=== PATIENT | male | born 1950 | race Two or more races ===

== ENCOUNTER 2020-09-22 15:24 | Emergency (ER) | payer OTHER, SELFPAY ==
--- NOTE | ~2020-09-22 | XR_ITS ---
EXAMINATION: XR CHEST CLINICAL INFORMATION: Shortness of breath COMPARISON: September 13, 2017 TECHNIQUE: AP portable view of the chest was obtained. FINDINGS: There is bilateral chronic apical pleural-parenchymal scarring. There is chronic interstitial lung disease present bilaterally. No definite acute parenchymal disease identified. No pneumothorax or pleural effusion. Heart normal size. No evidence of pulmonary edema. Multiple old right-sided rib fractures evident. XR/XR chest 1V IMPRESSION: Chronic interstitial lung disease without acute confluent disease identified.
[2020-09-22 15:32] VITALS: BP 125/61; PULSE 88; RESP 18; TEMP 36.6; O2SAT 95; O2SAT 97; BMI 23.8
--- NOTE | 2020-09-22 15:54 | ED_ITS ---
HPI - General Adult General Chief complaint: General Medical Stated complaint: pt needs home oxygen Time Seen by Provider: 09/22/20 15:54 Source: patient Mode of arrival: EMS Limitations: language barrier History of Present Illness HPI narrative: 70 y/o male with history of COVID-19 in March 2020 with history of ?empyema s/p chest tube and possible VATS?, s/p tracheostomy now decannulated, chronic hypoxic respiratory failure on 2L NC who presents to the ER via EMS with reports of SOB since yesterday. He is here from [place] visiting his son until October 08. He states yesterday his small oxygen machine broke and since then he has been SOB. He called 911 today to come to the hospital for evaluation. SpO2 97% for EMS on arrival. He reports ESCALONA and SOB since yesterday. He denies fevers but admits to chills. No cough, no phlegm. No N/V/D or abdominal pain. MD complaint: SOB Onset (ago): day(s) Location: chest Radiation: non-radiation Severity: moderate Pain Consistency: intermittent Relieving factors: rest Exacerbating factors: movement Associated symptoms: shortness of breath Treatments prior to arrival: none Related Data Allergies Allergy/AdvReac Type Severity Reaction Status Date / Time No Known Allergies [NKA] Allergy Unverified 09/21/20 11:14 Review of Systems Review of Systems: Constitutional: No Fever, No Chills Eyes: No Eye Pain, No Swelling, No Redness Cardiovascular: No Chest Pain, + SOB, No Orthopnea, No Edema Respiratory: No Cough, No Sputum, No Wheezing, + dyspnea Gastrointestinal: No Nausea, No Vomiting, No Diarrhea, No abdominal Pain Musculoskeletal: No joint pain, No Myalgias Skin: No Skin Lesions, No rash Neuro: No Weakness, No Numbness, No Dizziness, No Headache Psych: + Anxiety/Panic PMFSH Social History Social History (System 09/21/20 @ 11:14 by Ania Vazquez) Advance Directives: No Advance Directives Information Provided: No Physical Exam Vital Signs: Vital Signs: Last Vital Signs Temp 97.9 F 09/22/20 15:32 Pulse 88 09/22/20 15:32 Resp 18 09/22/20 15:32 BP 125/61 09/22/20 15:32 Pulse Ox 95 09/22/20 15:32 Body Mass Index 23.8 Appearance: Alert. Oriented X3. No acute distress. Eyes: Pupils equal, round and reactive to light. ENT: Pharynx normal. Neck: Normal inspection. Neck supple. CVS: Normal heart rate and rhythm. Pulses normal. Respiratory: Mild respiratory distress, dyspneic when speaking, speaks very loudly. Breath sounds normal, no distress when not speaking Abdomen: Soft and nontender. +BS x4 Skin: Skin warm and dry. Normal skin color. Normal skin turgor. No rashes. Extremities: No lower extremity edema. Neuro: Oriented X 3. No motor deficit. No sensory deficit. Course Course Course Narrative: 70 y/o male presenting with SOB in the setting of his home oxygen breaking. No hypoxia. Will get CXR and EKG. Son called to bring tank in for evaluation. Spoke with Weight Reduction Specialist who is going to reach out to company in [place] who provided the DME. RT is aware of patient as well. No wheezing on examination, not in COPD Exacerbation. Reevaluation(s) Reevaluation #1: RT, CM and public health analyst at the bedside - patient has a oxygen concentration that is breath initiated. He was instructed on proper use and it was infact functioning properly. He is wearing the device now and SpO2 98%. He feels better. CXR complete. Reevaluation #2: CXR with ILD findings, no acute infiltrate. EKG without ST elevations - no chest pain. O2 machine is functioning now and patient feels much better. He is stable for discharge home. Patient and his son have been educated on the use of his concentrator. Stable for d/c. Critical Care Time Critical Care Time Critical Care Time: No Discharge Plan Discharge Clinical Impression: Shortness of breath Patient Disposition: Home, Self-Care Instructions: Using Oxygen at Home (ED) Additional Instructions: Use your oxygen concentrator as directed. It works when you take in breaths, that is when it provides oxygen. If you become short of breath or develop chest pain, call 911 or come back to the ER for further evaluation.
--- NOTE | 2020-09-22 15:55 | ECG_ITS ---
Test Reason : DYSPNEA Blood Pressure : / mmHG Vent. Rate : 077 BPM Atrial Rate : 077 BPM P-R Int : 140 ms QRS Dur : 142 ms QT Int : 414 ms P-R-T Axes : 067 086 059 degrees QTc Int : 468 ms Normal sinus rhythm Right bundle branch block Abnormal ECG When compared with ECG of 10-MAR-2007 12:16, Right bundle branch block is now Present Referred By: Shweta Morin Electronically Signed By:IVA SHOOK
--- NOTE | 2020-09-22 16:26 | MHC.CM.ED ---
CM met with son and patient at request of Shweta Mayfield. Pt is visiting from [place] and came to the ED because his portable O2 was not working. Son states when you turn on the machine, no oxygen flows from it. CM called [employer] [facility] in [place] which services the machine- [employer]([id number]) -portable oxygen concentrator, and spoke to artist's representative who told me the oxygen concentrator is only triggered when the pt takes a breath through his nose. It is breath attenuated. This is a common problem for patients who are on a continuous concentrator at home, as they are used to a steady flow of oxygen, RT was present for the call and understands the process. CM, RT and news commentator met with pt and his son and explained just how the machine works. Place nasal cannula on pt and instructed pt to breath through his nose. Concentration is working properly now.This was explained to pt and his son via an news commentator. CM following for d/c needs.
--- NOTE | 2020-09-22 17:19 | MHC.CM.ED ---
Pt called CM to his room and said his machine had an alarm. CM noted the alarm to read replace Columns . CM again called [employer] [facility], who assured me that the concentrator can work effectively for 2-4 weeks once that replace columns alert comes on. Pt tells CM that alarm came on last night, 09/21. Company stated when pt returns to [place] on 10/08, he needs to bring his machine to the company for repair. Explained all this to patient and son via contact center associate. They both acknowledge understanding. Pt d/c home with son.
== END 2020-09-22 16:56 | disposition home or self-care (01) ==
PROVIDERS: Emergency Provider Emergency Medicine
DX: R06.02 Shortness of breath (principal); Z99.81 Dependence on supplemental oxygen; Z79.899 Other long term (current) drug therapy
CPT/HCPCS: 71045; 93005; 99283

== ENCOUNTER 2022-10-23 21:54 | Emergency (ER) | payer OTHER, SELFPAY ==
--- NOTE | ~2022-10-23 | XR_ITS ---
EXAMINATION: PORTABLE CHEST 1 VIEW CLINICAL INFORMATION: sob cough. COMPARISON: No recent pertinent prior studies are available for comparison. TECHNIQUE: Portable frontal view of the chest was obtained. FINDINGS: Lungs well-expanded. Coarse reticular markings are seen with patchy airspace disease bilaterally left more than right. Although this could be chronic in nature, superimposed acute on chronic infectious etiology could have a similar appearance and should be clinically correlated. If no prior films are available for comparison, consider short interval follow-up chest x-ray. No significant effusion, overt edema, or pneumothorax. Cardiac and mediastinal silhouettes within normal limits for size. No acute bony abnormality. XR/XR chest 1V IMPRESSION: Although there are chronic appearing changes present, there is patchy airspace disease bilaterally left more than right. Acute on chronic infectious etiology could have a similar appearance and should be clinically correlated. If no prior films are available, consider short interval follow-up chest x-ray.
[2022-10-23 22:00] VITALS: BP 147/66; BP 150/88; PULSE 86; PULSE 87; RESP 20; TEMP 38.1; O2SAT 95; O2SAT 96; BMI 25.8
[2022-10-23 22:14] VITALS: BP 154/69; PULSE 83; RESP 15; TEMP 38.1; O2SAT 14
--- NOTE | 2022-10-23 22:14 | ED.CHESTPAIN ---
HPI - Chest Pain General Chief Complaint: Chest Pain Stated Complaint: sob Time Seen by Provider: 10/23/22 22:11 Source: patient Mode of arrival: EMS Limitations: no limitations History of Present Illness HPI narrative: Patient with history of COPD still a smoker lives in [facility] 3 days ago complaining of cough with mucopurulent with chest pain while coughing had low-grade fever 100.5 degrees with chills will have a chronic history of frequent bronchitis. Chest pain is while coughing no additional pain no diaphoresis no other family member sick Related Data Previous Rx's Medication Instructions Recorded cefuroxime axetil 500 mg tablet 500 mg PO BID #20 tabs 10/24/22 codeine 10 mg-guaifenesin 100 mg/5 10 ml PO Q6H PRN cough #237 mL 10/24/22 mL oral liquid dexamethasone 6 mg tablet 6 mg PO DAILY 6 days #6 tabs 10/24/22 doxycycline hyclate 100 mg tablet 100 mg PO BID #20 tabs 10/24/22 Allergies Allergy/AdvReac Type Severity Reaction Status Date / Time No Known Allergies Allergy Verified 10/23/22 22:15 Review of Systems Review of Systems: Yes all other systems are reviewed and are negative [facility] Past Medical History Medical History Bronchitis COPD (chronic obstructive pulmonary disease) Diabetes mellitus, type 2 Pneumonia Social History Social History Alcohol intake: never Smoked in Last 30 Days: No Use of substances other than those prescribed or required for medical reasons: No Advance Directives: No Advance Directives Information Provided: No Physical Exam Vital Signs: Vital Signs: Last Vital Signs Temp 99.6 F 10/24/22 00:40 Pulse 79 10/24/22 02:00 Resp 18 10/24/22 02:00 BP 122/72 10/24/22 02:00 Pulse Ox 94 10/24/22 02:00 O2 Del Method Room Air 10/24/22 00:40 O2 Flow Rate 4 10/23/22 23:12 BMI result Body Mass Index 25.8 Appearance: Alert. Oriented X3. No acute distress. ENT: Pharynx normal. Oral Mucosa moist Neck: Normal inspection. Neck supple. CVS: Normal heart rate and rhythm. Pulses normal. Respiratory: No respiratory distress. Equal air entry bilateral, bilateral wheezing with occasional crackle Abdomen: Soft and nontender. Bowel sounds are present, no mass palpable, no CVA tenderness Skin: Skin warm and dry. Normal skin color. Normal skin turgor. Extremities: No lower extremity edema. No calf tenderness Neuro: Oriented X 3. No motor deficit. Medications Administered Discontinued Medications Generic Name Dose Route Start Last Admin Trade Name Ramiroq PRN Reason Stop Dose Admin Acetaminophen 650 mg 10/23/22 22:16 10/23/22 23:40 Acetaminophen 325 Mg Tablet PO 10/23/22 22:17 650 mg ONCE ONE Administration Dexamethasone Sodium Phosphate 10 mg 10/24/22 01:56 10/24/22 02:07 Dexamethasone Sod Phosphate 10 Mg/Ml Vial IVPUSH 10/24/22 01:57 10 mg ONCE ONE Administration Ceftriaxone Sodium 1 gm/ 50 mls @ 100 mls/hr 10/23/22 22:16 10/24/22 00:50 Sodium Chloride IV 10/23/22 22:45 Infused ONCE ONE Infusion Medical Decision Making Medical Decision Making [facility] Narrative: Patient with COPD came for ring cough low-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 Saturating 94% on room air. Discharge patient home on Decadron antibiotics and cough syrup advised to continue his nebulizing machine Lab Data [facility] Lab Attestation statement: I reviewed the patient's lab results. 10/23/22 22:44 10/23/22 22:46 Labs: Lab Results 10/23/22 10/23/22 10/23/22 Range/Units 22:44 22:45 22:45 WBC 9.8 (4.8-10.8) X10*3/uL RBC 5.29 (4.60-5.80) X10*6/uL Hgb 15.7 (14.0-18.0) g/dl Hct 46.5 (42.0-52.0) % MCV 87.9 (80.0-98.0) fL MCH 29.7 (27.0-33.0) pg MCHC 33.8 (31.0-36.0) g/dl RDW 14.8 (11.0-16.0) % Plt Count 101 L (160-400) X10*3/uL MPV 10.5 (9.4-12.4) fL Immature Gran % (Auto) 0.4 (0.0-0.4) % Neut % (Auto) 76.8 H (45-73) % Lymph % (Auto) 10.9 L (20-40) % [place] % (Auto) 11.6 H (2-11) % Eos % (Auto) 0.1 (0-4) % Baso % (Auto) 0.2 (0-2) % Lymph # (Auto) 1.1 L (1.2-4.9) X10*3/uL [place] # (Auto) 1.1 (0.1-1.2) X10*3/uL Eos # (Auto) 0.0 (0.0-0.4) X10*3/uL Baso # (Auto) 0.0 (0.0-0.2) X10*3/uL Abs Immat Gran (auto) 0.04 H (0.00-0.03) X10*3/uL Absolute Neuts (auto) 7.5 (2.0-8.3) x10*3/uL Absolute Nucleated RBC 0.000 (0.0-0.012) X10*3/uL Nucleated RBC % (auto) 0.0 (0.0-0.2) /100WBC PT 13.8 H (10.0-13.1) SEC INR 1.2 H (0.9-1.1) Sodium (135-145) mmol/L Potassium (3.3-5.1) mmol/L Chloride (96-108) mmol/L Carbon Dioxide (22-29) mmol/L Anion Gap (12-20) BUN (9-16) mg/dL Creatinine (0.5-1.4) mg/dL Estim Creat Clear Calc Estimated GFR Random Glucose (60-115) mg/dL Lactic Acid (0.5-2.0) mmol/L Calcium (8.4-10.2) mg/dL Total Bilirubin (0.0-1.0) mg/dL AST (5-37) U/L ALT (0-40) U/L Alkaline Phosphatase (39-117) U/L Troponin I High Sens 4.4 (<3.5-35.0) ng/L B-Natriuretic Peptide (<100) pg/mL Total Protein (6.5-8.0) g/dL Albumin (3.5-5.0) g/dL COVID-19 (KAY) (Negative) COVID-19 Clin Com 10/23/22 10/23/22 10/23/22 Range/Units 22:46 22:46 22:46 WBC (4.8-10.8) X10*3/uL RBC (4.60-5.80) X10*6/uL Hgb (14.0-18.0) g/dl Hct (42.0-52.0) % MCV (80.0-98.0) fL MCH (27.0-33.0) pg MCHC (31.0-36.0) g/dl RDW (11.0-16.0) % Plt Count (160-400) X10*3/uL MPV (9.4-12.4) fL Immature Gran % (Auto) (0.0-0.4) % Neut % (Auto) (45-73) % Lymph % (Auto) (20-40) % [place] % (Auto) (2-11) % Eos % (Auto) (0-4) % Baso % (Auto) (0-2) % Lymph # (Auto) (1.2-4.9) X10*3/uL [place] # (Auto) (0.1-1.2) X10*3/uL Eos # (Auto) (0.0-0.4) X10*3/uL Baso # (Auto) (0.0-0.2) X10*3/uL Abs Immat Gran (auto) (0.00-0.03) X10*3/uL Absolute Neuts (auto) (2.0-8.3) x10*3/uL Absolute Nucleated RBC (0.0-0.012) X10*3/uL Nucleated RBC % (auto) (0.0-0.2) /100WBC PT (10.0-13.1) SEC INR (0.9-1.1) Sodium 138 (135-145) mmol/L Potassium 3.4 (3.3-5.1) mmol/L Chloride 104 (96-108) mmol/L Carbon Dioxide 25 (22-29) mmol/L Anion Gap 12 (12-20) BUN 11 (9-16) mg/dL Creatinine 0.89 (0.5-1.4) mg/dL Estim Creat Clear Calc 68.6 Estimated GFR > 60 Random Glucose 156 H (60-115) mg/dL Lactic Acid (0.5-2.0) mmol/L Calcium 8.9 (8.4-10.2) mg/dL Total Bilirubin 1.2 H (0.0-1.0) mg/dL AST 38 H (5-37) U/L ALT 48 H (0-40) U/L Alkaline Phosphatase 79 (39-117) U/L Troponin I High Sens (<3.5-35.0) ng/L B-Natriuretic Peptide 62 (<100) pg/mL Total Protein 7.7 (6.5-8.0) g/dL Albumin 4.0 (3.5-5.0) g/dL COVID-19 (KAY) Positive A (Negative) COVID-19 Clin Com See Note 10/23/22 10/24/22 Range/Units 23:05 00:56 WBC (4.8-10.8) X10*3/uL RBC (4.60-5.80) X10*6/uL Hgb (14.0-18.0) g/dl Hct (42.0-52.0) % MCV (80.0-98.0) fL MCH (27.0-33.0) pg MCHC (31.0-36.0) g/dl RDW (11.0-16.0) % Plt Count (160-400) X10*3/uL MPV (9.4-12.4) fL Immature Gran % (Auto) (0.0-0.4) % Neut % (Auto) (45-73) % Lymph % (Auto) (20-40) % [place] % (Auto) (2-11) % Eos % (Auto) (0-4) % Baso % (Auto) (0-2) % Lymph # (Auto) (1.2-4.9) X10*3/uL [place] # (Auto) (0.1-1.2) X10*3/uL Eos # (Auto) (0.0-0.4) X10*3/uL Baso # (Auto) (0.0-0.2) X10*3/uL Abs Immat Gran (auto) (0.00-0.03) X10*3/uL Absolute Neuts (auto) (2.0-8.3) x10*3/uL Absolute Nucleated RBC (0.0-0.012) X10*3/uL Nucleated RBC % (auto) (0.0-0.2) /100WBC PT (10.0-13.1) SEC INR (0.9-1.1) Sodium (135-145) mmol/L Potassium (3.3-5.1) mmol/L Chloride (96-108) mmol/L Carbon Dioxide (22-29) mmol/L Anion Gap (12-20) BUN (9-16) mg/dL Creatinine (0.5-1.4) mg/dL Estim Creat Clear Calc Estimated GFR Random Glucose (60-115) mg/dL Lactic Acid 2.6 H* 1.5 (0.5-2.0) mmol/L Calcium (8.4-10.2) mg/dL Total Bilirubin (0.0-1.0) mg/dL AST (5-37) U/L ALT (0-40) U/L Alkaline Phosphatase (39-117) U/L Troponin I High Sens (<3.5-35.0) ng/L B-Natriuretic Peptide (<100) pg/mL Total Protein (6.5-8.0) g/dL Albumin (3.5-5.0) g/dL COVID-19 (KAY) (Negative) COVID-19 Clin Com Discharge Plan Discharge Clinical Impression: COVID-19, Acute bronchitis Patient Disposition: Home, Self-Care Instructions: Chronic Bronchitis (ED), COVID-19 (Coronavirus Disease 2019) (ED) Additional Instructions: Continue to use your inhaler 2 puffs every 4-6 hours as needed Social distancing has advised Decadron and cough drops as prescribed Antibiotic as prescribed Follow your PCP if not better or report to the ER if increased shortness of breath Prescriptions: New dexamethasone 6 mg tablet 6 mg PO DAILY 6 Days Qty: 6 0RF codeine-guaifenesin 10-100 mg/5 mL liquid 10 ml PO Q6H PRN (Reason: cough) Qty: 237 0RF cefuroxime axetil 500 mg tablet 500 mg PO BID Qty: 20 0RF doxycycline hyclate 100 mg tablet 100 mg PO BID Qty: 20 0RF
[2022-10-23 22:37] VITALS: PULSE 84; RESP 24; O2SAT 94
[2022-10-23 22:51] LABS: MANUAL DIFF FLAG NO
[2022-10-23 22:58] LABS: Basophils Percent Auto 0.2 % (0-2); Eosinophils Percent Auto 0.1 % (0-4); Hematocrit 46.5 % (42.0-52.0); Hemoglobin 15.7 g/dl (14.0-18.0); Imm Gran Abs Auto 0.04 X10*3/uL (0.00-0.03); Imm Gran Pct Auto 0.4 % (0.0-0.4); Lymphocytes Absolute Auto 1.1 X10*3/uL (1.2-4.9); Lymphocytes Percent Auto 10.9 % (20-40); Mean Corpuscular HGB Conc 33.8 g/dl (31.0-36.0); Mean Corpuscular Hemoglobin 29.7 pg (27.0-33.0); Mean Corpuscular Volume 87.9 fL (80.0-98.0); Mean Platelet Volume 10.5 fL (9.4-12.4); Monocytes Absolute Auto 1.1 X10*3/uL (0.1-1.2); Monocytes Percent Auto 11.6 % (2-11); Neutrophils Absolute Auto 7.5 x10*3/uL (2.0-8.3); Neutrophils Percent Auto 76.8 % (45-73); Platelet Count 101 X10*3/uL (160-400); Red Blood Count 5.29 X10*6/uL (4.60-5.80); Red Cell Distribution Width 14.8 % (11.0-16.0); White Blood Count 9.8 X10*3/uL (4.8-10.8)
[2022-10-23 23:00] LABS: INTERNATIONAL NORM RATIO 1.2 (0.9-1.1); Prothrombin Time 13.8 SEC (10.0-13.1)
[2022-10-23 23:11] LABS: COVID-19 Test Positive (Negative); IDNOW Serial# BCCEAD1C
[2022-10-23 23:12] VITALS: BP 167/66; PULSE 88; RESP 25; TEMP 38.7; O2SAT 92
[2022-10-23 23:14] LABS: Alanine Aminotransferase 48 U/L (0-40); Alkaline Phosphatase 79 U/L (39-117); Anion Gap 12 (12-20); Aspartate Amino Transferase 38 U/L (5-37); Bilirubin Total 1.2 mg/dL (0.0-1.0); Blood Urea Nitrogen 11 mg/dL (9-16); Calcium 8.9 mg/dL (8.4-10.2); Carbon Dioxide 25 mmol/L (22-29); Chloride 104 mmol/L (96-108); Creatinine Clr Calc Pharmacy 68.6; Estimated Glomerular Filt Rate > 60; Glucose Random 156 mg/dL (60-115); Potassium 3.4 mmol/L (3.3-5.1); Sodium 138 mmol/L (135-145); Total Protein 7.7 g/dL (6.5-8.0)
[2022-10-23 23:20] LABS: B Type Natriuretic Peptide 62 pg/mL (<100)
[2022-10-23 23:20] LABS: Troponin-I High Sensitivity 4.4 ng/L (<3.5-35.0)
[2022-10-23] MEDS: cefTRIAXone sodium 1 GM in 0.9 % Sodium Chloride 50 ML IV (23:39)
[2022-10-23 23:40] LABS: Lactic Acid 2.6 mmol/L (0.5-2.0)
[2022-10-23] MEDS: Acetaminophen 325 MG TABLET 650 MG PO (23:40)
--- OUTSIDE RECORDS SUMMARY | 2022-10-24 00:08 | XMS_ITS ---
Care Plan - [facility] Created on: October 24, 2022 oCsta Jnoes : 1950 Sex: Male Author Name Unknown Address [address] [place] [phone] Phone Organization [facility] Address [address], [place] [phone] Phone Care Team Providers Care Speech Pathologist Name Role Phone Rin HIRSCH, Irma Whipple Unavailable [phone]
--- OUTSIDE RECORDS SUMMARY | 2022-10-24 00:08 | XMS_ITS | Clinical Summary ---
Author Name Unknown Address [address], [place] [id number] Phone Organization [facility] Address [address], [place] [phone] Phone Care Team Providers Care Broke Worker Name Role Phone Americo Gar MDah Sole Unavailable [phone] Reason for Visit and Chief Complaint [Patient Encounter] Plan of Treatment No Plan of Treatment Recorded Assessments Includes: Assessments from this encounter No Assessments Recorded Medical Equipment - Implanted Devices Includes: Current Devices No Medical Equipment Recorded Medications Administered Includes: Administered Medications from this encounter No Administered Medications Recorded Results Includes: Results discussed during this encounter No Results Recorded For Specified Dates History of Present Illness Includes: History of Present Illness from this encounter No History of Present Illness Recorded Social History No Social History Recorded - Smoking Status Unknown Medical History Includes: Medical History addressed during this encounter No Medical History Recorded Family History Includes: Family History addressed during this encounter No Family History Recorded Review of Systems Includes: Review of Systems from this encounter No Review of Systems Recorded Mental Status Includes: Mental Status from this encounter No Mental Status Recorded Functional Status Includes: Functional Status from this encounter No Functional Status Recorded Physical Exam Includes: Physical Exam from this encounter No Physical Exam Recorded Encounters Encounter Provider Location Date Check-In Time Check- Out Time Diagnosis [Patient Encounter] Colin Ferreira MD [facility] 1 12:00AM 11:59PM Insurance Includes: Active Insurance Policies Plan Name Member ID Group # Subscriber Relationship Effect stacy Dates 1 - [employer] [id number] Costa Waters Self Clinical Notes Includes: Clinical Notes from this encounter No Clinical Notes Recorded
--- OUTSIDE RECORDS SUMMARY | 2022-10-24 00:08 | XMS_ITS | Clinical Summary ---
Author Name Unknown Address [address], [place] [phone] Phone Organization [facility] Address [address], [place] [phone] Phone Care Team Providers Care Claims Associate Name Role Phone Americo Gar MDah Sole Unavailable [phone] Reason for Visit and Chief Complaint [Patient [...] Time Diagnosis [Patient Encounter] Colin Ferreira MD [facility] 12:00AM 11:59PM Insurance Includes: Active Insurance Policies Plan Name Member ID Group # Subscriber Relationship Effect stacy Dates 1 - [employer] [id number] Costa Waters Self Clinical Notes Includes: Clinical Notes from this encounter No Clinical Notes Recorded
--- OUTSIDE RECORDS SUMMARY | 2022-10-24 00:08 | XMS_ITS | Clinical Summary ---
Author Name Unknown Address [address], [place] [phone] Phone Organization [facility] Address [address], [place] [phone] Phone Care Team Providers Care Education Faculty Member Name Role Phone Americo Gar MDah Sole Unavailable [phone] Reason for Visit and Chief Complaint [Patient [...] Time Diagnosis [Patient Encounter] Colin Ferreira MD [facility] 12:00AM 11:59PM Insurance Includes: Active Insurance Policies Plan Name Member ID Group # Subscriber Relationship Effect stacy Dates 1 - [employer] [id number] Costa Waters Self Clinical Notes Includes: Clinical Notes from this encounter No Clinical Notes Recorded
--- OUTSIDE RECORDS SUMMARY | 2022-10-24 00:08 | XMS_ITS ---
Author Name Unknown Address [address], [place] [phone] Phone Organization [facility] Address [address], [place] [phone] Phone Care Team Providers Care Help Desk Support Specialist Name Role Phone Rin HIRSCH, Iram Whipple Unavailable [phone] Plan of Treatment No Plan of Treatment Recorded Assessments Includes: Assessments for all patient encounters No Assessments Recorded Medical Equipment - Implanted Devices Includes: Current and historical Devices No Medical Equipment Recorded Medications Administered Includes: Administered Medications in patient's chart No Administered Medications Recorded Results Includes: Results from 10/24/2021 through 10/24/2022 No Results Recorded For Specified Dates History of Present Illness History of Present Illness not supported for this document type No History of Present Illness Recorded Social History No Social History Recorded - Smoking Status Unknown Medical History Includes: Medical History in patient's chart No Medical History Recorded Family History Includes: Family History in patient's chart No Family History Recorded Review of Systems Review of Systems not supported for this document type No Review of Systems Recorded Mental Status No Mental Status Recorded Functional Status No Functional Status Recorded Physical Exam Physical Exam not supported for this document type No Physical Exam Recorded Insurance Includes: Active Insurance Policies Plan Name Member ID Group # Subscriber Relationship Effect stacy Dates 1 - [employer] [id number] Costa Waters Self Clinical Notes Includes: Signed Clinical Notes starting from 04/27/2022 No Clinical Notes Recorded
--- OUTSIDE RECORDS SUMMARY | 2022-10-24 00:08 | XMS_ITS | Clinical Summary ---
Author Name Unknown Address [address] [place], [place] [phone] Phone Organization [facility] Address [address], [place] [phone] Phone Care Team Providers Care Civil Geotechnical Engineer Name Role Phone Americo Gar MDah Sole Unavailable [phone] Reason for Visit and Chief Complaint [Patient [...] Time Diagnosis [Patient Encounter] Colin Ferreira MD [facility] 1 12:00AM 11:59PM Insurance Includes: Active Insurance Policies Plan Name Member ID Group # Subscriber Relationship Effect stacy Dates 1 - [employer] [id number] Costa Waters Self Clinical Notes Includes: Clinical Notes from this encounter No Clinical Notes Recorded
--- OUTSIDE RECORDS SUMMARY | 2022-10-24 00:08 | XMS_ITS | Clinical Summary ---
Author Name Unknown Address [address] [place], [place] [phone] Phone Organization [facility] Address [address], [place] [phone] Phone Care Team Providers Care Video Library Assistant Name Role Phone Americo Gar MDah Sole Unavailable [phone] Reason for Visit and Chief Complaint [Patient [...] Time Diagnosis [Patient Encounter] Colin Ferreira MD [facility] 12:00AM 11:59PM Insurance Includes: Active Insurance Policies Plan Name Member ID Group # Subscriber Relationship Effect stacy Dates 1 - [employer] [id number] Costa Waters Self Clinical Notes Includes: Clinical Notes from this encounter No Clinical Notes Recorded
[2022-10-24 00:40] VITALS: BP 113/69; PULSE 91; RESP 20; TEMP 37.6; O2SAT 93
[2022-10-24 01:11] LABS: Lactic Acid 1.5 mmol/L (0.5-2.0)
[2022-10-24 01:11] LABS: Reflex Lactate? Lactic Acid Added
[2022-10-24 02:00] VITALS: BP 122/72; PULSE 79; RESP 18; O2SAT 94
[2022-10-24] MEDS: dexAMETHasone sod phosphate 10 MG/ML VIAL IVPUSH (02:07)
--- NOTE | 2022-10-24 02:12 | PC.NURSE ---
Son called in preparation for discharge.
== END 2022-10-24 02:47 | disposition home or self-care (01) ==
PROVIDERS: Emergency Provider Internal Medicine
DX: U07.1 COVID-19 (principal); J20.9 Acute bronchitis, unspecified; J44.9 Chronic obstructive pulmonary disease, unspecified; R50.9 Fever, unspecified; E11.9 Type 2 diabetes mellitus without complications; F17.210 Nicotine dependence, cigarettes, uncomplicated; Z79.899 Other long term (current) drug therapy
CPT/HCPCS: 36415; 71045; 80053; 83605; 83880; 84484; 85025; 85610; 87040; 87635; 94640; 96365; 96375; 99284; 99285; J0696; J1100

== ENCOUNTER 2023-06-23 14:50 | Emergency (ER) | payer OTHER, SELFPAY ==
[2023-06-23 14:54] VITALS: BP 139/67; PULSE 87; RESP 20; TEMP 36.6; O2SAT 94; BMI 25.8
--- NOTE | 2023-06-23 14:59 | PC.NURSE ---
Pt reently moved, unable to secure new PCM. Out of the following meds - pt states COPD is not well controlled. Requesting refill of the following meds: Latanoprost; Metformin; Paroxetine; Prednisone; Albuterol; Quetapine; Oxycodone
--- NOTE | 2023-06-23 15:59 | ED.GENADULT ---
HPI - General Adult General Chief complaint: General Medical Stated complaint: COPD- out of meds Time Seen by Provider: 06/23/23 15:14 Source: patient, family (granddaughter) and automotive parts interpreter (English) Mode of arrival: ambulatory Limitations: no limitations History of Present Illness HPI narrative: 73 year old male with pmhx significant for glaucoma, depression, COPD on chronic 2L oxygen, and diabetes presents to the ED today requesting medication refill. He states that he recently arrived to [place] from [place] and has been unable to get in to see a PCP. He admits he took the last dose of all his medications 5 days ago on 06/23/23. He is currently requesting refills of: Latanoprost 0.005% for glaucoma, Metformin HCL 1000mg bid for diabetes, paroxetine 20mg qd for depression, prednisone 10mg qd for COPD, albuterol sulfate 0.083% for COPD, quetiapine fumarate 200mg qd for sleep, and oxycodone HCL 10 mg prn for lung pain. He has paper scripts with him which show last refill dates. His granddaughter at bedside states that he was able to schedule an appointment with a new PCP however it is not until July (2 months away). He denies any physical complaints at present. science interpreter utilized during visit to communicate with patient. Related Data Previous Rx's Medication Instructions Recorded cefuroxime axetil 500 mg tablet 500 mg PO BID #20 tabs 10/24/22 codeine 10 mg-guaifenesin 100 mg/5 10 ml PO Q6H PRN cough #237 mL 10/24/22 mL oral liquid dexamethasone 6 mg tablet 6 mg PO DAILY 6 days #6 tabs 10/24/22 doxycycline hyclate 100 mg tablet 100 mg PO BID #20 tabs 10/24/22 albuterol sulfate 90 mcg/actuation 2 inh inhalation Q6H PRN shortness 06/23/23 aerosol inhaler of breath or wheezing 30 days #8.5 grams latanoprost 0.005 % eye drops 1 drp ophthalmic (eye) DAILY #2.5 06/23/23 mL metformin 1,000 mg tablet 1,000 mg PO BID 30 days #60 tabs 06/23/23 oxycodone 5 mg capsule 5 mg PO Q8H PRN pain (scale score 06/23/23 7-10) 3 days #9 caps paroxetine HCl 20 mg tablet 20 mg PO DAILY 30 days #30 tabs 06/23/23 prednisone 10 mg tablet 10 mg PO DAILY 30 days #30 tabs 06/23/23 quetiapine 200 mg tablet 200 mg PO BEDTIME 30 days #30 tabs 06/23/23 Allergies Allergy/AdvReac Type Severity Reaction Status Date / Time No Known Allergies [NKA] Allergy Verified 06/23/23 14:53 Review of Systems Review of Systems: Constitutional: No fever, chills, fatigue, night sweats, weight changes ENT/Mouth: No ear pain, hearing loss, nasal congestion, sinus pain, rhinorrhea, sore throat Eyes: No eye pain, swelling, redness, vision changes, discharge Cardio: No chest pain, palpitations, ESCALONA, orthopnea, peripheral edema Pulm: No SOB, cough, sputum, wheezing, dyspnea, hemoptysis GI: No nausea, vomiting, hematemesis, abdominal pain, diarrhea, constipation, hematochezia, melena : No irregular bleeding, dysuria, frequency, urgency, hesitancy, hematuria, flank pain, urinary flow changes, urinary incontinence or retention MSK: No back pain, neck pain, joint pain, myalgias Skin: No lesions, rashes Neuro: No weakness, numbness, paresthesias, LOC, dizziness, headache Psych: No anxiety/panic, depression, SI/HI, AH/VH All other systems reviewed and are negative. [facility] Past Medical History Attestation statement: The following information was validated with the patient. Source: old records reviewed and nursing notes reviewed Medical History Diabetes mellitus, type 2 Bronchitis Pneumonia COPD (chronic obstructive pulmonary disease) Social History Social History Alcohol intake: never Advance Directives: No Advance Directives Information Provided: No Physical Exam ED Vital Signs: Vital Signs - 24 hr 06/23/23 14:54 Temperature 97.9 F Pulse Rate 87 Respiratory Rate 20 Blood Pressure 139/67 Pulse Oximetry 94 Oxygen Delivery Method Room Air BMI result Body Mass Index 25.8 Vital signs wnl. Const General: cooperative, comfortable and no acute distress Nutritional Appearance: average body habitus Orientation/consciousness: patient oriented x3 Limitations: no limitations HENMT Head: Yes normal to inspection, Yes No palpable skull fracture present, Yes normocephalic and Yes atraumatic Eyes General: appearance normal, both eyes and all related structures Conjunctivae: conjunctivae normal Sclerae: sclerae normal Pupils: Equal, round and reactive pupils present Neck Neck: Yes normal visual inspection and Yes no lymphadenopathy Chest Chest palpation & inspection: normal inspection of the chest and normal palpation of entire chest wall Resp Other: + on 2L O2 via nasal cannula Effort & Inspection: normal respiratory effort, able to speak in complete sentences and no respiratory distress Auscultation: clear to auscultation bilaterally Cardio Jugular venous distension: no JVD Rate: regular rate Rhythm: regular rhythm GI Inspection: Yes normal to inspection Palpation (GI): Soft to palpation and nontender Back/Spine/Pelvis Other: No midline spinous tenderness or step off deformity. No paraspinal muscle tenderness. Skin General skin exam: no rashes or lesions noted Neuro Other: + ambulates via wheelchair at baseline General: patient oriented x3 Cranial nerves: Yes Equal, round and reactive pupils present Motor exam (neuro): 5/5 motor strength present throughout Course Course Course Narrative: 1651-- CBC without leukocytosis. No left shift. Slight elevation in RBC/HGB/HCT likely secondary to chronic COPD. Normal renal function. Kidney function wnl. Physical exam benign. > will send 30 day prescription for metformin, latanoprost, paroxetine, albuterol sulfate, quetiapine, and albuterol sulfate. Will send no more than a 3 day prescription for oxycodone. Advised him to follow up with [facility] and referral has been provided. I have also provided him with a referral to a PCP, organizational research consultant and orthopedic coder. > educated patient on prednisone and how this can increase his sugars. he tells me he checks his sugars throughout the day which I advised him to continue doing. > Patient has remained stable throughout ED visit today. Discussed worrisome signs and symptoms and when to return to the ED. All questions answered at this time. Patient is agreeable with disposition and stable for discharge. Medical Decision Making Medical Decision Making [facility] Narrative: 73 year old male with pmhx significant for glaucoma, depression, COPD on chronic 2L oxygen, and diabetes presents to the ED today requesting medication refill. Vital signs stable. He is non toxic appearing and in NAD. Refer to physical exam portion of note for findings. Plan to refill prescriptions pending baseline labs. Differential Diagnosis Differential Diagnoses: The differential diagnosis associated with the presentation includes as above. Admission/Observation Not indicated. Lab Data MDM Lab Attestation statement: I reviewed the patient's lab results. as above. 06/23/23 16:23 06/23/23 16:23 Labs: Lab Results 06/23/23 Range/Units 16:23 WBC 9.1 (4.8-10.8) X10*3/uL RBC 6.14 H (4.60-5.80) X10*6/uL Hgb 18.7 H (14.0-18.0) g/dl Hct 54.0 H (42.0-52.0) % MCV 87.9 (80.0-98.0) fL MCH 30.5 (27.0-33.0) pg MCHC 34.6 (31.0-36.0) g/dl RDW 14.3 (11.0-16.0) % Plt Count 121 L (160-400) X10*3/uL MPV 10.8 (9.4-12.4) fL Immature Gran % (Auto) 0.2 (0.0-0.4) % Neut % (Auto) 63.5 (45-73) % Lymph % (Auto) 22.9 (20-40) % Brooks % (Auto) 10.2 (2-11) % Eos % (Auto) 2.7 (0-4) % Baso % (Auto) 0.5 (0-2) % Lymph # (Auto) 2.1 (1.2-4.9) X10*3/uL Brooks # (Auto) 0.9 (0.1-1.2) X10*3/uL Eos # (Auto) 0.3 (0.0-0.4) X10*3/uL Baso # (Auto) 0.1 (0.0-0.2) X10*3/uL Abs Immat Gran (auto) 0.02 (0.00-0.03) X10*3/uL Absolute Neuts (auto) 5.8 (2.0-8.3) x10*3/uL Absolute Nucleated RBC 0.000 (0.0-0.012) X10*3/uL Nucleated RBC % (auto) 0.0 (0.0-0.2) /100WBC Sodium 143 (135-145) mmol/L Potassium 4.2 (3.3-5.1) mmol/L Chloride 105 (96-108) mmol/L Carbon Dioxide 26 (22-29) mmol/L Anion Gap 16 (12-20) BUN 15 (9-16) mg/dL Creatinine 1.05 (0.5-1.4) mg/dL Estim Creat Clear Calc 57.3 Estimated GFR > 60 Random Glucose 187 H (60-115) mg/dL Calcium 9.7 D (8.4-10.2) mg/dL Magnesium 1.7 (1.6-2.6) mg/dL Total Bilirubin 0.6 (0.0-1.0) mg/dL AST 35 (5-37) U/L ALT 55 H (0-40) U/L Alkaline Phosphatase 99 (39-117) U/L Total Protein 7.9 (6.5-8.0) g/dL Albumin 4.2 (3.5-5.0) g/dL Independent Historian Clinical information obtained from an independent historian. History obtained from or confirmed by: Other (grand daughter) Chronic Conditions Patient?s care impacted by: Diabetes and Other (copd) Social Determinants Patient?s care significantly limited by Social Determinants of Health including: Other Social Determinant of Health Discharge Plan Discharge Clinical Impression: Medication refill Patient Disposition: Home, Self-Care Instructions: Albuterol (By breathing), Prednisone (By mouth), Paroxetine (By mouth), Metformin (By mouth), Latanoprost (Into the eye), Oxycodone, Slow Release (By mouth), Medicine Refill (ED) Additional Instructions: You were provided with 30 day prescriptions for latanoprost, metformin, paroxetine, prednisone, albuterol, and quetiapine. Please monitor your blood sugar at home while taking prednisone. Prednisone can increase your blood sugar. You were provided with a 3 day prescription of oxycodone. You have been provided with a referral to [facility]. Call them to make an appointment. Keep your appointment with your new primary care provider. You have also been provided with a referral to [facility] Primary care to see if you can get an earlier appointment. You have been provided with a referral to a new organizational research consultant and orthopedic coder. You may call them to make an appointment. Return to the ED for new or worsening symptoms. [facility]: [phone] [facility] Primary Care: [phone] [facility] Pulmonology: [phone] [facility] Endocrinology: [phone] Le proporcionaron recetas para 30 d?as de latanoprost, metformina, paroxetina, prednisona, albuterol y quetiapina. Controle chappell nivel de az?car en liya en casa mientras raymond prednisona. La prednisona puede aumentar el nivel de az?car en liya. Le proporcionaron veronica receta de oxicodona para 3 d?as. Se le sam proporcionado veronica derivaci?n al [facility]. Ll?melos para concertar veronica jack. Mantenga chappell jack con chappell nuevo proveedor de atenci?n primaria. Tambi?n se le sam proporcionado veronica derivaci?n a [facility] Primary Care para maia si puede conseguir veronica jack m?s temprana. Se le sam proporcionado veronica derivaci?n a un nuevo neum?logo y endocrin?logo. Puede llamarlos para programar veronica jack. Regrese al servicio de urgencias si los s?ntomas aparecen o empeoran. [facility] de [facility]bo [facility]: [phone] Atenci?n primaria del [facility]: [phone] Neumolog?a [facility]: [phone] Endocrinolog?a [facility]: [phone] Prescriptions: New latanoprost 0.005 % drops 1 drp ophthalmic (eye) DAILY Qty: 2.5 0RF metformin 1,000 mg tablet 1,000 mg PO BID 30 Days Qty: 60 0RF paroxetine HCl 20 mg tablet 20 mg PO DAILY 30 Days Qty: 30 0RF prednisone 10 mg tablet 10 mg PO DAILY 30 Days Qty: 30 0RF albuterol sulfate 90 mcg/actuation HFA aerosol inhaler 2 inh inhalation Q6H PRN (Reason: shortness of breath or wheezing) 30 Days Qty: 8.5 0RF quetiapine 200 mg tablet 200 mg PO BEDTIME 30 Days Qty: 30 0RF oxycodone 5 mg capsule 5 mg PO Q8H PRN (Reason: pain (scale score 7-10)) 3 Days Qty: 9 0RF Rx Instructions: Partial Fill upon patient request. No Action dexamethasone 6 mg tablet 6 mg PO DAILY 6 Days Qty: 6 0RF codeine-guaifenesin 10-100 mg/5 mL liquid 10 ml PO Q6H PRN (Reason: cough) Qty: 237 0RF cefuroxime axetil 500 mg tablet 500 mg PO BID Qty: 20 0RF doxycycline hyclate 100 mg tablet 100 mg PO BID Qty: 20 0RF Referrals: [facility] [Provider Group] [facility] [Provider Group] [facility] [Provider Group] [facility] [Provider Group] Interventions: ED Discharge Assessment Last Done: 06/23/23 17:30 Discharge Date/Time: 06/23/23 17:30 Print Language: English
[2023-06-23 16:27] LABS: MANUAL DIFF FLAG NO
[2023-06-23 16:34] LABS: Basophils Absolute Auto 0.1 X10*3/uL (0.0-0.2); Basophils Percent Auto 0.5 % (0-2); Eosinophils Absolute Auto 0.3 X10*3/uL (0.0-0.4); Eosinophils Percent Auto 2.7 % (0-4); Hemoglobin 18.7 g/dl (14.0-18.0); Imm Gran Abs Auto 0.02 X10*3/uL (0.00-0.03); Imm Gran Pct Auto 0.2 % (0.0-0.4); Lymphocytes Absolute Auto 2.1 X10*3/uL (1.2-4.9); Lymphocytes Percent Auto 22.9 % (20-40); Mean Corpuscular HGB Conc 34.6 g/dl (31.0-36.0); Mean Corpuscular Hemoglobin 30.5 pg (27.0-33.0); Mean Corpuscular Volume 87.9 fL (80.0-98.0); Mean Platelet Volume 10.8 fL (9.4-12.4); Monocytes Absolute Auto 0.9 X10*3/uL (0.1-1.2); Monocytes Percent Auto 10.2 % (2-11); Neutrophils Absolute Auto 5.8 x10*3/uL (2.0-8.3); Neutrophils Percent Auto 63.5 % (45-73); Platelet Count 121 X10*3/uL (160-400); Red Blood Count 6.14 X10*6/uL (4.60-5.80); Red Cell Distribution Width 14.3 % (11.0-16.0); White Blood Count 9.1 X10*3/uL (4.8-10.8)
[2023-06-23 16:42] LABS: Alanine Aminotransferase 55 U/L (0-40); Albumin Level 4.2 g/dL (3.5-5.0); Alkaline Phosphatase 99 U/L (39-117); Anion Gap 16 (12-20); Aspartate Amino Transferase 35 U/L (5-37); Bilirubin Total 0.6 mg/dL (0.0-1.0); Blood Urea Nitrogen 15 mg/dL (9-16); Calcium 9.7 mg/dL (8.4-10.2); Carbon Dioxide 26 mmol/L (22-29); Chloride 105 mmol/L (96-108); Creatinine Clr Calc Pharmacy 57.3; Estimated Glomerular Filt Rate > 60; Glucose Random 187 mg/dL (60-115); Magnesium 1.7 mg/dL (1.6-2.6); Potassium 4.2 mmol/L (3.3-5.1); Sodium 143 mmol/L (135-145); Total Protein 7.9 g/dL (6.5-8.0)
== END 2023-06-23 17:30 | disposition home or self-care (01) ==
PROVIDERS: Physician Assistant Medical; Emergency Provider Emergency Medicine
DX: J44.9 Chronic obstructive pulmonary disease, unspecified (principal); Z99.81 Dependence on supplemental oxygen; Z79.899 Other long term (current) drug therapy; Z76.0 Encounter for issue of repeat prescription
CPT/HCPCS: 36415; 80053; 83735; 85025; 99282; 99283

== ENCOUNTER 2023-06-25 10:42 | Outpatient (AMB) | payer OTHER, SELFPAY ==
--- NOTE | 2023-06-25 10:49 | A.OFFPC_ITS ---
Vital Signs 06/25/23 10:53 Height 5 ft 6 in Weight 162 lb BMI 26.1 BP 144/67 H Blood Pressure Location Lt brachial Position Sitting Respiration 15 Pulse 71 Pulse Source Pulse Oximeter Temp 98.1 F Temp Source Temporal Artery Scan Pulse Oximetry (%) 95 Oxygen Delivery Method Room Air Intake Visit Reasons: est care Intake Note: Patient is here to establish care. Patient would like to discuss RENT AND HOUSING INVESTIGATOR- for showers. Patient needs an RX for adult pull ups. 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 Name: Granddaughter in room Accompanied by: Grand Child Allergies morphine Allergy (Severe, Verified 06/25/23 11:49) Agitated Medication List - Last Reconciled 06/25/23 by Shelia Huber, FRUIT I FARMWORKER- albuterol sulfate 90 mcg/actuation 2 inhalations inhalation Q6H PRN 30 days atorvastatin 10 mg PO DAILY dexamethasone 6 mg PO DAILY 6 days fluticasone propion-salmeterol 230-21 mcg/actuation inhalation latanoprost 0.005% 1 drp ophthalmic (eye) DAILY metformin 1,000 mg PO BID 30 days oxycodone 10 mg PO QID PRN paroxetine HCl 20 mg PO DAILY 30 days prednisone 10 mg PO DAILY 30 days quetiapine 200 mg PO BEDTIME 30 days sitagliptin phosphate (Januvia) 25 mg PO DAILY Tobacco use date assessed: 06/25/23 Fall risk assessment: 2 + Falls in past year Last assessed Fall Risk: 06/25/23 Dental Screening Dental Screen Date: 06/25/23 Did you have a dental visit in the last 12 months?: Yes Did you have a dental problem in the last 6 months where you did not have access to dental care?: No Was dental information given to patient?: Patient has dentist HPI HPI Comments History of Present Illness Details 73-year-old male with diabetes type 2 , COPD O2 dependent on 2 L of oxygen, empyema status post chest tube and VATS, status post tracheostomy now decannulated, interstitial lung disease, status post right-sided rib fractures glaucoma, MDD, urinary incont Specialists Pulmonology [facility] [place] first appt tomorrow Ophthalmology Health maintenance Colonoscopy Diabetic eye exam Flu vaccines reports UTD HGB A1c performed today 8.2% Here today to establish care. Reports just moving here from [place]. Went to [facility] Emergency room on June 23 2023 to have a renewal of his medications. A 30 day prescription was sent in. Labs done 06/23/2023 include a CBC within normal limits, a CMP showing normal electrolytes, normal BUN and creatinine, random glucose of 187, mild elevation in his ALT at 55 Needs new order for home 02. Will obtain from Pul tomorrow Endo - using fingersticks. Needs new glucometer. Interested in CGM . Not interested in endocrinology referral. Managed on metformin as well as Januvia. Needs RX for incont pads to be used on the bed and on furniture. Uses about 3 per day. would like a RENT AND HOUSING INVESTIGATOR. Currently granddaughter is helping to take care of him. Interested in other services that he may be eligible for. [facility] Medical History (Updated 06/25/23 @ 17:56 by Shelia Huber, [facility]) Hernia COVID-19 Diabetes mellitus, type 2 Bronchitis Pneumonia COPD (chronic obstructive pulmonary disease) Surgical History (Updated 06/25/23 @ 11:09 by Tennille Cornelius [facility]) Tympanic tube insertion History of intestinal surgery Family History (Updated 06/25/23 @ 11:10 by Tennille Cornelius CMA) Mother Mental health disorder Brother Substance use disorder Social History (Updated 06/25/23 @ 11:12 by Tennille Cornelius [facility]) Household Members: None Housing: Apartment Alcohol intake: never Patient Tobacco Use Status: Former Tobacco user Cigarette Packs Per Day: 1 Cigarettes Per Day: 1 Years Smoked: 40 e-Cigarette/Vaping Use: Never Used service: No Current occupational status: disabled Current occupational exposures/hazards: No Sexual orientation: Straight/Heterosexual Gender identity: Male Cognitive needs: No Hearing needs: No Vision needs: No Questionnaire PHQ-9 Over the last 2 weeks, how often have you been bothered by any of the following problems? 1. Little interest or pleasure in doing things: nearly every day 2. Feeling down, depressed, or hopeless: more than half the days 3. Trouble falling or staying asleep, or sleeping too much: more than half the days 4. Feeling tired or having little energy: nearly every day 5. Poor appetite or overeating: nearly every day 6. Feeling bad about yourself - or that you are a failure or have let yourself or your family down: several days 7. Trouble concentrating on things, such as reading the newspaper or watching television: more than half the days 8. Moving or speaking so slowly that other people could have noticed. Or the opposite - being so fidgety or restless that you have been moving around a lot more than usual: more than half the days 9. Thoughts that you would be better off or of hurting yourself in some way: not at all Total score: 18 Depression Screening Interpretation: Positive Depression Screening Follow-up: Existing condition Depression Screening Done: Yes 25777 - PHQ-9 Billing: Yes Source: Developed by Drs. Ap Medina, Aidee Emerson, Demetrius Romano and colleagues, with an educational simon from [employer]. Thrive Questionnaire Date Thrive assessed: 06/25/23 I am a: Patient What is your living situation today?: I have a steady place to live Within the past 12 months, did the food you bought not last and you didn't have the money to get more?: Sometimes True Within the past 12 months, did you worry whether your food would run out before you got money to buy more?: Sometimes True Do you have trouble paying for medicines?: No Do you have trouble getting transportation to medical appointments?: Yes Do you have trouble paying your heating and electricity bill?: No Do you have trouble taking care of your child, family member or friend?: Yes Do you have trouble with day-to-day activities such as bathing, preparing meals, shopping, managing finances, etc.?: Yes Are you currently unemployed and looking for a job?: No Are you interested in more education?: Yes Please select the resources that you would like help with: Food, Transportation, Care for elder or disabled and Daily support Currently or been in a relationship where the following occur: no concerns reported THRIVE Score: 3 AUDIT C Alcohol Use Questionnaire (AUDIT-C) 1. How often do you have a drink containing alcohol?: Never 3. How often do you have six or more drinks on one occasion?: Never Total Score: 0 Score Reviewed/Action Taken: Yes BERRY-7 AMB Questionnaire BERRY-7 Date BERRY - 7 assessed: 06/25/23 Feeling nervous, anxious, or on edge: 2 = More than half the days Not being able to stop or control worryin = Nearly every day Worrying too much about different things: 3 = Nearly every day Trouble relaxin = Nearly every day Being so restless that it is hard to sit still: 1 = Several days Becoming easily annoyed or irritable: 2 = More than half the days Feeling afraid as if something awful might happen: 1 = Several days Total BERRY-7 score (0-4 normal; 5-9 mild; 10-14 moderate; 15-21 severe): 15 Source: Developed by Drs. Ap Medina, Aidee Emerson, Demetrius Romano and colleagues, with an educational simon from [employer]. BERRY-7 Assessment Billing BERRY-7 Assessment Tool: BERRY-7 Assessment 36280 Review of Systems Const All systems reviewed & are unremarkable except as noted in HPI and below Physical exam (Primary Care) Vital Signs: Last Vital Signs Temp 98.1 F 06/25/23 10:53 Pulse 71 06/25/23 10:53 Resp 15 06/25/23 10:53 BP 144/67 H 06/25/23 10:53 Pulse Ox 95 06/25/23 10:53 Oxygen Delivery Method Room Air 06/25/23 10:53 BMI result Body Mass Index 26.1 Tobacco/Smoking Status: Tobacco use Status Tobacco use date assessed 06/25/23 06/25/23 11:15 Patient Tobacco Use Status Former Tobacco user 06/25/23 11:15 e-Cigarette/Vaping Use Never Used 06/25/23 11:15 PHQ-9: PHQ-9 Score PHQ-9: Total score 18 06/25/23 12:05 Depression Screening Interpretation: Positive Depression Screening Follow-up: Existing condition Thrive Assessment: Date of Thrive Assessment Date Thrive assessed 06/25/23 06/25/23 11:15 Currently or been in a relationship where the following occur: no concerns reported Const Other: Awake alert oriented accompanied by granddaughter who helps with language barrier Regular rate and rhythm Lung sounds diminished with fine bibasilar crackles throughout Bilateral lower extremities with no edema, decreased pedal pulses, hairless, skin intact Results AMB Hemoglobin A1c AMB Hemoglobin A1c 8.2 % Last Edit by Tennille Cornelius CMA on 06/25/23 12:05 Results Reviewed Results Reviewed: Laboratory Last Values Hgb A1c (Clinic) 8.2 % (4.0-6.0) H 06/25/23 11:47 Assessment and Plan Assessment & Plan (1) Diabetes mellitus type 2 with complications: Comment: HGB A1c 8.2% today. Currently managed on metformin a 1000 mg twice per day which I would like for him to continue along with Januvia 25 mg p.o. daily. I have placed a referral for the diabetic eye exam. I have also sent in a new prescription for a glucometer, test strips, and lancets. He can use this until his D[employer] 3 CGM is processed. I have placed a referral to the nurse navigator to help him in his granddaughter set this up. Code(s): E11.8 - Type 2 diabetes mellitus with unspecified complications (2) Glaucoma due to diabetes mellitus: Comment: Referred to eye doctor. Continue eye drops. Code(s): E11.39 - Type 2 diabetes mellitus with other diabetic ophthalmic complication; H42 - Glaucoma in diseases classified elsewhere (3) Urinary incontinence: Comment: Prescription written for incontinent pads 3 per day. Code(s): R32 - Unspecified urinary incontinence Qualifiers: Urinary Incontinence type: continuous leakage Qualified Code(s): N39.45 - Continuous leakage (4) COPD mixed type: Comment: With chronic respiratory failure with hypoxia on O2 2 L continuously. Referred to [facility] pulmonology. First appointment tomorrow. Currently managed on albuterol, fluticasone propionate salmeterol. Code(s): J44.9 - Chronic obstructive pulmonary disease, unspecified (5) Chronic respiratory failure with hypoxia, on home oxygen therapy: Code(s): J96.11 - Chronic respiratory failure with hypoxia; Z99.81 - Dependence on supplemental oxygen (6) ILD (interstitial lung disease): Comment: I have placed a referral to social science research assistant to help establish care with a [facility] to screen him in for eligible services to include a RENT AND HOUSING INVESTIGATOR, meals on wheels, or the like. Code(s): J84.9 - Interstitial pulmonary disease, unspecified (7) MDD (major depressive disorder), recurrent episode: Comment: Currently maintained on paroxetine 20 mg daily. Continue Code(s): F33.9 - Major depressive disorder, recurrent, unspecified Qualifiers: Major depression episode severity: moderate Qualified Code(s): F33.1 - Major depressive disorder, recurrent, moderate (8) Hyperlipidemia associated with type 2 diabetes mellitus: Comment: Was on atorvastatin 10 mg daily. Has been without since his move from [place] to [place]. We will need to repeat a lipid panel in the future when he is fasting. In the meantime I have restarted the atorvastatin 10 mg daily. Code(s): E11.69 - Type 2 diabetes mellitus with other specified complication; E78.5 - Hyperlipidemia, unspecified Plan This note is constructed using voice recognition software. While every effort has been made to ensure accuracy in mold checker, still errors may have been included Sometimes, these errors may affect the content or meaning of the given sentence . Total time spent caring for the patient today was 60 minutes. This includes time spent before the visit reviewing the chart, time spent during the visit, and time spent after the visit on documentation Orders: Orders AMB Hemoglobin A1c Today E11.9 - Type 2 diabetes mellitus without complications Referrals Senior Developer Referral E11.39 - Type 2 diabetes mellitus with other diabetic ophthalmic complication, E11.8 - Type 2 diabetes mellitus with unspecified comp lications, F33.9 - Major depressive disorder, recurrent, unspecified, H42 - Glaucoma in diseases classified elsewhere, J44.9 - Chronic obstructive pulmonary disease, unspecified, J84.9 - Interstitial pulmonary disease, unspecified, J96.11 - Chronic respiratory failure with hypoxia, R32 - Unspecified urinary incontinence, Z99.81 - Dependence on supplemental oxygen Nurse Navigator Referral E11.8 - Type 2 diabetes mellitus with unspecified complications Ophthalmology Referral E11.39 - Type 2 diabetes mellitus with other diabetic ophthalmic complication, E11.8 - Type 2 diabetes mellitus with unspecified complications, H42 - Glaucoma in diseases classified elsewhere Medications: New blood-glucose meter,continuous (FreeStyle Amadeo 3 [place]) As directed 1 ea 0RF E11.8 - Type 2 diabetes mellitus with unspecified complications blood-glucose sensor (FreeStyle Amadeo 3 Sensor device) As directed 2 ea 11RF E11.8 - Type 2 diabetes mellitus with unspecified complications lancets (FreeStyle Lancets) As directed 100 ea 11RF E11.8 - Type 2 diabetes mellitus with unspecified complications miscellaneous medical supply As directed 100 ea 11RF R32 - Unspecified urinary incontinence blood-glucose meter (FreeStyle Lite Meter kit) As directed 1 ea 0RF E11.8 - Type 2 diabetes mellitus with unspecified complications blood sugar diagnostic (FreeStyle Lite Strips) As directed 100 ea 11RF E11.8 - Type 2 diabetes mellitus with unspecified complications atorvastatin 10 mg PO DAILY 90 tabs 0RF sitagliptin phosphate (Januvia) 25 mg PO DAILY 90 tabs 0RF Changed From metformin 1,000 mg PO BID 30 days 60 tabs 0RF To metformin 1,000 mg PO BID 90 days 180 tabs 0RF From paroxetine HCl 20 mg PO DAILY 30 days 30 tabs 0RF To paroxetine HCl 20 mg PO DAILY 90 days 90 tabs 0RF From quetiapine 200 mg PO BEDTIME 30 days 30 tabs 0RF To quetiapine 200 mg PO BEDTIME 90 days 90 tabs 0RF Coding Level of Care Code Est Pt Level 5 (99806) Diagnoses Diabetes mellitus type 2 with complications E11.8 Glaucoma due to diabetes mellitus E11.39; H42 Continuous leakage of urine N39.45 Urinary Incontinence type: continuous leakage COPD mixed type J44.9 Chronic respiratory failure with hypoxia, on home oxygen therapy J96.11; Z99.81 ILD (interstitial lung disease) J84.9 Moderate episode of recurrent major depressive disorder F33.1 Major depression episode severity: moderate Hyperlipidemia associated with type 2 diabetes mellitus E11.69; E78.5 Additional Codes BERRY-7 Assessment Billing - BERRY-7 Assessment Tool: BERRY-7 Assessment 90261 ([id number])
[2023-06-25 10:53] VITALS: BP 144/67; PULSE 71; RESP 15; TEMP 36.7; O2SAT 95; BMI 26.1
== END 2023-06-25 12:06 | disposition home or self-care (01) ==
PROVIDERS: PCP Nurse Practitioner Family; Visit Provider Nurse Practitioner Family
DX: E11.39 Type 2 diabetes mellitus with other diabetic ophthalmic complication (principal); J44.9 Chronic obstructive pulmonary disease, unspecified; J96.11 Chronic respiratory failure with hypoxia; F33.1 Major depressive disorder, recurrent, moderate; J84.9 Interstitial pulmonary disease, unspecified; Z99.81 Dependence on supplemental oxygen; N39.45 Continuous leakage; E78.5 Hyperlipidemia, unspecified; H42 Glaucoma in diseases classified elsewhere
CPT/HCPCS: 83036; 96127; 99214

== ENCOUNTER 2023-06-26 15:08 | Outpatient (AMB) | payer OTHER, SELFPAY ==
--- NOTE | 2023-06-26 13:50 | A.OFFVIS_ITS ---
Intake Vital Signs 06/26/23 15:12 Height 5 ft 6 in Weight 162 lb BMI 26.1 BP 134/72 Blood Pressure Location Lt brachial Position Sitting Pulse 83 Pulse Source Pulse Oximeter Pulse Oximetry (%) 95 Oxygen Delivery Method Room Air Intake Visit Reasons: COPD Mold Washer Required: Yes Mold Washer Name: [id number] Information Interpreted: non-clinical & clinical Toll Line Repairer: Toll Line Repairer offered & declined Accompanied by: Daughter Allergies morphine Allergy (Severe, Verified 06/26/23 15:19) Agitated Medication List - Last Reconciled 06/26/23 by Veronica Evans LPN albuterol sulfate 90 mcg/actuation 2 inhalations inhalation Q6H PRN 30 days atorvastatin 10 mg PO DAILY blood sugar diagnostic (Email Data SourceStyle Lite Strips) As directed blood-glucose meter (Email Data SourceStyle Lite Meter kit) As directed blood-glucose meter,continuous (ActionXyle Amadeo 3 [place]) As directed blood-glucose sensor (Email Data SourceStyle Amadeo 3 Sensor device) As directed dexamethasone 6 mg PO DAILY 6 days fluticasone propion-salmeterol 230-21 mcg/actuation inhalation lancets (Email Data SourceStyle Lancets) As directed latanoprost 0.005% 1 drp ophthalmic (eye) DAILY metformin 1,000 mg PO BID 90 days miscellaneous medical supply As directed oxycodone 10 mg PO QID PRN paroxetine HCl 20 mg PO DAILY 90 days prednisone 10 mg PO DAILY 30 days quetiapine 200 mg PO BEDTIME 90 days sitagliptin phosphate (Januvia) 25 mg PO DAILY HPI COPD HPI Details Costa is a pleasant 73-year-old male, former smoker, quit 10 years ago, with 150+ pack year history and underlying asthma since childhood, COPD, history of COVID-19 in March 2020 with history of possible empyema s/p chest tube and possible VATS, s/p tracheostomy now decannulated (August2020), and chronic hypoxic respiratory failure on 2L NC. He was evaluated at [facility] on 06/23/23 for renewal of his medications and referral placed for pulmonary evaluation. He recently moved to [place] from [place] and presents to establish care. He is accompanied by his son and [id number], patient is a poor historian. At baseline, he states that his COPD is poorly controlled on 10 mg prednisone, which he has reportedly been on for the past year. Since moving he was started on albuterol PRN and an ICS/LABA, however he only reports having albuterol. He reports significant dyspnea with minimal exertion, labored breathing, intermittent productive cough and wheezing. He states he has been on chronic opioids for left lung pain related to recurrent pneumonias in which he has had to be hospitalized on multiple occasions. In 2020, he had a 3 month hospital stay after kelsi COVID in which she needed to be intubated and a tracheostomy was placed, ultimately being decannulated. Prior imaging suggestive of ILD. No recent imaging available. He is currently not on supplemental oxygen, maintaining on room air. Previously received oxygen through [employer] in [place]. He reports multiple family members with asthma. He reports possible occupational exposures while working at a [employer] in [place]. [facility] Medical History (Updated 06/28/23 @ 12:49 by Nasima Moreno NP) Hernia COVID-19 Diabetes mellitus, type 2 Bronchitis Pneumonia COPD (chronic obstructive pulmonary disease) Surgical History (Updated 06/25/23 @ 11:09 by Tennille Cornelius CMA) Tympanic tube insertion History of intestinal surgery Family History (Updated 06/25/23 @ 11:10 by Tennille Cornelius CMA) Mother Mental health disorder Brother Substance use disorder Social History (Updated 06/26/23 @ 15:21 by Veronica Evans LPN) Household Members: None Housing: Apartment Alcohol intake: never Patient Tobacco Use Status: Former Tobacco user Cigarette Packs Per Day: 1 Cigarettes Per Day: 1 Years Smoked: 40 e-Cigarette/Vaping Use: Never Used service: No Current occupational status: disabled Current occupational exposures/hazards: No Sexual orientation: Straight/Heterosexual Gender identity: Male Cognitive needs: No Hearing needs: No Vision needs: No Review of Systems Const Denies chills, Denies excessive sweating, Denies fever(s), Denies headache(s) and Denies night sweats Eyes Denies dry eyes, Denies irritation and Denies itchy eyes ENT Reports Normal hearing present, Denies headache(s), Denies nasal congestion, Denies nasal discharge, Denies post nasal drip and Denies sore throat Card Denies chest pain, Denies chest pain at rest, Denies chest pain with activity, Denies claudication, Denies leg edema, Denies orthopnea and Denies paroxysmal nocturnal dyspnea Resp Denies chest congestion, Denies excessive phlegm production, Denies pain on inspiration and Denies stridor Musc Denies myalgias Neuro Reports Normal hearing present and Denies headache(s) Endo Denies excessive sweating Dennis/Lymph Denies lymphadenopathy Aller/Immun Denies itchy eyes and Denies seasonal rhinorrhea Physical Exam Vital Signs: Last Vital Signs Pulse 83 06/26/23 15:12 BP 134/72 06/26/23 15:12 Pulse Ox 95 06/26/23 15:12 Oxygen Delivery Method Room Air 06/26/23 15:12 BMI result Body Mass Index 26.1 Const General: cooperative, healthy appearing, comfortable, no acute distress, well developed and alert Orientation/consciousness: patient oriented x3 HEENT Head: Yes normal to inspection, Yes normocephalic and Yes atraumatic Ears: hearing grossly normal bilaterally and external ears normal Eyes General: appearance normal, both eyes and all related structures Eyelids: Yes eyelids normal Sclerae: sclerae normal EOM: EOMs intact bilaterally Neck Neck: Yes normal visual inspection and Yes no lymphadenopathy Lymphatic: no lymphadenopathy noted Chest Chest palpation & inspection: normal inspection of the chest Resp Other: Diminished lung sounds throughout with faint inspiratory crackles bilateral bases, no wheezing or rhonchi appreciated Effort & Inspection: able to speak in complete sentences, no audible wheezes, no cough, no stridor, not tachypneic, no tripod positioning and no use of accessory muscles Cardio Jugular venous distension: no JVD Rate: regular rate Rhythm: regular rhythm Skin Other: warm, dry General skin exam: no rashes or lesions noted Neuro General: patient oriented x3 Cranial nerves: Yes Normal hearing present Cognition (Neuro): normal cognition Gait exam (Neuro): Normal gait present Extrem General: Yes normal to inspection, Yes capillary refill normal, Yes no clubbing, cyanosis or edema and Yes no pedal edema Psych Appearance: grossly normal and well kempt Speech and movement: Normal speech and movement present and Clear speech present Affect: normal affect Attitude: cooperative Thought process: Normal thought process present Thought content: Normal thought content present Insight: Good insight present (Psych) Judgement: Good judgement present (Psych) Assessment & Plan Assessment & Plan (1) Chronic respiratory failure with hypoxia, on home oxygen therapy: Code(s): J96.11 - Chronic respiratory failure with hypoxia; Z99.81 - Dependence on supplemental oxygen (2) COPD (chronic obstructive pulmonary disease): Code(s): J44.9 - Chronic obstructive pulmonary disease, unspecified (3) Personal history of tobacco use: Code(s): Z87.891 - Personal history of nicotine dependence (4) Dyspnea: Code(s): R06.00 - Dyspnea, unspecified (5) ILD (interstitial lung disease): Code(s): J84.9 - Interstitial pulmonary disease, unspecified Plan Costa's symptoms are likely related to underlying COPD, unclear severity. Will send for PFT to thoroughly evaluate. On exam patient with bibasilar crackles and reports of pleuritic pain/exertional left chest discomfort, for which he has been using oxycodone x 10+ years. Will send for chest x-ray today. Also send for chest CT as patient with significant smoking history and prior imaging suggestive of interstitial lung disease. Will also start patient on Trelegy and discontinue ICS/LABA. Spoke with sales representative livestock from [facility] regarding supplemental oxygen, will likely be able to transfer care from [place] to [place]. Attempted 6MWT but unfortunately after approximately 4 minutes of ambulation, patient with significant labored breathing and lower extremity weakness, also with exertional chest discomfort which resolves with rest, unable to complete. Will refer to cardiology for evaluation. Discussed need for evaluation in ED for chest pain. All questions were answered and patient was in agreement of plan. Will follow-up to review response to Trelegy and results of imaging/PFT. Orders: Orders XR chest 2V 06/26/23 J84.9 - Interstitial pulmonary disease, unspecified CT chest wo IV con 06/26/23 R06.00 - Dyspnea, unspecified, Z87.891 - Personal history of nicotine dependence PFT pulmonary function test 06/26/23 J44.9 - Chronic obstructive pulmonary disease, unspecified Overnight Pulse Oximetry 06/26/23 J96.11 - Chronic respiratory failure with hypoxia, Z99.81 - Dependence on supplemental oxygen Referrals Cardiology Referral R07.9 - Chest pain, unspecified Medications: New gmabwryehlz-vwanzscxq-mpjumqre 200-62.5-25 mcg (Trelegy Ellipta) 1 inh inhalation DAILY 60 ea 6RF Coding Level of Care Code New Pt Level 4 (31594) Diagnoses Chronic respiratory failure with hypoxia, on home oxygen therapy J96.11; Z99.81 COPD (chronic obstructive pulmonary disease) J44.9 Personal history of tobacco use Z87.891 Dyspnea R06.00 ILD (interstitial lung disease) J84.9
[2023-06-26 15:12] VITALS: BP 134/72; PULSE 83; O2SAT 95; BMI 26.1
== END 2023-06-26 16:59 | disposition home or self-care (01) ==
PROVIDERS: PCP Nurse Practitioner Family; Referring Provider Physician Assistant Medical; Visit Provider Nurse Practitioner Family
DX: J96.11 Chronic respiratory failure with hypoxia (principal); Z99.81 Dependence on supplemental oxygen; J44.9 Chronic obstructive pulmonary disease, unspecified; Z87.891 Personal history of nicotine dependence; R06.00 Dyspnea, unspecified; J84.9 Interstitial pulmonary disease, unspecified
CPT/HCPCS: 99204

== ENCOUNTER → 2023-06-26 15:08 | Outpatient (BNVA) | payer OTHER, SELFPAY | PROVIDERS: PCP Nurse Practitioner Family; Referring Provider Physician Assistant Medical; Visit Provider Nurse Practitioner Family | DX: J96.11 Chronic respiratory failure with hypoxia (principal); J44.9 Chronic obstructive pulmonary disease, unspecified; J84.9 Interstitial pulmonary disease, unspecified; Z99.81 Dependence on supplemental oxygen; Z87.891 Personal history of nicotine dependence; R06.00 Dyspnea, unspecified | CPT/HCPCS: 99202 ==

== ENCOUNTER 2023-07-08 11:23 | Outpatient (REF) | payer OTHER, MEDICAID, SELFPAY ==
--- NOTE | ~2023-07-08 | XR_ITS ---
EXAMINATION: XR CHEST CLINICAL INFORMATION: Interstitial pulmonary disease. COMPARISON: 10/23/2022 TECHNIQUE: 2 views of the chest were obtained. FINDINGS: Hyperinflated lungs with biapical pleural thickening. Increased interstitial markings particularly in the bilateral upper lobes with mild retraction. Increased markings at the bases also appear to be chronic. No vascular congestion or consolidations. No effusions. Bony structures are intact. XR/XR chest 2V IMPRESSION: Chronic increased interstitial markings and hyperinflation, patient with history of interstitial pulmonary disease.
== END 2023-07-08 11:24 | disposition home or self-care (01) ==
LOC: HO.XRAY 11:23
PROVIDERS: PCP Internal Medicine; Visit Provider Nurse Practitioner Family
DX: J84.9 Interstitial pulmonary disease, unspecified (principal)
CPT/HCPCS: 71046

== ENCOUNTER 2023-07-09 14:59 | Outpatient (AMB) | payer OTHER, SELFPAY ==
--- NOTE | 2023-07-09 15:00 | A.OFFPC_ITS ---
Vital Signs 07/09/23 15:01 07/09/23 16:13 Height 5 ft 6 in Weight 163 lb BMI 26.3 BP 148/90 H 162/82 H Blood Pressure Location Lt brachial Rt brachial Position Sitting Sitting Pulse 73 Pulse Source Pulse Oximeter Pulse Oximetry (%) 95 Oxygen Delivery Method Nasal Cannula Oxygen Flow Rate 2 Intake Visit Reasons: fu complex conditions Intake Note: Patient is here to follow up Tarper Required: Yes Tarper Language: Gabonese Allergies morphine Allergy (Severe, Verified 07/09/23 15:27) Agitated Medication List - Last Reconciled 07/09/23 by Shelia Huber, PH[facility]ICIANS [facility] SURGE[facility]- albuterol sulfate 90 mcg/actuation 2 inhalations inhalation Q6H PRN 30 days atorvastatin 10 mg PO DAILY blood sugar diagnostic (FreeStyle Lite Strips) As directed blood-glucose meter (FreeStyle Lite Meter kit) As directed blood-glucose meter,continuous (FreeStyle Amadeo 3 [place]) As directed blood-glucose sensor (FreeStyle Amadeo 3 Sensor device) As directed dexamethasone 6 mg PO DAILY 6 days mdvirrcryhl-aabyhlmbp-tbibzmst 200-62.5-25 mcg (Trelegy Ellipta) 1 inh inhalation DAILY lancets (FreeStyle Lancets) As directed latanoprost 0.005% 1 drp ophthalmic (eye) DAILY metformin 1,000 mg PO BID 90 days miscellaneous medical supply As directed paroxetine HCl 20 mg PO DAILY 90 days pregabalin (Lyrica) 50 mg PO TID 30 days quetiapine 200 mg PO BEDTIME 90 days sitagliptin phosphate (Januvia) 25 mg PO DAILY Tobacco use date assessed: 07/09/23 Fall risk assessment: 1 Fall in past year Last assessed Fall Risk: 07/09/23 HPI HPI Comments History of Present Illness Details 73-year-old Gabonese speaking male with d iabetes type 2 , COPD O2 dependent on 2 L of oxygen, empyema status post chest tube and VATS, status post tracheostomy now decannulated, interstitial lung disease, status post right- sided rib fractures glaucoma, MDD, urinary incont Creatinine Clearance (Cockcroft-Gault Equation) from [facility] on 07/09/2023 RESULT SUMMARY: 67 mL/min Creatinine clearance, original Cockcroft-Gault INPUTS: Sex ?> 0 = Male Age ?> 73 years Weight ?> 163 lbs Creatinine ?> 1.05 mg/dL Specialists Pulmonology [facility] first appt tomorrow Ophthalmology Cards Health maintenance Colonoscopy Diabetic eye exam Flu vaccines reports UTD HGB A1c performed 06/25/23 8.2% Labs done 06/23/2023 include a CBC within normal limits, a CMP showing normal electrolytes, normal BUN and creatinine, random glucose of 187, mild elevation in his ALT at 55 Tarper: [id number] Video Here today for follow-up. He has not here with his granddaughter who was supposed to be his primary acetaldehyde converter operator. He reports that she will no longer be providing care to him. Rather his son Costa we will take her placed. I have asked him to update his contact information at the front line leader before he leaves today. Advised that there has been contacts to reach him and his family by our office unsuccessfully. Since last visit he was able to get the incontinent pads for his bed. He has not had any intake with [facility]. I will provide him with this information upon discharge today. Told him that he needs to call or have a family member called to enroll him to evaluate any needs he may be eligible for. He tells me that he was having chest pain upon exertion during his pulmonary visit. This consult note was reviewed. He was referred to Cardiology. He is waiting on this appointment. His breathing is the same. He continues with dyspnea on exertion. Using O2 as directed. He states he was able to greens picker and start his new inhaler Trelegy. He has not received his continuous glucose monitor yet. He tells me that he did not receive any of the medications I sent to the pharmacy which is [facility]. Verified the pharmacy with him today and this is correct. We will have the nurse navigator reach out to the pharmacy to see what is going on there. Finally he complains of generalized pain. Having pain in his lungs as well as pain in his feet. This has been ongoing for years. Was on chronic opiates in the past. Has not been on opiates since May. POULTRY HATCHERY MANAGER reviewed. [facility] Medical History (Updated 07/09/23 @ 16:14 by Shelia Huber, [facility] Hernia COVID-19 Diabetes mellitus, type 2 Bronchitis Pneumonia COPD (chronic obstructive pulmonary disease) Surgical History (Updated 06/25/23 @ 11:09 by Tennille Cornelius CMA) Tympanic tube insertion History of intestinal surgery Family History (Updated 06/25/23 @ 11:10 by Tennille Cornelius CMA) Mother Mental health disorder Brother Substance use disorder Social History (Updated 06/26/23 @ 15:21 by Veronica Evans LPN) Household Members: None Housing: Apartment Alcohol intake: never Patient Tobacco Use Status: Former Tobacco user Cigarette Packs Per Day: 1 Cigarettes Per Day: 1 Years Smoked: 40 e-Cigarette/Vaping Use: Never Used service: No Current occupational status: disabled Current occupational exposures/hazards: No Sexual orientation: Straight/Heterosexual Gender identity: Male Cognitive needs: No Hearing needs: No Vision needs: No Questionnaire PHQ-9 Over the last 2 weeks, how often have you been bothered by any of the following problems? Depression Screening Interpretation: Positive Depression Screening Follow-up: Existing condition Depression Screening Done: Yes Source: Developed by Drs. Ap Medina, Demetrius Augustin and colleagues, with an educational simon from [employer]. Thrive Questionnaire Date Thrive assessed: 06/25/23 Currently or been in a relationship where the following occur: no concerns reported THRIVE Score: 0 AUDIT C Alcohol Use Questionnaire (AUDIT-C) 1. How often do you have a drink containing alcohol?: Never 2. How many drinks containing alcohol do you have on a typical day when you are drinking?: 1 or 2 (0) 3. How often do you have six or more drinks on one occasion?: Never Total Score: 0 Score Reviewed/Action Taken: Yes BERRY-7 AMB Questionnaire BERRY-7 Date BERRY - 7 assessed: 06/25/23 Source: Developed by Drs. Ap Medina, Demetrius Augustin and colleagues, with an educational simon from [employer]. Review of Systems Const All systems reviewed & are unremarkable except as noted in HPI and below Physical exam (Primary Care) Vital Signs: Last Vital Signs Pulse 73 07/09/23 15:01 BP 148/90 H 07/09/23 15:01 Pulse Ox 95 07/09/23 15:01 Oxygen Delivery Method Nasal Cannula 07/09/23 15:01 Oxygen Flow Rate 2 07/09/23 15:01 BMI result Body Mass Index 26.3 Tobacco/Smoking Status: Tobacco use Status Tobacco use date assessed 07/09/23 07/09/23 15:03 Patient Tobacco Use Status Former Tobacco user 07/09/23 15:01 e-Cigarette/Vaping Use Never Used 07/09/23 15:01 Depression Screening Interpretation: Positive Depression Screening Follow-up: Existing condition Thrive Assessment: Date of Thrive Assessment Date Thrive assessed 06/25/23 07/09/23 15:01 Currently or been in a relationship where the following occur: no concerns reported Const Other: Awake alert oriented Regular rate and rhythm Lung sounds diminished with fine bibasilar crackles bases bilat, 02 2L nc Bilateral lower extremities with no edema, decreased pedal pulses, hairless, skin intact, abnormal vibratory sensation bilat, normal monofilament bilat Office Procedures Diabetic Foot Exam G9226 - Diabetic Foot Exam Assessment and Plan Assessment & Plan (1) Diabetic peripheral neuropathy associated with type 2 diabetes mellitus: Comment: He was managed on oxycodone chronically for his reports in [place]. He has been without oxycodone since May. The plan will be to start him on pregabalin 50 mg 3 times per day. Titrate to a max of 600 mg per day. I will bring him back in 2-3 weeks to evaluate the effectiveness of this. Code(s): E11.42 - Type 2 diabetes mellitus with diabetic polyneuropathy (2) Comprehensive diabetic foot examination, type 2 DM, encounter for: Comment: Performed today abnormal vibratory sensation, normal monofilament Code(s): E11.9 - Type 2 diabetes mellitus without complications (3) Diabetes mellitus type 2 with complications: Comment: HGB A1c 8.2% 05/2023. Currently managed on metformin a 1000 mg twice per day which I would like for him to continue along with Januvia 25 mg p.o. daily. I have placed a referral for the diabetic eye exam. glucometer, test strips, and lancets. He can use this until his freestyle Amadeo 3 CGM is processed. I have placed a referral to the nurse navigator to help him Code(s): E11.8 - Type 2 diabetes mellitus with unspecified complications (4) Atherosclerosis of lower extremity: Comment: Based on clinical exam. Decreased pedal pulses, hairless, thickened toenails. Skin intact. On a statin. Monitor skin integrity Code(s): I70.209 - Unspecified atherosclerosis of [place] arteries of extremities, unspecified extremity Qualifiers: Peripheral atherosclerosis artery type: [place] artery Laterality: bilateral Peripheral atherosclerosis clinical manifestation: unspecified presence of clinical manifestation Qualified Code(s): I70.203 - Unspecified atherosclerosis of [place] arteries of extremities, bilateral legs (5) Hypertension associated with type 2 diabetes mellitus: Comment: Blood pressure elevated above goal of 130/80. Start on losartan 25 mg twice per day for renal protection. We will recheck blood pressure at the next office visit Code(s): E11.59 - Type 2 diabetes mellitus with other circulatory complications; I15.2 - Hypertension secondary to endocrine disorders Plan This note is constructed using voice recognition software. While every effort has been made to ensure accuracy in laboratory apparatus glass grinder, still errors may have been included Sometimes, these errors may affect the content or meaning of the given sentence . Total time spent caring for the patient today was 60 minutes. This includes time spent before the visit reviewing the chart, time spent during the visit, and time spent after the visit on documentation Orders: Orders AMB Diabetic Foot Exam Today E11.42 - Type 2 diabetes mellitus with diabetic polyneuropathy, E11.8 - Type 2 diabetes mellitus with unspecified complications, E11.9 - Type 2 diabetes mellitus without complications Medications: New pregabalin (Lyrica) 50 mg PO TID 30 days 90 caps 0RF losartan 25 mg PO BID 60 tabs 0RF Patient Instructions: [facility] for services, please call Coding Level of Care Code Est Pt Level 5 (22174) Diagnoses Diabetic peripheral neuropathy associated with type 2 diabetes mellitus E11.42 Comprehensive diabetic foot examination, type 2 DM, encounter for E11.9 Diabetes mellitus type 2 with complications E11.8 Atherosclerosis of [place] artery of both lower extremities, with unspecified presence of clinical manifestation I70.203 Peripheral atherosclerosis artery type: [place] artery Laterality: bilateral Peripheral atherosclerosis clinical manifestation: unspecified presence of clinical manifestation Hypertension associated with type 2 diabetes mellitus E11.59; I15.2 CPT Codes Diabetic Foot Exam - CPT: G9226 - Diabetic Foot Exam ([id number])
[2023-07-09 15:01] VITALS: BP 148/90; PULSE 73; O2SAT 95; BMI 26.3
[2023-07-09 16:13] VITALS: BP 162/82
== END 2023-07-09 16:39 | disposition home or self-care (01) ==
PROVIDERS: PCP Nurse Practitioner Family; Visit Provider Nurse Practitioner Family
DX: E11.42 Type 2 diabetes mellitus with diabetic polyneuropathy (principal); E11.8 Type 2 diabetes mellitus with unspecified complications; I70.203 Unspecified atherosclerosis of native arteries of extremities, bilateral legs; E11.59 Type 2 diabetes mellitus with other circulatory complications; I15.2 Hypertension secondary to endocrine disorders
CPT/HCPCS: 99215; G9226

== ENCOUNTER 2023-07-24 09:36 | Outpatient (AMB) | payer OTHER, SELFPAY ==
--- NOTE | 2023-07-24 09:56 | MHC.PC.OV ---
Vital Signs 07/24/23 10:06 Height 5 ft 6 in Weight 162 lb BMI 26.1 BP 132/72 Blood Pressure Location Lt brachial Position Sitting Pulse 71 Pulse Source Pulse Oximeter Pulse Oximetry (%) 96 Oxygen Delivery Method Nasal Cannula Oxygen Flow Rate 2 Intake Visit Reasons: fu peripheral neuropathy pain Intake Note: Patient is here to follow up on neuropathy pain., he states the Pregabalin makes him dizzy. He states he is in pain everywhere, every day. Patient is requesting Oxycodone, it does help with his pain. Allergies morphine Allergy (Severe, Verified 07/24/23 10:10) Agitated Medication List - Last Reconciled 07/24/23 by Shelia Huber, GLASS WASHER- albuterol sulfate 90 mcg/actuation 2 inhalations inhalation Q6H PRN 30 days atorvastatin 10 mg PO DAILY blood sugar diagnostic As directed twice per day blood-glucose meter As directed twice per day blood-glucose meter,continuous (FreeStyle Amadeo 3 [place]) As directed blood-glucose sensor (FreeStyle Amadeo 3 Sensor device) As directed dexamethasone 6 mg PO DAILY 6 days oekvjipwxai-kjttwwtqu-bzcmzdpx 200-62.5-25 mcg (Trelegy Ellipta) 1 inh inhalation DAILY lancets As directed lancets As directed twice per day latanoprost 0.005% 1 drp ophthalmic (eye) DAILY losartan 25 mg PO BID metformin 1,000 mg PO BID 90 days miscellaneous medical supply As directed paroxetine HCl 20 mg PO DAILY 90 days pregabalin (Lyrica) 50 mg PO TID 30 days quetiapine 200 mg PO BEDTIME 90 days sitagliptin phosphate (Januvia) 25 mg PO DAILY Tobacco use date assessed: 07/24/23 Fall risk assessment: 2 + Falls in past year Last assessed Fall Risk: 07/24/23 HPI HPI Comments History of Present Illness Details 73-year-old male Upper Sorbian speaking with diabetes type 2 , COPD O2 dependent on 2 L of oxygen, empyema status post chest tube and VATS, status post tracheostomy now decannulated, interstitial lung disease, status post right-sided rib fractures glaucoma, MDD, urinary incont [facility] Pul[facility] Ophthalmology Health maintenance Colonoscopy Diabetic eye exam Flu vaccines reports UTD HGB A1c performed 06/25/23 8.2% Labs done 06/23/2023 include a CBC within normal limits, a CMP showing normal electrolytes, normal BUN and creatinine, random glucose of 187, mild elevation in his ALT at 55 Mortgage Originator used: [id number] Here today to f/u on pain mgmt. Was started on pregabalin 50 mg 3 times per day. States this made him feel dizzy and sweaty. Took only 4 doses. Reports no pain relief. He was also started on losartan 25 mg twice per day for renal protection as his BP was elevated. Med claim looks like he is filled this RX 07/09/23, He said he was taking it and it made him nervous then said he doesnt know what this is and is not taking it. Son is not here, despite asking pt to have him come to visit. when asked about this he says he doesnt live near him & does not have a car and does not help him. I asked for demos to be updated to his son and remove luis Galindo as he states she is no longer active in his care. This was also not done. I asked who helps him w/ his meds since he does not know what he is taking or why he is taking it. He states his family, yet no one is available to come to appts. He then states he takes all of his meds at one times, despite them be ordered BID and TID. He then feels like he is going to . I advised him this is not safe and could certainly result in if he is not taking as directed. He lives alone. Difficult visit as all he wants to talk about his taking oxycodone. He wants this four times per day. Is making faces and calling himself bipolar and gesturing towards me aggressively. I want my medication. I explained that I am happy to treat him in a safe fashion and work to help manage his pain and chronic conditions. He states he will go back to [place] to get these medications from his other doctor there. He was getting these for 10-12 years in [place] & he needs this medication. When I told him that i was going to file an elder at risk given he lives alone, cannot manage his medications, has not had family come to visits or update demos, the family has not returned phone calls, pt states he cannot get his meds as they are not at the pharmacy, despite this being confirmed by [facility] that meds are there and have been picked up the decision was made to file an elder at risk. [facility] Medical History (Updated 07/24/23 @ 11:19 by Shelia Huber [facility]) Hernia COVID-19 Diabetes mellitus, type 2 Bronchitis Pneumonia COPD (chronic obstructive pulmonary disease) Surgical History (Updated 06/25/23 @ 11:09 by Tennille Cornelius CMA) Tympanic tube insertion History of intestinal surgery Family History (Updated 06/25/23 @ 11:10 by Tennille Cornelius CMA) Mother Mental health disorder Brother Substance use disorder Social History (Updated 06/26/23 @ 15:21 by Veronica Evans LPN) Household Members: None Housing: Apartment Alcohol intake: never Patient Tobacco Use Status: Former Tobacco user Cigarette Packs Per Day: 1 Cigarettes Per Day: 1 Years Smoked: 40 e-Cigarette/Vaping Use: Never Used service: No Current occupational status: disabled Current occupational exposures/hazards: No Sexual orientation: Straight/Heterosexual Gender identity: Male Cognitive needs: No Hearing needs: No Vision needs: No Questionnaire Thrive Questionnaire Date Thrive assessed: 06/25/23 BERRY-7 AMB Questionnaire BERRY-7 Date BERRY - 7 assessed: 06/25/23 Source: Developed by Drs. Ap Medina, Aidee Emerson, Demetrius Romano and colleagues, with an educational simon from [employer]. Review of Systems Const All systems reviewed & are unremarkable except as noted in HPI and below Physical exam (Primary Care) Vital Signs: Last Vital Signs Pulse 71 07/24/23 10:06 BP 132/72 07/24/23 10:06 Pulse Ox 96 07/24/23 10:06 Oxygen Delivery Method Nasal Cannula 07/24/23 10:06 Oxygen Flow Rate 2 07/24/23 10:06 BMI result Body Mass Index 26.1 Tobacco/Smoking Status: Tobacco use Status Tobacco use date assessed 07/24/23 07/24/23 10:16 Patient Tobacco Use Status Former Tobacco user 07/24/23 09:56 e-Cigarette/Vaping Use Never Used 07/24/23 09:56 Thrive Assessment: Date of Thrive Assessment Date Thrive assessed 06/25/23 07/24/23 09:56 Const Other: Awake alert verbally aggressive, removed mask and making faces at myself pointing to himself I am bipolar speaking over the gate technician; gate technician stating what patient is saying does not make sense or have clear logic Assessment and Plan Assessment & Plan (1) At risk for elder abuse: Comment: Thank you for submitting a Protective Services Report. Your report (Intake ID [id number]) was successfully submitted on 07/24/2023 at 11:16 AM. Your report will be reviewed and processed promptly. If you included your email address in the report, you will receive an email confirmation message that you can print and retain for your records. Code(s): Z91.89 - Other specified personal risk factors, not elsewhere classified (2) Drug-seeking behavior: Comment: aggressive today verbally. I told him he could est care w/ another practice if his wish is to have narcotics. he states he will move back to [place] and get his meds from there. he then changed his mind and stated he would cont to follow here I am really unsure of what he wants to do. I will NOT prescribe narcotics to him. I am willing to treat him compassionately and appropriately however he has to be able to follow orders & he has not been able to do this to date. Code(s): Z76.5 - Malingerer [conscious simulation] Plan This note is constructed using voice recognition software. While every effort has been made to ensure accuracy in java groovy developer, still errors may have been included Sometimes, these errors may affect the content or meaning of the given sentence . Total time spent caring for the patient today was 90 minutes. This includes time spent before the visit reviewing the chart, time spent during the visit, and time spent after the visit on documentation Coding Level of Care Code Est Pt Level 5 (94558) Diagnoses At risk for elder abuse Z91.89 Drug-seeking behavior Z76.5
[2023-07-24 10:06] VITALS: BP 132/72; PULSE 71; O2SAT 96; BMI 26.1
== END 2023-07-24 11:05 | disposition home or self-care (01) ==
PROVIDERS: PCP Nurse Practitioner Family; Visit Provider Nurse Practitioner Family
DX: Z91.89 Other specified personal risk factors, not elsewhere classified (principal); Z76.5 Malingerer [conscious simulation]
CPT/HCPCS: 99215; G2212

== ENCOUNTER 2023-08-14 13:50 | Outpatient (REF) | payer OTHER, MEDICAID, SELFPAY ==
[2023-08-14 09:22] VITALS: PULSE 85; RESP 16; O2SAT 95
--- NOTE | 2023-08-14 15:38 | PFT_ITS ---
Flows: FEV1: 64 % of predicted at 1.76 L FVC: 94 % of predicted at 3.38 L FEV1/FVC: 52 % Bronchodilator response: Present Volumes: Patient unable to perform lung volume maneuvers. Diffusion capacity: Severely decreased, adjusts to being moderately decreased after correction for alveolar ventilation. Impression: Moderate obstructive ventilatory defect with positive bronchodilator response. Patient was unable to perform lung volume maneuvers. Decreased diffusion capacity suggests emphysema. MTDD
== END 2023-08-14 13:51 | disposition home or self-care (01) ==
LOC: HO.RESP 13:50
PROVIDERS: PCP Nurse Practitioner Family; Visit Provider Nurse Practitioner Family
DX: J44.9 Chronic obstructive pulmonary disease, unspecified (principal)
CPT/HCPCS: 94010; 94640; 94727; 94729

== ENCOUNTER → 2023-08-14 15:38 | Outpatient (BNV) | payer OTHER, SELFPAY | PROVIDERS: PCP Nurse Practitioner Family; Visit Provider Internal Medicine Pulmonary Disease | DX: J44.9 Chronic obstructive pulmonary disease, unspecified (principal) | CPT/HCPCS: 94060; 94727 ==

== ENCOUNTER 2023-08-23 14:58 | Outpatient (REF) | payer OTHER, SELFPAY ==
--- NOTE | ~2023-08-23 | CT_ITS ---
EXAMINATION: CT CHEST WITHOUT CONTRAST CLINICAL INFORMATION: Dyspnea COMPARISON: No prior CTs, 07/08/2023 chest radiograph. TECHNIQUE: Multidetector volumetric CT imaging of the chest was done. Axial MIP volume rendering provided. Sagittal and coronal reformatted images were obtained. This CT examination was performed using dose optimization techniques as appropriate, variously including the following: *Automated exposure control *Adjustment of mA and/or kV according to patient size (this includes techniques or standardized protocols for targeted exams where dose is matched to indication/reason for exam; i.e. extremities or head) *Use of iterative reconstruction technique DLP: 157 mGy-cm FINDINGS: SECRETARY OF STATE: Hyperinflation LUNGS: Trachea and bronchi are patent. Advanced centrilobular emphysematous and bullous changes. No consolidations or groundglass opacities. Right middle lobe scarring/atelectasis. 6 mm lingular pleural-based nodule, 5:370 8 mm anterior left lower lobe pleural-based nodule 5:480. MEDIASTINUM: Unremarkable thyroid. No pathologic lymphadenopathy. Nonenlarged heart. No pericardial effusion. Nonaneurysmal aorta with atherosclerotic calcifications. Ectatic pulmonary arteries. CORONARY ARTERY CALCIFICATION: Moderate PLEURA: Posterior right major fissural thickening, 7:90 AXILLA: No lymphadenopathy. UPPER ABDOMEN: Liver measuring 19 cm and of diffuse hypodensity. Hepatic granuloma. Multiple small splenic calcifications. Small hiatal hernia. OSSEOUS STRUCTURES: Unremarkable. CT/CT chest wo IV con IMPRESSION: Advanced emphysema. Pleural-based pulmonary nodules, larger measuring 8 mm. PET/CT recommended. Consider 3 month follow up LDCT. Enlarged fatty liver. Fleischner guidelines were followed.
== END 2023-08-23 14:59 | disposition home or self-care (01) ==
LOC: HO.CT 14:58
PROVIDERS: PCP Nurse Practitioner Family; Visit Provider Nurse Practitioner Family
DX: R06.00 Dyspnea, unspecified (principal); Z87.891 Personal history of nicotine dependence
CPT/HCPCS: 71250

== ENCOUNTER 2023-08-30 13:47 | Outpatient (AMB) | payer OTHER, SELFPAY ==
--- NOTE | 2023-08-30 14:04 | MHC.OFFVIS ---
Vital Signs 08/30/23 14:05 Height 5 ft 6 in Weight 162 lb BMI 26.1 BP 148/64 H Blood Pressure Location Lt brachial Position Sitting Pulse 69 Pulse Source Pulse Oximeter Pulse Oximetry (%) 97 Oxygen Delivery Method Nasal Cannula Intake Visit Reasons: COPD/PFT Follow Up Licensed Prosthetist Required: Yes Licensed Prosthetist Language: Client Success Director Name: [id number] Allergies morphine Allergy (Severe, Verified 08/30/23 14:09) Agitated HPI HPI COPD/PFT Follow Up: Details: Costa is a pleasant 73-year-old male, former smoker, quit 10 years ago, with 150+ pack year history and underlying asthma since childhood, COPD, history of COVID-19 in March 2020 with history of possible empyema s/p chest tube and ?VATS, s/p tracheostomy, decannulated (August 2020), with chronic hypoxic respiratory failure on 2L NC. He is unaccompanied, and ambulating with walker. At baseline, he states that his COPD is poorly controlled on 10 mg prednisone, which he has reportedly been on for the past year while living in [place]. At the last visit, Trelegy was sent in but patient states he has not received it. He has been using his albuterol 3-4 times per day with suboptimal effect. Today he kept referring to his oxycodone and need for medication to treat his lung pain . He was sent for chest CT to evaluate for any abnormalities or ILD, which was noted in prior history, report not available today. He continues to report significant dyspnea with minimal exertion, labored breathing, intermittent productive cough and wheezing. He is currently using his POC at 2 and has a concentrator at home through [facility]. [facility] Medical History (Updated 09/01/23 @ 11:38 by Nasima Moreno NP) Hernia COVID-19 Diabetes mellitus, type 2 Bronchitis Pneumonia COPD (chronic obstructive pulmonary disease) Surgical History (Updated 06/25/23 @ 11:09 by Tennille Cornelius CMA) Tympanic tube insertion History of intestinal surgery Family History (Updated 06/25/23 @ 11:10 by Tennille Cornelius CMA) Mother Mental health disorder Brother Substance use disorder Social History Household Members: None Housing: Apartment Alcohol intake: never Patient Tobacco Use Status: Former Tobacco user Cigarette Packs Per Day: 1 Cigarettes Per Day: 1 Years Smoked: 40 e-Cigarette/Vaping Use: Never Used service: No Current occupational status: disabled Current occupational exposures/hazards: No Sexual orientation: Straight/Heterosexual Gender identity: Male Cognitive needs: No Hearing needs: No Vision needs: No Review of Systems Const Denies chills, Denies excessive sweating, Denies fever(s), Denies headache(s) and Denies night sweats Eyes Denies dry eyes, Denies irritation and Denies itchy eyes ENT Reports Normal hearing present, Denies headache(s), Denies nasal congestion, Denies nasal discharge, Denies post nasal drip and Denies sore throat Card Denies chest pain, Denies chest pain at rest, Denies chest pain with activity, Denies claudication, Denies leg edema, Denies dyspnea, Denies orthopnea and Denies paroxysmal nocturnal dyspnea Resp Denies chest congestion, Denies excessive phlegm production, Denies pain on inspiration, Denies pain with cough, Denies dyspnea and Denies stridor Musc Denies myalgias Neuro Reports Normal hearing present and Denies headache(s) Endo Denies excessive sweating Ednnis/Lymph Denies lymphadenopathy Aller/Immun Denies itchy eyes and Denies seasonal rhinorrhea Physical Exam Vital Signs: Last Vital Signs Pulse 69 08/30/23 14:05 BP 148/64 H 08/30/23 14:05 Pulse Ox 97 08/30/23 14:05 Oxygen Delivery Method Nasal Cannula 08/30/23 14:05 BMI result Body Mass Index 26.1 Const General: cooperative, healthy appearing, comfortable, no acute distress, well developed and alert Orientation/consciousness: patient oriented x3 HEENT Head: Yes normal to inspection, Yes normocephalic and Yes atraumatic Ears: hearing grossly normal bilaterally and external ears normal Eyes General: appearance normal, both eyes and all related structures Eyelids: Yes eyelids normal Sclerae: sclerae normal EOM: EOMs intact bilaterally Neck Neck: Yes normal visual inspection and Yes no lymphadenopathy Lymphatic: no lymphadenopathy noted Chest Chest palpation & inspection: normal inspection of the chest Resp Effort & Inspection: normal respiratory effort, able to speak in complete sentences, no audible wheezes, no cough, no stridor, not tachypneic, no tripod positioning and no use of accessory muscles Cardio Jugular venous distension: no JVD Rate: regular rate Rhythm: regular rhythm Skin Other: warm, dry General skin exam: no rashes or lesions noted Neuro General: patient oriented x3 Cranial nerves: Yes Normal hearing present Cognition (Neuro): normal cognition Extrem General: Yes normal to inspection, Yes capillary refill normal, Yes no clubbing, cyanosis or edema and Yes no pedal edema Psych Appearance: grossly normal and well kempt Speech and movement: Normal speech and movement present and Clear speech present Attitude: cooperative Thought process: Normal thought process present Thought content: Normal thought content present Insight: Good insight present (Psych) Judgement: Good judgement present (Psych) Office Procedures Nebulizer Treatment Nebulizer Treatment [id number] RX initial, or Nebulizer Subsequent Treatment Office Meds ipratropium 0.5 mg-albuterol 3 mg (2.5 mg base)/3 mL nebulization soln Performing Provider: Nasima Moreno NP Performing Location: [facility] Administered by: Veronica Evans LPN on 08/30/23 15:01 Dose Route Admin Location Dispensed Lot Number Expiration Date [facility] Hearing Aid Assembly Supervisor 3 mL inhalation 3 mL [id number] 02/26/25 [id number] [employer] Assessment & Plan Assessment & Plan (1) Chronic respiratory failure with hypoxia, on home oxygen therapy: Code(s): J96.11 - Chronic respiratory failure with hypoxia; Z99.81 - Dependence on supplemental oxygen Category: Medical (2) COPD (chronic obstructive pulmonary disease): Code(s): J44.9 - Chronic obstructive pulmonary disease, unspecified Category: Medical (3) Personal history of tobacco use: Comment: 150 + pack year history Code(s): Z87.891 - Personal history of nicotine dependence Category: Social Hx (4) Dyspnea: Code(s): R06.00 - Dyspnea, unspecified Category: Medical Plan Reviewed PFT which revealed moderate obstructive ventilatory defect with positive bronchodilator response. Patient was unable to perform lung volume maneuvers. Decreased diffusion capacity suggests emphysema. Reviewed chest CT and there are no signs of ILD, however significant emphysema. Will await final read from radiologist, as report is not complete at this time. Patient continues to report pleuritic pain, will send for thoracic and lumbar to assess for spinal abnormalities contributing to pain. Discussed with patient that this office will not continue his oxycodone prescription. He became upset stating he has received this prescription for the last ten years, however after checking [employer] there were no findings of this. Patient with diminished lung sounds throughout, improved after duoneb. Reviewed importance of obtaining and continuing Trelegy. Patient stated he never picked up this prescription, however called pharmacy who stated the rx was picked up in June. Will resend prescription. All questions were answered and patient was in agreement of plan. Will follow-up to review response to Trelegy in 6-8 weeks or sooner if needed. Orders: Orders AMB Nebulizer Treatment 08/30/23 J44.9 - Chronic obstructive pulmonary disease, unspecified XR lumbar spine 2-3V 09/01/23 M54.6 - Pain in thoracic spine XR thoracic spine 2V 09/01/23 M54.50 - Low back pain, unspecified Medications: Refilled qyegrmeywoo-jbkqxvayf-bdtcqtit 200-62.5-25 mcg (Trelegy Ellipta) 1 inh inhalation DAILY 60 ea 6RF Coding Level of Care Code Est Pt Level 4 (11993) Diagnoses Chronic respiratory failure with hypoxia, on home oxygen therapy J96.11; Z99.81 COPD (chronic obstructive pulmonary disease) J44.9 Personal history of tobacco use Z87.891 Dyspnea R06.00 CPT Codes Nebulizer Treatment - Nebulizer Treatment, initial or subsequent: [id number] RX initial, or Nebulizer Subsequent Treatment ([id number])
[2023-08-30 14:05] VITALS: BP 148/64; PULSE 69; O2SAT 97; BMI 26.1
== END 2023-08-30 15:06 | disposition home or self-care (01) ==
PROVIDERS: PCP Nurse Practitioner Family; Visit Provider Nurse Practitioner Family
DX: J96.11 Chronic respiratory failure with hypoxia (principal); Z99.81 Dependence on supplemental oxygen; J44.9 Chronic obstructive pulmonary disease, unspecified; Z87.891 Personal history of nicotine dependence; R06.00 Dyspnea, unspecified
CPT/HCPCS: 99214

== ENCOUNTER → 2023-08-30 13:47 | Outpatient (BNVA) | payer OTHER, SELFPAY | PROVIDERS: PCP Nurse Practitioner Family; Visit Provider Nurse Practitioner Family | DX: J44.9 Chronic obstructive pulmonary disease, unspecified (principal); J96.11 Chronic respiratory failure with hypoxia; Z99.81 Dependence on supplemental oxygen; Z87.891 Personal history of nicotine dependence | CPT/HCPCS: 94640; 99212 ==

== ENCOUNTER 2023-10-16 09:06 | Outpatient (AMB) | payer OTHER, SELFPAY ==
[2023-10-16 09:15] VITALS: BP 120/72; PULSE 76; BMI 22.2
--- NOTE | 2023-10-16 09:15 | A.OFFVIS_ITS ---
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 /Nasima Betts (Pulm) / CP Final Block Press Operator Required: Yes Final Block Press Operator Name: esteban/ daughter in law Accompanied by: Other Relationship Allergies morphine Allergy (Severe, Verified 08/30/23 14:09) Agitated Medication List - Last Reconciled 10/16/23 by Russ Lim MD albuterol sulfate 90 mcg/actuation 2 inhalations inhalation Q6H PRN 30 days blood sugar diagnostic As directed twice per day blood-glucose meter As directed twice per day blood-glucose meter,continuous (FreeStyle Amadeo 3 [place]) As directed blood-glucose sensor (FreeStyle Amadeo 3 Sensor device) As directed nqvrzmtjkpe-qjbejfwbz-khkwuahl 200-62.5-25 mcg (Trelegy Ellipta) 1 inh inhalation DAILY lancets As directed lancets As directed twice per day latanoprost 0.005% 1 drp ophthalmic (eye) DAILY metformin 1,000 mg PO BID 90 days miscellaneous medical supply As directed paroxetine HCl 20 mg PO DAILY 90 days pregabalin (Lyrica) 50 mg PO TID 30 days sitagliptin phosphate (Januvia) 25 mg PO DAILY HPI Comments Details: Costa is here for consultation regarding chest pains. He has a lot of pulmonary issues but no known cardiac disease. Apparently, he gets some chest pains that feel like sharp pains in the left chest. Has happened when he is resting and sometimes during activity. There are some pleuritic components as well. No doc umented coronary issues or myocardial infarction. Seems to be having diabetes. Former smoker. [facility] Medical History (Updated 10/16/23 @ 10:09 by Russ Lim MD) Hernia COVID-19 Diabetes mellitus, type 2 Bronchitis Pneumonia COPD (chronic obstructive pulmonary disease) Surgical History Tympanic tube insertion History of intestinal surgery Family History Mother Mental health disorder Brother Substance use disorder Social History Household Members: None Housing: Apartment Alcohol intake: never Patient Tobacco Use Status: Former Tobacco user Cigarette Packs Per Day: 1 Cigarettes Per Day: 1 Years Smoked: 40 e-Cigarette/Vaping Use: Never Used service: No Current occupational status: disabled Current occupational exposures/hazards: No Sexual orientation: Straight/Heterosexual Gender identity: Male Cognitive needs: No Hearing needs: No Vision needs: No Review of Systems Const Denies chills, Denies fatigue, Denies fever(s), Denies frequent falls, Denies weakness, Denies weight gain and Denies weight loss ENT Denies dizziness Card Reports chest pain, Denies leg edema, Denies lightheadedness, Denies palpitations, Reports dyspnea, Reports dyspnea on exertion and Reports orthopnea Resp Denies cough, Reports dyspnea and Reports dyspnea on exertion GI Denies bloating and Denies change in bowel habits Musc Denies muscle weakness, Denies numbness and Denies tingling Neuro Denies dizziness, Denies frequent falls, Denies numbness, Denies tingling and Denies weakness Endo Denies fatigue and Denies palpitations Physical Exam Vital Signs: Last Vital Signs Pulse 76 10/16/23 09:15 BP 120/72 10/16/23 09:15 BMI result Body Mass Index 22.2 Const General: comfortable and no acute distress Orientation/consciousness: patient oriented x3 HEENT Other: Unremarkable Head: Yes normal to inspection Neck Neck: Yes normal visual inspection Chest Chest palpation & inspection: normal inspection of the chest Resp Auscultation: clear to auscultation bilaterally Cardio Palpation: normal PMI Heart sounds: S1 normal heart sound present, S2 normal heart sound present, no gallops, no murmurs and no rubs GI Palpation (GI): Soft to palpation Back/Spine/Pelvis Other: unremarkable Skin General skin exam: no rashes or lesions noted Neuro General: patient oriented x3 Extrem General: Yes normal to inspection Psych Mental Status: mental status grossly normal Office Procedures EKG Details: EKG with sinus rhythm at 76/Min; right bundle-branch block; left posterior fascicular block; [place] [address]-[id number], Complete Assessment & Plan Assessment & Plan (1) Precordial chest pain: Code(s): R07.2 - Precordial pain Category: Medical (2) Bifascicular block: Code(s): I45.2 - Bifascicular block Category: Medical (3) Coronary artery calcification seen on CAT scan: Code(s): I25.10 - Atherosclerotic heart disease of [place] coronary artery without angina pectoris Category: Medical Plan EKG with evidence of bifascicular block. Chest CT scan with report of moderate coronary calcification as well as atherosclerotic calcification in the aorta. Symptoms are somewhat atypical, but he does have risk factors including age, history of smoking, diabetes as well as CT scan findings as above. Reasonable to pursue further workup with an echocardiogram and myocardial perfusion imaging. He is walking with a cane and has underlying pulmonary issues. Hence highly unlikely to exercise on the treadmill. We can do a pharmacological stress test with Lexiscan. Clinically, not wheezing and hence should probably be okay unless he has any symptoms/wheezing on the day of the test. In that case, may need dobutamine. Orders: Orders CA lexiscan stress w dami Today I20.9 - Angina pectoris, unspecified, R07.2 - Precordial pain NM cardiolite stress test Today R07.2 - Precordial pain CA echo transthoracic complete Today I25.10 - Atherosclerotic heart disease of [place] coronary artery without angina pectoris, R07.2 - Precordial pain Coding Level of Care Code New Pt Level 4 (57356) Diagnoses Precordial chest pain R07.2 Bifascicular block I45.2 Coronary artery calcification seen on CAT scan I25.10 CPT Codes EKG - CPT: 95853-Tzoxjxwasutvgjjhq, Complete ([id number])
== END 2023-10-16 09:43 | disposition home or self-care (01) ==
PROVIDERS: PCP Nurse Practitioner Family; Visit Provider Internal Medicine
DX: R07.2 Precordial pain (principal); I45.2 Bifascicular block; I25.10 Atherosclerotic heart disease of native coronary artery without angina pectoris
CPT/HCPCS: 93010; 99204; 99214

== ENCOUNTER → 2023-10-16 09:06 | Outpatient (BNVA) | payer OTHER, SELFPAY | PROVIDERS: PCP Nurse Practitioner Family; Visit Provider Internal Medicine | DX: I25.10 Atherosclerotic heart disease of native coronary artery without angina pectoris (principal); I45.2 Bifascicular block; R07.2 Precordial pain | CPT/HCPCS: 93005; 99202 ==

== ENCOUNTER 2023-10-24 15:45 | Outpatient (AMB) | payer OTHER, SELFPAY ==
--- OUTSIDE RECORDS SUMMARY | 2023-10-24 15:52 | XMS_ITS | Clinical Summary ---
Author Organization INFECTIOUS DISEASE A [facility] Address [address], [place] [phone] Phone Care Team Providers Care Seismograph Observer Name Role Phone Irma Gar MD Unavailable Unavailabl e Reason for Visit and Chief Complaint [Patient [...] Time Diagnosis [Patient Encounter] Colin Ferreira MD [facility] 1 12:00AM 11:59PM Insurance Includes: Active Insurance Policies Plan Name Member ID Group # Subscriber Relationship Effect stacy Dates 1 - [facility] [id number] Costa Waters Self Clinical Notes Includes: Clinical Notes from this encounter No Clinical Notes Recorded
--- OUTSIDE RECORDS SUMMARY | 2023-10-24 15:52 | XMS_ITS | Clinical Summary ---
Author Organization INFECTIOUS DISEASE A [facility] Address [address], [place] [phone] Phone Care Team Providers Care Manager Outreach Name Role Phone Irma Gar MD Unavailable [...] Time Diagnosis [Patient Encounter] Colin Ferreira MD [facility] 1 12:00AM 11:59PM Insurance Includes: Active Insurance Policies Plan Name Member ID Group # Subscriber Relationship Effect stacy Dates 1 - [facility] [id number] Costa Waters Self Clinical Notes Includes: Clinical Notes from this encounter No Clinical Notes Recorded
--- OUTSIDE RECORDS SUMMARY | 2023-10-24 15:52 | XMS_ITS | Clinical Summary ---
Author Organization INFECTIOUS DISEASE A [facility] Address [address], [place] [phone] Phone Care Team Providers Care Feeder Driver Name Role Phone Irma Gar MD Unavailable [...] Time Diagnosis [Patient Encounter] Colin Ferreira MD [facility] 1 12:00AM 11:59PM Insurance Includes: Active Insurance Policies Plan Name Member ID Group # Subscriber Relationship Effect stacy Dates 1 - [facility] [id number] Costa Waters Self Clinical Notes Includes: Clinical Notes from this encounter No Clinical Notes Recorded
--- OUTSIDE RECORDS SUMMARY | 2023-10-24 15:52 | XMS_ITS ---
Author Organization INFECTIOUS DISEASE A [facility] Address [address], [place] [phone] Phone Care Team Providers Care B2B Sales Representative Name Role Phone Rin HIRSCH, Irma Whipple Unavailable Unavailabl e Plan of Treatment No Plan of Treatment Recorded Assessments Includes: Assessments for all patient encounters No Assessments Recorded Medical Equipment - Implanted Devices Includes: Current and historical Devices No Medical Equipment Recorded Medications Administered Includes: Administered Medications in patient's chart No Administered Medications Recorded Results Includes: Results from 10/23/2022 through 10/24/2023 No Results Recorded For Specified Dates History [...] Subscriber Relationship Effect stacy Dates 1 - [facility] [id number] Costa Guamanaldo Self Clinical Notes Includes: Signed Clinical Notes starting from 04/27/2022 No Clinical Notes Recorded
--- OUTSIDE RECORDS SUMMARY | 2023-10-24 15:52 | XMS_ITS | Clinical Summary ---
Author Organization INFECTIOUS DISEASE A [facility] Address [address], [place] [phone] Phone Care Team Providers Care Route Sales Driver Name Role Phone Irma Gar MD [...] Time Diagnosis [Patient Encounter] Colin Ferreira MD [facility] 1 12:00AM 11:59PM Insurance Includes: Active Insurance Policies Plan Name Member ID Group # Subscriber Relationship Effect stacy Dates 1 - [facility] [id number] Costa Waters Self Clinical Notes Includes: Clinical Notes from this encounter No Clinical Notes Recorded
--- OUTSIDE RECORDS SUMMARY | 2023-10-24 15:52 | XMS_ITS | Clinical Summary ---
Author Organization INFECTIOUS DISEASE A [facility] Address [address], [place] [phone] Phone Care Team Providers Care Professional Athlete Name Role Phone Irma Gar MD Unavailable [...] Diagnosis [Patient Encounter] Colin Ferreira MD [facility] 1 12:00AM 11:59PM Insurance Includes: Active Insurance Policies Plan Name Member ID Group # Subscriber Relationship Effect stacy Dates 1 - [facility] [id number] Costa Waters Self Clinical Notes Includes: Clinical Notes from this encounter No Clinical Notes Recorded
--- OUTSIDE RECORDS SUMMARY | 2023-10-24 15:52 | XMS_ITS ---
Care Plan - [facility] Created on: October 24, 2023 Costa Jones : 1950 Sex: Male Author Organization [facility] Address [address], [place] [phone] Phone Care Team Providers Care Systems Test Technician Name Role Phone Rin HIRSCH, Irma Henry
[2023-10-24 16:04] VITALS: BP 128/64; PULSE 74; RESP 15; TEMP 36.5; O2SAT 95; BMI 25.5
--- NOTE | 2023-10-24 16:04 | A.OFFPC_ITS ---
Vital Signs 10/24/23 16:04 Height 5 ft 6 in Weight 158 lb BMI 25.5 BP 128/64 Blood Pressure Location Rt brachial Position Sitting Respiration 15 Pulse 74 Pulse Source Pulse Oximeter Temp 97.7 F Temp Source Temporal Artery Scan Pulse Oximetry (%) 95 Oxygen Delivery Method Simple Mask Intake Visit Reasons: follow up risk form Intake Note: Patient need handicap placard and PT1 put in. Patient needs refill on metformin and eyedrops as well as different pain medication for the pain in his feet. Senior Client Advisor Required: Yes Accompanied by: Family/Other Allergies morphine Allergy (Severe, Verified 10/24/23 16:10) Agitated Medication List - Last Reconciled 10/24/23 by Shelia Huber, PROFESSOR OF HISTORY- albuterol sulfate 90 mcg/actuation 2 inhalations inhalation Q6H PRN 30 days blood sugar diagnostic As directed twice per day blood-glucose meter As directed twice per day blood-glucose meter,continuous (FreeStyle Amadeo 3 [place]) As directed blood-glucose sensor (FreeStyle Amadeo 3 Sensor device) As directed daqnwopvrzf-rkurpjndq-sboiblba 200-62.5-25 mcg (Trelegy Ellipta) 1 inh inhalation DAILY lancets As directed lancets As directed twice per day latanoprost 0.005% 1 drp ophthalmic (eye) DAILY metformin 1,000 mg PO BID 90 days miscellaneous medical supply As directed paroxetine HCl 20 mg PO DAILY 90 days pregabalin (Lyrica) 50 mg PO TID 30 days sitagliptin phosphate (Januvia) 25 mg PO DAILY Tobacco use date assessed: 07/24/23 Fall risk assessment: No Falls in past year Last assessed Fall Risk: 10/24/23 Dental Screening Dental Screen Date: 06/25/23 HPI HPI Comments History of Present Illness Details 73-year-old male Norwegian speaking with d iabetes type 2 , COPD O2 dependent on 2 L of oxygen, empyema status post chest tube and VATS, status post tracheostomy now decannulated, interstitial lung disease, status post right- sided rib fractures glaucoma, MDD, urinary incont, CAD, bifascilar block Specialists Pulmonology [facility] [place] Ophthalmology Cards Health maintenance Colonoscopy Diabetic eye exam Flu vaccines reports UTD HGB A1c performed 06/25/23 8.2% Here today with Grandson to fu on chronic conditions since last visit he had an elder at risk filed, opened and then closed. I Started visit today by discussing how the visit will go which will include respect and no further discussion about oxycodone He agrees Since last visit he saw Cards and had an echo and stress ordered; note reviewed. Has routine f/u with Pulm -- note reviewed. DM not using the CGM has not gotten it Not checking blood sugars saying his machine is broke Of note, all of this was dealt w/ previously and is not accurate. Not sure what else to do with this.. as he was already referred to [facility] for support Be that as it may he is due for labs and will return to get this done wants RMV form for parking cont to c/o chronic neuropathic pain BLE Requesting RX for sleep has rash on his face, side of nose, needs cream. he stopped losartan as it made him weak and subjective low BP. Plan: Fasting labs Cont meds Refer to pain mgmt Refer to psychiatry to est a diagnosis and appropriate treatment plan made aware he will get call about these appts and his contact info needs to be up to date Desonide for face BID Cont care w/ pulm and cards. BP at goal w/o meds. RTO in 2 weeks to complete RMV ppw and then 6 months for routine fu, sooner as needed. [facility] Medical History (Updated 10/24/23 @ 16:40 by Shelia Huber, [facility] [place]) Hernia COVID-19 Diabetes mellitus, type 2 Bronchitis Pneumonia COPD (chronic obstructive pulmonary disease) Surgical History Tympanic tube insertion History of intestinal surgery Family History Mother Mental health disorder Brother Substance use disorder Social History Household Members: None Housing: Apartment Alcohol intake: never Patient Tobacco Use Status: Former Tobacco user Cigarette Packs Per Day: 1 Cigarettes Per Day: 1 Years Smoked: 40 e-Cigarette/Vaping Use: Never Used service: No Current occupational status: disabled Current occupational exposures/hazards: No Sexual orientation: Straight/Heterosexual Gender identity: Male Cognitive needs: No Hearing needs: No Vision needs: No Questionnaire Thrive Questionnaire Date Thrive assessed: 06/25/23 BERRY-7 AMB Questionnaire BERRY-7 Date BERRY - 7 assessed: 06/25/23 Source: Developed by Drs. Ap Medina, Aidee Emerson, Demetrius Romano and colleagues, with an educational simon from [email or web address]. Review of Systems Const All systems reviewed & are unremarkable except as noted in HPI and below Physical exam (Primary Care) Vital Signs: Last Vital Signs Temp 97.7 F 10/24/23 16:04 Pulse 74 10/24/23 16:04 Resp 15 10/24/23 16:04 BP 128/64 10/24/23 16:04 Pulse Ox 95 10/24/23 16:04 Oxygen Delivery Method Simple Mask 10/24/23 16:04 BMI result Body Mass Index 25.5 Tobacco/Smoking Status: Tobacco use Status Tobacco use date assessed 07/24/23 10/11/23 08:58 Patient Tobacco Use Status Former Tobacco user 10/11/23 08:58 e-Cigarette/Vaping Use Never Used 10/11/23 08:58 Thrive Assessment: Date of Thrive Assessment Date Thrive assessed 06/25/23 10/11/23 08:58 Const Other: Awake alert oriented , accompanied by Grandson Speech is loud, talking over Grandson, rambling, mood is expansive dry eczematous rash to bilat cheeks proximal to nose Regular rate and rhythm Lung sounds diminished with fine bibasilar crackles bases bilat, 02 2L nc Bilateral lower extremities with no edema, decreased pedal pulses, hairless, skin intact, abnormal vibratory sensation bilat, normal monofilament bilat Assessment and Plan Assessment & Plan (1) Diabetic peripheral neuropathy associated with type 2 diabetes mellitus: Code(s): E11.42 - Type 2 diabetes mellitus with diabetic polyneuropathy (2) MDD (major depressive disorder), recurrent episode: Code(s): F33.9 - Major depressive disorder, recurrent, unspecified Qualifiers: Major depression episode severity: moderate Qualified Code(s): F33.1 - Major depressive disorder, recurrent, moderate (3) Labile mood: Code(s): R45.86 - Emotional lability (4) Diabetes mellitus type 2 with complications: Comment: . Currently managed on metformin a 1000 mg twice per day which I would like for him to continue along with Januvia 25 mg p.o. daily. I have placed a referral for the diabetic eye exam. glucometer, test strips, and lancets. He can use this until his freestyle Amadeo 3 CGM is processed. I have placed a referral to the nurse navigator to help him previously Code(s): E11.8 - Type 2 diabetes mellitus with unspecified complications (5) Hypertension associated with type 2 diabetes mellitus: Comment: losartan caused weakness and reported low BP he stopped taking BP stable w/o meds at this time Code(s): E11.59 - Type 2 diabetes mellitus with other circulatory complications; I15.2 - Hypertension secondary to endocrine disorders Plan: This note is constructed using voice recognition software. While every effort has been made to ensure accuracy in sew on operator, still errors may have been included Sometimes, these errors may affect the content or meaning of the given sentence . Total time spent caring for the patient today was 45 minutes. This includes time spent before the visit reviewing the chart, time spent during the visit, and time spent after the visit on documentation (6) Eczema: Code(s): L30.9 - Dermatitis, unspecified Orders: Orders Hemoglobin A1c Today E11.59 - Type 2 diabetes mellitus with other circulatory complications, E11.8 - Type 2 diabetes mellitus with unspecified complications, I15.2 - Hypertension secondary to endocrine disorders Lipid Panel Today E11.59 - Type 2 diabetes mellitus with other circulatory complications, E11.8 - Type 2 diabetes mellitus with unspecified complications, I15.2 - Hypertension secondary to endocrine disorders Comprehensive [place]. Panel Fast Today E11.59 - Type 2 diabetes mellitus with other circulatory complications, E11.8 - Type 2 diabetes mellitus with unspecified complications, I15.2 - Hypertension secondary to endocrine disorders Referrals Pain Management Referral E11.42 - Type 2 diabetes mellitus with diabetic polyneuropathy Psychiatry Referral F33.1 - Major depressive disorder, recurrent, moderate, R45.86 - Emotional lability Medications: New desonide 0.05% apply to face 1 appl topical BID 15 grams 3RF Refilled metformin 1,000 mg PO BID 90 days 180 tabs 0RF Discontinued pregabalin (Lyrica) Discontinued Reason: Doctor's Order 50 mg PO TID 30 days 90 caps 0RF Patient Instructions: Plan: Fasting labs Cont meds - refill metformin sent Refer to pain mgmt Refer to psychiatry to est a diagnosis and appropriate treatment plan made aware he will get call about these appts and his contact info needs to be up to date Desonide for face BID Cont care w/ pulm and cards. Eye gtts managed by Optho - rec fu RTO in 2 weeks to complete RMV ppw and then 6 months for routine fu, sooner as needed. Coding Level of Care Code Est Pt Level 5 (02841) Complex EM visit Add On G2211 Diagnoses Diabetic peripheral neuropathy associated with type 2 diabetes mellitus E11.42 Moderate episode of recurrent major depressive disorder F33.1 Major depression episode severity: moderate Labile mood R45.86 Diabetes mellitus type 2 with complications E11.8 Hypertension associated with type 2 diabetes mellitus E11.59; I15.2 Eczema L30.9
== END 2023-10-24 16:35 | disposition home or self-care (01) ==
PROVIDERS: PCP Nurse Practitioner Family; Visit Provider Nurse Practitioner Family
DX: E11.42 Type 2 diabetes mellitus with diabetic polyneuropathy (principal); F33.1 Major depressive disorder, recurrent, moderate; E11.8 Type 2 diabetes mellitus with unspecified complications; E11.59 Type 2 diabetes mellitus with other circulatory complications; R45.86 Emotional lability; I15.2 Hypertension secondary to endocrine disorders; L30.9 Dermatitis, unspecified
CPT/HCPCS: 99215; G2211

== ENCOUNTER → 2023-10-30 14:11 | Outpatient (REF) | payer OTHER, SELFPAY ==
--- NOTE | 2023-10-30 14:14 | CA_ITS ---
Transthoracic Echocardiogram Patient (Last, First, Middle): Costa Jones, Gender: Male Date of : 1950 Age: 73 Procedure Date: 10/30/2023 Procedure Type: Transthoracic Echocardiogram Location: OP Height: 167.64 cm Weight: 71.67 kg BSA: 1.81 m2 Heart Rate: bpm BP: 116 / 78 mmHg Manufacturing Leader: OSCAR Referring MD: Russ Lim MD Symptoms: I25.10 - Atherosclerotic heart disease of [place] coronary artery without... Study Quality: Adequate Conclusions: - The left ventricular systolic function is normal. The calculated ejection fraction is 64% by biplane method. - The basal inferior and basal inferolateral segments are hypokinetic. - No obvious valvular pathology seen on this study. Findings Left Ventricle Normal left ventricular cavity size. The left ventricular systolic function is normal. The calculated ejection fraction is 64% by biplane method. Diastolic function is normal for age. There is mild septal asymmetric hypertrophy. Wall Motion Rest Echo Findings The basal inferior and basal inferolateral segments are hypokinetic. Right Ventricle Normal right ventricular cavity size. There is low normal right ventricular systolic function. Atria Both atria are normal in size. Aortic Valve There is a normal trileaflet aortic valve. There is no aortic valve stenosis. There is no aortic valve regurgitation. Mitral Valve The mitral valve appears normal. There is trace mitral valve regurgitation. There is no mitral valve stenosis. Pulmonic Valve The pulmonic valve is likely normal. Tricuspid Valve There is trace tricuspid valve regurgitation. There is no evidence of pulmonary hypertension. Great Vessels The asc aorta is normal in size. Venous The inferior vena cava is normal in size and collapses greater than 50% with inspiration. Pericardium/Pleural There is no evidence of pericardial effusion. Prior Study Comparison No prior study available for comparison. Recommendations, Care & Conclusions No obvious valvular pathology seen on this study. Measurements 2D Linear Measurements IVSd: 1.09 0.6-0.9/0.6-1.0 cm LVIDd: 3.91 3.9-5.3/4.2-5.9 cm LVIDd Index: 2.16 2.4-3.2/2.2-3.1 cm/m2 LVIDs: 2.85 2.0-3.6 cm LVPWd: 1.01 0.7-1.1 cm LA Diam: 2.20 2.7-3.8/3.0-4.0 cm LAIDs Index: 1.22 1.5-2.3 cm/m2 LV Mass: 163.60 67-162/88-224 g LV Mass Index: 90.39 43-95/49-115 g/m2 LVOT Diam: 2.10 3.0+(-)1.3 cm 2D Systolic Function EF 4C: 62.70 >55% EF 2C: 65.20 >55% EF BiP: 63.60 >55% Mitral Valve MV Pk E: 0.38 MV PK A: 0.41 MV Decel Time: 338.00 E/A: 0.90 E'Lateral: 9.03 E'Medial: 5.22 E/E' Med: 7.20 E/E' Lat: 4.20 PHT: 99.00 MVA PHT: 2.[address] [place]: 1.12 Aortic Valve AoV Pk Jarod: 1.05 AoV Mn Jarod: 0.73 AoV VTI: 0.21 AoV Pk Grad: 4.00 Aov Mn Grad: 2.00 MIMI Cont.VTI: 3.04 LVOT LVOT Pk Jarod: 0.98 LVOT Mn Jarod: 0.63 LVOT VTI: 0.19 LVOT Pk Grad: 4.00 LVOT Mn Grad: 2.00 LVOT Diam: 2.10 LVOT Area: 3.46 Diastolic Function MV Pk E: 0.38 MV Pk A: 0.41 E/A: 0.90 E'Medial: 5.22 E/E' Med: 7.20 E' Laterial: 9.03 E/E' Lat: 4.20 Right Ventricle TAPSE (mm): 16.90 TVS' Jarod: 9.46 Tricuspid Valve TR Pk Jarod: 2.10 TR Pk Grad: 18.00 RA Press: 3.00 RVSP: 21.00 Great Vessels Aorta Sinus of Valsalva: 3.85 2.0-3.[address] [place]: 2.39 1.7-3.4 cm Ao Asc: 3.50 2.1-3.4 cm Updated in Other Vendor System with Status of Final Russ Lim MD electronically signed on 11/01/2023 2:12:12 PM with status of Final
== END ==
LOC: HO.CARD 14:11
PROVIDERS: PCP Nurse Practitioner Family; Visit Provider Internal Medicine
DX: R07.2 Precordial pain (principal); I25.10 Atherosclerotic heart disease of native coronary artery without angina pectoris
CPT/HCPCS: 93306

== ENCOUNTER → 2023-10-30 14:14 | Outpatient (BNV) | payer OTHER, SELFPAY | PROVIDERS: PCP Nurse Practitioner Family; Visit Provider Internal Medicine | DX: I42.2 Other hypertrophic cardiomyopathy (principal) | CPT/HCPCS: 93306 ==

== ENCOUNTER 2023-11-01 23:12 | Emergency (ER) | payer OTHER, MEDICAID, SELFPAY ==
--- NOTE | 2023-11-01 | ECG_ITS ---
Test Reason : sob Blood Pressure : / mmHG Vent. Rate : 091 BPM Atrial Rate : 091 BPM P-R Int : 138 ms QRS Dur : 148 ms QT Int : 392 ms P-R-T Axes : 076 086 042 degrees QTc Int : 482 ms Normal sinus rhythm Right bundle branch block Abnormal ECG No significant changes when compared with the previous EKG of 22 sep 2020 Referred By: Generic ED Physician Electronically Signed By:IVA SHOOK
--- NOTE | ~2023-11-01 | XR_ITS ---
EXAMINATION: XR CHEST CLINICAL INFORMATION: Dyspnea. COMPARISON: 07/07/[address] dated 08/23/2023 TECHNIQUE: Frontal view of the chest was obtained. FINDINGS: Lungs are hyperexpanded with architectural distortion consistent with underlying emphysema. There is subtle airspace opacification in the left lower lobe which is new as compared to prior and could correspond to consolidation or atelectasis. No pneumothorax or pleural effusion. Cardiac and mediastinal contours are normal. No acute osseous findings. XR/XR chest 1V IMPRESSION: 1. Subtle airspace opacification in the left lower lobe which may correspond to atelectasis or consolidation. 2. Emphysema. 3. No pleural effusions.
[2023-11-01 23:20] VITALS: BP 142/72; BP 151/73; PULSE 96; PULSE 97; RESP 20; TEMP 36.8; O2SAT 92; O2SAT 97; BMI 26.8
[2023-11-01 23:35] LABS: Glucose, Whole Blood 331 mg/dL (60-115)
[2023-11-01 23:52] LABS: MANUAL DIFF FLAG NO
[2023-11-01 23:53] LABS: Basophils Percent Auto 0.3 % (0-2); Eosinophils Absolute Auto 0.1 X10*3/uL (0.0-0.4); Hematocrit 46.2 % (42.0-52.0); Hemoglobin 16.2 g/dl (14.0-18.0); Imm Gran Abs Auto 0.05 X10*3/uL (0.00-0.03); Imm Gran Pct Auto 0.4 % (0.0-0.4); Lymphocytes Absolute Auto 1.9 X10*3/uL (1.2-4.9); Mean Corpuscular HGB Conc 35.1 g/dl (31.0-36.0); Mean Corpuscular Hemoglobin 30.5 pg (27.0-33.0); Mean Corpuscular Volume 86.8 fL (80.0-98.0); Mean Platelet Volume 11.3 fL (9.4-12.4); Monocytes Percent Auto 8.7 % (2-11); Neutrophils Absolute Auto 8.7 x10*3/uL (2.0-8.3); Neutrophils Percent Auto 73.6 % (45-73); Red Blood Count 5.32 X10*6/uL (4.60-5.80); White Blood Count 11.9 X10*3/uL (4.8-10.8)
[2023-11-01 23:55] LABS: Platelet Count 89 X10*3/uL (160-400)
--- NOTE | 2023-11-02 00:03 | ED.SOB ---
HPI - SOB/Dyspnea General Chief Complaint: Dyspnea Stated Complaint: SOB , chest pain Time Seen by Provider: 11/01/23 23:52 Source: patient Mode of arrival: EMS Limitations: no limitations History of Present Illness ED Provider: komal DANIELS Narrative: Patient is ex-smoker COPD on oxygen 2 L p.r.n. his nebulizer machine not work does not have his pain medication, comes here for increased shortness of breath and pain will taking a deep breath since yesterday. Chest pain is going on for more than 10 years Also has cough with mucopurulent phlegm no fever no chills earlier today patient was coughing a lot the brought him here use inhaler only once today on arrival patient is saturating 92% at room air Related Data Previous Rx's ?Medication ?Instructions ?Recorded albuterol sulfate 90 mcg/actuation 2 inh inhalation Q6H PRN shortness 06/23/23 aerosol inhaler of breath or wheezing 30 days #8.5 grams latanoprost 0.005 % eye drops 1 drp ophthalmic (eye) DAILY #2.5 06/23/23 mL miscellaneous medical supply #100 ea 06/25/23 paroxetine HCl 20 mg tablet 20 mg PO DAILY 90 days #90 tabs 06/25/23 sitagliptin phosphate 25 mg tablet 25 mg PO DAILY #90 tabs 06/25/23 (Januvia) lancets #200 07/17/23 blood sugar diagnostic #100 ea 07/23/23 blood-glucose meter #1 ea 07/23/23 blood-glucose meter,continuous #1 ea 07/23/23 (FreeStyle Amadeo 3 Hastings) blood-glucose sensor (FreeStyle #2 07/23/23 Amadeo 3 Sensor device) lancets #100 ea 07/23/23 fluticasone fur. 200 mcg-umeclid 1 inh inhalation DAILY #60 ea 08/30/23 62.5 mcg-vilant 25 mcg inhalat.powder (Trelegy Ellipta) desonide 0.05 % topical cream 1 appl topical BID #15 grams 10/24/23 metformin 1,000 mg tablet 1,000 mg PO BID 90 days #180 tabs 10/24/23 albuterol sulfate 2.5 mg/3 mL 2.5 mg (3 mL) inhalation Q4-6H PRN 11/02/23 (0.083 %) solution for nebulization shortness of breath or wheezing #90 mL albuterol sulfate 90 mcg/actuation 2 puff inhalation Q6H PRN 11/02/23 aerosol inhaler shortness of breath or wheezing #8.5 grams benzonatate 200 mg capsule 200 mg PO TID PRN cough #30 caps 11/02/23 nebulizer and compressor (Easy Neb #1 ea 11/02/23 Compressor Nebulizer) oxycodone 5 mg tablet 5 mg PO Q8-10H PRN pain #20 tabs 11/02/23 Allergies Allergy/AdvReac Type Severity Reaction Status Date / Time morphine Allergy Severe Agitated Verified 11/01/23 23:27 Review of Systems Review of Systems: Yes all other systems are reviewed and are negative [facility] Past Medical History Medical History (Updated 11/02/23 @ 04:27 by Willie Iglesias MD) Hernia COVID-19 Diabetes mellitus, type 2 Bronchitis Pneumonia Surgical History Tympanic tube insertion History of intestinal surgery Family History Family History Mother Mental health disorder Brother Substance use disorder Social History Social History Household Members: None Housing: Apartment Alcohol intake: never Patient Tobacco Use Status: Former Tobacco user Cigarette Packs Per Day: 1 Cigarettes Per Day: 1 Years Smoked: 40 Smoked in Last 30 Days: No e-Cigarette/Vaping Use: Never Used Use of substances other than those prescribed or required for medical reasons: No Advance Directives: No Advance Directives Information Provided: Yes Do you have a plan to hurt others: No Plan service: No Current occupational status: disabled Current occupational exposures/hazards: No Sexual orientation: Straight/Heterosexual Gender identity: Male Cognitive needs: No Hearing needs: No Vision needs: No Physical Exam Vital Signs: Vital Signs: Last Vital Signs Temp 98.3 F 11/02/23 05:01 Pulse 80 11/02/23 05:01 Resp 14 11/02/23 05:01 BP 105/66 11/02/23 05:01 Pulse Ox 94 11/02/23 05:01 O2 Del Method Room Air 11/02/23 05:01 BMI result Body Mass Index 26.8 Appearance: Alert. Oriented X3. No acute distress. Eyes: No pallor or icterus ENT: Pharynx normal. Oral Mucosa moist Neck: Normal inspection. Neck supple. CVS: Normal heart rate and rhythm. Pulses normal. Respiratory: No respiratory distress. Equal air entry bilateral, bilateral wheezing with prolonged expiration Abdomen: Soft and nontender. Bowel sounds are present, no mass palpable, no CVA tenderness Skin: Skin warm and dry. Normal skin color. Normal skin turgor. Extremities: No lower extremity edema. No calf tenderness Neuro: Oriented X 3. No motor deficit. No sensory deficit.No cerebellar signs , cranial nerves II-XII intact Medications Administered Discontinued Medications Generic Name Dose Route Start Last Admin Trade Name Freq PRN Reason Stop Dose Admin Benzonatate 200 mg 11/02/23 04:21 11/02/23 04:27 Benzonatate 100 Mg Capsule PO 11/02/23 04:22 200 mg ONCE ONE Administration Albuterol Sulfate 2.5 mg/ 0 mg 11/02/23 00:10 11/02/23 00:20 Albuterol/Ipratropium 3 ml INHALE 11/02/23 00:11 5 dose ONCE ONE Administration Insulin Human Lispro 6 unit 11/02/23 00:14 11/02/23 00:21 Insulin Lispro 100 Unit/Ml 3 Ml Vial SUBCUT 11/02/23 00:15 6 unit ONCE ONE Administration Oxycodone HCl 5 mg 11/02/23 04:21 11/02/23 04:28 Oxycodone Hcl Immed Release 5 Mg Tablet PO 11/02/23 04:22 5 mg ONCE ONE Administration Medical Decision Making Lab Data [facility] Lab Attestation statement: I reviewed the patient's lab results. 11/01/23 23:46 11/01/23 23:46 Labs: Lab Results 11/01/23 11/01/23 11/01/23 Range/Units 23:30 23:36 23:46 WBC 11.9 H (4.8-10.8) X10*3/uL RBC 5.32 (4.60-5.80) X10*6/uL Hgb 16.2 (14.0-18.0) g/dl Hct 46.2 (42.0-52.0) % MCV 86.8 (80.0-98.0) fL MCH 30.5 (27.0-33.0) pg MCHC 35.1 (31.0-36.0) g/dl RDW 14.0 (11.0-16.0) % Plt Count 89 L D (160-400) X10*3/uL MPV 11.3 (9.4-12.4) fL Immature Gran % (Auto) 0.4 (0.0-0.4) % Neut % (Auto) 73.6 H (45-73) % Lymph % (Auto) 16.0 L (20-40) % Levy % (Auto) 8.7 (2-11) % Eos % (Auto) 1.0 (0-4) % Baso % (Auto) 0.3 (0-2) % Lymph # (Auto) 1.9 (1.2-4.9) X10*3/uL Levy # (Auto) 1.0 (0.1-1.2) X10*3/uL Eos # (Auto) 0.1 (0.0-0.4) X10*3/uL Baso # (Auto) 0.0 (0.0-0.2) X10*3/uL Abs Immat Gran (auto) 0.05 H (0.00-0.03) X10*3/uL Absolute Neuts (auto) 8.7 H (2.0-8.3) x10*3/uL Absolute Nucleated RBC 0.000 (0.0-0.012) X10*3/uL Nucleated RBC % (auto) 0.0 (0.0-0.2) /100WBC Sodium 135 (135-145) mmol/L Potassium 3.6 (3.3-5.1) mmol/L Chloride 105 (96-108) mmol/L Carbon Dioxide 18 L (22-29) mmol/L Anion Gap 16 (12-20) BUN 9 (9-16) mg/dL Creatinine 0.88 (0.5-1.4) mg/dL Estim Creat Clear Calc 68.4 Estimated GFR > 60 POC Glucose 331 H (60-115) mg/dL Random Glucose 370 H* (60-115) mg/dL Calcium 8.5 D (8.4-10.2) mg/dL Total Bilirubin 0.9 (0.0-1.0) mg/dL AST 26 (5-37) U/L ALT 52 H (0-40) U/L Alkaline Phosphatase 93 (39-117) U/L Troponin I High Sens < 2.7 (<3.5-35.0) ng/L Total Protein 7.3 (6.5-8.0) g/dL Albumin 3.7 (3.5-5.0) g/dL Influenza Type A (PCR) NEGATIVE (Negative) Influenza Type B (PCR) NEGATIVE (Negative) RSV RNA Qual (PCR) NEGATIVE (Negative) SARS-CoV-2 RNA (RT-PCR) NEGATIVE (Negative) 11/02/23 Range/Units 04:14 WBC (4.8-10.8) X10*3/uL RBC (4.60-5.80) X10*6/uL Hgb (14.0-18.0) g/dl Hct (42.0-52.0) % MCV (80.0-98.0) fL MCH (27.0-33.0) pg MCHC (31.0-36.0) g/dl RDW (11.0-16.0) % Plt Count (160-400) X10*3/uL MPV (9.4-12.4) fL Immature Gran % (Auto) (0.0-0.4) % Neut % (Auto) (45-73) % Lymph % (Auto) (20-40) % Levy % (Auto) (2-11) % Eos % (Auto) (0-4) % Baso % (Auto) (0-2) % Lymph # (Auto) (1.2-4.9) X10*3/uL Levy # (Auto) (0.1-1.2) X10*3/uL Eos # (Auto) (0.0-0.4) X10*3/uL Baso # (Auto) (0.0-0.2) X10*3/uL Abs Immat Gran (auto) (0.00-0.03) X10*3/uL Absolute Neuts (auto) (2.0-8.3) x10*3/uL Absolute Nucleated RBC (0.0-0.012) X10*3/uL Nucleated RBC % (auto) (0.0-0.2) /100WBC Sodium (135-145) mmol/L Potassium (3.3-5.1) mmol/L Chloride (96-108) mmol/L Carbon Dioxide (22-29) mmol/L Anion Gap (12-20) BUN (9-16) mg/dL Creatinine (0.5-1.4) mg/dL Estim Creat Clear Calc Estimated GFR POC Glucose 233 H (60-115) mg/dL Random Glucose (60-115) mg/dL Calcium (8.4-10.2) mg/dL Total Bilirubin (0.0-1.0) mg/dL AST (5-37) U/L ALT (0-40) U/L Alkaline Phosphatase (39-117) U/L Troponin I High Sens (<3.5-35.0) ng/L Total Protein (6.5-8.0) g/dL Albumin (3.5-5.0) g/dL Influenza Type A (PCR) (Negative) Influenza Type B (PCR) (Negative) RSV RNA Qual (PCR) (Negative) SARS-CoV-2 RNA (RT-PCR) (Negative) Independent Interpretation I performed an independent interpretation of an: Plain X-Ray Radiology Impression Discussion of test interpretation with radiology: I have reviewed the radiologist's reading. Discharge Plan Discharge Clinical Impression: COPD (chronic obstructive pulmonary disease) Patient Disposition: Home, Self-Care Instructions: COPD (Chronic Obstructive Pulmonary Disease) (DC) Additional Instructions: Continue to use your nebulizing treatment/inhaler every 4-6 hours as needed Cough drops as prescribed Pain medication as prescribed Use oxygen as needed Prescriptions: New albuterol sulfate 2.5 mg /3 mL (0.083 %) solution for nebulization 2.5 mg inhalation Q4-6H PRN (Reason: shortness of breath or wheezing) Qty: 90 0RF benzonatate 200 mg capsule 200 mg PO TID PRN (Reason: cough) Qty: 30 0RF albuterol sulfate 90 mcg/actuation HFA aerosol inhaler 2 puff inhalation Q6H PRN (Reason: shortness of breath or wheezing) Qty: 8.5 0RF oxycodone 5 mg tablet 5 mg PO Q8-10H PRN (Reason: pain) Qty: 20 0RF Rx Instructions: Partial Fill upon patient request. (DME) nebulizer and compressor [Easy Neb Compressor Nebulizer] Device See Rx Instructions .Route Qty: 1 0RF Rx Instructions: As directed No Action (DME) lancets Misc See Rx Instructions .Route Qty: 200 3RF Rx Instructions: As directed (DME) FreeStyle Amadeo 3 Hastings Misc See Rx Instructions .Route Qty: 1 0RF Rx Instructions: As directed (DME) FreeStyle Amaedo 3 Sensor Device See Rx Instructions .Route Qty: 2 11RF Rx Instructions: As directed (DME) blood sugar diagnostic Strip See Rx Instructions .Route Qty: 100 11RF Rx Instructions: As directed twice per day (DME) blood-glucose meter Kit See Rx Instructions .Route Qty: 1 1RF Rx Instructions: As directed twice per day (DME) lancets Misc See Rx Instructions .Route Qty: 100 11RF Rx Instructions: As directed twice per day latanoprost 0.005 % drops 1 drp ophthalmic (eye) DAILY Qty: 2.5 0RF albuterol sulfate 90 mcg/actuation HFA aerosol inhaler 2 inh inhalation Q6H PRN (Reason: shortness of breath or wheezing) 30 Days Qty: 8.5 0RF desonide 0.05 % cream 1 appl topical BID Qty: 15 3RF Rx Instructions: apply to face metformin 1,000 mg tablet 1,000 mg PO BID 90 Days Qty: 180 0RF (DME) miscellaneous medical supply Pad See Rx Instructions .Route Qty: 100 11RF Rx Instructions: As directed paroxetine HCl 20 mg tablet 20 mg PO DAILY 90 Days Qty: 90 0RF Januvia 25 mg tablet 25 mg PO DAILY Qty: 90 0RF Trelegy Ellipta 200-62.5-25 mcg blister with device 1 inh inhalation DAILY Qty: 60 6RF Interventions: ED Discharge Assessment Last Done: 11/02/23 05:01 Discharge Date/Time: 11/02/23 05:01 Print Language: Sami
[2023-11-02 00:09] LABS: Alanine Aminotransferase 52 U/L (0-40); Albumin Level 3.7 g/dL (3.5-5.0); Alkaline Phosphatase 93 U/L (39-117); Anion Gap 16 (12-20); Aspartate Amino Transferase 26 U/L (5-37); Bilirubin Total 0.9 mg/dL (0.0-1.0); Blood Urea Nitrogen 9 mg/dL (9-16); Calcium 8.5 mg/dL (8.4-10.2); Carbon Dioxide 18 mmol/L (22-29); Chloride 105 mmol/L (96-108); Creatinine Clr Calc Pharmacy 68.4; Estimated Glomerular Filt Rate > 60; Potassium 3.6 mmol/L (3.3-5.1); Sodium 135 mmol/L (135-145); Total Protein 7.3 g/dL (6.5-8.0)
[2023-11-02 00:10] LABS: Glucose Random 370 mg/dL (60-115)
--- NOTE | 2023-11-02 00:12 | PC.NURSE ---
translator interpreter at bedside. pt a&ox4, respirations even and unlabored. pt reporting onset of shortness of breath starting at night, pt reports he is on 2L nasal cannula baseline as needed. pt reports onset of pain with inspiration. pt reports hx of copd and lung problems since he had covid in 2020. pt lung sounds clear bilaterally. pt 92-94% on room air. labs obtained and sent to lab. pt normal sinus on tele 88-90bpm.
[2023-11-02 00:13] LABS: Troponin-I High Sensitivity < 2.7 ng/L (<3.5-35.0)
--- OUTSIDE RECORDS SUMMARY | 2023-11-02 00:14 | XMS_ITS ---
Author Organization [facility] Address [address], [place] [phone] Phone Care Team Providers Care Service Counter Cashier Name Role Phone Rin HIRSCH, Irma Whipple Unavailable Unavailabl e Plan of Treatment No Plan of Treatment Recorded Assessments Includes: Assessments for all patient encounters No Assessments Recorded Medical Equipment - Implanted Devices Includes: Current and historical Devices No Medical Equipment Recorded Medications Administered Includes: Administered Medications in patient's chart No Administered Medications Recorded Results Includes: Results from 11/01/2022 through 11/02/2023 No Results Recorded For Specified Dates History [...] Subscriber Relationship Effect stacy Dates [id number] Costa Smitho Self Clinical Notes Includes: Signed Clinical Notes starting from 04/27/2022 No Clinical Notes Recorded
--- OUTSIDE RECORDS SUMMARY | 2023-11-02 00:14 | XMS_ITS | Clinical Summary ---
Author Organization [facility] Address [address], [place] [phone] Phone Care Team Providers Care Twenty One Dealer Name Role Phone Irma Gar MD Unavailable [...] Time Diagnosis [Patient Encounter] Colin Ferreira MD [facility] 1 12:00AM 11:59PM Insurance Includes: Active Insurance Policies Plan Name Member ID Group # Subscriber Relationship Effect [facility] Dates [facility] [id number] Costa Waters Self Clinical Notes Includes: Clinical Notes from this encounter No Clinical Notes Recorded
--- OUTSIDE RECORDS SUMMARY | 2023-11-02 00:14 | XMS_ITS | Clinical Summary ---
Author Organization [facility] Address [address], [place] [phone] Phone Care Team Providers Care Manager Women Name Role Phone Irma Gar MD Unavailable [...] Time Diagnosis [Patient Encounter] Colin Ferreira MD [facility] 1 12:00AM 11:59PM Insurance Includes: Active Insurance Policies Plan Name Member ID Group # Subscriber Relationship Effect stacy Dates 1 - [facility] [id number] Costa Waters Self Clinical Notes Includes: Clinical Notes from this encounter No Clinical Notes Recorded
--- OUTSIDE RECORDS SUMMARY | 2023-11-02 00:14 | XMS_ITS ---
Care Plan - [facility] Created on: November 02, 2023 Costa Jones : 1950 Sex: Male Author Organization [facility] Address [address], [place] [phone] Phone Care Team Providers Care Curatorial Assistant Name Role Phone Rin HIRSCH, Irma Henry
--- OUTSIDE RECORDS SUMMARY | 2023-11-02 00:15 | XMS_ITS | Clinical Summary ---
Author Organization [facility] Address [address] [place], [place] [phone] Phone Care Team Providers Care Drapery Maker Name Role Phone Irma Gar MD Unavailable [...] Time Diagnosis [Patient Encounter] Colin Ferreira MD [facility] 1 12:00AM 11:59PM Insurance Includes: Active Insurance Policies Plan Name Member ID Group # Subscriber Relationship Effect stacy Dates 1 - [facility] [id number] Costa Waters Self Clinical Notes Includes: Clinical Notes from this encounter No Clinical Notes Recorded
--- OUTSIDE RECORDS SUMMARY | 2023-11-02 00:15 | XMS_ITS | Clinical Summary ---
Author Organization [facility] DISEASE [facility] Address [address] [place], [place] [phone] Phone Care Team Providers Care Section Laborer Name Role Phone Irma Gar MD Unavailable [...] Time Diagnosis [Patient Encounter] Colin Ferreira MD [facility] 1 12:00AM 11:59PM Insurance Includes: Active Insurance Policies Plan Name Member ID Group # Subscriber Relationship Effect stacy Dates 1 - [facility] [id number] Costa Waters Self Clinical Notes Includes: Clinical Notes from this encounter No Clinical Notes Recorded
--- OUTSIDE RECORDS SUMMARY | 2023-11-02 00:15 | XMS_ITS | Clinical Summary ---
Author Organization [facility] Address [address], [place] [phone] Phone Care Team Providers Care Waterproof Bag Sewer Name Role Phone Irma Gar MD Unavailable [...] [Patient Encounter] Colin Ferreira MD [facility] 1 12:00AM 11:59PM Insurance Includes: Active Insurance Policies Plan Name Member ID Group # Subscriber Relationship Effect stacy Dates 1 - [facility] [id number] Costa Waters Self Clinical Notes Includes: Clinical Notes from this encounter No Clinical Notes Recorded
[2023-11-02 00:20] VITALS: PULSE 87; RESP 18; O2SAT 93
[2023-11-02] MEDS: Albuterol Sulfate 2.5 MG, Albuterol/Iprat 2.5/0.5MG 3 ML 3 ML INHALE (00:20)
[2023-11-02] MEDS: Insulin Lispro 100 UNIT/ML 3 ML VIAL 6 UNIT SUBCUT (00:21)
--- NOTE | 2023-11-02 00:22 | PC.NURSE ---
respiratory at bedside preforming breathing treatment.
[2023-11-02 00:28] LABS: Influenza A PCR NEGATIVE (Negative); Influenza B PCR NEGATIVE (Negative); Resp Syncy Virus RNA Qual PCR NEGATIVE (Negative); SARS COV2 PCR INHOUSE NEGATIVE (Negative)
[2023-11-02 02:21] VITALS: BP 137/62; PULSE 84; RESP 22; TEMP 36.6; O2SAT 94
[2023-11-02 04:18] LABS: Glucose, Whole Blood 233 mg/dL (60-115)
[2023-11-02 04:22] VITALS: BP 105/66; PULSE 80; RESP 14; TEMP 36.8; O2SAT 94
[2023-11-02] MEDS: Benzonatate 100 MG CAPSULE 200 MG PO (04:27)
[2023-11-02] MEDS: oxyCODONE HCl Immed Release 5 MG TABLET PO (04:28)
--- NOTE | 2023-11-02 04:29 | PC.NURSE ---
pt medicated per mar, tolerated well with water.
[2023-11-02 05:01] VITALS: BP 105/66; PULSE 80; RESP 14; TEMP 36.8; O2SAT 94
== END 2023-11-02 05:01 | disposition home or self-care (01) ==
PROVIDERS: Emergency Provider Internal Medicine
DX: J44.9 Chronic obstructive pulmonary disease, unspecified (principal); R06.02 Shortness of breath; I10 Essential (primary) hypertension; E11.9 Type 2 diabetes mellitus without complications; Z03.818 Encounter for observation for suspected exposure to other biological agents ruled out; Z87.891 Personal history of nicotine dependence; Z79.899 Other long term (current) drug therapy; Z79.84 Long term (current) use of oral hypoglycemic drugs
CPT/HCPCS: 0241U; 36415; 71045; 80053; 82947; 84484; 85025; 93005; 94640; 99284; 99285

== ENCOUNTER → 2023-11-01 23:34 | Outpatient (BNV) | payer OTHER, MEDICAID, SELFPAY | PROVIDERS: Emergency Provider Internal Medicine; Visit Provider Internal Medicine | DX: R94.31 Abnormal electrocardiogram [ECG] [EKG] (principal) | CPT/HCPCS: 93010 ==

== ENCOUNTER → 2023-11-07 12:56 | Outpatient (BNVA) | payer OTHER, SELFPAY | PROVIDERS: PCP Nurse Practitioner Family; Visit Provider Registered Nurse Emergency ==

== ENCOUNTER 2023-11-07 13:40 | Emergency (ER) | payer OTHER, SELFPAY ==
--- NOTE | ~2023-11-07 | CT_ITS ---
EXAMINATION: CT CHEST WITHOUT CONTRAST CLINICAL INFORMATION: Abnormal chest radiograph. COMPARISON: Chest CT from 08/23/2023. CXR from 11/07/2023. TECHNIQUE: Multidetector volumetric CT imaging of the chest was done. Axial MIP volume rendering provided. Sagittal and coronal reformatted images were obtained. This CT examination was performed using dose optimization techniques as appropriate, variously including the following: *Automated exposure control *Adjustment of mA and/or kV according to patient size (this includes techniques or standardized protocols for targeted exams where dose is matched to indication/reason for exam; i.e. extremities or head) *Use of iterative reconstruction technique DLP: 272 mGy-cm FINDINGS: LUNGS AND PLEURA: Severe pulmonary emphysema (centrilobular more so than paraseptal emphysema). No pneumothorax. Compared to 08/23/2023, there are several new peripheral patchy, streaky opacities in both upper lobes and lower lobes. Although some of the opacities probably represent mild atelectasis from airway inflammation others are suspicious for potential pneumonia. Correlate for any recent onset of cough, fever or leukocytosis. No pleural effusion. There is no pulmonary mass. A pleural-based nodule of the anterolateral left lower lobe is 0.7 cm average diameter and remains unchanged compared to 08/23/2023 (image 411, series 5). CARDIOVASCULAR: The heart size is normal. No pericardial effusion. Pulmonary arteries are normal in caliber. There is atherosclerotic calcification of the thoracic aorta without aneurysm. CORONARY ARTERY CALCIFICATION: There is mild atherosclerotic calcification of the left anterior descending coronary artery. MEDIASTINUM AND LOWER NECK: No mediastinal mass. The esophagus and thyroid gland are unremarkable. LYMPHATICS: No axillary or internal mammary lymphadenopathy. A subcarinal lymph node is 1.3 cm AP dimension (0.7 cm on prior exam). Also, some of the other lymph nodes in the mediastinum have slightly increased in size. These are likely reactive to the pulmonary disease. UPPER ABDOMEN: Small calcified granulomas of the spleen. Also, calcified granuloma is present in the right lobe of the liver. Diffuse hepatic steatosis. SKELETAL AND CHEST WALL: No acute or suspicious osseous abnormality. Mild and moderate discovertebral degenerative changes of the thoracic spine. CT/CT chest wo IV con IMPRESSION: * Severe pulmonary emphysema. * Interval development of several patchy and streaky peripheral opacities in both lungs. These abnormalities could represent combination of mild atelectatic changes from airway inflammation and mild pneumonia, if in the proper clinical context. * Interval mild enlargement of some of the mediastinal lymph nodes, likely reactive to the pulmonary disease. * Diffuse hepatic steatosis.
--- NOTE | ~2023-11-07 | XR_ITS ---
EXAMINATION: XR CHEST CLINICAL INFORMATION: Chest pain. COMPARISON: Chest radiograph dated 11/01/2023. TECHNIQUE: Frontal view of the chest was obtained. FINDINGS: The heart is normal in size. There is calcific atherosclerotic disease of the aorta. There are multifocal airspace opacities throughout both lungs including the left mid lung and left lower lung as well as the right upper lung and right lower lung. Some of these opacities were present on the prior examination, some are new. Multifocal infection is suspected. There is underlying emphysema. No pleural effusion or pneumothorax. No acute osseous abnormality. XR/XR chest 1V IMPRESSION: Emphysema. Superimposed multifocal infection is suspected.
[2023-11-07 13:50] VITALS: BP 142/71; PULSE 90; O2SAT 96
--- NOTE | 2023-11-07 13:51 | ECG_ITS ---
Test Reason : chest pain Blood Pressure : / mmHG Vent. Rate : 084 BPM Atrial Rate : 084 BPM P-R Int : 144 ms QRS Dur : 154 ms QT Int : 414 ms P-R-T Axes : 069 092 059 degrees QTc Int : 489 ms Normal sinus rhythm Right bundle branch block Right axis deviation Abnormal ECG When compared with ECG of 01-NOV-2023 23:34, No significant change was found Referred By: Shweta Morin Electronically Signed By:Sandoval Messer
[2023-11-07 13:54] VITALS: BMI 24.4
--- NOTE | 2023-11-07 14:23 | ED.CHESTPAIN ---
HPI - Chest Pain General Chief Complaint: Chest Pain Stated Complaint: CP, FROM PAIN CLINIC Time Seen by Provider: 11/07/23 13:54 Source: patient, EMS, old records reviewed and medical instructor Mode of arrival: EMS Limitations: other (poor historian) History of Present Illness ED Provider: Momo HPI narrative: 73 yo male with PMH of COPD on 2L NC, chest pain, HTN, DM2, smoker, HLD, glaucoma, depression - who was seen here on 11/01 for COPD and started on oxycodone for chest pain and chronic pain he went to pain management clinic then c/o chest pain and dyspnea today. He presents again today with chronic anterior chest pain chronic dyspnea no fevers and no sputum. States he has had this for a long time. On arrival he asks for oxycodone for his pain. I reviewed his PCP notes and Shelia Huber referred him to pain management given a concerning visit and his requests for oxycodone. This is taken from her note: Difficult visit as all he wants to talk about his taking oxycodone. He wants this four times per day. Is making faces and calling himself bipolar and gesturing towards me aggressively. I want my medication. I explained that I am happy to treat him in a safe fashion and work to help manage his pain and chronic conditions. He states he will go back to [place] to get these medications from his other doctor there. MD complaint: chest pain Pertinent past history: other (chest pain) Onset (ago): year(s) (10) Timing of current episode: constant Prior episodes: Yes Onset: during rest and during exertion Pain location: substernal Pain radiation: none Severity: moderate Quality: tightness Relieving factors: nothing Exacerbating factors: nothing Associated symptoms: dyspnea Treatment prior to arrival: aspirin (324 mg with EMS) Related Data Previous Rx's ?Medication ?Instructions ?Recorded albuterol sulfate 90 mcg/actuation 2 inh inhalation Q6H PRN shortness 06/23/23 aerosol inhaler of breath or wheezing 30 days #8.5 grams latanoprost 0.005 % eye drops 1 drp ophthalmic (eye) DAILY #2.5 06/23/23 mL miscellaneous medical supply #100 ea 06/25/23 paroxetine HCl 20 mg tablet 20 mg PO DAILY 90 days #90 tabs 06/25/23 sitagliptin phosphate 25 mg tablet 25 mg PO DAILY #90 tabs 06/25/23 (Januvia) lancets #200 ea 07/17/23 blood sugar diagnostic #100 ea 07/23/23 blood-glucose meter #1 ea 07/23/23 blood-glucose meter,continuous #1 ea 07/23/23 (FreeStyle Amadeo 3 [place]) blood-glucose sensor (FreeStyle #2 ea 07/23/23 Amadeo 3 Sensor device) lancets #100 ea 07/23/23 fluticasone fur. 200 mcg-umeclid 1 inh inhalation DAILY #60 ea 08/30/23 62.5 mcg-vilant 25 mcg inhalat.powder (Trelegy Ellipta) desonide 0.05 % topical cream 1 appl topical BID #15 grams 10/24/23 metformin 1,000 mg tablet 1,000 mg PO BID 90 days #180 tabs 10/24/23 albuterol sulfate 2.5 mg/3 mL 2.5 mg (3 mL) inhalation Q4-6H PRN 11/02/23 (0.083 %) solution for nebulization shortness of breath or wheezing #90 mL albuterol sulfate 90 mcg/actuation 2 puff inhalation Q6H PRN 11/02/23 aerosol inhaler shortness of breath or wheezing #8.5 grams benzonatate 200 mg capsule 200 mg PO TID PRN cough #30 caps 11/02/23 nebulizer and compressor (Easy Neb #1 ea 11/02/23 Compressor Nebulizer) oxycodone 5 mg tablet 5 mg PO Q8-10H PRN pain #20 tabs 11/02/23 Allergies Allergy/AdvReac Type Severity Reaction Status Date / Time morphine Allergy Severe Agitated Verified 11/07/23 13:55 Review of Systems Review of Systems: Constitutional : No Weight loss, No Fever, No Chills ENT/Mouth : No sore throat, No Rhinorrhea Eyes: No Eye Pain, No Swelling Cardiovascular : pos Chest Pain, pos SOB, no Dyspnea on Exertion, No Orthopnea, No Edema, No Palpitations Respiratory : No Cough, No Sputum Gastrointestinal : no Nausea, No Vomiting, No Diarrhea, No abdominal Pain, No Hematochezia, No Melena Genitourinary : No Dysuria, No Urinary Frequency Musculoskeletal : No joint pain, No Myalgias, No Joint Swelling Skin : No Skin Lesions, No rash Neuro : No Weakness, No Numbness, No Dizziness, No Headache Psych : No Anxiety/Panic, No Depression All other systems reviewed and are negative [facility] Past Medical History Attestation statement: The following information was validated with the patient. Source: old records reviewed Medical History Hernia COVID-19 Diabetes mellitus, type 2 Bronchitis Pneumonia Surgical History Tympanic tube insertion History of intestinal surgery Family History Family History Mother Mental health disorder Brother Substance use disorder Social History Social History Household Members: None Housing: Apartment Alcohol intake: never Patient Tobacco Use Status: Former Tobacco user Cigarette Packs Per Day: 1 Cigarettes Per Day: 1 Years Smoked: 40 e-Cigarette/Vaping Use: Never Used Advance Directives: No Advance Directives Information Provided: No Do you have a plan to hurt others: No Plan service: No Current occupational status: disabled Current occupational exposures/hazards: No Sexual orientation: Straight/Heterosexual Gender identity: Male Cognitive needs: No Hearing needs: No Vision needs: No Physical Exam Vital Signs: Vital Signs: Last Vital Signs Temp 98.3 F 11/07/23 14:29 Pulse 87 11/07/23 14:29 Resp 20 11/07/23 14:29 BP 136/92 H 11/07/23 14:29 Pulse Ox 94 11/07/23 14:29 O2 Del Method Nasal Cannula 11/07/23 14:29 O2 Flow Rate 2 11/07/23 14:29 BMI result Body Mass Index 24.4 Appearance: Alert. Oriented X3. No acute distress. animated did get upset and defensive when I told him based off the notes and plan to follow up with pain management I would not be prescribing oxycodone Eyes: Pupils equal, round and reactive to light. ENT: Pharynx normal. Neck: Normal inspection. Neck supple. CVS: Normal heart rate and rhythm. Pulses normal. ' Chest wall : ttp along anterior chest Respiratory: No respiratory distress. Breath sounds fine rales both bases Abdomen: Soft and nontender. Skin: Skin warm and dry. Normal skin color. Normal skin turgor. Extremities: No lower extremity edema. No calf ttp Neuro: Oriented X 3. No motor deficit. No sensory deficit. Course Course Course Narrative: abnormal CXR - CT scan ordered he denies infectious symptoms Reevaluation(s) Reevaluation #1: signed out to Dr. Blanco 4pm at this time given CXR possible infection suspected will obtain lactic acid, cultures, empiric ceftriaxone ordered until CT scan done 339pm Medications Administered Discontinued Medications Generic Name Dose Route Start Last Admin Trade Name Cathy PRN Reason Stop Dose Admin Acetaminophen 975 mg 11/07/23 14:28 11/07/23 14:39 Acetaminophen 325 Mg Tablet PO 11/07/23 14:29 975 mg ONCE ONE Administration Medical Decision Making Medical Decision Making [facility] Narrative: 73 yo male with PMH of COPD on 2L NC, chest pain, HTN, DM2, smoker, HLD, glaucoma, depression here with c/o 10 years of chest pain and then asks for oxycodone then when I told him I didn't feel comfortable Rxing based off his chart review and his PCP plan he states that's fine he will just go to [place] and he doesn't care. At this time his symptoms are very atypical for ACS, doubt VTE for 10 years. He was just seen and treated recently and given oxycodone by one of our providers so I assume he came here after going to pain management. He did have recent ECHO 10/30/23 showing hypokinetic RWMA basal inferior / inferolateral segments, EF 64% CT scan of the chest showing moderate coronary calcifications. he has not had his stress test yet. if troponin is positive will contact cardiology. plan to repeat trop x 2 Differential Diagnosis Differential Diagnoses: The differential diagnosis associated with the presentation includes atypical chest pain, ACS though low prob, Admission/Observation Consideration of admission/observation: Escalation of care including admission/observation considered EKG and labs reassuring stable for DC Lab Data 11/07/23 14:58 11/07/23 14:58 Labs: Lab Results 11/07/23 11/07/23 11/07/23 Range/Units 14:58 14:58 14:58 WBC 11.2 H (4.8-10.8) X10*3/uL RBC 4.80 (4.60-5.80) X10*6/uL Hgb 14.6 (14.0-18.0) g/dl Hct 42.2 (42.0-52.0) % MCV 87.9 (80.0-98.0) fL MCH 30.4 (27.0-33.0) pg MCHC 34.6 (31.0-36.0) g/dl RDW 14.0 (11.0-16.0) % Plt Count 148 L D (160-400) X10*3/uL MPV 10.5 (9.4-12.4) fL Immature Gran % (Auto) 0.7 H (0.0-0.4) % Neut % (Auto) 70.5 (45-73) % Lymph % (Auto) 13.1 L (20-40) % Schleicher % (Auto) 14.7 H (2-11) % Eos % (Auto) 0.6 (0-4) % Baso % (Auto) 0.4 (0-2) % Lymph # (Auto) 1.5 (1.2-4.9) X10*3/uL Schleicher # (Auto) 1.6 H (0.1-1.2) X10*3/uL Eos # (Auto) 0.1 (0.0-0.4) X10*3/uL Baso # (Auto) 0.1 (0.0-0.2) X10*3/uL Abs Immat Gran (auto) 0.08 H (0.00-0.03) X10*3/uL Absolute Neuts (auto) 7.9 (2.0-8.3) x10*3/uL Absolute Nucleated RBC 0.000 (0.0-0.012) X10*3/uL Nucleated RBC % (auto) 0.0 (0.0-0.2) /100WBC PT 15.4 H (11.1-13.3) SEC INR 1.3 H (0.9-1.1) Sodium 134 L (135-145) mmol/L Potassium 3.5 (3.3-5.1) mmol/L Chloride 101 (96-108) mmol/L Carbon Dioxide 23 (22-29) mmol/L Anion Gap 14 (12-20) BUN 13 (9-16) mg/dL Creatinine 0.82 (0.5-1.4) mg/dL Estim Creat Clear Calc 84.0 Estimated GFR > 60 Random Glucose 191 H (60-115) mg/dL Calcium 9.0 (8.4-10.2) mg/dL Magnesium 1.8 (1.6-2.6) mg/dL Total Bilirubin 1.3 H 1.4 H (0.0-1.0) mg/dL Direct Bilirubin 0.6 H (0.0-0.5) mg/dL AST 23 23 (5-37) U/L ALT 24 (0-40) U/L Alkaline Phosphatase (39-117) U/L Troponin I High Sens (<3.5-35.0) ng/L B-Natriuretic Peptide (<100) pg/mL Total Protein (6.5-8.0) g/dL Albumin (3.5-5.0) g/dL Lipase (8-78) U/L 11/07/23 11/07/23 11/07/23 Range/Units 14:58 14:58 14:58 WBC (4.8-10.8) X10*3/uL RBC (4.60-5.80) X10*6/uL Hgb (14.0-18.0) g/dl Hct (42.0-52.0) % MCV (80.0-98.0) fL MCH (27.0-33.0) pg MCHC (31.0-36.0) g/dl RDW (11.0-16.0) % Plt Count (160-400) X10*3/uL MPV (9.4-12.4) fL Immature Gran % (Auto) (0.0-0.4) % Neut % (Auto) (45-73) % Lymph % (Auto) (20-40) % Schleicher % (Auto) (2-11) % Eos % (Auto) (0-4) % Baso % (Auto) (0-2) % Lymph # (Auto) (1.2-4.9) X10*3/uL Schleicher # (Auto) (0.1-1.2) X10*3/uL Eos # (Auto) (0.0-0.4) X10*3/uL Baso # (Auto) (0.0-0.2) X10*3/uL Abs Immat Gran (auto) (0.00-0.03) X10*3/uL Absolute Neuts (auto) (2.0-8.3) x10*3/uL Absolute Nucleated RBC (0.0-0.012) X10*3/uL Nucleated RBC % (auto) (0.0-0.2) /100WBC PT (11.1-13.3) SEC INR (0.9-1.1) Sodium (135-145) mmol/L Potassium (3.3-5.1) mmol/L Chloride (96-108) mmol/L Carbon Dioxide (22-29) mmol/L Anion Gap (12-20) BUN (9-16) mg/dL Creatinine (0.5-1.4) mg/dL Estim Creat Clear Calc Estimated GFR Random Glucose (60-115) mg/dL Calcium (8.4-10.2) mg/dL Magnesium (1.6-2.6) mg/dL Total Bilirubin (0.0-1.0) mg/dL Direct Bilirubin (0.0-0.5) mg/dL AST (5-37) U/L ALT 23 (0-40) U/L Alkaline Phosphatase 107 106 (39-117) U/L Troponin I High Sens 10.1 D (<3.5-35.0) ng/L B-Natriuretic Peptide 62 (<100) pg/mL Total Protein 7.7 7.6 (6.5-8.0) g/dL Albumin 3.6 (3.5-5.0) g/dL Lipase (8-78) U/L 11/07/23 Range/Units 14:58 WBC (4.8-10.8) X10*3/uL RBC (4.60-5.80) X10*6/uL Hgb (14.0-18.0) g/dl Hct (42.0-52.0) % MCV (80.0-98.0) fL MCH (27.0-33.0) pg MCHC (31.0-36.0) g/dl RDW (11.0-16.0) % Plt Count (160-400) X10*3/uL MPV (9.4-12.4) fL Immature Gran % (Auto) (0.0-0.4) % Neut % (Auto) (45-73) % Lymph % (Auto) (20-40) % Schleicher % (Auto) (2-11) % Eos % (Auto) (0-4) % Baso % (Auto) (0-2) % Lymph # (Auto) (1.2-4.9) X10*3/uL Schleicher # (Auto) (0.1-1.2) X10*3/uL Eos # (Auto) (0.0-0.4) X10*3/uL Baso # (Auto) (0.0-0.2) X10*3/uL Abs Immat Gran (auto) (0.00-0.03) X10*3/uL Absolute Neuts (auto) (2.0-8.3) x10*3/uL Absolute Nucleated RBC (0.0-0.012) X10*3/uL Nucleated RBC % (auto) (0.0-0.2) /100WBC PT (11.1-13.3) SEC INR (0.9-1.1) Sodium (135-145) mmol/L Potassium (3.3-5.1) mmol/L Chloride (96-108) mmol/L Carbon Dioxide (22-29) mmol/L Anion Gap (12-20) BUN (9-16) mg/dL Creatinine (0.5-1.4) mg/dL Estim Creat Clear Calc Estimated GFR Random Glucose (60-115) mg/dL Calcium (8.4-10.2) mg/dL Magnesium (1.6-2.6) mg/dL Total Bilirubin (0.0-1.0) mg/dL Direct Bilirubin (0.0-0.5) mg/dL AST (5-37) U/L ALT (0-40) U/L Alkaline Phosphatase (39-117) U/L Troponin I High Sens (<3.5-35.0) ng/L B-Natriuretic Peptide (<100) pg/mL Total Protein (6.5-8.0) g/dL Albumin 3.6 (3.5-5.0) g/dL Lipase 17 (8-78) U/L Independent Interpretation I performed an independent interpretation of an: EKG and Plain X-Ray Interpretation: Rate: 84 Rhythm: NSR [place]: right Normal P waves. Normal CHING. RBBB ST T wave : no LETICIA, inverted t wave V1 qTC: 489 prior studies: no sig change from priors The study has been interpreted contemporaneously by me. . Radiology Impression Discussion of test interpretation with radiology: I have reviewed the radiologist's reading. Independent Historian Clinical information obtained from an independent historian. History obtained from or confirmed by: EMS External Record Review External record reviewed: Office record Discharge Plan Discharge Clinical Impression: Atypical chest pain Patient Disposition: Still a Patient Instructions: Chest Pain (ED) Additional Instructions: follow up with pain management and your doctor. Prescriptions: No Action (DME) lancets Misc See Rx Instructions .Route Qty: 200 3RF Rx Instructions: As directed (DME) FreeStyle Amadeo 3 [place] Misc See Rx Instructions .Route Qty: 1 0RF Rx Instructions: As directed (DME) FreeStyle Amadeo 3 Sensor Device See Rx Instructions .Route Qty: 2 11RF Rx Instructions: As directed (DME) blood sugar diagnostic Strip See Rx Instructions .Route Qty: 100 11RF Rx Instructions: As directed twice per day (DME) blood-glucose meter Kit See Rx Instructions .Route Qty: 1 1RF Rx Instructions: As directed twice per day (DME) lancets Misc See Rx Instructions .Route Qty: 100 11RF Rx Instructions: As directed twice per day latanoprost 0.005 % drops 1 drp ophthalmic (eye) DAILY Qty: 2.5 0RF albuterol sulfate 90 mcg/actuation HFA aerosol inhaler 2 inh inhalation Q6H PRN (Reason: shortness of breath or wheezing) 30 Days Qty: 8.5 0RF albuterol sulfate 2.5 mg /3 mL (0.083 %) solution for nebulization 2.5 mg inhalation Q4-6H PRN (Reason: shortness of breath or wheezing) Qty: 90 0RF benzonatate 200 mg capsule 200 mg PO TID PRN (Reason: cough) Qty: 30 0RF albuterol sulfate 90 mcg/actuation HFA aerosol inhaler 2 puff inhalation Q6H PRN (Reason: shortness of breath or wheezing) Qty: 8.5 0RF oxycodone 5 mg tablet 5 mg PO Q8-10H PRN (Reason: pain) Qty: 20 0RF Rx Instructions: Partial Fill upon patient request. (DME) nebulizer and compressor [Easy Neb Compressor Nebulizer] Device See Rx Instructions .Route Qty: 1 0RF Rx Instructions: As directed desonide 0.05 % cream 1 appl topical BID Qty: 15 3RF Rx Instructions: apply to face metformin 1,000 mg tablet 1,000 mg PO BID 90 Days Qty: 180 0RF (DME) miscellaneous medical supply Pad See Rx Instructions .Route Qty: 100 11RF Rx Instructions: As directed paroxetine HCl 20 mg tablet 20 mg PO DAILY 90 Days Qty: 90 0RF Januvia 25 mg tablet 25 mg PO DAILY Qty: 90 0RF Trelegy Ellipta 200-62.5-25 mcg blister with device 1 inh inhalation DAILY Qty: 60 6RF Print Language: Czech
--- OUTSIDE RECORDS SUMMARY | 2023-11-07 14:24 | XMS_ITS | Clinical Summary ---
Author Organization [facility] Address [address], [place] [phone] Phone Care Team Providers Care Video Game Animator Name Role Phone Irma Gar MD Unavailable [...] Diagnosis [Patient Encounter] Colin Ferreira MD [facility] 1 12:00AM 11:59PM Insurance Includes: Active Insurance Policies Plan Name Member ID Group # Subscriber Relationship Effect stacy Dates 1 - [facility] [id number] Costa Waters Self Clinical Notes Includes: Clinical Notes from this encounter No Clinical Notes Recorded
--- OUTSIDE RECORDS SUMMARY | 2023-11-07 14:24 | XMS_ITS | Clinical Summary ---
Author Organization [facility] Address [address], [place] [phone] Phone Care Team Providers Care Lead Technologist In Cytogenetics Name Role Phone Irma Gar MD Unavailable [...] Time Diagnosis [Patient Encounter] Colin Ferreira MD [facility] 1 12:00AM 11:59PM Insurance Includes: Active Insurance Policies Plan Name Member ID Group # Subscriber Relationship Effect stacy Dates 1 - [employer] [id number] Costa Waters Self Clinical Notes Includes: Clinical Notes from this encounter No Clinical Notes Recorded
--- OUTSIDE RECORDS SUMMARY | 2023-11-07 14:24 | XMS_ITS ---
Care Plan - [facility] Created on: November 07, 2023 Costa Jones : 1950 Sex: Male Author Organization [facility] Address [address], [place] [phone] Phone Care Team Providers Care Qa Reviewer Name Role Phone Rin HIRSCH, Irma Henry
--- OUTSIDE RECORDS SUMMARY | 2023-11-07 14:24 | XMS_ITS | Clinical Summary ---
Author Organization [facility] Address [address], [place] [phone] Phone Care Team Providers Care [place] Construction Supervisor Name Role Phone Irma Gar MD Unavailable [...] Time Diagnosis [Patient Encounter] Colin Ferreira MD [facility] 1 12:00AM 11:59PM Insurance Includes: Active Insurance Policies Plan Name Member ID Group # Subscriber Relationship Effect stacy Dates 1 - [facility] [id number] Costa Waters Self Clinical Notes Includes: Clinical Notes from this encounter No Clinical Notes Recorded
--- OUTSIDE RECORDS SUMMARY | 2023-11-07 14:24 | XMS_ITS | Clinical Summary ---
Author Organization [facility] Address [address], [place] [phone] Phone Care Team Providers Care Die Storage Worker Name Role Phone Irma Gar MD Unavailable [...] Time Diagnosis [Patient Encounter] Colin Ferreira MD [facility] 1 12:00AM 11:59PM Insurance Includes: Active Insurance Policies Plan Name Member ID Group # Subscriber Relationship Effect stacy Dates 1 - [facility] [id number] Costa Waters Self Clinical Notes Includes: Clinical Notes from this encounter No Clinical Notes Recorded
--- OUTSIDE RECORDS SUMMARY | 2023-11-07 14:24 | XMS_ITS ---
Author Organization [facility] Address [address], [place] [phone] Phone Care Team Providers Care Ornamental Iron Worker Helper Name Role Phone Rin HIRSCH, Iram Whipple Unavailable Unavailabl e Plan of Treatment No Plan of Treatment Recorded Assessments Includes: Assessments for all patient encounters No Assessments Recorded Medical Equipment - Implanted Devices Includes: Current and historical Devices No Medical Equipment Recorded Medications Administered Includes: Administered Medications in patient's chart No Administered Medications Recorded Results Includes: Results from 11/06/2022 through 11/07/2023 No Results Recorded For Specified Dates History [...] Relationship Effect stacy Dates 1 - [employer] [id number] Costa Guamanaldo Self Clinical Notes Includes: Signed Clinical Notes starting from 04/27/2022 No Clinical Notes Recorded
[2023-11-07 14:29] VITALS: BP 136/92; PULSE 87; RESP 20; TEMP 36.8; O2SAT 94
[2023-11-07] MEDS: Acetaminophen 325 MG TABLET 975 MG PO (14:39)
[2023-11-07 15:15] LABS: Hematocrit 42.2 % (42.0-52.0); Hemoglobin 14.6 g/dl (14.0-18.0); Mean Corpuscular HGB Conc 34.6 g/dl (31.0-36.0); Mean Corpuscular Hemoglobin 30.4 pg (27.0-33.0); Mean Corpuscular Volume 87.9 fL (80.0-98.0); Mean Platelet Volume 10.5 fL (9.4-12.4); Platelet Count 148 X10*3/uL (160-400); White Blood Count 11.2 X10*3/uL (4.8-10.8)
[2023-11-07 15:18] LABS: INTERNATIONAL NORM RATIO 1.3 (0.9-1.1); Prothrombin Time 15.4 SEC (11.1-13.3)
[2023-11-07 15:23] LABS: Alanine Aminotransferase 23 U/L (0-40); Alanine Aminotransferase 24 U/L (0-40); Albumin Level 3.6 g/dL (3.5-5.0); Alkaline Phosphatase 106 U/L (39-117); Alkaline Phosphatase 107 U/L (39-117); Anion Gap 14 (12-20); Aspartate Amino Transferase 23 U/L (5-37); Bilirubin Direct 0.6 mg/dL (0.0-0.5); Bilirubin Total 1.3 mg/dL (0.0-1.0); Bilirubin Total 1.4 mg/dL (0.0-1.0); Blood Urea Nitrogen 13 mg/dL (9-16); Carbon Dioxide 23 mmol/L (22-29); Chloride 101 mmol/L (96-108); Estimated Glomerular Filt Rate > 60; Glucose Random 191 mg/dL (60-115); Lipase 17 U/L (8-78); Magnesium 1.8 mg/dL (1.6-2.6); Potassium 3.5 mmol/L (3.3-5.1); Sodium 134 mmol/L (135-145); Total Protein 7.6 g/dL (6.5-8.0); Total Protein 7.7 g/dL (6.5-8.0)
[2023-11-07 15:27] LABS: B Type Natriuretic Peptide 62 pg/mL (<100)
[2023-11-07 15:30] LABS: Troponin-I High Sensitivity 10.1 ng/L (<3.5-35.0)
--- NOTE | 2023-11-07 15:37 | PC.NURSE ---
pt to CT at this time. plan of care ongoing.
[2023-11-07 16:04] LABS: SLIDE REVIEW MANUAL DIFF
[2023-11-07] MEDS: methylPREDNISolone Sod Succ 125 MG/2 ML VIAL 60 MG IVPUSH (16:25)
[2023-11-07 16:39] LABS: Band Neutrophils Percent 7 % (3-5); Basophils Abs Manual 0.1 X10*3/uL (0.0-0.2); Basophils Percent Manual 1 % (0-2); Eosinophils Absolute Manual 0.1 X10*3/uL (0.0-0.4); Eosinophils Percent Manual 1 % (0-4); Lymphocytes Absolute Manual 1.3 X10*3/uL (1.2-4.9); Lymphocytes Percent Manual 12 % (20-40); Monocytes Percent Manual 9 % (2-11); Neutrophils Absolute Manual 8.6 X10*3/uL (2.0-8.3); Neutrophils Percent Manual 70 % (45-73)
[2023-11-07 16:41] LABS: Platelet Estimate NORMAL (NORMAL); Platelet Morphology Comment NORMAL; RBC Morphology NORMAL
[2023-11-07 16:43] LABS: Lactic Acid 1.6 mmol/L (0.5-2.0)
[2023-11-07 16:46] VITALS: PULSE 70; RESP 25; O2SAT 95
[2023-11-07 16:46] LABS: Appearance Urine Turbid; Color Urine Yellow; Glucose Urine UA Negative (Negative); Leukocyte Esterase Urine Negative (Negative); Nitrite Urine Negative (Negative); Specific Gravity - Urine 1.015 (1.005-1.025); Urine Blood Negative (Negative); Urine Ketones 40 mg/dL (Negative); Urine Protein Negative (Neg-Trace)
[2023-11-07] MEDS: cefTRIAXone sodium 1 GM in 0.9 % Sodium Chloride 50 ML IV (16:47)
[2023-11-07 16:48] LABS: Amphetamine Screen Urine Not Detected (Not Detect); Barbiturates, Urine Not Detected (Not Detect); Benzodiazepines Screen Urine Not Detected (Not Detect); Buprenorphine Scr Not Detected (Not Detect); Cannabinoid Screen Urine POSITIVE (Not Detect); Cocaine Screen Urine Not Detected (Not Detect); Fentanyl, urine Not Detected (Not Detect); Methadone Screen, Urine Not Detected (Not Detect); Opiate Screen Urine Not Detected (Not Detect); Oxycodone Screen Urine Not Detected (Not Detect); Phencyclidine Screen Urine Not Detected (Not Detect)
[2023-11-07 17:16] LABS: Influenza A PCR NEGATIVE (Negative); Influenza B PCR NEGATIVE (Negative); Resp Syncy Virus RNA Qual PCR NEGATIVE (Negative); SARS COV2 PCR INHOUSE NEGATIVE (Negative)
--- NOTE | 2023-11-07 18:25 | PC.NURSE ---
pt refusing repeat troponin. MD notified/aware.
[2023-11-07 18:39] VITALS: BP 141/69; PULSE 71; RESP 16; TEMP 37.1; O2SAT 93
[2023-11-07] MEDS: Azithromycin 500 MG TABLET PO (18:47)
== END 2023-11-07 18:57 | disposition home or self-care (01) ==
PROVIDERS: Emergency Medicine; Emergency Provider Emergency Medicine
DX: R07.89 Other chest pain (principal); J43.8 Other emphysema; R07.9 Chest pain, unspecified; Z76.5 Malingerer [conscious simulation]; R06.00 Dyspnea, unspecified; J44.9 Chronic obstructive pulmonary disease, unspecified; Z99.81 Dependence on supplemental oxygen; E11.9 Type 2 diabetes mellitus without complications; I10 Essential (primary) hypertension; E78.5 Hyperlipidemia, unspecified; J84.9 Interstitial pulmonary disease, unspecified; Z87.891 Personal history of nicotine dependence; Z03.818 Encounter for observation for suspected exposure to other biological agents ruled out; Z79.899 Other long term (current) drug therapy; Z79.84 Long term (current) use of oral hypoglycemic drugs
CPT/HCPCS: 0241U; 36415; 71045; 71250; 80053; 80076; 80307; 81003; 83605; 83690; 83735; 83880; 84484; 85007; 85025; 85027; 85610; 87040; 93005; 96365; 96375; 99284; J0696; J2919

== ENCOUNTER → 2023-11-07 13:51 | Outpatient (BNV) | payer OTHER, SELFPAY | PROVIDERS: Emergency Provider Emergency Medicine; Visit Provider Internal Medicine Cardiovascular Disease | DX: R94.31 Abnormal electrocardiogram [ECG] [EKG] (principal) | CPT/HCPCS: 93010 ==

== ENCOUNTER 2023-11-13 12:56 | Outpatient (REF) | payer OTHER, SELFPAY ==
--- NOTE | ~2023-11-13 | CT_ITS ---
EXAMINATION: CT CHEST WITHOUT CONTRAST CLINICAL INFORMATION: Solitary pulmonary nodule. Recent chest CT 6 days prior, with no further history or information provided by ordering provider. COMPARISON: CT chest 11/07/2023. 08/23/2023. Chest x-ray 11/07/2023. TECHNIQUE: Multidetector volumetric CT imaging of the chest was done. Axial MIP volume rendering provided. Sagittal and coronal reformatted images were obtained. This CT examination was performed using dose optimization techniques as appropriate, variously including the following: *Automated exposure control *Adjustment of mA and/or kV according to patient size (this includes techniques or standardized protocols for targeted exams where dose is matched to indication/reason for exam; i.e. extremities or head) *Use of iterative reconstruction technique DLP: 251 mGy-cm Please note, due to [facility] [employer] contractual, systems, and staffing issues, an [facility] radiologist was not available for review and dictation of this case until 01/08/2024. FINDINGS: PULMONARY NODULES: (COMPARISON MADE WITH 08/23/2023): -Superimposed persistent inflammatory/infectious patchy multifocal interstitial and airspace opacities limit the detection of small nodules. -Similar average diameter 7 mm pleural-based nodule in the ventral left lower lobe laterally (series 4, image 400). This has not changed from 6 days prior, nor from 08/23/2023. -3 mm nodule right middle lobe is stable (series 4, image 257). -3 mm nodule lateral left upper lobe (series 4, image 166), stable. -6 mm pleural-based lateral left lower lobe nodule (series 4, image 308), stable, but previously described in the lingula. It is not in the lingula. LUNGS: -Severe centrilobular emphysema is again present. -Multifocal interstitial and airspace opacities have improved from the recent CT 6 days prior, however do persist to some degree. Majority of these were not present on 08/23/2023, highly suggestive of persistent infectious/inflammatory opacities. -There are large subpleural bullae in the medial lingula. -Stellate scarring in the inferior right middle lobe is unchanged. Scarring in the lingula, bilateral apices, and pleural-based scarring in the upper lobes laterally on both sides is similar. -No pleural effusion or pneumothorax. MEDIASTINUM: -There are a few scattered small lymph nodes, with a larger subcarinal lymph node measuring 1.0 cm in short axis, presumably reactive given the lung process. There is a precarinal calcified lymph node consistent with prior granulomatous disease. There are small prevascular and AP window lymph nodes, presumably reactive. -Aorta is normal in caliber with mild calcification. No aneurysm. -Main pulmonary artery is prominent but measures within the realm of normal in diameter. Suspect some degree of increased pulmonary pressures. -Esophagus is normal with a small type I hiatus hernia at the GE junction. -Heart size is normal. No pericardial effusion. -Thyroid is somewhat small but otherwise images normally by CT. CORONARY ARTERY CALCIFICATION: Moderate RCA and LAD calcifications, and mild circumflex calcifications. AXILLA/CHEST WALL: No lymphadenopathy. No masses. UPPER ABDOMEN: -There are scattered calcified granulomata in the spleen. There is mild fatty infiltration of the liver. There is focal fatty sparing abutting the gallbladder fossa. There is a calcified granuloma in the right hepatic lobe. Small type I hiatus hernia. OSSEOUS STRUCTURES: No suspicious lytic or blastic bone lesions. There are healed right-sided rib fractures. Bone island in the lateral right fourth rib. Mild spinal degenerative changes. CT/CT chest wo IV con IMPRESSION: 1. Compared with 08/23/2023, no significant change in the known pulmonary nodules measuring up to 7 mm average diameter ventral left lower lobe pleural-based. This becomes category 2, benign. 1 year follow-up suggested. 2. No definite new or enlarging nodules, although residual infectious/inflammatory opacities could obscure nodules. Ideally, the exam should have been performed after clearing of this process. 3. Partial clearing of the multifocal infectious/inflammatory abnormalities. 4. Severe centrilobular emphysema. Suspect some degree of pulmonary hypertension. 5. Subcarinal reactive lymph node. Attention on follow-up recommended. 6. Fatty infiltration of the liver. Small type I hiatus hernia. 7. Additional ancillary findings as discussed in the body the report. Fleischner guidelines were followed. Electronically signed by: Taiwo Casillas MD 01/08/2024 09:43 AM EDT
== END 2023-11-13 12:57 | disposition home or self-care (01) ==
LOC: HO.CT 12:56
PROVIDERS: Visit Provider Nurse Practitioner Family
DX: R91.1 Solitary pulmonary nodule (principal)
CPT/HCPCS: 71250

== ENCOUNTER → 2023-11-13 12:58 | Outpatient (BNV) | payer OTHER, SELFPAY | PROVIDERS: Visit Provider Radiology Diagnostic Radiology | DX: R91.1 Solitary pulmonary nodule (principal) | CPT/HCPCS: 71250 ==

== ENCOUNTER 2023-11-25 13:32 | Outpatient (AMB) | payer OTHER, MEDICAID, SELFPAY ==
[2023-11-25 13:42] VITALS: BP 118/60; PULSE 74; O2SAT 96; BMI 24.4
--- NOTE | 2023-11-25 13:42 | MHC.OFFVIS ---
Vital Signs 11/25/23 13:42 Height 5 ft 10 in Weight 169 lb 15.975 oz BMI 24.4 BP 118/60 Position Sitting Pulse 74 Pulse Source Pulse Oximeter Pulse Oximetry (%) 96 Oxygen Delivery Method Room Air Intake Visit Reasons: Pulmonary Nodules Tax Professional Required: No Allergies morphine Allergy (Severe, Verified 11/25/23 13:46) Agitated HPI Comments Details: The patient is here for pulmonary evaluation. The patient is a pleasant 73-year-old male, former smoker, quit 10 years ago, with 150+ pack year history and underlying asthma since childhood, COPD, history of COVID-19 in March 2020 with history of possible empyema s/p chest tube and ?VATS, s/p tracheostomy, decannulated (August 2020), with chronic hypoxic respiratory failure on 2L NC. He is unaccompanied, and ambulating with walker. At baseline, he states that his COPD is poorly controlled on 10 mg prednisone, which he has reportedly been on for the past year while living in [place]. At the last visit, Trelegy was sent in but patient states he has not received it. He has been using his albuterol 3-4 times per day with suboptimal effect. Today he kept referring to his oxycodone and need for medication to treat his lung pain . He was sent for chest CT to evaluate for any abnormalities or ILD, which was noted in prior history, report not available today. He continues to report significant dyspnea with minimal exertion, labored breathing, intermittent productive cough and wheezing. He is currently using his POC at 2 and has a concentrator at home through [facility]. in the meantime early October the patient was having worsening respiratory symptoms and persistent left-sided pleuritic pain and he went to the ER. There he had a CT of the chest which demonstrated then had airspace disease consistent with pneumonia. was treated and released and then went back to the ER where he was placed on couple courses of antibiotics. subsequently after that the patient did have a repeat CT scan of the chest 11/13/2023 which also reviewed. The patient appears to have a stable pulmonary nodule about vomiting medicine size in the left hemithorax. in addition to that he has extensive emphysema. He is oxygen dependent. The patient is complaining why he was taken off the oxycodone the family as well. Explained to the patient that he has severe respiratory failure and morphine we can only resulting worsening respiratory failure with suppression of his respiratory drive and he should avoided at all cost. 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 [facility] Medical History (Updated 11/25/23 @ 22:08 by Brett Crystal MD) Post-thoracotomy pain syndrome Emphysema (subcutaneous) (surgical) resulting from a procedure Hernia COVID-19 Diabetes mellitus, type 2 Bronchitis Pneumonia Surgical History Tympanic tube insertion History of intestinal surgery Family History Mother Mental health disorder Brother Substance use disorder Social History Household Members: None Housing: Apartment Alcohol intake: never Patient Tobacco Use Status: Former Tobacco user Cigarette Packs Per Day: 1 Cigarettes Per Day: 1 Years Smoked: 40 e-Cigarette/Vaping Use: Never Used service: No Current occupational status: disabled Current occupational exposures/hazards: No Sexual orientation: Straight/Heterosexual Gender identity: Male Cognitive needs: No Hearing needs: No Vision needs: No Review of Systems Const Denies chills, Denies excessive sweating, Denies fever(s), Denies headache(s) and Denies night sweats Eyes Denies dry eyes, Denies irritation and Denies itchy eyes ENT Reports Normal hearing present, Denies headache(s), Denies nasal congestion, Denies nasal discharge, Denies post nasal drip and Denies sore throat Card Denies chest pain, Denies chest pain at rest, Denies chest pain with activity, Denies claudication, Denies leg edema, Denies dyspnea, Denies orthopnea and Denies paroxysmal nocturnal dyspnea Resp Denies chest congestion, Denies excessive phlegm production, Denies pain on inspiration, Denies pain with cough, Denies dyspnea and Denies stridor Musc Denies myalgias Neuro Reports Normal hearing present and Denies headache(s) Endo Denies excessive sweating Dennis/Lymph Denies lymphadenopathy Aller/Immun Denies itchy eyes and Denies seasonal rhinorrhea Physical Exam Vital Signs: Last Vital Signs Pulse 74 11/25/23 13:42 BP 118/60 11/25/23 13:42 Pulse Ox 96 11/25/23 13:42 Oxygen Delivery Method Room Air 11/25/23 13:42 BMI result Body Mass Index 24.4 Const General: cooperative, healthy appearing, comfortable, no acute distress, well developed and alert Orientation/consciousness: patient oriented x3 HEENT Head: Yes normal to inspection, Yes normocephalic and Yes atraumatic Ears: hearing grossly normal bilaterally and external ears normal Eyes General: appearance normal, both eyes and all related structures Eyelids: Yes eyelids normal Sclerae: sclerae normal EOM: EOMs intact bilaterally Neck Neck: Yes normal visual inspection and Yes no lymphadenopathy Lymphatic: no lymphadenopathy noted Chest Chest palpation & inspection: normal inspection of the chest Resp Effort & Inspection: normal respiratory effort, able to speak in complete sentences, no audible wheezes, no cough, no stridor, not tachypneic, no tripod positioning and no use of accessory muscles Cardio Jugular venous distension: no JVD Rate: regular rate Rhythm: regular rhythm Skin Other: warm, dry General skin exam: no rashes or lesions noted Neuro General: patient oriented x3 Cranial nerves: Yes Normal hearing present Cognition (Neuro): normal cognition Extrem General: Yes normal to inspection, Yes capillary refill normal, Yes no clubbing, cyanosis or edema and Yes no pedal edema Psych Appearance: grossly normal and well kempt Speech and movement: Normal speech and movement present and Clear speech present Attitude: cooperative Thought process: Normal thought process present Thought content: Normal thought content present Insight: Good insight present (Psych) Judgement: Good judgement present (Psych) Assessment & Plan Assessment & Plan (1) Chronic respiratory failure with hypoxia, on home oxygen therapy: Code(s): J96.11 - Chronic respiratory failure with hypoxia; Z99.81 - Dependence on supplemental oxygen Category: Medical (2) COPD (chronic obstructive pulmonary disease): Code(s): J44.9 - Chronic obstructive pulmonary disease, unspecified Category: Medical Qualifiers: COPD type: emphysema Emphysema type: centrilobular Qualified Code(s): J43.2 - Centrilobular emphysema (3) Personal history of tobacco use: Comment: 150 + pack year history Code(s): Z87.891 - Personal history of nicotine dependence Category: Social Hx (4) Dyspnea: Code(s): R06.00 - Dyspnea, unspecified Category: Medical Qualifiers: Dyspnea type: dyspnea on exertion Qualified Code(s): R06.09 - Other forms of dyspnea (5) Pulmonary nodule: Code(s): R91.1 - Solitary pulmonary nodule Category: Medical (6) Post-thoracotomy pain syndrome: Code(s): G89.12 - Acute post-thoracotomy pain Category: Medical (7) Pneumonia: Code(s): J18.9 - Pneumonia, unspecified organism Category: Medical Qualifiers: Pneumonia type: due to unspecified organism Laterality: bilateral Lung location: unspecified part of lung Qualified Code(s): J18.9 - Pneumonia, unspecified organism Plan restart Trelegy ELBA as needed Bloodwork start Gabapentin 300mg QHS NSAIDS as needed for pain lidoderm patch t affected area continue oxygen supplemnetation f/U 2-3 months Orders: Orders Complete Blood Count Auto Diff Today T81.82XA - Emphysema (subcutaneous) resulting from a procedure, initial encounter Basic Metabolic Panel Today T81.82XA - Emphysema (subcutaneous) resulting from a procedure, initial encounter Venous Blood Gas Today T81.82XA - Emphysema (subcutaneous) resulting from a procedure, initial encounter Alpha 1 Anti-trypsin Today T81.82XA - Emphysema (subcutaneous) resulting from a procedure, initial encounter Erythrocyte Sedimentation Rate Today T81.82XA - Emphysema (subcutaneous) resulting from a procedure, initial encounter Medications: New gabapentin (Neurontin) 300 mg PO BEDTIME 30 days 30 caps 6RF lidocaine 5% (Lidoderm) leave on most painful area for up to 12 hrs 1 patch topical DAILY 30 days 30 ea 4RF G89.12 - Acute post-thoracotomy pain Coding Level of Care Code Est Pt Level 5 (90817) Complex EM visit Add On G2211 Diagnoses Chronic respiratory failure with hypoxia, on home oxygen therapy J96.11; Z99.81 Centrilobular emphysema J43.2 COPD type: emphysema Emphysema type: centrilobular Personal history of tobacco use Z87.891 Dyspnea on exertion R06.09 Dyspnea type: dyspnea on exertion Pulmonary nodule R91.1 Post-thoracotomy pain syndrome G89.12 Pneumonia of both lungs due to infectious organism, unspecified part of lung J18.9 Pneumonia type: due to unspecified organism Laterality: bilateral Lung location: unspecified part of lung Time Spent (min) 40
== END 2023-11-25 14:20 | disposition home or self-care (01) ==
PROVIDERS: PCP Nurse Practitioner Family; Visit Provider Hospitalist
DX: R91.1 Solitary pulmonary nodule (principal); J96.11 Chronic respiratory failure with hypoxia; Z99.81 Dependence on supplemental oxygen; J43.2 Centrilobular emphysema; Z87.891 Personal history of nicotine dependence; G89.12 Acute post-thoracotomy pain; J18.9 Pneumonia, unspecified organism
CPT/HCPCS: 99215; G2211

== ENCOUNTER → 2023-11-25 13:32 | Outpatient (BNVA) | payer OTHER, SELFPAY | PROVIDERS: PCP Nurse Practitioner Family; Visit Provider Hospitalist | DX: J96.11 Chronic respiratory failure with hypoxia (principal); J43.2 Centrilobular emphysema; R06.09 Other forms of dyspnea; R91.1 Solitary pulmonary nodule; G89.12 Acute post-thoracotomy pain; J18.9 Pneumonia, unspecified organism; Z99.81 Dependence on supplemental oxygen; Z87.891 Personal history of nicotine dependence | CPT/HCPCS: 99212 ==

== ENCOUNTER 2024-01-14 14:59 | Outpatient (AMB) | payer OTHER, SELFPAY ==
--- NOTE | 2024-01-14 15:28 | MHC.OFFVIS ---
Vital Signs 01/14/24 15:30 Height 5 ft 10 in Weight 162 lb BMI 23.2 BP 118/70 Blood Pressure Location Rt brachial Position Sitting Pulse 76 Pulse Source Pulse Oximeter Pulse Oximetry (%) 95 Oxygen Delivery Method Room Air Intake Visit Reasons: Pulmonary Nodules Tactical Intelligence Officer Required: No Allergies morphine Allergy (Severe, Verified 01/14/24 15:34) Agitated HPI Comments Details: The patient is a pleasant 74-year-old male, former smoker, quit 10 years ago, with 150+ pack year history and underlying asthma since childhood, COPD, history of COVID-19 in March 2020 with history of possible empyema s/p chest tube and ?VATS, s/p tracheostomy, decannulated (August 2020), with chronic hypoxic respiratory failure on 2L NC. He is unaccompanied, and ambulating with walker. At baseline, he states that his COPD is poorly controlled on 10 mg prednisone, which he has reportedly been on for the past year while living in [place]. At the last visit, Trelegy was sent in but patient states he has not received it. He has been using his albuterol 3-4 times per day with suboptimal effect. Today he kept referring to his oxycodone and need for medication to treat his lung pain . He was sent for chest CT to evaluate for any abnormalities or ILD, which was noted in prior history, report not available today. He continues to report significant dyspnea with minimal exertion, labored breathing, intermittent productive cough and wheezing. He is currently using his POC at 2 and has a concentrator at home through [facility]. in the meantime early October the patient was having worsening respiratory symptoms and persistent left-sided pleuritic pain and he went to the ER. There he had a CT of the chest which demonstrated then had airspace disease consistent with pneumonia. was treated and released and then went back to the ER where he was placed on couple courses of antibiotics. subsequently after that the patient did have a repeat CT scan of the chest 11/13/2023 which also reviewed. The patient appears to have a stable pulmonary nodule about vomiting medicine size in the left hemithorax. in addition to that he has extensive emphysema. He is oxygen dependent. The patient is complaining why he was taken off the oxycodone the family as well. Explained to the patient that he has severe respiratory failure and morphine we can only resulting worsening respiratory failure with suppression of his respiratory drive and he should avoided at all cost. 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 01/14/2024 the patient is here for a pulmonary follow-up visit. Patient still having some difficulty with breathing. Develop significant dyspnea on exertion. He has been using the oxygen with good effect. Has been having hard time with his activities of daily living. Currently his away from his family which makes it hard for him to receive the care would like to move closer to his family to be able to be get additional care in view of his advanced and severe respiratory disease. Did have a CT scan of the chest in 11/16/2023 which we personally reviewed. Patient does have extensive emphysema and also some pulmonary fibrosis. In addition to that he has small pulmonary nodules that are being followed. Subcentimeter in nature. We did review his pulmonary function studies demonstrating the significant COPD. He will be a great candidate for pulmonary rehabilitation to start building up and strengthening his respiratory muscles. Therefore, will go ahead and requested at this time. Did have an issue with Trelegy. It caused significant nausea so he could not tolerate it. Therefore will go ahead and stop that and place him on Advair HFA which she has tolerated in the past. Once he tolerates that we can always add a long-acting muscarinic antagonist if need be. But will just do 1 at a time since he already had a reaction to 1 inhaler. He is having hard time sleeping. Also awaiting a primary care appointment. Will go ahead and continue the gabapentin and will add trazodone at nighttime for sleep. Hopefully this combination helps him. Prior to that he was using Seroquel but he would need to have primary care or psychiatry or left for him if the combination trazodone/ gabapentin is not helpful. [facility] Medical History (Updated 11/25/23 @ 22:08 by Brett Crystal MD) Post-thoracotomy pain syndrome Emphysema (subcutaneous) (surgical) resulting from a procedure Hernia COVID-19 Diabetes mellitus, type 2 Bronchitis Pneumonia Surgical History Tympanic tube insertion History of intestinal surgery Family History Mother Mental health disorder Brother Substance use disorder Social History Household Members: None Housing: Apartment Alcohol intake: never Patient Tobacco Use Status: Former Tobacco user Cigarette Packs Per Day: 1 Cigarettes Per Day: 1 Years Smoked: 40 e-Cigarette/Vaping Use: Never Used service: No Current occupational status: disabled Current occupational exposures/hazards: No Sexual orientation: Straight/Heterosexual Gender identity: Male Cognitive needs: No Hearing needs: No Vision needs: No Review of Systems Const Denies chills, Reports difficulty sleeping, Denies excessive sweating, Denies fever(s), Denies headache(s) and Denies night sweats Eyes Denies dry eyes, Denies irritation and Denies itchy eyes ENT Reports Normal hearing present, Denies headache(s), Denies nasal congestion, Denies nasal discharge, Denies post nasal drip and Denies sore throat Card Denies chest pain, Denies chest pain at rest, Denies chest pain with activity, Denies claudication, Denies leg edema, Denies dyspnea, Denies orthopnea and Denies paroxysmal nocturnal dyspnea Resp Denies chest congestion, Denies excessive phlegm production, Denies pain on inspiration, Denies pain with cough, Denies dyspnea and Denies stridor Musc Denies myalgias Neuro Reports Normal hearing present and Denies headache(s) Endo Denies excessive sweating Dennis/Lymph Denies lymphadenopathy Aller/Immun Denies itchy eyes and Denies seasonal rhinorrhea Physical Exam Const General: cooperative, healthy appearing, comfortable, no acute distress, well developed and alert Orientation/consciousness: patient oriented x3 HEENT Head: Yes normal to inspection, Yes normocephalic and Yes atraumatic Ears: hearing grossly normal bilaterally and external ears normal Eyes General: appearance normal, both eyes and all related structures Eyelids: Yes eyelids normal Sclerae: sclerae normal EOM: EOMs intact bilaterally Neck Neck: Yes normal visual inspection and Yes no lymphadenopathy Lymphatic: no lymphadenopathy noted Chest Chest palpation & inspection: normal inspection of the chest Resp Effort & Inspection: normal respiratory effort, able to speak in complete sentences, no audible wheezes, no cough, no stridor, not tachypneic, no tripod positioning and no use of accessory muscles Cardio Jugular venous distension: no JVD Rate: regular rate Rhythm: regular rhythm Skin Other: warm, dry General skin exam: no rashes or lesions noted Neuro General: patient oriented x3 Cranial nerves: Yes Normal hearing present Cognition (Neuro): normal cognition Extrem General: Yes normal to inspection, Yes capillary refill normal, Yes no clubbing, cyanosis or edema and Yes no pedal edema Psych Appearance: grossly normal and well kempt Speech and movement: Normal speech and movement present and Clear speech present Attitude: cooperative Thought process: Normal thought process present Thought content: Normal thought content present Insight: Good insight present (Psych) Judgement: Good judgement present (Psych) Assessment & Plan Assessment & Plan (1) Chronic respiratory failure with hypoxia, on home oxygen therapy: Code(s): J96.11 - Chronic respiratory failure with hypoxia; Z99.81 - Dependence on supplemental oxygen Category: Medical (2) COPD (chronic obstructive pulmonary disease): Code(s): J44.9 - Chronic obstructive pulmonary disease, unspecified Category: Medical Qualifiers: COPD type: emphysema Emphysema type: centrilobular Qualified Code(s): J43.2 - Centrilobular emphysema (3) Personal history of tobacco use: Comment: 150 + pack year history Code(s): Z87.891 - Personal history of nicotine dependence Category: Social Hx (4) Dyspnea: Code(s): R06.00 - Dyspnea, unspecified Category: Medical Qualifiers: Dyspnea type: dyspnea on exertion Qualified Code(s): R06.09 - Other forms of dyspnea (5) Pulmonary nodule: Code(s): R91.1 - Solitary pulmonary nodule Category: Medical (6) Post-thoracotomy pain syndrome: Code(s): G89.12 - Acute post-thoracotomy pain Category: Medical (7) Pneumonia: Code(s): J18.9 - Pneumonia, unspecified organism Category: Medical Qualifiers: Pneumonia type: due to unspecified organism Laterality: bilateral Lung location: unspecified part of lung Qualified Code(s): J18.9 - Pneumonia, unspecified organism Plan stop Trelegy start Advair consider LAMA ELBA as needed cotinue Gabapentin 300mg QHS Start Trazodone 50->100mg PO QHS NSAIDS as needed for pain lidoderm patch t affected area continue oxygen supplemnetation start pulmonary rehab f/U 4 months Orders: Orders Pulmonary Rehab Today J43.2 - Centrilobular emphysema Medications: New fluticasone propion-salmeterol 115-21 mcg/actuation (Advair HFA) 2 puffs inhalation Q12H 30 days 12 grams 11RF albuterol sulfate 90 mcg/actuation (Ventolin HFA) 2 puffs inhalation QID 30 days PRN 18 grams 11RF shortness of breath or wheezing trazodone 100 mg (2 x 50 mg) PO BEDTIME 30 days PRN 60 tabs 6RF sleep Coding Level of Care Code Est Pt Level 4 (48958) Complex EM visit Add On G2211 Diagnoses Chronic respiratory failure with hypoxia, on home oxygen therapy J96.11; Z99.81 Centrilobular emphysema J43.2 COPD type: emphysema Emphysema type: centrilobular Personal history of tobacco use Z87.891 Dyspnea on exertion R06.09 Dyspnea type: dyspnea on exertion Pulmonary nodule R91.1 Post-thoracotomy pain syndrome G89.12 Pneumonia of both lungs due to infectious organism, unspecified part of lung J18.9 Pneumonia type: due to unspecified organism Laterality: bilateral Lung location: unspecified part of lung Time Spent (min) 18
[2024-01-14 15:30] VITALS: BP 118/70; PULSE 76; O2SAT 95; BMI 23.2
== END 2024-01-14 15:56 | disposition home or self-care (01) ==
PROVIDERS: PCP Nurse Practitioner Family; Visit Provider Hospitalist
DX: J96.11 Chronic respiratory failure with hypoxia (principal); Z99.81 Dependence on supplemental oxygen; J43.2 Centrilobular emphysema; Z87.891 Personal history of nicotine dependence; R06.09 Other forms of dyspnea; R91.1 Solitary pulmonary nodule; G89.12 Acute post-thoracotomy pain; J18.9 Pneumonia, unspecified organism
CPT/HCPCS: 99214; G2211

== ENCOUNTER → 2024-01-14 14:59 | Outpatient (BNVA) | payer OTHER, SELFPAY | PROVIDERS: PCP Nurse Practitioner Family; Visit Provider Hospitalist | DX: J44.9 Chronic obstructive pulmonary disease, unspecified (principal); J43.2 Centrilobular emphysema; J96.11 Chronic respiratory failure with hypoxia; J18.9 Pneumonia, unspecified organism; Z99.81 Dependence on supplemental oxygen; R91.1 Solitary pulmonary nodule; Z87.891 Personal history of nicotine dependence | CPT/HCPCS: 99212 ==

== ENCOUNTER → 2024-01-27 08:13 | Outpatient (REF) | payer OTHER, SELFPAY ==
--- NOTE | ~2024-01-27 | NM_ITS ---
Lexiscan Myocardial perfusion study Indication: Chest pain Technique: The patient was brought in for a Lexiscan perfusion study on 01/27/2024 and was injected 0.4 mg of Lexiscan intravenously. Within a minute of this injection 25 mCi of sestamibi was given intravenously. Images were obtained using the SPECT gamma camera interlaced with the gating device. Images were obtained in supine position. Resting perfusion study was performed on 01/29/2024. Patient was administered 25 mCi of sestamibi intravenously at rest. Images were then obtained in supine position. Total DLP 125 mGy-cm. Images were processed with the software and compared side to side in short axis, horizontal long axis and vertical long axis views. Findings: Raw aquisition reviewed. The stress perfusion study showed no significant perfusion abnormality. Both uncorrected as well as CT attenuation corrected images were reviewed. Visually, normal LVEF. Gated LVEF seems inaccurate. LV cavity is normal in size. The gated study shows normal wall thickening and contraction of segments. Resting study shows no significant perfusion abnormality. Gating at rest reveals normal wall motion with ejection fraction at 52%, but visually appears higher. The findings are consistent with no clear reversible or fixed perfusion defects. NM/NM cardiolite stress test Impression: 1. Myocardial perfusion imaging study shows probably normal myocardial perfusion. 2. Gated LVEF is not reliable. Visually appears to be in the normal range. EKG component of the test reported separately. Electronically signed by: Russ Lim MD 01/30/2024 02:29 PM EDT
--- NOTE | 2024-01-27 08:17 | CA_ITS ---
Acquisition Time: 2024-01-27 08:26:37 Total Exercise Time: 00:02:00 Test Indications: Abnormal ECG CP Medications: SEE H Protocol: LEXISCAN Max HR: 094 BPM 63% of Pred: 147 BPM Max BP: 142/068 mmHG Max Work Load: 1.0 METS Pharmacological stress test with Lexiscan injection while sitting and kicking hisd legs, with mild to moderate SOB, no chest discomfort, without arrhythmias, with normotensive response to injection, with nondiagnoisitic EKGs. Aminophylline 75mg IVP given to reverse Lexiscan. Nuclear images pending. Test reviewed with Dr. Messer. Referred By: Russ Lim Overread By: Mae Casillas
== END ==
LOC: HO.CARD 08:13
PROVIDERS: PCP Nurse Practitioner Family; Visit Provider Internal Medicine
DX: R07.2 Precordial pain (principal); I20.9 Angina pectoris, unspecified
CPT/HCPCS: 78452; 93017; A9500; J0280; J2785

== ENCOUNTER → 2024-01-27 08:17 | Outpatient (BNV) | payer OTHER, SELFPAY | PROVIDERS: PCP Nurse Practitioner Family; Visit Provider Nurse Practitioner | DX: R07.9 Chest pain, unspecified (principal) | CPT/HCPCS: 78452; 93016; 93018 ==

== ENCOUNTER → 2024-02-18 13:21 | Outpatient (BNVA) | payer OTHER, SELFPAY | PROVIDERS: PCP Nurse Practitioner Family; Visit Provider Nurse Practitioner Family ==

== ENCOUNTER 2024-02-24 07:56 | Outpatient (AMB) | payer OTHER, SELFPAY ==
--- NOTE | 2024-02-24 08:21 | MHC.PC.OV ---
Vital Signs 02/24/24 08:35 Height 5 ft 10 in Weight 157 lb 8 oz BMI 22.6 BP 124/80 Blood Pressure Location Lt brachial Position Sitting Respiration 14 Pulse 80 Pulse Source Pulse Oximeter Pulse Oximetry (%) 96 Oxygen Delivery Method Room Air Intake Visit Reasons: yang from jarrod/jesu for sleeping Intake Note: New patient visit Sexual Abuse Counsellor Required: Yes Sexual Abuse Counsellor Name: Julieta (daughter in law) Allergies morphine Allergy (Severe, Verified 02/24/24 08:26) Agitated Tobacco use date assessed: 07/24/23 Fall risk assessment: 1 Fall in past year Last assessed Fall Risk: 02/24/24 Dental Screening Dental Screen Date: 06/25/23 Did you have a dental visit in the last 12 months?: No Did you have a dental problem in the last 6 months where you did not have access to dental care?: No Was dental information given to patient?: Patient declined (has no teeth) HPI HPI Comments History of Present Illness Details 74-year-old male Trinidadian speaking with diabetes type 2 , COPD O2 dependent on 2 L of oxygen, empyema status post chest tube and VATS, status post tracheostomy now decannulated, interstitial lung disease, status post right-sided rib fractures glaucoma, MDD, urinary incont, CAD, bifascilar block and chronic pain presents for appointment to transfer care from my colleague at this practice. He is accompanied by his [id number], Cynthia. Authorization signed for her today. She serves as the tipple operator today. Declined Trinidadian video tipple operator. Cynthia's daughter is his ALTERNATIVE ENERGY TECHNICIAN. She is there overnight with him when needed. Right now he lives in an apartment in [place], but Cynthia and her live in [place]. They are trying to move him closer. Cynthia says he isn't doing well. She and her moved him up from [place] during the past year. He has not been on some of the medications he took in [place] like oxycodone her Seroquel. She says that he is not doing well. He isn't sleeping and that he is in a lot of pain. Reviewed her recent notes. Elder Care at risk was filed. Per notes it was opened and closed. Notes also document verbal aggression toward last PCP regarding discussion about Oxycodone and drug-seeking behavior. Provider also had difficulty contacting the family and establishing reliable source for medication administration with family the patient's home. Patient says the primary cause of pain is diabetic neuropathy which is worse in his feet and chronic middle and lower back pain. He has been on gabapentin and Lyrica. He says he was on oxycodone previously which helped control his pain. He is not sleeping well. She tells me he was on Seroquel at night, but he has not been on it since he came up to [place] and ran out of the last prescription. He used to have a psychiatrist in [place]. Referrals were sent to pain management, psychiatry and Ophthalmology, but these appointments were not scheduled. He does see cardiology and pulmonology. He is on supplemental oxygen. The patient says in [place] he was diagnosed with bipolar disorder and major depression. His daughter not also says that he has anxiety. He checks his blood sugar with a glucometer, but he needs a new meter. He declined CGM. He needs test strips and lancets, too. His last A1c was 8.2%, but since that time he stopped taking Januvia. It is not clear why. He says his blood sugars were better controlled with it. When he checked his blood sugar couple weeks ago it was in the 200s. He is taking metformin 1000 mg twice a day. ROS: Constitutional: No fevers or chills. Endocrine: No cold or heat intolerance. No polyuria or polydipsia. Psychiatric: No SI/HI. Physical exam: Constitutional: Alert, in no distress. Neck: Supple, Full range of motion. No lymphadenopathy. Respiratory: Clear to auscultation. Cardiovascular: S1 S2 regular. No murmurs. Neurologic: No focal neurological deficits. Extremities: Warm and well perfused. No clubbing, cyanosis or edema. Psychiatric: Cooperative [facility] Medical History (Updated 02/24/24 @ 13:18 by KANDIS Malhotra) Depression Diabetic neuropathy Abnormal CBC Fatty liver Post-thoracotomy pain syndrome Emphysema (subcutaneous) (surgical) resulting from a procedure Hernia COVID-19 Diabetes mellitus, type 2 Bronchitis Pneumonia Surgical History Tympanic tube insertion History of intestinal surgery Family History Mother Mental health disorder Brother Substance use disorder Social History Household Members: None Housing: Apartment Alcohol intake: never Patient Tobacco Use Status: Former Tobacco user Cigarette Packs Per Day: 1 Cigarettes Per Day: 1 Years Smoked: 40 e-Cigarette/Vaping Use: Never Used service: No Current occupational status: disabled Current occupational exposures/hazards: No Sexual orientation: Straight/Heterosexual Gender identity: Male Cognitive needs: No Hearing needs: No Vision needs: No Questionnaire Thrive Questionnaire Date Thrive assessed: 02/18/24 I am a: Parent/Caregiver What is your living situation today?: I have a steady place to live Within the past 12 months, did the food you bought not last and you didn't have the money to get more?: Never true Within the past 12 months, did you worry whether your food would run out before you got money to buy more?: Never true Do you have trouble paying for medicines?: No Do you have trouble getting transportation to medical appointments?: No Do you have trouble paying your heating and electricity bill?: No Do you have trouble taking care of your child, family member or friend?: I choose not to answer this question Do you have trouble with day-to-day activities such as bathing, preparing meals, shopping, managing finances, etc.?: Yes Are you currently unemployed and looking for a job?: No Are you interested in more education?: No Please select the resources that you would like help with: None Currently or been in a relationship where the following occur: I choose not to answer THRIVE Score: 0 AUDIT C Alcohol Use Questionnaire (AUDIT-C) 1. How often do you have a drink containing alcohol?: Never 3. How often do you have six or more drinks on one occasion?: Never Total Score: 0 BERRY-7 AMB Questionnaire BERRY-7 Date BERRY - 7 assessed: 06/25/23 Source: Developed by Drs. Ap Medina, Aidee Emerson, Demetrius Romano and colleagues, with an educational simon from [employer]. Physical exam (Primary Care) Vital Signs: Last Vital Signs Pulse 80 02/24/24 08:35 Resp 14 02/24/24 08:35 BP 124/80 02/24/24 08:35 Pulse Ox 96 02/24/24 08:35 Oxygen Delivery Method Room Air 02/24/24 08:35 BMI result Body Mass Index 22.6 Tobacco/Smoking Status: Tobacco use Status Tobacco use date assessed 07/24/23 02/24/24 08:23 Patient Tobacco Use Status Former Tobacco user 02/24/24 08:23 e-Cigarette/Vaping Use Never Used 02/24/24 08:23 Thrive Assessment: Date of Thrive Assessment Date Thrive assessed 02/18/24 02/24/24 08:23 Currently or been in a relationship where the following occur: I choose not to answer Coding Level of Care Code Est Pt Level 5 (22576) Complex EM visit Add On G2211 Diagnoses Diabetes mellitus type 2 with complications E11.8 ILD (interstitial lung disease) J84.9 COPD mixed type J44.9 Hypertension associated with type 2 diabetes mellitus E11.59; I15.2 Lumbar back pain M54.50 Thoracic back pain M54.6 Diabetic neuropathy E11.40 Depression F32.A Time Spent (min) 49 Comment Direct patient care, chart review, completing documentation Assessment & Plan Assessment & Plan (1) Diabetes mellitus type 2 with complications: Comment: Code(s): E11.8 - Type 2 diabetes mellitus with unspecified complications Category: Medical Plan: Continue metformin 1000 mg twice daily. Hemoglobin A1c came back at 9.9% today so we will start Januvia at a new dose of 100 mg daily. He declines CGM. He would like to see the geospatial extractor analysis. Referral placed. Referred anew for eye exam. (2) ILD (interstitial lung disease): Code(s): J84.9 - Interstitial pulmonary disease, unspecified Category: Medical Plan: Continue management per pulmonology. (3) COPD mixed type: Comment: Continue management per pulmonology [facility] 02 Code(s): J44.9 - Chronic obstructive pulmonary disease, unspecified Category: Medical (4) Hypertension associated with type 2 diabetes mellitus: Code(s): E11.59 - Type 2 diabetes mellitus with other circulatory complications; I15.2 - Hypertension secondary to endocrine disorders Category: Medical Plan: Stable off Losartan which reportedly caused leg weakness. (5) Lumbar back pain: Code(s): M54.50 - Low back pain, unspecified Category: Medical Plan: I will need to review the medical records that are scan today, and I placed a new referral to pain management for the patient. (6) Thoracic back pain: Code(s): M54.6 - Pain in thoracic spine Category: Medical (7) Diabetic neuropathy: Code(s): E11.40 - Type 2 diabetes mellitus with diabetic neuropathy, unspecified Category: Medical Plan: Previously on gabapentin and Lyrica. Patient states they were ineffective. We will review past medical records and refer to pain management. I told them I will revisit the discussion about his pain medication once I have reviewed all of his records. (8) Depression: Code(s): F32.A - Depression, unspecified Category: Medical Plan: I will review his medical records. Patient endorses history of bipolar disorder. States he had a psychiatrist in [place]. Referred anew to Psychiatry. Plan Follow up in 1 month. Orders: Orders Hemoglobin A1c Today E11.59 - Type 2 diabetes mellitus with other circulatory complications, E11.8 - Type 2 diabetes mellitus with unspecified complications, I15.2 - Hypertension secondary to endocrine disorders Lipid Panel Today E11.59 - Type 2 diabetes mellitus with other circulatory complications, E11.8 - Type 2 diabetes mellitus with unspecified complications, I15.2 - Hypertension secondary to endocrine disorders Basic Metabolic Panel Today E11.59 - Type 2 diabetes mellitus with other circulatory complications, I15.2 - Hypertension secondary to endocrine disorders Microalbumin, Random (w Creat) Today E11.42 - Type 2 diabetes mellitus with diabetic polyneuropathy Referrals Ophthalmology Referral E11.39 - Type 2 diabetes mellitus with other diabetic ophthalmic complication, E11.8 - Type 2 diabetes mellitus with unspecified complications, H42 - Glaucoma in diseases classified elsewhere Psychiatry Referral F32.9 - Major depressive disorder, single episode, unspecified, G47.00 - Insomnia, unspecified, R45.86 - Emotional lability Diabetes Education Referral E11.65 - Type 2 diabetes mellitus with hyperglycemia Pain Management Referral E11.42 - Type 2 diabetes mellitus with diabetic polyneuropathy
[2024-02-24 08:35] VITALS: BP 124/80; PULSE 80; RESP 14; O2SAT 96; BMI 22.6
== END 2024-02-24 09:21 | disposition home or self-care (01) ==
PROVIDERS: PCP Physician Assistant Medical; Visit Provider Physician Assistant Medical
DX: J84.9 Interstitial pulmonary disease, unspecified (principal); J44.9 Chronic obstructive pulmonary disease, unspecified; E11.59 Type 2 diabetes mellitus with other circulatory complications; E11.40 Type 2 diabetes mellitus with diabetic neuropathy, unspecified; I15.2 Hypertension secondary to endocrine disorders; M54.50 Low back pain, unspecified; M54.6 Pain in thoracic spine; F32.A Depression, unspecified

== ENCOUNTER 2024-02-24 09:29 | Outpatient (REF) | payer OTHER, SELFPAY ==
[2024-02-24 11:11] LABS: MANUAL DIFF FLAG NO
[2024-02-24 11:37] LABS: Basophils Percent Auto 0.5 % (0-2); Eosinophils Absolute Auto 0.2 X10*3/uL (0.0-0.4); Eosinophils Percent Auto 2.4 % (0-4); Hemoglobin 18.2 g/dl (14.0-18.0); Imm Gran Abs Auto 0.02 X10*3/uL (0.00-0.03); Imm Gran Pct Auto 0.3 % (0.0-0.4); Lymphocytes Absolute Auto 2.2 X10*3/uL (1.2-4.9); Mean Corpuscular HGB Conc 33.1 g/dl (31.0-36.0); Mean Corpuscular Hemoglobin 29.4 pg (27.0-33.0); Mean Platelet Volume 11.8 fL (9.4-12.4); Monocytes Absolute Auto 0.7 X10*3/uL (0.1-1.2); Monocytes Percent Auto 9.6 % (2-11); Neutrophils Absolute Auto 4.3 x10*3/uL (2.0-8.3); Neutrophils Percent Auto 58.2 % (45-73); Platelet Count 134 X10*3/uL (160-400); Red Blood Count 6.18 X10*6/uL (4.60-5.80); Red Cell Distribution Width 14.3 % (11.0-16.0); White Blood Count 7.4 X10*3/uL (4.8-10.8)
[2024-02-24 11:46] LABS: Estimated Average Glucose 237 mg/dL; Hemoglobin A1C 379.7959 umol/L; Hemoglobin A1c % 9.9 % (<6.0); Total Hemoglobin (HGBA1C) 4475.6266 umol/L
[2024-02-24 12:12] LABS: Creatinine Urine 83.19 mg/dL; Microalbum/Creatinine Ratio Ur 16.8 ug/mg cr (<30)
[2024-02-24 12:14] LABS: Erythrocyte Sedimentation Rate 10 MM/HR (0-15)
[2024-02-24 12:17] LABS: Alanine Aminotransferase 59 U/L (0-40); Albumin Level 4.2 g/dL (3.5-5.0); Alkaline Phosphatase 96 U/L (39-117); Anion Gap 11 (12-20); Aspartate Amino Transferase 38 U/L (5-37); Bilirubin Total 0.4 mg/dL (0.0-1.0); Blood Urea Nitrogen 12 mg/dL (9-16); Carbon Dioxide 29 mmol/L (22-29); Chloride 102 mmol/L (96-108); Cholesterol 194 mg/dL (<200); Estimated Glomerular Filt Rate > 60; Glucose Fasting 246 mg/dL (60-99); Glucose Random 245 mg/dL (60-115); HDL Cholesterol 43 mg/dL (>40); LDL Cholesterol Calculated 89 mg/dL (<100); Sodium 138 mmol/L (135-145); Total Protein 8.2 g/dL (6.5-8.0); Triglycerides 311 mg/dL (<150)
[2024-02-26 01:09] LABS: Alpha 1 Anti-trypsin 122 mg/dL (83-199)
== END 2024-02-24 09:30 | disposition home or self-care (01) ==
LOC: HO.WFDLDS 09:29
PROVIDERS: Nurse Practitioner Family; Referring Provider Hospitalist; Visit Provider Physician Assistant Medical
DX: E11.42 Type 2 diabetes mellitus with diabetic polyneuropathy (principal); I15.2 Hypertension secondary to endocrine disorders; E11.8 Type 2 diabetes mellitus with unspecified complications; E11.59 Type 2 diabetes mellitus with other circulatory complications; T81.82XA Emphysema (subcutaneous) resulting from a procedure, initial encounter
CPT/HCPCS: 36415; 80048; 80053; 80061; 82043; 82103; 82570; 83036; 85025; 85652; 99212

== ENCOUNTER 2024-03-18 13:45 | Outpatient (AMB) | payer OTHER, SELFPAY ==
--- NOTE | 2024-03-18 14:26 | A.OFFVIS_ITS ---
Vital Signs 03/18/24 14:27 Height 5 ft 10 in Weight 157 lb BMI 22.5 BP 141/63 H Blood Pressure Location Lt brachial Position Sitting Pulse 67 Pulse Source Pulse Oximeter Pulse Oximetry (%) 95 Oxygen Delivery Method Nasal Cannula Oxygen Flow Rate 2 Intake Visit Reasons: Type 2 diabetes mellitus/diabetic polyneuropathy Allergies morphine Allergy (Severe, Verified 03/18/24 14:27) Agitated Medication List - Last Reconciled 03/18/24 by Mary Bowers albuterol sulfate 2.5 mg (3 mL) inhalation Q4-6H PRN albuterol sulfate 90 mcg/actuation (Ventolin HFA) 2 puffs inhalation QID PRN 30 days benzonatate 200 mg PO TID PRN blood sugar diagnostic As directed twice per day blood sugar diagnostic (EntrisphereTouch Verio test strips) Use as directed to check blood glucose twice daily. blood-glucose meter As directed twice per day blood-glucose meter (OneTouch Verio Flex Meter) Use as directed to check blood glucose twice daily for Type II diabetes mellitus. blood-glucose meter,continuous (FreeStyle Amadeo 3 Deaver) As directed blood-glucose sensor (FreeStyle Amadeo 3 Sensor device) As directed lancets As directed lancets As directed twice per day lancets (EntrisphereTouch Delica Plus Lancet) Use as directed to check blood glucose t wice daily. latanoprost 0.005% 1 drp ophthalmic (eye) DAILY lidocaine 5% (Lidoderm) 1 patch topical DAILY 30 days metformin 1,000 mg PO BID 90 days miscellaneous medical supply As directed nebulizer and compressor (Easy Neb Compressor Nebulizer) As directed oxycodone 5 mg PO Q8-10H PRN Oxygen Home Use As directed quetiapine (Seroquel) 25 mg PO BEDTIME sitagliptin phosphate (Januvia) 100 mg PO DAILY HPI Comments Details: Costa presented to the office today for evaluation and management of his bilateral diabetic peripheral neuropathy Visit was completed with language interpreter Phillip [id number] Initially patient is requesting prescription for oxycodone 10 mg. He states that he was on this for 14 years in [place] and since moving here 1 year ago he has not been able to get this prescription filled. States his primary care doctor refuses to prescribe him opioid medications. After being advised that we are interventional management and today we are going to be discussing options such as Q10 2 for his diabetic neuropathy patient stated that he is here for oxycodone and if he can not get this prescription he will return to [place] where they will prescribe it for him. After lengthy discussion with the patient we were able to refocus on his diabetic peripheral neuropathy. He has been suffering with this for many years. Unknown current A1c. Currently taking metformin and Januvia for his diabetes. States he is compliant with these medications. Patient reports burning, numbness, tingling of his feet bilaterally. Mainly located to the toes and balls of both feet Pain today is rated as a 9/10, constant In terms of muscle damage condition is described as burning, tingling, pins and needles Pain is negatively impacting patient's enjoyment of life, general activity, walking, sleeping, mood [facility] Medical History (Updated 03/18/24 @ 14:45 by Hien Loyd APRN, MARINE EXTENSION AGENT) Bipolar affective disorder Low platelet count Depression Diabetic neuropathy Abnormal CBC Fatty liver Post-thoracotomy pain syndrome Emphysema (subcutaneous) (surgical) resulting from a procedure Hernia COVID-19 Diabetes mellitus, type 2 Bronchitis Pneumonia Surgical History Tympanic tube insertion History of intestinal surgery Family History Mother Mental health disorder Brother Substance use disorder Social History Household Members: None Housing: Apartment Alcohol intake: never Patient Tobacco Use Status: Former Tobacco user Cigarette Packs Per Day: 1 Cigarettes Per Day: 1 Years Smoked: 40 e-Cigarette/Vaping Use: Never Used service: No Current occupational status: disabled Current occupational exposures/hazards: No Sexual orientation: Straight/Heterosexual Gender identity: Male Cognitive needs: No Hearing needs: No Vision needs: No Review of Systems Const All systems reviewed & are unremarkable except as noted in HPI and below Physical Exam Vital Signs: Last Vital Signs Pulse 67 03/18/24 14:27 BP 141/63 H 03/18/24 14:27 Pulse Ox 95 03/18/24 14:27 Oxygen Delivery Method Nasal Cannula 03/18/24 14:27 Oxygen Flow Rate 2 03/18/24 14:27 BMI result Body Mass Index 22.5 General: awake, alert, oriented. Answers questions appropriately. Fully engaged in examination. Skin: warm, dry, intact. Bilateral feet: Light touch sensation intact. No wounds, rashes or lesions noted HEENT: Normocephalic. Hearing intact. Cardiac: External chest normal in appearance. Respiratory: No cough, audible wheezing or stridor. Patient utilizing continuous oxygen at 2 L nasal cannula Abdomen: without gross distension. MS: No obvious swelling or deformities. Neurological: Oriented to person, place, time and situation. Thought process intact. Ambulates with a Rollator walker Psychiatric: Appropriate mood and affect. Good judgment and insight. Assessment & Plan Assessment & Plan (1) Diabetic neuropathy: Code(s): E11.40 - Type 2 diabetes mellitus with diabetic neuropathy, unspecified Category: Medical (2) Chronic pain syndrome: Code(s): G89.4 - Chronic pain syndrome Category: Medical Plan Costa presented to the office today for evaluation and management of his bilateral painful diabetic neuropathy. Discussed options for treatment including topical treatment, diagnostic interventional testing, epidural steroid injections, peripheral nerve stimulation with Sprint, RFA and more permanent neuromodulation. Informational pamphlets provided. Will submit PA for Qutenza topical application. Patient advised on procedure including preparation and EMLA application prior to appointment. He is aware treatment is done in office and he will be here for 30minutes during each visit. All questions and concerns have been answered and patient agrees with the plan. Patient aware he will be called to schedule appointment for Qutenza pending insurance approval. Coding Level of Care Code New Pt Level 4 (19278) Complex EM visit Add On G2211 Diagnoses Diabetic neuropathy E11.40 Chronic pain syndrome G89.4
[2024-03-18 14:27] VITALS: BP 141/63; PULSE 67; O2SAT 95; BMI 22.5
== END 2024-03-18 14:41 | disposition home or self-care (01) ==
PROVIDERS: PCP Physician Assistant Medical; Visit Provider Registered Nurse Emergency
DX: E11.40 Type 2 diabetes mellitus with diabetic neuropathy, unspecified (principal); G89.4 Chronic pain syndrome
CPT/HCPCS: 99204; G2211

== ENCOUNTER → 2024-03-18 13:45 | Outpatient (BNVA) | payer OTHER, SELFPAY | PROVIDERS: PCP Physician Assistant Medical; Visit Provider Registered Nurse Emergency | DX: E11.42 Type 2 diabetes mellitus with diabetic polyneuropathy (principal); G89.4 Chronic pain syndrome; Z79.84 Long term (current) use of oral hypoglycemic drugs | CPT/HCPCS: 99202 ==

== ENCOUNTER 2024-04-06 09:14 | Outpatient (AMB) | payer OTHER, SELFPAY ==
--- NOTE | 2024-04-06 10:28 | A.OFFPC_ITS ---
Vital Signs 04/06/24 10:37 Height 5 ft 10 in Weight 159 lb BMI 22.8 BP 128/64 Blood Pressure Location Rt brachial Position Sitting Pulse 73 Pulse Source Pulse Oximeter Pulse Oximetry (%) 97 Oxygen Delivery Method Nasal Cannula Oxygen Flow Rate 2 Intake Visit Reasons: 30 minute complex follow up Intake Note: Follow up. Is supposed to be on Quetiapine 100mg and received 25 mg last refill. In a lot pain all over body and lungs. Prison Guard Supervisor Required: Yes Prison Guard Supervisor Language: Software Clerk Name: Basia [id number] Allergies morphine Allergy (Severe, Verified 03/18/24 14:27) Agitated Tobacco use date assessed: 07/24/23 Dental Screening Dental Screen Date: 06/25/23 HPI HPI Comments History of Present Illness Details 74-year-old male Greek speaking with d iabetes type 2, COPD O2 dependent on 2 L of oxygen, empyema status post chest tube and VATS, status post tracheostomy now decannulated, interstitial lung disease, status post right- sided rib fractures, glaucoma, MDD, urinary incontinence, CAD, bifascilar block and chronic pain presents for follow up appointment. This is is second visit with me. Greek video tone artist apprentice used for appointment. His last PCP her filed Elder at risk. Per notes it was opened and closed. Notes also document verbal aggression toward last PCP regarding discussion about Oxycodone and drug-seeking behavior. Provider also had difficulty contacting the family and establishing reliable source for medication administration. This is a concern of mine because he tells me today he is out of the Januvia I prescribed and says that he started taking 2 of them a day to help with his blood sugar instead of 1. The pharmacy would not refill it early. At his initial appointment they reported the primary source of pain was diabetic neuropathy, and he also says pulmonary disease today. Patient says he was on gabapentin and Lyrica which were ineffective and oxycodone was what helped. We received records from [facility] in [place], but they don't contain information about his current medication list or chronic pain management. Patient says it was his planning associate, Dr. Toney Rodriguez, who prescribed Oxycodone previously. I will have the office request these records now. Cynthia's (his [id number]) daughter is his SMALL PACKAGE AND BUNDLE SORTER CLERK. She is there overnight with him when needed. Right now he lives in an apartment in [place], but Cynthia and her live in [place]. They are trying to move him closer. He restarted Seroquel. I started it at the dosage of 25 mg since he has been off of it since moving. He continues to say he is not sleeping on this dose. He was previously on doses up to 200 mg. Patient has not heard anything about the psychiatry referral I placed. He side the eye doctor, and he has [facility]. He needs a prescription for a walker which I sent for Kodi today. He is following with Cardiology and pulmonology. No interval hospitalization or ER visits. The patient says in [place] he was diagnosed with bipolar disorder and major depression. He is using his glucometer to monitor his blood sugars twice a day. When he was on Januvia the blood sugars were between 130 and 150 in the morning and in the 130s at night. This morning he reports his blood sugar was 149. He is taking metformin 1000 mg twice daily. He continues to decline CGM. ROS: Constitutional: No fevers or chills. Endocrine: No cold or heat intolerance. No polyuria or polydipsia. Psychiatric: No SI/HI. Physical exam: Constitutional: Alert, in no distress. Neck: Supple, Full range of motion. No lymphadenopathy. Respiratory: Clear to auscultation. Cardiovascular: S1 S2 regular. No murmurs. Neurologic: No focal neurological deficits. Extremities: Warm and well perfused. No clubbing, cyanosis or edema. Psychiatric: Cooperative [facility] Medical History (Updated 03/18/24 @ 14:45 by Hien Loyd APRN, HOUSING RELOCATION) Bipolar affective disorder Low platelet count Depression Diabetic neuropathy Abnormal CBC Fatty liver Post-thoracotomy pain syndrome Emphysema (subcutaneous) (surgical) resulting from a procedure Hernia COVID-19 Diabetes mellitus, type 2 Bronchitis Pneumonia Surgical History Tympanic tube insertion History of intestinal surgery Family History Mother Mental health disorder Brother Substance use disorder Social History (Updated 04/06/24 @ 10:42 by Xiomy Roth CMA) Household Members: None Housing: Apartment Alcohol intake: never Patient Tobacco Use Status: Former Tobacco user Cigarette Packs Per Day: 1 Cigarettes Per Day: 1 Years Smoked: 40 e-Cigarette/Vaping Use: Never Used service: No Current occupational status: disabled Current occupational exposures/hazards: No Sexual orientation: Straight/Heterosexual Gender identity: Male Cognitive needs: No Hearing needs: No Vision needs: No Questionnaire Thrive Questionnaire Date Thrive assessed: 02/18/24 I am a: Parent/Caregiver What is your living situation today?: I have a steady place to live Within the past 12 months, did the food you bought not last and you didn't have the money to get more?: Never true Within the past 12 months, did you worry whether your food would run out before you got money to buy more?: Never true Do you have trouble paying for medicines?: No Do you have trouble getting transportation to medical appointments?: No Do you have trouble paying your heating and electricity bill?: No Do you have trouble taking care of your child, family member or friend?: I choose not to answer this question Do you have trouble with day-to-day activities such as bathing, preparing meals, shopping, managing finances, etc.?: Yes Are you currently unemployed and looking for a job?: No Are you interested in more education?: No Please select the resources that you would like help with: None Currently or been in a relationship where the following occur: I choose not to answer THRIVE Score: 0 BERRY-7 AMB Questionnaire BERRY-7 Date BERRY - 7 assessed: 06/25/23 Source: Developed by Drs. Ap Medina, Aidee Emerson, Demetrius Romano and colleagues, with an educational simon from [employer]. Physical exam (Primary Care) Vital Signs: Last Vital Signs Pulse 73 04/06/24 10:37 BP 128/64 04/06/24 10:37 Pulse Ox 97 04/06/24 10:37 Oxygen Delivery Method Nasal Cannula 04/06/24 10:37 Oxygen Flow Rate 2 04/06/24 10:37 BMI result Body Mass Index 22.8 Tobacco/Smoking Status: Tobacco use Status Tobacco use date assessed 07/24/23 04/06/24 10:37 Patient Tobacco Use Status Former Tobacco user 04/06/24 10:42 e-Cigarette/Vaping Use Never Used 04/06/24 10:42 Thrive Assessment: Date of Thrive Assessment Date Thrive assessed 02/18/24 04/06/24 10:37 Currently or been in a relationship where the following occur: I choose not to answer Coding Level of Care Code Cass Pt Level 5 (86588) Complex EM visit Add On G2211 Diagnoses Diabetes mellitus type 2 with complications E11.8 ILD (interstitial lung disease) J84.9 COPD mixed type J44.9 Hypertension associated with type 2 diabetes mellitus E11.59; I15.2 Lumbar back pain M54.50 Thoracic back pain M54.6 Diabetic neuropathy E11.40 Depression F32.A Time Spent (min) 50 Comment Chart review, direct patient care, completing documentation Assessment & Plan Assessment & Plan (1) Diabetes mellitus type 2 with complications: Comment: Code(s): E11.8 - Type 2 diabetes mellitus with unspecified complications Category: Medical Plan: Continue metformin 1000 mg twice daily. Hemoglobin A1c came back at 9.9% at his last visit so we restarted Januvia. He took it incorrectly. He says he increased it because he saw some high blood sugars. I advised the patient to take his medication as directed. I told him it is dangerous to make adjustments to the medications without consulting us 1st. We will contact the pharmacy to have it refilled early this time. He missed the appointment to see the consumer educator. I will reach out to the nurse navigator. (2) ILD (interstitial lung disease): Code(s): J84.9 - Interstitial pulmonary disease, unspecified Category: Medical Plan: Continue management per pulmonology. (3) COPD mixed type: Comment: Continue management per pulmonology [facility] 02 Code(s): J44.9 - Chronic obstructive pulmonary disease, unspecified Category: Medical (4) Hypertension associated with type 2 diabetes mellitus: Code(s): E11.59 - Type 2 diabetes mellitus with other circulatory complications; I15.2 - Hypertension secondary to endocrine disorders Category: Medical Plan: Stable off Losartan which reportedly caused leg weakness. (5) Lumbar back pain: Code(s): M54.50 - Low back pain, unspecified Category: Medical Plan: The medical records we received do not mention any pain management or prescription for oxycodone. I will request records from the specialist he mentions today. Before prescribing this type of medication we would need to confirm or set up a way for him to safely be administered medications at home like VNA services. (6) Thoracic back pain: Code(s): M54.6 - Pain in thoracic spine Category: Medical (7) Diabetic neuropathy: Code(s): E11.40 - Type 2 diabetes mellitus with diabetic neuropathy, unspecified Category: Medical Plan: Patient is seeing pain management for this now. (8) Depression: Code(s): F32.A - Depression, unspecified Category: Medical Plan: I will review his medical records. Patient endorses history of bipolar disorder. States he had a psychiatrist in [place]. I am following up on his psychiatry referral here. I will increase Seroquel to 50 mg nightly since he is still not sleeping. Plan Follow up in 1 month. Medications: New quetiapine (Seroquel) 50 mg PO BEDTIME 30 tabs 2RF walker As directed 1 ea 0RF Refilled sitagliptin phosphate (Januvia) 100 mg PO DAILY 90 tabs 3RF Patient Instructions: [place] Seroquel a 50 mg antes de acostarse. Me estoy comunicando con la enfermera navegante para ayudar a facilitar chappell atenci?n (citas con psiquiatr?a y educadora en diabetes). Peoa Januvia 100 mg veronica tableta veronica vez al d?a. [address] [facility] [address] [place] [facility] in [address] ?
[2024-04-06 10:37] VITALS: BP 128/64; PULSE 73; O2SAT 97; BMI 22.8
== END 2024-04-06 11:33 | disposition home or self-care (01) ==
PROVIDERS: PCP Nurse Practitioner Family; Visit Provider Physician Assistant Medical
DX: E11.59 Type 2 diabetes mellitus with other circulatory complications (principal); E11.8 Type 2 diabetes mellitus with unspecified complications; J84.9 Interstitial pulmonary disease, unspecified; J44.9 Chronic obstructive pulmonary disease, unspecified; E11.40 Type 2 diabetes mellitus with diabetic neuropathy, unspecified; I15.2 Hypertension secondary to endocrine disorders; M54.50 Low back pain, unspecified; M54.6 Pain in thoracic spine; F32.A Depression, unspecified

== ENCOUNTER → 2024-04-06 09:14 | Outpatient (BNVA) | payer OTHER, SELFPAY | PROVIDERS: PCP Nurse Practitioner Family; Visit Provider Physician Assistant Medical | DX: E11.8 Type 2 diabetes mellitus with unspecified complications (principal); J84.9 Interstitial pulmonary disease, unspecified; J44.9 Chronic obstructive pulmonary disease, unspecified; E11.59 Type 2 diabetes mellitus with other circulatory complications; I15.2 Hypertension secondary to endocrine disorders; M54.50 Low back pain, unspecified; M54.6 Pain in thoracic spine; E11.40 Type 2 diabetes mellitus with diabetic neuropathy, unspecified; F32.A Depression, unspecified; Z79.84 Long term (current) use of oral hypoglycemic drugs | CPT/HCPCS: 99212 ==

== ENCOUNTER 2024-05-07 14:12 | Outpatient (AMB) | payer OTHER, SELFPAY ==
--- NOTE | 2024-05-07 14:21 | A.OFFPC_ITS ---
Vital Signs 05/07/24 14:39 Height 5 ft 10 in Weight 157 lb 4 oz BMI 22.6 BP 136/82 Blood Pressure Location Lt brachial Position Sitting Pulse 77 Pulse Source Pulse Oximeter Pulse Oximetry (%) 96 Oxygen Delivery Method Room Air Intake Visit Reasons: 30 minutes complex multiple problems Intake Note: Follow up Sonar Watchstander Required: Yes Sonar Watchstander Name: declined Allergies morphine Allergy (Severe, Verified 05/07/24 14:22) Agitated Tobacco use date assessed: 07/24/23 Dental Screening Dental Screen Date: 06/25/23 HPI HPI Comments History of Present Illness Details 74-year-old male Cameroonian speaking with d iabetes type 2, COPD O2 dependent on 2 L of oxygen, empyema status post chest tube and VATS, status post tracheostomy now decannulated, interstitial lung disease, status post right- sided rib fractures, glaucoma, MDD, urinary incontinence, CAD, bifascilar block and chronic pain presents for follow up appointment. Accompanied by his hvqdnjbo-dl-gwo, Christiano. Declined video energy operations vice president. Cynthia's (his doizhbnk-rp-swf) daughter is his CLEANING ATTENDANT. She is there overnight with him when needed. Right now he lives in an apartment in [place], but Cynthia and her live in [place]. They are trying to move him closer. He is compliant with Januvia 100 mg daily and metformin 1000 mg twice daily for type 2 diabetes. His hemoglobin A1c decreased from 9.9% to 7.5% today. He recently restarted the Januvia. He denies low blood sugars. He saw the psychiatrist, Dr. Meehan last week. He initiated a new medication for depression, but they don't know the name. He increased his dose of Seroquel to 200 mg. We will confirm these medication changes with his pharmacy. He is on a wait list for therapy. He is sleeping better now on the increased dose of Seroquel. He continues to endorse chronic, severe, daily pain. He endorses pain in his bilateral knees, his lower back and middle back, neuropathy in his feet. On average pain is an 8 or a 9/10. It makes it harder for him to sleep. He has difficulty moving from a sitting to standing position. He uses an assistive device for walking. They tell me that he was previously tried on gabapentin and Lyrica which were ineffective. In [place] he was on doses of oxycodone up to 10 mg 4 times a day. His zpjbbyyj-au-myz has attempted to get the pharmacy records and records from the floor care technician who prescribed this due to postthoracotomy pain syndrome. We have received records from his prior PCP's office. I contacted the pulmonary office, but they have now closed, so we will have to send a fax request for records. He saw pain management. He says they prescribed a topical medication for his feet, but he never received it. He has dry skin on his face and scalp. He saw the eye doctor. He got a new pair of glasses, and he says that they will do surgery for his cataract soon. He is following with Cardiology and pulmonology. No interval hospitalization or ER visits. He declines influenza vaccine. ROS: Constitutional: No fevers or chills. Endocrine: No cold or heat intolerance. No polyuria or polydipsia. Psychiatric: No SI/HI. Physical exam: Constitutional: Alert, in no distress. Neck: Supple, Full range of motion. No lymphadenopathy. Respiratory: Clear to auscultation. Cardiovascular: S1 S2 regular. No murmurs. Neurologic: No focal neurological deficits. Extremities: Warm and well perfused. No clubbing, cyanosis or edema. Psychiatric: [facility] Medical History (Updated 05/08/24 @ 09:04 by KANDIS Malhotra) Dry skin Bipolar affective disorder Low platelet count Depression Diabetic neuropathy Abnormal CBC Fatty liver Post-thoracotomy pain syndrome Emphysema (subcutaneous) (surgical) resulting from a procedure Hernia COVID-19 Diabetes mellitus, type 2 Bronchitis Pneumonia Surgical History Tympanic tube insertion History of intestinal surgery Family History Mother Mental health disorder Brother Substance use disorder Social History (Updated 04/06/24 @ 10:42 by Xiomy Roth CMA) Household Members: None Housing: Apartment Alcohol intake: never Patient Tobacco Use Status: Former Tobacco user Cigarette Packs Per Day: 1 Cigarettes Per Day: 1 Years Smoked: 40 e-Cigarette/Vaping Use: Never Used service: No Current occupational status: disabled Current occupational exposures/hazards: No Sexual orientation: Straight/Heterosexual Gender identity: Male Cognitive needs: No Hearing needs: No Vision needs: No Questionnaire Thrive Questionnaire Date Thrive assessed: 05/07/24 BERRY-7 AMB Questionnaire BERRY-7 Date BERRY - 7 assessed: 06/25/23 Source: Developed by Drs. Ap Medina, Aidee Emerson, Demetrius Romano and colleagues, with an educational simon from [employer]. Physical exam (Primary Care) Vital Signs: Last Vital Signs Pulse 77 05/07/24 14:39 BP 136/82 05/07/24 14:39 Pulse Ox 96 05/07/24 14:39 Oxygen Delivery Method Room Air 05/07/24 14:39 BMI result Body Mass Index 22.6 Tobacco/Smoking Status: Tobacco use Status Tobacco use date assessed 07/24/23 05/07/24 14:24 Patient Tobacco Use Status Former Tobacco user 05/07/24 14:24 e-Cigarette/Vaping Use Never Used 05/07/24 14:24 Thrive Assessment: Date of Thrive Assessment Date Thrive assessed 05/07/24 05/07/24 14:24 Coding Level of Care Code Est Pt Level 5 (25768) Complex EM visit Add On G2211 Diagnoses Diabetes mellitus type 2 with complications E11.8 ILD (interstitial lung disease) J84.9 COPD mixed type J44.9 Hypertension associated with type 2 diabetes mellitus E11.59; I15.2 Lumbar back pain M54.50 Thoracic back pain M54.6 Diabetic neuropathy E11.40 Depression F32.A Dry skin L85.3 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 Recommended low carbohydrate, low sugar diet. Avoid sodas and juice. (2) ILD (interstitial lung disease): Code(s): J84.9 - Interstitial pulmonary disease, unspecified Category: Medical Plan: Continue management per pulmonology. (3) COPD mixed type: Comment: Continue management per pulmonology [facility] 02 Code(s): J44.9 - Chronic obstructive pulmonary disease, unspecified Category: Medical (4) Hypertension associated with type 2 diabetes mellitus: Code(s): E11.59 - Type 2 diabetes mellitus with other circulatory complications; I15.2 - Hypertension secondary to endocrine disorders Category: Medical Plan: Stable off Losartan which reportedly caused leg weakness. (5) Lumbar back pain: Code(s): M54.50 - Low back pain, unspecified Category: Medical (6) Thoracic back pain: Code(s): M54.6 - Pain in thoracic spine Category: Medical (7) Diabetic neuropathy: Code(s): E11.40 - Type 2 diabetes mellitus with diabetic neuropathy, unspecified Category: Medical Plan: Patient is seeing pain management for this now. Advised them to contact pain management to schedule a follow up. (8) Depression: Code(s): F32.A - Depression, unspecified Category: Medical Plan: Patient now managed by Dr. Meehan. Continue current medications per Psychiatry. (9) Dry skin: Code(s): L85.3 - Xerosis cutis Category: Medical Plan: Ordered VanStriivream. Advised they may have to purchase [id number]. Sent selenium sulfide shampoo for scalp flaking. (10) Post-thoracotomy pain syndrome: Code(s): G89.12 - Acute post-thoracotomy pain Category: Medical Plan The patient has chronic pain which is multifactorial related to prior thoracotomy, diabetic neuropathy, high likelihood of degenerative arthritis and chronic lung disease. He will have x-rays of the lumbar and thoracic spine completed. Patient has been cooperative at appointments. Nurse navigator now involved in case. Family members will be present for medical visits. CLEANING ATTENDANT is in the home. I would like him to have UDS done today. If this is appropriate we can consider reinitiating pain medication. I attempted to call his pulmonology office from [place]. They are closed, but there is a number to send a fax request for records. The office will send this. Follow up in 1 month. Orders: Orders XR thoracic spine 2V 05/07/24 M54.6 - Pain in thoracic spine Drug Screen Urine 05/07/24 Z51.81 - Encounter for therapeutic drug level monitoring XR lumbar spine 2-3V 05/07/24 M54.50 - Low back pain, unspecified, M54.6 - Pain in thoracic spine Medications: New selenium sulfide 2.3% lather on wet skin; leave on for 10-20 seconds; rinse 1 appl topical QWEEK 180 mL 3RF emollient (Vanicream topical) 1 appl topical DAILY PRN 500 grams 0RF dry skin Refilled sitagliptin phosphate (Januvia) 100 mg PO DAILY 90 tabs 3RF metformin 1,000 mg PO BID 90 days 180 tabs 3RF
[2024-05-07 14:39] VITALS: BP 136/82; PULSE 77; O2SAT 96; BMI 22.6
== END 2024-05-07 15:16 | disposition home or self-care (01) ==
PROVIDERS: PCP Nurse Practitioner Family; Visit Provider Physician Assistant Medical
DX: E11.8 Type 2 diabetes mellitus with unspecified complications (principal); J84.9 Interstitial pulmonary disease, unspecified; J44.9 Chronic obstructive pulmonary disease, unspecified; E11.59 Type 2 diabetes mellitus with other circulatory complications; E11.40 Type 2 diabetes mellitus with diabetic neuropathy, unspecified; I15.2 Hypertension secondary to endocrine disorders; M54.50 Low back pain, unspecified; M54.6 Pain in thoracic spine; F32.A Depression, unspecified; L85.3 Xerosis cutis; G89.12 Acute post-thoracotomy pain

== ENCOUNTER 2024-05-07 15:23 | Outpatient (REF) | payer OTHER, SELFPAY ==
[2024-05-07 17:55] LABS: Amphetamine Screen Urine Not Detected (Not Detect); Barbiturates, Urine Not Detected (Not Detect); Benzodiazepines Screen Urine Not Detected (Not Detect); Buprenorphine Scr Not Detected (Not Detect); Cannabinoid Screen Urine Not Detected (Not Detect); Cocaine Screen Urine Not Detected (Not Detect); Fentanyl, urine Not Detected (Not Detect); Methadone Screen, Urine Not Detected (Not Detect); Opiate Screen Urine Not Detected (Not Detect); Oxycodone Screen Urine Not Detected (Not Detect); Phencyclidine Screen Urine Not Detected (Not Detect)
[2024-05-07 18:09] LABS: MANUAL DIFF FLAG NO
[2024-05-07 18:26] LABS: Basophils Percent Auto 0.4 % (0-2); Eosinophils Absolute Auto 0.2 X10*3/uL (0.0-0.4); Eosinophils Percent Auto 1.7 % (0-4); Hemoglobin 18.8 g/dl (14.0-18.0); Imm Gran Abs Auto 0.05 X10*3/uL (0.00-0.03); Imm Gran Pct Auto 0.5 % (0.0-0.4); Lymphocytes Absolute Auto 2.4 X10*3/uL (1.2-4.9); Lymphocytes Percent Auto 23.5 % (20-40); Mean Corpuscular HGB Conc 33.9 g/dl (31.0-36.0); Mean Corpuscular Hemoglobin 30.1 pg (27.0-33.0); Mean Corpuscular Volume 88.9 fL (80.0-98.0); Mean Platelet Volume 11.5 fL (9.4-12.4); Monocytes Absolute Auto 0.9 X10*3/uL (0.1-1.2); Monocytes Percent Auto 8.3 % (2-11); Neutrophils Absolute Auto 6.7 x10*3/uL (2.0-8.3); Neutrophils Percent Auto 65.6 % (45-73); Platelet Count 148 X10*3/uL (160-400); Red Blood Count 6.24 X10*6/uL (4.60-5.80); Red Cell Distribution Width 15.8 % (11.0-16.0); White Blood Count 10.2 X10*3/uL (4.8-10.8)
[2024-05-07 18:35] LABS: Hematocrit 55.5 % (42.0-52.0)
[2024-05-07 18:45] LABS: Anion Gap 11 (12-20); Blood Urea Nitrogen 13 mg/dL (9-16); Calcium 9.5 mg/dL (8.4-10.2); Carbon Dioxide 26 mmol/L (22-29); Chloride 109 mmol/L (96-108); Estimated Glomerular Filt Rate > 60; Glucose Random 125 mg/dL (60-115); Iron 75 mcg/dL (45-160); Percent Iron Saturation 22 % (15-50); Potassium 4.3 mmol/L (3.3-5.1); Sodium 142 mmol/L (135-145); Total Iron Binding Capacity 336 mcg/dL (228-428); Unsaturated Iron Binding 261 ug/dL
[2024-05-07 18:59] LABS: Ferritin 217 ng/mL (20-250)
[2024-05-07 19:07] LABS: Folate 14.1 ng/mL (> or = 4.0); Vitamin B12 458 pg/mL (200-900)
== END 2024-05-07 15:24 | disposition home or self-care (01) ==
LOC: HO.WFDLDS 15:23
PROVIDERS: Visit Provider Physician Assistant Medical
DX: R79.89 Other specified abnormal findings of blood chemistry (principal); E11.59 Type 2 diabetes mellitus with other circulatory complications; I15.2 Hypertension secondary to endocrine disorders; Z51.81 Encounter for therapeutic drug level monitoring
CPT/HCPCS: 80048; 80307; 82607; 82728; 82746; 83540; 85025; 99212

== ENCOUNTER → 2024-06-04 13:48 | Outpatient (BNVA) | payer OTHER, SELFPAY | PROVIDERS: PCP Nurse Practitioner Family; Visit Provider Internal Medicine | DX: R07.2 Precordial pain (principal); I25.10 Atherosclerotic heart disease of native coronary artery without angina pectoris; I45.2 Bifascicular block; Z87.891 Personal history of nicotine dependence | CPT/HCPCS: 99212 ==

== ENCOUNTER 2024-06-08 09:40 | Outpatient (AMB) | payer OTHER, SELFPAY ==
--- OUTSIDE RECORDS SUMMARY | 2024-06-08 10:23 | XMS_ITS ---
Author Organization [facility] Address [address] [place] [address] Care Team Providers Care Sports Marketer Name Role Phone Julián Crowe Unavailable Migration, Provider Unavailable Unavailable Allergies Allergen (clinical drug ingredient) Drug/Non Drug Allergy documented on EMR Reaction Allergy Type Onset Date Status morphine Morphine stomach upset Drug Allergy Act stacy REASON FOR VISIT EMR-David Encounters Encounter Location Date Provider Diagnosis [facility] [address] [place] [address] 06/02/2023 Provider Migration Plan Of Treatment No Information Progress Notes * Costa JONESDOB:12/1949 (74 yo M)Acc No.[id number]:06/02/2023 Patient:?Allan JONES :1950???Age:73 Y???Sex:Male Address:[address] [place] [address] Subjective: * Chief Complaints: * ???EMR-David * Medical History:? * Surgical History:? * Hospitalization/Major Diagno stic Procedure:? * Medications:? * Allergies:?Morphine: stomach upset - Allergy Objective: * Vitals:? * Physical Examination:? Assessment: Plan: * Treatment: * Procedure Codes:? * * Date:?
--- OUTSIDE RECORDS SUMMARY | 2024-06-08 10:24 | XMS_ITS ---
Author Organization [facility] Address [address] [place] [address] Care Team Providers Care Electron Beam Photo Mask Technician Name Role Phone Jayden BhatJulián Unavailable [phone] Migration, Provider Unavailable Unavailable REASON FOR VISIT EMR-David Encounters Encounter Location Date Provider Diagnosis [facility] [address] [place] [address] 06/01/2023 Provider Migration Plan Of Treatment No Information Progress Notes * PERLA FRAIREOCostaDOB:12/1949 (74 yo M)Acc No.[id number]:06/01/2023 Patient:?Allan JONES :1950???Age:73 Y???Sex:Male Address:[address] [place] [address] Subjective: * Chief Complaints: * ???EMR-David * Medical History:? * Surgical History:? * Hospitalization/Major Diagno stic Procedure:? * Medications:? Objective: * Vitals:? * Physical Examination:? Assessment: Plan: * Treatment: * Procedure Codes:? * * Date:?
--- OUTSIDE RECORDS SUMMARY | 2024-06-08 10:24 | XMS_ITS | Clinical Summary ---
Author Organization [facility] Address [address] [place] [address] Care Team Providers Care Branner Machine Tender Name Role Phone Unavailable Primary Care Provider Unavailabl e Social History Tobacco Use Types Packs/Day Years Used Date Smoking Tobacco: Never Assessed Sex and Gender Information Value Date Recorded Sex Assigned at Not on file Legal Sex Male 4:16 PM EST Gender Identity Not on file Sexual Orientation Not on file Plan of Treatment Health Maintenance Due Date Last Done Comments CT Colonography 1950 Colonoscopy 1950 Colorectal Cancer Screening 1950 Depression Screening 1950 FIT DNA/Cologuard 1950 FIT 1950 FOBT 1950 Lipid Panel 1950 SDOH Screening 1950 Sigmoidoscopy 1950 Alcohol/Substance Use Screening 1963 Tobacco Screening 1963 Hepatitis C Screening 1969 DTaP/Tdap/Td Vaccines (1 - Tdap) 1970 Pneumococcal Vaccine: 50+ Ye ars (1 of 1 - PCV) 2001 Zoster Vaccines (1 of 2) 2001 COVID-19 Vaccine ( - 2023-2 5 season) 2023 Influenza Vaccine (#1) 2023 RSV Patients and Pa tients Aged 60 years or older (1 - 1-dose 75+ series) 2026 HIB Vaccines Aged Out No longer eligi ble based on patient's age to complete this topic HPV Vaccines Aged Out No longer eligi ble based on patient's age to complete this topic Hepatitis A Vaccines Aged Out No long er eligible based on patient's age to complete this topic Hepatitis B Vaccines Aged Out No long er eligible based on patient's age to complete this topic IPV Vaccines Aged Out No longer eligi ble based on patient's age to complete this topic Meningococcal Vaccine Aged Out No roger humza eligible based on patient's age to complete this topic RSV under 20 months Aged Out No longe r eligible based on patient's age to complete this topic Rotavirus Vaccines Aged Out No longer eligible based on patient's age to complete this topic Insurance [employer]
--- OUTSIDE RECORDS SUMMARY | 2024-06-08 10:24 | XMS_ITS | Data Portability ---
Author Organization [facility] Internal Medicine Office Address [address] [address] Care Team Providers Care Model Making Supervisor Name Role Phone TONEY LEE Referring Provider Assessment Encounter Date Assessment Date Assessment LastModified by Organization Details LastModified Time 04/03/2022 04/03/2022 The patient is a 72 year old male with a PMH . Reviewed and discussed all possible medication interactions with patient. Patient voiced understanding that if receiving controlled medications, they must be re-evaluated every 90 days before medication will be refilled. Also, [place] [facility] monitoring database will be consulted verifying no duplication in therapy. The patient does note a significant medical benefit to the medication. There are no signs of misuse or overuse. The patient denies any adverse effects of the medication: No falls, accidents, or events of impaired judgement. Discussed health benefits of smoking cessation and avoidance, and moderation in alcohol use. Discussed diet and exercise (BMI review). All questions were answered to the patient's satisfaction, including current diagnoses, disease process, and medication prescribed. If additional questions or concerns arise regarding diagnosis or medications, patient will call the office to clarify concerns. Plan to follow up in 3 month unless appointment required sooner. [email or web address] Not available 04/03/2022 08:42:54 07/06/2022 07/06/2022 Reviewed and discussed all possible medication interactions with patient. Patient voiced understanding that if receiving controlled medications, they must be re-evaluated every 90 days before medication will be refilled. Also, [place] [facility] [employer] database will be consulted verifying no duplication in therapy. The patient does note a significant medical benefit to the medication. There are no signs of misuse or overuse. The patient denies any adverse effects of the medication: No falls, accidents, or events of impaired judgement. Discussed health benefits of smoking cessation and avoidance, and moderation in alcohol use. Discussed diet and exercise (BMI review). All questions were answered to the patient's satisfaction, including current diagnoses, disease process, and medication prescribed. If additional questions or concerns arise regarding diagnosis or medications, patient will call the office to clarify concerns. Plan to follow up in 3 month unless appointment required sooner. [email or web address] Not available 10/07/2022 20:37:42 10/05/2022 10/05/2022 Patient adamant to receive pain meds. Non compliant with labs. Last MRI T-spine 2012 no acute or severe abnormality noted in T spine. No lumbar spine MRI on file. Advised pt he can follow with Dr. Lee to decide if he really needs these medications. If prescribed, patient will need updated bloodwork, and at minimum an initial lumbar MRI. I will not prescribe him pain medications without these criteria, per law. --Shelby Zaman PA-C Reviewed and discussed all possible medication interactions with patient. Patient voiced understanding that if receiving controlled medications, they must be re-evaluated every 90 days before medication will be refilled. Also, [place] [facility] monitoring database will be consulted verifying no duplication in therapy. The patient does note a significant medical benefit to the medication. There are no signs of misuse or overuse. The patient denies any adverse effects of the medication: No falls, accidents, or events of impaired judgement. Discussed health benefits of smoking cessation and avoidance, and moderation in alcohol use. Discussed diet and exercise (BMI review). All questions were answered to the patient's satisfaction, including current diagnoses, disease process, and medication prescribed. If additional questions or concerns arise regarding diagnosis or medications, patient will call the office to clarify concerns. Plan to follow up in 3 month unless appointment required sooner. [email or web address] Not available 10/07/2022 20:51:48 11/10/2022 11/10/2022 The patient is a 72 year old male with a PMH . Reviewed and discussed all possible medication interactions with patient. Patient voiced understanding that if receiving controlled medications, they must be re-evaluated every 90 days before medication will be refilled. Also, [place] [facility] [employer] database will be consulted verifying no duplication in therapy. The patient does note a significant medical benefit to the medication. There are no signs of misuse or overuse. The patient denies any adverse effects of the medication: No falls, accidents, or events of impaired judgement. Discussed health benefits of smoking cessation and avoidance, and moderation in alcohol use. Discussed diet and exercise (BMI review). All questions were answered to the patient's satisfaction, including current diagnoses, disease process, and medication prescribed. If additional questions or concerns arise regarding diagnosis or medications, patient will call the office to clarify concerns. Plan to follow up in 3 month unless appointment required sooner. [email or web address] Not available 11/10/2022 08:15:17 Plan of Treatment Reminders Order Date Submit Date Provider Last Modified By Organization Details Last Modified Time Details Appointments None recorded. Lab None recorded. Referral None recorded. Procedures None recorded. Surgeries None recorded. Imaging CT, chest, w/o contrast - Chronic chest wll pain. 2022 023 [email or web address], [address], [place], [address], 3 08:35:02 Medication Orders oxycodone 10 mg tablet 2021 022 [email or web address] 4 Not available 2 08:42:53 oxycodone 10 mg tablet 2021 022 4 Not available 2 08:42:53 oxycodone 10 mg tablet 2021 022 [email or web address] 4 Not available 2 08:42:53 Advair HFA 230 mcg-21 mcg/actuati on aerosol inhaler 2021 022 [facility], [address] [place] [address] [place], [id number], 2 08:45:37 oxycodone 10 mg tablet 2022 023 [email or web address] Not available 3 09:28:01 albuterol sulfate HFA 90 mcg/actuati on aerosol inhaler 2022 023 [facility], [address] [place] [address], [id number], 3 08:25:22 Advair HFA 230 mcg-21 mcg/actuati on aerosol inhaler 2022 023 [facility], [address] [place] [address], [id number], 3 08:25:23 albuterol sulfate 2.5 mg/3 mL (0.083 %) solution for nebulizatio n 2022 023 [facility], [address] [place] [address], [id number], 3 08:25:22 Cipro 250 mg tablet 2022 023 [facility], [address] [place] [address], [id number], 3 08:28:24 oxycodone 10 mg tablet 2022 023 [email or web address] 4 Not available 3 14:35:36 oxycodone 10 mg tablet 2022 023 [email or web address] 1 Not available 3 09:23:15 oxycodone 10 mg tablet 2022 023 [email or web address] 1 Not available 3 09:23:15 oxycodone 10 mg tablet 2022 023 [email or web address] 1 Not available 3 09:23:15 prednisone 10 mg tablet 2022 023 [email or web address] 1 [facility], [address] [place] [address], [id number], 3 09:23:15 Zithromax Z-Joe 250 mg tablet 2022 023 [email or web address] 1 [facility], [address] [place] [address], [id number], 3 09:23:15 oxycodone 10 mg tablet 2022 023 [facility], [address] [place] [address], [id number], 3 08:36:28 oxycodone 10 mg tablet 2022 023 [facility], [address] [place] [address], [id number], 3 08:36:28 oxycodone 10 mg tablet 2022 023 [facility], [address] [place] [address], [id number], 3 08:36:29 Patient TargetsNo targets recorded. Patient InstructionsNo instructions recorded. Reason for Referral None Reported. Problems Name Problem SNOMED Code Status Onset Date Resolution Date Notes Provider Name and Address Organization Details Recorded Time Prostatism 95108103 Active [facility] 4 17:23:28 Chronic obstructive pulmonary disease 95793113 Active [facility] 4 17:23:28 Tobacco dependence syndrome 37111165 Active [facility] 4 17:23:28 Hyperlipidemia 96414947 Active [facility] 4 17:23:28 Type 2 diabetes mellitus 15923910 Active [facility] 4 17:23:28 Nausea and vomiting 01034452 Active [facility] 4 17:23:28 Pneumonia 416765947 Active [facility] 4 17:23:28 Otitis media 72779911 Active [facility] 4 17:23:28 Pain radiating to left shoulder 988929652 Active [facility] 4 17:23:28 Pain in thoracic spine 569499091 Active [place] [facility] 4 17:23:28 Hemoptysis 67399622 Active [place] [facility] 4 17:23:28 Backache 376183314 Active [place] [facility] 4 17:23:28 Neck pain 35271671 Active [place] [facility] 4 17:23:28 Musculoskeleta l pain 160161319 Active [place] [facility] 4 17:23:28 Parotitis 54819779 Active [place] [facility] 4 17:23:28 Hypoxia 963263769 Active [place] [facility] 4 17:23:28 Hoarse 53694697 Active [place] [facility] 4 17:23:28 Bronchitis 38977660 Active [place] [facility] 4 17:23:28 Shoulder pain 73359761 Active [place] [facility] 4 17:23:28 Chest wall pain 908152595 Active 2021 [place] [facility] 4 17:23:28 Lumbar spondylosis 086370429 Active 2022 [place] [facility] 4 17:23:28 Problem Notes None recorded. Medical Equipment None Reported. Allergies No known drug allergies Medications Name Sig Start Date Stop Date Status Note LastModified by Organization Details LastModified Time Prescriptio n - Renewal 01/14 completed Not Available Not Available Not Available prednisone tab 10mgprednis one active Not Available Not Available Not Available neomycin/po lymyxin/hc 1 % soln active Not Available Not Available Not Available venlafaxine cap 150mg er active Not Available Not Available Not Available enalapril tab 5mgenalapri l maleate active Not Available Not Available No t Available gabapentin cap 300mggabape ntin active Not Available Not Available Not Available levofloxaci n tab 750mglevofl oxacin active Not Available Not Available Not Available accu-chek softclix lancets misc active Not Available Not Available Not Available lamotrigine 25 mg tabs active Not Available Not Available N ot Available venlafaxine hcl er 75 mg cp24 active Not Available Not Available Not Available promethazin e hcl 25 mg tabs active Not Available Not Available Not Available albuterol tab 4mg 1 tab every day active Not Available Not Available No t Available spiriva cap handihlrspi rik handihaler active Not Available Not Available N ot Available venlafaxine cap 75mg er active Not Available Not Available Not Available venlafaxine cap 75mg ervenlafaxi ne hcl er active Not Available Not Available No t Available pantoprazol e sodium 40 mg tbec one daily active Not Available Not Available No t Available lactulose darrel 10gm/15lact ulose active Not Available Not Available Not Available metformin tab 500mgmetfor min hcl one tab twice a day active Not Available Not Available No t Available enalapril maleate 5 mg tabs 0.5 TAB DAILY active Not Available Not Available No t Available hydroxyz marquita cap 50mg active Not Available Not Available Not Available proair hfa aerproair hfa active Not Available Not Available Not Available lactulose 10 gm/15ml soln active Not Available Not Available Not Available methylpred joe 4mg active Not Available Not Available Not Available oxycodone tab 10mgoxycodo ne hcl active Not Available Not Available Not Available accu-chek kole nataliia placcu-chek nataliia plus active Not Available Not Available N ot Available bupropion hcl xl 300 mg tb24 one daily 04/03 completed Not Available Not Available Not Available polyeth glyc pow 3350 nfpolyethyl sada glycol 3350 active Not Available Not Available Not Available enalapril tab 2.5mgenalap ril maleate active Not Available Not Available Not Available azithromyci n tab 250mg to take as directed active Not Available Not Available No t Available oxycodone tab 10mg active Not Available Not Available Not Available hydroxyzine pamoate 50 mg caps active Not Available Not Available Not Available montelukast sodium 10 mg tabs one daily active Not Available Not Available No t Available ciprofloxac n tab 250mgciprof loxacin hcl active Not Available Not Available Not Available gabapentin 300 mg caps active Not Available Not Available Not Available metformin hcl er 500 mg tb24 active Not Available Not Available Not Available azithromyci n tab 250mgazithr omycin active Not Available Not Available Not Available proair hfa aer active Not Available Not Available Not Available bupropion tab 150mg srbupropion hcl sr active Not Available Not Available Not Available simvastatin tab 40mg active Not Available Not Available Not Available metformin hcl 500 mg tabs active Not Available Not Available Not Available oxycodone hcl 10 mg tabs active Not Available Not Available Not Available montelukast tab 10mgmontelu kast sodium active Not Available Not Available Not Available ciprofloxac n tab 250mg active Not Available Not Available Not Available tamsulosin cap 0.4mg active Not Available Not Available No t Available methylpred joe 4mgmethylpr ednisolone dose pack active Not Available Not Available No t Available albuterol sulfate (2.5 mg/3ml) 0.083% nebu active Not Available Not Available Not Available accu-chek kit nataliia placcu-chek nataliia plus active Not Available Not Available N ot Available tamsulosin cap 0.4mgtamsul osin hcl active Not Available Not Available Not Available hydroxyz marquita cap 50mghydroxy zine pamoate active Not Available Not Available Not Available softclix mis lancetsaccu -chek softclix lancets active Not Available Not Available Not Available omeprazole cap 40mg active Not Available Not Available Not Available omeprazole cap 40mgomepraz ole active Not Available Not Available Not Available atorvastati n calcium 40 mg tabs ONE TAB DAILY 04/03 completed Not Available Not Available Not Available advair hfa aer 230/21advai r hfa twice a day active Not Available Not Available No t Available ibuprofen tab 600mgibupro fen active Not Available Not Available Not Available baclofen 10 mg tabs active Not Available Not Available Not Available simvastatin 40 mg tabs active Not Available Not Available N ot Available cefuroxime axetil 500 mg tabs ONE TAB TWICE DAILY active Not Available Not Available No t Available cyclobenzap rine hcl 10 mg tabs one daily active Not Available Not Available No t Available promethazin e tab 25mgprometh azine hcl active Not Available Not Available No t Available accu-chek nataliia plus strp active Not Available Not Available Not Available albuterol neb 0.083%albut juany sulfate active Not Available Not Available Not Available lidoderm dis 5%lidoderm active Not Available Not Available N ot Available advair hfa 230-21 mcg/act aero ONE PUFF TWICE A DAY active Not Available Not Available No t Available ibuprofen 800 mg tabs active Not Available Not Available Not Available advair hfa aer 230/21 active Not Available Not Available N ot Available albuterol neb 0.083% active Not Available Not Available N ot Available oxygen and equipment active Not Available Not Available No t Available seroquel xr tab 400mgseroqu el xr active Not Available Not Available Not Available fentanyl 25 mcg/hr pt72 active Not Available Not Available Not Available seroquel xr tab 400mg active Not Available Not Available N ot Available gabapentin 100 mg caps active Not Available Not Available Not Available prednisone joe 10mgprednis one active Not Available Not Available Not Available doxycycline hyclate 100 mg caps active Not Available Not Available Not Available hydromet syp 5-1.5/5hydr omet active Not Available Not Available Not Available seroquel xr 400 mg tb24 active Not Available Not Available Not Available ibuprofen tab 600mg active Not Available Not Available No t Available latanoprost 0.005 % soln active Not Available Not Available Not Available bupropn hcl tab 150mg xl active Not Available Not Available Not Available spiriva handihaler 18 mcg caps ONE PUFF DAILY active Not Available Not Available No t Available metformin tab 500mg ermetformin hcl er active Not Available Not Available Not Available prednisone joe 10mg active Not Available Not Available Not Available tramadol hcl 50 mg tabs active Not Available Not Available Not Available simvastatin tab 40mgsimvast atin active Not Available Not Available Not Available pantoprazol e tab 40mgpantopr azole sodium active Not Available Not Available Not Available enalapril maleate 2.5 mg tabs active Not Available Not Available Not Available albuterol tab 4mgalbutero l sulfate active Not Available Not Available No t Available proair hfa 108 (90 base) mcg/act aers active Not Available Not Available Not Available Hydromet 5 mg-1.5 mg/5 mL oral syrup TK 5 ML PO Q 4 H active Not Available Not Available No t Available cyclobenzap rine 10 mg tablet active Not Available Not Available Not Available amoxicillin 500 mg capsule 04/03 completed Not Available Not Available Not Available latanoprost 0.005 % eye drops INT 1 GTT IN OU QHS 10/05 completed Not Available Not Available Not Available pioglitazon e 15 mg tablet 04/03 completed Not Available Not Available Not Available atorvastati n 40 mg tablet 04/03 completed Not Available Not Available Not Available buspirone 5 mg tablet 01/14 completed Not Available Not Available Not Available metformin 500 mg tablet Take 1 tablet twice a day by oral route. 01/22 completed Not Available Not Available Not Available bupropion HCl SR 150 mg tablet,12 hr sustained-r elease TK 1 T PO ONCE D IN THE MORNING active Not Available Not Available No t Available neomycin-po lymyxin-hyd rocort 3.5 mg/mL-10,00 0 unit/mL-1 % ear solution PLACE 2 DROPS INTO LEFT EAR QID FOR 7 DAYS active Not Available Not Available No t Available atorvastati n 80 mg tablet TK 1 T PO QHS active Not Available Not Available No t Available prednisone 10 mg tablet Take 4 tabs [id number], 3 tabs [id number], 2 tabs [id number], 1 tab [id number] active Not Available Not Available No t Available venlafaxine ER 75 mg capsule,ext ended release 24 hr every 3 days 04/03 completed Not Available Not Available Not Available doxycycline hyclate 100 mg capsule 04/03 completed Not Available Not Available Not Available atorvastati n 20 mg tablet 10/05 completed Not Available Not Available Not Available venlafaxine 75 mg tablet 04/03 completed Not Available Not Available Not Available Carafate 100 mg/mL oral suspension TK 10 ML PO BEFORE EACH MEAL AND HS 01/14 completed Not Available Not Available Not Available clindamycin HCl 300 mg capsule 04/03 completed Not Available Not Available Not Available albuterol sulfate 2.5 mg/3 mL (0.083 %) solution for nebulizatio n Inhale 3 mL 4 times a day by nebulizat ion route as needed for 30 days. active Not Available Not Available No t Available enalapril maleate 5 mg tablet active Not Available Not Available No t Available azithromyci n 250 mg tablet TAKE 2 TABLETS (500 MG) BY ORAL ROUTE ONCE DAILY FOR 1 DAY THEN 1 TABLET (250 MG) BY ORAL ROUTE ONCE DAILY FOR 4 DAYS active Not Available Not Available No t Available ibuprofen 800 mg tablet TK 1 T PO TID PRN P active Not Available Not Available No t Available valacyclovi r 1 gram tablet 10/05 completed Not Available Not Available Not Available meloxicam 15 mg tablet TK 1 T PO D active Not Available Not Available No t Available prednisone 20 mg tablet TK 2 T PO FOR 5 DAYS 04/03 completed Not Available Not Available Not Available isosorbide mononitrate ER 30 mg tablet,exte nded release 24 hr 01/14 completed Not Available Not Available Not Available dexamethaso ne 6 mg tablet TAKE 1 TABLET BY MOUTH EVERY DAY FOR 6 DAYS active Not Available Not Available No t Available enalapril maleate 2.5 mg tablet TK 1 T PO QD active Not Available Not Available No t Available simvastatin 10 mg tablet TK 1 T PO QHS active Not Available Not Available No t Available glipizide ER 5 mg tablet, extended release 24 hr 10/05 completed Not Available Not Available Not Available venlafaxine ER 150 mg capsule,ext ended release 24 hr TK ONE C PO D IN THE MORNING and 1 in the afternoon active Not Available Not Available No t Available hydroxyzine pamoate 50 mg capsule TK 2 CS PO QAM AND 2 CS QHS 01/14 completed Not Available Not Available Not Available Accu-Chek Softclix Lancets CHECK ONCE DAY active Not Available Not Available No t Available albuterol sulfate 4 mg tablet active Not Available Not Available No t Available metronidazo le 500 mg tablet 01/14 completed Not Available Not Available Not Available hydroxyzine HCl 50 mg tablet TAKE 1 TABLET BY MOUTH FOUR TIMES DAILY NEEDED FOR ANXCIETY active Not Available Not Available No t Available ciprofloxac in 250 mg tablet Take 1 tablet every 12 hours by oral route for 7 days. active Not Available Not Available No t Available ciprofloxac in 500 mg tablet Take 1 tablet every 12 hours by oral route. 01/14 completed Not Available Not Available Not Available hydrocodone 10 mg-acetamin ophen 325 mg tablet Take 1 tablet every 6-8 hours by oral route for 30 days. 10/15 completed Not Available Not Available Not Available omeprazole 40 mg capsule,del ayed release daily active Not Available Not Available Not Available doxycycline monohydrate 100 mg tablet 04/03 completed Not Available Not Available Not Available tramadol 50 mg tablet TK 2 TS PO Q 12 H PRF PAIN active Not Available Not Available No t Available triamcinolo ne acetonide 0.1 % topical cream 10/05 completed Not Available Not Available Not Available bupropion HCl SR 100 mg tablet,12 hr sustained-r elease TK 2 TS PO QAM AND 1 T PO Q AFTERNOON active Not Available Not Available No t Available simvastatin 40 mg tablet daily active Not Available Not Available Not Available ondansetron 8 mg disintegrat ing tablet 04/03 completed Not Available Not Available Not Available lamotrigine 25 mg tablet 01/14 completed Not Available Not Available Not Available oxycodone 15 mg tablet TK 1 T PO Q 6 TO 8 H. active Not Available Not Available No t Available Kenalog 40 mg/mL suspension for injection Take 2 mL by injection route for 1 day. 05/22 completed Not Available Not Available Not Available prednisone 10 mg tablets in a dose pack TK UTD FOR 6 DAYS FOR ASTHMA active Not Available Not Available No t Available Xopenex 0.63 mg/3 mL solution for nebulizatio n Inhale 3 mL every 8 hours by nebulizat ion route. active Not Available Not Available No t Available meloxicam 7.5 mg tablet 04/03 completed Not Available Not Available Not Available ofloxacin 0.3 % ear drops U 5 GTS IN LEFT EAR BID active Not Available Not Available No t Available amoxicillin 875 mg tablet Take 1 tablet twice a day by oral route for 10 days. 01/22 completed Not Available Not Available Not Available Nitrostat 0.4 mg sublingual tablet DIS 1 T UNT Q 5 MIN FOR 3 DOSES PRF CHEST PAIN 01/14 completed Not Available Not Available Not Available Lidoderm 5 % topical patch UNW AND MIKE 1 PA TO SKIN D FOR 12 H ON AND 12 H OFF active Not Available Not Available No t Available tamsulosin 0.4 mg capsule daily active Not Available Not Available Not Available oxycodone-a cetaminophe n 5 mg-500 mg capsule TK 1 C PO Q 6 H PRN active Not Available Not Available No t Available trazodone 100 mg tablet 01/14 completed Not Available Not Available Not Available baclofen 10 mg tablet active Not Available Not Available No t Available benzonatate 100 mg capsule 04/03 completed Not Available Not Available Not Available glipizide ER 2.5 mg tablet, extended release 24 hr TK 1 T PO QD 01/14 completed Not Available Not Available Not Available pantoprazol e 40 mg tablet,kelsea yed release active Not Available Not Available Not Available simvastatin 20 mg tablet 04/03 completed Not Available Not Available Not Available naproxen sodium 550 mg tablet TK 1 T PO BID PRN active Not Available Not Available No t Available metformin 1,000 mg tablet TK 1 T PO BID active Not Available Not Available No t Available prednisone 50 mg tablet 04/03 completed Not Available Not Available Not Available promethazin e 25 mg tablet active Not Available Not Available Not Available gabapentin 300 mg capsule Take 1 capsule 3 times a day by oral route. 01/14 completed Not Available Not Available Not Available omeprazole 20 mg capsule,del ayed release TK 1 C PO BID 10/05 completed Not Available Not Available Not Available diclofenac sodium 75 mg tablet,kelsea yed release 01/14 completed Not Available Not Available Not Available montelukast 10 mg tablet active Not Available Not Available Not Available codeine 10 mg-guaifene sin 100 mg/5 mL oral liquid TAKE 10 ML BY MOUTH EVERY 6 HOURS NEEDED FOR COUGH active Not Available Not Available No t Available furosemide 20 mg tablet 01/14 completed Not Available Not Available Not Available mirtazapine 15 mg tablet 01/14 completed Not Available Not Available Not Available gabapentin 100 mg capsule Take 1 capsule 3 times a day by oral route for 30 days. 01/14 completed Not Available Not Available Not Available dexamethaso ne sodium phosphate 4 mg/mL injection solution Inject 1 mL twice a day by intramusc ular route. 04/03 completed Not Available Not Available Not Available Wellbutrin 100 mg tablet 2 in the morning, 1 in the afternoon active Not Available Not Available No t Available ibuprofen 600 mg tablet TK 1 T PO QID FOR 5 DAYS PRF MODERATE PAIN active Not Available Not Available No t Available cefuroxime axetil 500 mg tablet TAKE 1 TABLET BY MOUTH TWICE A DAY active Not Available Not Available No t Available fentanyl 25 mcg/hr transdermal patch Apply 1 patch every 72 hours by transderm al route for 30 days. active Not Available Not Available No t Available polyethylen e glycol 3350 17 gram/dose oral powder 10/05 completed Not Available Not Available Not Available levofloxaci n 500 mg tablet 01/14 completed Not Available Not Available Not Available levofloxaci n 750 mg tablet 01/14 completed Not Available Not Available Not Available methylpredn isolone 4 mg tablets in a dose pack TK UTD 04/03 completed Not Available Not Available Not Available albuterol sulfate HFA 90 mcg/actuati on aerosol inhaler Inhale 2 puffs every 4-6 hours by inhalatio n route for 17 days. active Not Available Not Available No t Available Percocet 5 mg-325 mg tablet Take 1 tablet every 6 hours by oral route for 30 days. 06/11 completed Not Available Not Available Not Available metformin ER 500 mg tablet,exte nded release 24 hr Take 1 tablet every day by oral route for 30 days. 02/20 completed Not Available Not Available Not Available lisinopril 2.5 mg tablet 04/03 completed Not Available Not Available Not Available doxycycline hyclate 100 mg tablet TAKE 1 TABLET BY MOUTH TWICE A DAY active Not Available Not Available No t Available dicyclomine 10 mg capsule 01/14 completed Not Available Not Available Not Available loratadine 10 mg tablet 04/03 completed Not Available Not Available Not Available ipratropium bromide 0.02 % solution for inhalation active Not Available Not Available N ot Available naproxen 500 mg tablet 01/14 completed Not Available Not Available Not Available amoxicillin 875 mg-potassiu m clavulanate 125 mg tablet TK 1 T PO BID 04/03 completed Not Available Not Available Not Available buspirone 15 mg tablet TK 1 T PO TID active Not Available Not Available No t Available oxycodone 5 mg tablet TK 1 T PO BID PRN P active Not Available Not Available No t Available neomycin-po lymyxin-hyd rocort 3.5 mg-10,000 unit/mL-1 % ear drops,susp 04/03 completed Not Available Not Available Not Available cyclobenzap rine 5 mg tablet TK 1 T PO BID PRN active Not Available Not Available No t Available Golytely 227.1 gram-21.5 gram-6.36 gram oral powder packet active Not Available Not Available Not Available bupropion HCl XL 300 mg 24 hr tablet, extended release TK 1 T PO D IN THE MORNING 04/03 completed Not Available Not Available Not Available bupropion HCl XL 150 mg 24 hr tablet, extended release TK 1 T PO QAM 01/14 completed Not Available Not Available Not Available Alcohol Prep Pads 10/05 completed Not Available Not Available Not Available metoprolol tartrate 25 mg tablet TK 1 T PO BID active Not Available Not Available No t Available Spiriva with HandiHaler 18 mcg and inhalation capsules Inhale 1 capsule every day by inhalatio n route. active Not Available Not Available No t Available metformin ER 500 mg tablet,exte nded release 24hr (osmotic) active Not Available Not Available No t Available Buproban 150 mg tablet,exte nded release TK 1 T PO DAILY active Not Available Not Available No t Available duloxetine 30 mg capsule,del ayed release active Not Available Not Available Not Available Cymbalta 60 mg capsule,del ayed release TK ONE C PO HS. DISCONTIN UE ANY OLD PRESCRIPT ION FOR EFFEXOR active Not Available Not Available No t Available Advair HFA 230 mcg-21 mcg/actuati on aerosol inhaler Inhale 2 puffs twice a day by inhalatio n route. active Not Available Not Available No t Available quetiapine 400 mg tablet Take 2 tablets every day by oral route. 01/14 completed Not Available Not Available Not Available Januvia 25 mg tablet active Not Available Not Available No t Available Symbicort 160 mcg-4.5 mcg/actuati on HFA aerosol inhaler Inhale 2 puffs twice a day by inhalatio n route. active Not Available Not Available No t Available FreeStyle Lite Meter kit active Not Available Not Available Not Available quetiapine ER 400 mg tablet,exte nded release 24 hr TK 2 TS PO QHS 04/03 completed Not Available Not Available Not Available Q-PAP 325 mg tablet TK 2 TS PO Q 4 H PRF MODERATE PAIN active Not Available Not Available No t Available Seroquel XR 300 mg tablet,exte nded release Take 2 tablets every day by oral route. active Not Available Not Available No t Available quetiapine ER 200 mg tablet,exte nded release 24 hr active Not Available Not Available Not Available oxycodone 10 mg tablet Take 1 tablet every 6 hours by oral route for 30 days. active Not Available Not Available No t Available Solu-Medrol (PF) 125 mg/2 mL solution for injection Take 2 mg every day by injection route. 2014 active Not Available Not Available Not Avai lable OneTouch Verio test strips USE TO TEST BLOOD SUGAR BID. 10/05 completed Not Available Not Available Not Available lactulose 10 gram/15 mL (15 mL) oral solution every 3 days active Not Available Not Available No t Available Accu-Chek Nataliia Plus Meter CHECK ONCE D active Not Available Not Available No t Available Anoro Ellipta 62.5 mcg-25 mcg/actuati on powder for inhalation Inhale 1 puff every day by inhalatio n route. 01/14 completed Not Available Not Available Not Available Jardiance 10 mg tablet 04/03 completed Not Available Not Available Not Available Jardiance 25 mg tablet 04/03 completed Not Available Not Available Not Available Incruse Ellipta 62.5 mcg/actuati on powder for inhalation 04/03 completed Not Available Not Available Not Available OxyContin 20 mg tablet,lion h resistant,e xtended release Take 1 tablet every 12 hours by oral route. 2014 active Not Available Not Available Not Avai lable Utibron Neohaler 27.5 mcg-15.6 mcg capsule with inhalation device Inhale 1 inhalatio n twice a day by inhalatio n route. 04/03 completed Not Available Not Available Not Available Fluzone High-Dose 0552-3742 (PF) 180 mcg/0.5 mL intramuscul ar syringe ADM 0.5ML IM UTD 11/19 completed Not Available Not Available Not Available Ultra-Care Lancets 30 gauge TEST BID UTD 10/05 completed Not Available Not Available Not Available Fluzone High-Dose Quad (PF) 240 mcg/0.7 mL IM syringe PHARMACIS T ADMINISTE RED IMMUNIZAT ION ADMINISTE RED AT TIME OF DISPENSIN G 04/03 completed Not Available Not Available Not Available Priya Aerosphere 160 mcg-9mcg-4. 8mcg/actuat ion HFA aerosol inhaler Inhale 2 puffs twice a day by inhalatio n route. 04/03 completed Not Available Not Available Not Available Vitals Date Recorded Body height Body mass index (BMI) Body weight Body temperature Respiratory rate Oxygen saturation Oxygen saturation in Arterial blood by Pulse oximetry Heart rate Systolic blood pressure Diastolic blood pressure Provider Name and Address Organization Details Last Updated DateTime 2 167.64 cm 26.1 kg/m2 42307.9 6 g 97.9 [degF] 16 /min 94 % 94 % 84 /min 160 mm[Hg] 84 mm[Hg] [facility] 2 08:17:56 Date Recorded Body height Body mass index (BMI) Body weight Body temperature Heart rate Oxygen saturation Oxygen saturation in Arterial blood by Pulse oximetry Respiratory rate Systolic blood pressure Diastolic blood pressure Provider Name and Address Organization Details Last Updated DateTime 3 167.64 cm 26.1 kg/m2 07289.1 7 g 97.4 [degF] 76 /min 96 % 96 % 16 /min 162 mm[Hg] 84 mm[Hg] [facility] 3 08:00:06 Date Recorded Body height Body mass index (BMI) Body weight Heart rate Oxygen saturation Oxygen saturation in Arterial blood by Pulse oximetry Respiratory rate Body temperature Systolic blood pressure Diastolic blood pressure Provider Name and Address Organization Details Last Updated DateTime 3 167.64 cm 26.5 kg/m2 25424.1 5 g 74 /min 96 % 96 % 24 /min 98 [degF] 172 mm[Hg] 102 mm[Hg] [facility] 3 08:14:50 Date Recorded Body height Body mass index (BMI) Body weight Heart rate Oxygen saturation Oxygen saturation in Arterial blood by Pulse oximetry Body temperature Systolic blood pressure Diastolic blood pressure Provider Name and Address Organization Details Last Updated DateTime 3 167.64 cm 25.8 kg/m2 22956.7 8 g 87 /min 96 % 96 % 97.1 [degF] 150 mm[Hg] 83 mm[Hg] [facility] 3 08:07:20 Date Recorded Body height Body mass index (BMI) Body weight Oxygen saturation Oxygen saturation in Arterial blood by Pulse oximetry Inhaled oxygen flow rate Heart rate Systolic blood pressure Diastolic blood pressure Provider Name and Address Organization Details Last Updated DateTime 3 167.64 cm 25.8 kg/m2 72731.7 8 g 97 % 97 % 3 L/min 90 /min 130 mm[Hg] 80 mm[Hg] [facility] 3 08:19:20 Social History Question Answer Notes LastModified by Organizat ion Details LastModified Time Tobacco Smoking Status Former Smoker quit 2011 Not Available [facility] 02/23/2020 03:16:30 Do You Have An Advance Directive? No [id number] Information not available 02/23/2020 What Is Your Level Of Alcohol Consumption? None [id number] Information not available 02/23/2020 What Is Your Level Of Caffeine Consumption? Occasional [id number] Information not available 02/23/2020 How Much Tobacco Do You Chew? None [id number] Information not available 02/23/2020 Which Illicit Or Recreational Drugs Have You Used? None [id number] Information not available 02/23/2020 Marital Status Single [email or web address] Informatio n not available 04/03/2013 What Was The Date Of Your Most Recent Tobacco Screening? 08/21/2018 [id number] Information not available 02/23/2020 At What Age Did You Start Smoking Tobacco? 16 [id number] Information not available 02/23/2020 How Much Tobacco Do You Smoke? 1.5 PPD [id number] Information not available 02/23/2020 Sex: Unknown Functional Status None recorded. Mental Status None recorded. Family History Nothing Reported. Medical History Condition Response Allergies/Hayfever N HIV or AIDS N Gout N Acid reflux (GERD) N Thyroid Disease N Emphysema N Depression Y COPD Y Congenital Heart Disease N NSAID Use N Pneumonia N Anemia N Multiple Sclerosis N Any Hepatitis N Lung Mass N Sinusitis N Mental Illness N Diabetes N Cystic Fibrosis N Obesity N Arthritis N Seizures/Epilepsy N Blood Clot N Tuberculosis N Cancer N Oxygen Dependent N Stroke N Diverticulitis N Asthma N Hospital Admission other than N Sleep Apnea N High Cholesterol Y Liver Disease N Heart Disease N Bronchitis N Pulmonary Embolism N Hypertension Y Osteoporosis N Kidney Disease N Immunizations Vaccine Type Date Status Note Provider Nam e and Address Organization Details Recorded Time Influenza, split virus, trivalent, PF 05/20/2013 completed Not Available [facility] 02:13:[facility] Past Encounters Encounter ID Performer Location Encounter Start Date Encounter Closed Date Diagnosis/Indication Diagnosis SNOMED-CT Code Diagnosis ICD10 Code Diagnosis Note [id number] [facility] [place] [address] 04/03/2013 09:01:40 04/03/2013 09:52:54 Chronic obstructive pulmonary disease 83494065 Tobacco de pendence syndrome 55184747 Hyperlipidemia 00224549 [id number] Eliz Rodriguez [facility] [place],[address] [place] [address] 05/20/2013 08:28:06 05/20/2013 11:14:24 Chronic obstructive pulmonary disease 15144830 Tobacco de pendence syndrome 50390101 Hyperlipidemia 57512616 Hemoptysis 86415550 Backache 199082244 Neck pain 17866393 Musculoskeletal pain 550323319 [id number] Eliz Rodriguez [facility] [place],[address] [place] [address] 06/05/2013 07:58:32 06/05/2013 09:19:17 Chronic obstructive pulmonary disease 15427551 Tobacco de pendence syndrome 58410150 Hyperlipidemia 84548857 Backache 102123970 Neck pain 85885430 Bronchitis 58470014 Gree n phlegm. Shoulder pain 34303081 [id number] [facility] [address] [place] [address] 07/09/2013 14:06:17 09/01/2013 14:31:00 [id number] Eliz Rodriguez [facility] [place],[address] [place] [address] 07/20/2013 10:38:02 07/20/2013 16:49:21 Musculoskeletal pain 213426688 Shoulder pain 48190039 Chronic ob structive pulmonary disease 90570332 [id number] [facility] [place],[address] [place] [address] 08/17/2013 08:57:53 08/17/2013 16:40:33 Chronic obstructive pulmonary disease 08568694 Musculoskeletal pain 191852282 Shoulder pain 94268965 S end to Dr. Adis Rosales. [id number] [facility] [place],[address] [place] [address] 09/15/2013 09:37:52 09/15/2013 16:17:51 Chronic obstructive pulmonary disease 71642530 Musculoskeletal pain 193553086 Shoulder pain 75944313 P lease send to Dr. Arcoe for shoulder pain now on right side. Kenalog right deltoid. [id number] [place] [address] 10/13/2013 09:28:29 10/13/2013 11:32:10 Chronic obstructive pulmonary disease 82599632 Musculoskeletal pain 396962716 Shoulder pain 23151570 [id number] [place] [address] 11/26/2013 07:51:48 11/26/2013 12:21:33 Chronic obstructive pulmonary disease 79674307 Musculoskeletal pain 912457513 Please get referral to Phillip Mendez. [facility] CALLED, CAN ONLY FILL 90 TABS, WILL NEED ANOTHER RX FFOR 30 TABS TO COMPLETE HIS MONTHLY DOSAGE OF OXYCODONE 10MG. Hyperlipidemia 98253238 Neck pain 40105385 Backache 721042370 Bronchitis 29150788 Gree n phlegm. Tobacco de pendence syndrome 68912021 Prostatism 26755702 To Sarah Santos evaluate prostatism . [id number] [facility] [place] [address] 12/24/2013 07:47:08 12/24/2013 10:21:24 Chronic obstructive pulmonary disease 20395850 Prostatism [id number] To Sarah Santos evaluate prostatism . Musculoskeletal pain 381899959 Please get referral to Phillip Mendez [facility]. Hyperlipidemia 65691579 Neck pain 30223125 Backache 565649433 Tobacco de pendence syndrome 14942456 [id number] [facility] [place] [address] 03/03/2014 08:28:41 03/03/2014 16:56:44 Chronic obstructive pulmonary disease 02589810 Needs portable O2 tank. Shoulder pain 20142364 [id number] [facility],[address] [place] [address] 04/30/2014 08:54:07 04/30/2014 11:54:41 Shoulder pain 34726224 Chronic ob structive pulmonary disease 06122959 Prostatism 48764045 Musculoskeletal pain 232932216 Hyperlipidemia 29261889 Neck pain 83534773 Backache 339921842 Hemoptysis 84274435 Bronchitis 57433609 Tobacco de pendence syndrome 39629801 Type 2 joon betes mellitus 61940380 [id number] [facility],[address] [place] [address] 06/09/2014 09:16:14 06/10/2014 16:21:40 Chronic obstructive pulmonary disease 57230334 Shoulder pain 22004631 [id number] [facility] [place] [address] 06/23/2014 08:03:44 06/25/2014 15:49:11 Musculoskeletal pain 194512288 Oxycontin 20 mg BID. Oxycodone 10 mg po Q4H PRN. [I tried to call [phone] Brian, his chef concierge, to discuss change in his medication s. I left a message for her.] Chronic ob structive pulmonary disease 11879563 Nausea and vomiting 63197029 Side effect of gabapentin . I advised he stop this. [id number] [facility] [place] [address] 11/23/2014 08:02:08 11/23/2014 11:23:00 Chronic obstructive pulmonary disease 55474337 Musculoskeletal pain 107898166 Kenalog 40 mg IM left shoulder. Nausea and vomiting 02418958 Pneumonia 812894671 Hosp italiz ed in [facility] Type 2 joon betes mellitus 02450053 [id number] Eliz Rodriguez [facility],[address] [place] [address] 12/17/2014 07:53:05 12/17/2014 15:46:46 Neck pain 21676650 Shoulder pain 73701018 K enalog 80 mg IM left shoulder. Need MRI reports. To Dr. Bhakta. [id number] Toney Lee MD Pulmonary Office [facility] [place],[address] [place] [address] 02/04/2015 08:18:18 02/05/2015 12:40:20 Otitis media 92226642 H66.012 Hemoptysis 85578562 R04. 2 Pain radia ting to left shoulder 875897651 M25.519 Kenalog 80 mg IM. Chronic pain for years/deca josy affecting quality of life. [id number] Toney Lee MD Pulmonary Office [facility] [place],[address] [place] [address] 04/11/2015 09:10:28 04/27/2015 19:29:09 Chronic obstructive pulmonary disease 08021439 J44.9 Backache 182933243 M54.9 Musculoskeletal pain 279 355871 M79.1 Kenalog 40 mg IM left shoulder. [id number] Toney Lee MD [facility] Office [facility] [place],[address] [place] [address] 07/04/2015 10:41:28 07/04/2015 12:16:19 Chronic obstructive pulmonary disease 55330435 J44.9 Pain in th oracic spine 043185229 M54.6 [id number] Toney Lee MD [facility] Office [facility] [place],[address] [place] [address] 08/09/2015 08:11:12 08/09/2015 13:44:59 Chronic obstructive pulmonary disease 65841935 J44.9 Pain in th oracic spine 107408448 M54.6 Parotitis 09439003 K11.[address] Crystal. BL parotid soft swelling, very tender. [id number] [facility] [place] [address] 09/15/2015 07:49:48 09/15/2015 14:48:41 Pain in thoracic spine 815080090 M54.6 Shoulder pain 05814235 M 25.519 Chronic ob structive pulmonary disease 28696945 J44.9 Hypoxia 033269023 G47.34 Nocturnal O2. [id number] Toney Lee MD [facility] Office [facility] [place],[address] [place] [address] 11/08/2015 10:41:17 11/08/2015 11:46:34 Shoulder pain 07317757 M25.519 Hoarse 96267088 R49.0 Hoarseness getting worse. Please refer back to Dr. True Crystal. [id number] Toney Lee MD Pulmonary Office [facility] [place],[address] [place] [address] 12/12/2015 08:23:06 12/12/2015 11:10:30 Bronchitis 79709855 J40 Type 2 joon betes mellitus 17706778 E11.9 Pain in th oracic spine 889135561 M54.6 [id number] Toney Lee MD Pulmonary Office [facility] [place],[address] [place] [address] 01/23/2016 07:43:50 01/23/2016 08:44:35 Chronic obstructive pulmonary disease 43844550 J44.9 Pain in th oracic spine 210627848 M54.6 Pain radia ting to left shoulder 067659755 M25.519 Hoarse 66245775 R49.0 Hoarseness persistent .. Please refer back to Dr. True Crystal. [id number] Toney Lee MD [facility] [place],[address] [place] [address] 02/21/2016 08:53:41 02/21/2016 12:18:12 Pain in thoracic spine 762480534 M54.6 Musculoskeletal pain 279 464413 M79.1 Pain radia ting to left shoulder 531001441 M25.519 Please give 3 months of Rx'es pre-dated for patient kylah walls Type 2 joon annaes mellitus 47385777 E11.9 [id number] Toney Lee MD [facility],[address] [place] [address] 05/22/2016 07:44:02 05/22/2016 11:54:27 Pain in thoracic spine 431190190 M54.6 Patient's sister dying and he will be going to [place] to be with her. He needs 3 months of pain medication s pre-dated. [id number] Toney Lee MD [facility],[address] [place] [address] 08/20/2016 07:40:42 08/20/2016 08:28:44 Pain in thoracic spine 393039371 M54.6 Bronchitis 27386359 J40 [id number] Toney Lee MD [facility],[address] [place] [address] 11/19/2016 07:44:41 11/19/2016 08:53:05 Bronchitis 76514393 J40 Chronic pain 41233677 G8 9.29 [id number] Toney Lee MD [facility],[address] [place] [address] 02/18/2017 07:40:33 02/18/2017 10:34:22 Shoulder pain 07311655 M25.519 Chronic ob structive pulmonary disease 42313869 J44.9 Utibron sample given, first dose given and instructio ns given to patient. Pain in th oracic spine 552353731 M54.6 [id number] Toney Lee MD [facility],[address] [place] [address] 05/20/2017 07:54:29 05/20/2017 15:57:14 Shoulder pain 23293010 M25.[address] Carty for evaluation . [id number] EVA ART [facility],[address] [place] [address] 07/31/2017 09:43:03 07/31/2017 12:22:41 Shoulder pain 56749885 M25.519 Pneumonia 146345781 J18. 9 pt with dullness present to L will treat and eval in office Acute uppe r respiratory infection 96896920 J06.9 add to treatment as pt is still with diff breathing, use neb 4x day [id number] Toney Lee MD Pulmonary Office [facility],[address] [place] [address] 10/18/2017 08:36:43 10/18/2017 10:03:41 Shoulder pain 13446294 M25.[address] Carty for evaluation . Chronic ob structive pulmonary disease 34459150 J44.9 Anonro sample given, first dose given and instructio ns given to patient. Chronic hoarseness 30844 37832 105 R49.0 Adverse re action to drug 62000450 T45.95XA Dizziness from steroids. [id number] Toney Lee MD Pulmonary Office [facility],[address] [place] [address] 11/15/2017 10:27:46 11/15/2017 11:20:59 Chronic obstructive pulmonary disease 03811141 J44.9 FEV1=1.96 LPS, 72% of predicted, predicted FEV1=2.72 LPS. Musculoskeletal pain 279 563818 M79.1 Severe pain, alleviated with oxycodone. Pain incapacita ting and with meds able to do small chores around house, go shopping and walk a bit with his cane. [id number] EVA ART [facility],[address] [place] [address] 12/27/2017 13:51:08 12/27/2017 14:45:19 Chronic obstructive pulmonary disease 43661707 J44.9 FEV1=1.96 LPS, 72% of predicted, predicted FEV1=2.72 LPS. Musculoskeletal pain 279 577870 M79.1 pt had recent thoracotom y to left lobe pain 8/10 controlled better with pain [[[Severe pain, alleviated with oxycodone. Pain incapacita ting and with meds able to do small chores around house, go shopping and walk a bit with his cane.]]] Lung mass 883139910 R91. 8 pt has had persistent area to left lobe which [facility] in [facility], need all results. pt had left lobe thoracotom y december 17 need all records from [place] for results.. [id number] jenaro gordon [facility],[address] [place] [address] 02/10/2018 13:18:28 02/10/2018 15:20:01 Chest wall pain 409538768 R07.89 Need discharge summary from [facility] Pneumonia 178411535 J18. 9 [id number] Toney Lee MD Pulmonary Office [facility],[address] [place] [address] 05/16/2018 09:11:45 05/16/2018 13:48:04 [id number] Philipp Montez Pulmonary Office [facility],[address] [place] [address] 07/14/2018 10:35:00 07/14/2018 11:51:59 Chest wall pain [id number] R07.89 Need discharge summary from [facility] Pneumonia [id number] J18. 9 [id number] Toney Lee MD Pulmonary Office [facility],[address] [place] [address] 08/11/2018 14:35:18 08/11/2018 16:33:25 Chronic obstructive pulmonary disease 42918255 J44.9 FEV1=1.96 LPS, 72% of predicted, predicted FEV1=2.72 LPS. Lucinda Cornelius, andre, . Obstructiv e sleep apnea syndrome 99966070 G47.33 Snores and stops breathing. Witnessed apneas. Daytime somnolence . ESS 18. [id number] jenaro gordon [facility], [address] [place], [place] [address] 08/21/2018 13:04:36 08/21/2018 13:46:29 Hypoxemia [id number] R09.02 Nocturnal hypoxemia <=88% for 17 minutes. 6MWT decreased to 86% and recovered to 90% with O2. Patient requests portable O2 concentrat or if possible. 29904 jenaro gordon [facility],[address], [address] [employer] [address] 10/13/2018 08:08:00 10/13/2018 08:31:40 Chest wall pain [id number] R07.89 Chronic ob structive pulmonary disease 30991928 J44.9 [FEV1=1.96 LPS, 72% of predicted, predicted FEV1=2.72 LPS. Lucinda Cornelius andre, [phone].] 21818 [facility], [address] [place] [address] 01/14/2019 07:52:06 01/14/2019 08:44:54 Chest wall pain [id number] R07.89 Medication s of significan t benefit. Allow patient better quality of life and greater level of activity. No side effects. Chronic ob structive pulmonary disease 06640466 J44.9 [FEV1=1.96 LPS, 72% of predicted, predicted FEV1=2.72 LPS. Lucinda Adryan andre, .] 55825 [facility]ordon [facility], [address] [employer] [place] [address] 04/14/2019 07:57:12 04/14/2019 08:47:19 Chest wall pain [id number] R07.89 Pain meds helping patient mucho and allowing better quality of life. Chronic ob structive pulmonary disease 91519158 J44.9 [FEV1=1.96 LPS, 72% of predicted, predicted FEV1=2.72 LPS. andre De Dios, [phone].] 48891 jenaro gordon Pulmonary [facility] [place],[address], [address] [place] [address] 07/13/2019 08:59:34 07/13/2019 09:49:02 Chest wall pain 372667227 R07.89 Pain meds helping patient mucho and allowing better quality of life. Chronic ob structive pulmonary disease 82520782 J44.9 [FEV1=1.96 LPS, 72% of predicted, predicted FEV1=2.72 LPS. andre De Dios, .] 42219 jenaro gordon Pulmonary Office [facility],[address], [address] [place] [address] 10/15/2019 10:50:50 10/15/2019 11:49:37 Chest wall pain 120040024 R07.89 Pain meds helping patient mucho and allowing better quality of life. Chronic ob structive pulmonary disease 65363525 J44.9 [FEV1=1.96 LPS, 72% of predicted, predicted FEV1=2.72 LPS. andre De Dios, .] 26369 Toney Lee MD Pulmonary Office [facility],[address], [address] [place] [address] 01/15/2020 08:35:04 01/15/2020 09:43:28 Chest wall pain 536113529 R07.89 Meds help a lot. No side effects. Increased activity levels. Pain meds helping patient mucho and allowing better quality of life.] Chronic ob structive pulmonary disease 70861510 J44.9 [FEV1=1.96 LPS, 72% of predicted, predicted FEV1=2.72 LPS. andre De Dios, .] 58547 Kendy Mena Pulmonary Office [facility],[address], [address] [place] [address] 03/15/2020 13:41:38 03/15/2020 15:00:16 Chest wall pain 473776455 R07.89 Excellent pain benefit. Able to do more activity, chores and shopping. Sleeping better. [Meds help a lot. No side effects. Increased activity levels. Pain meds helping patient mucho and allowing better quality of life.] Chronic ob structive pulmonary disease 51917975 J44.9 Alpha-1 swab. FEV1=1.36 LPS, 49% of predicted, predicted FEV1=2.78 LPS, 01/2020FEV 1=1.96 LPS, 72% of predicted, predicted FEV1=2.72 LPS, 10/2017.FEV 1=1.72 LPS, 57% of predicted, predicted FEV1=3.03 LPS, 05/2014 43501 Kendy Mena Pulmonary Office [facility],[address], [address] [place], [place] [address] 04/12/2020 12:33:35 04/12/2020 13:54:32 Chronic obstructive pulmonary disease 70208822 J44.9 FEV1=1.96 LPS, 72% of predicted, predicted FEV1=2.72 LPS. andre De Dios, . Obstructiv e sleep apnea syndrome 51489712 G47.33 Uses CPAP with beneit. 24513 jenaro gordon Pulmonary Office [facility],[address], [address] [place], [place] [address] 04/15/2020 09:24:47 04/15/2020 11:27:24 Chronic obstructive pulmonary disease 46057715 J44.9 FEV1=1.96 LPS, 72% of predicted, predicted FEV1=2.72 LPS. andre De Dios, [phone]. Obstructiv e sleep apnea syndrome 70140500 G47.33 Uses CPAP with beneit. Chest wall pain 19034847 6 R07.89 Better QOL. Greater level of activity. [Excellent pain benefit. Able to do more activity, chores and shopping. Sleeping better.] [Meds help a lot. No side effects. Increased activity levels. Pain meds helping patient mucho and allowing better quality of life.] Cramp in lower limb 8439 39855 R25.2 Drink quinine water as needed. 72281 Toney Lee MD Pulmonary Office [facility] Lucien,[address], [address] [place], [place] [address] 10/10/2020 09:24:16 10/10/2020 10:51:26 Chest wall pain [id number] R07.89 Benefiting from pain meds. Uses walker. Better level of activity: able to shop and do chores. Using stable dose; no side effects. [Better QOL. Greater level of activity.] [Excellent pain benefit. Able to do more activity, chores and shopping. Sleeping better.] [Meds help a lot. No side effects. Increased activity levels. Pain meds helping patient mucho and allowing better quality of life.] Chronic ob structive pulmonary disease 71578270 J44.9 Using and benefiting from oxygen.FEV 1=1.96 LPS, 72% of predicted, predicted FEV1=2.72 LPS. Obstructiv e sleep apnea syndrome 47254470 G47.33 Uses CPAP with beneit. Cramp in lower limb 4499 80305 R25.2 Drink quinine water as needed. 103717 [facility] Pulmonary Office [facility],[address], [address] [place] [address] 01/10/2021 10:17:08 01/10/2021 11:00:54 Chest wall pain 041372549 R07.89 Getting good benefit from pain meds. Able to have better level of activity and to do some c t tech and shop. No increased dose and no side effects. Uses walker to walk around. [Benefitin g from pain meds. Uses walker. Better level of activity: able to shop and do chores. Using stable dose; no side effects.] [Better QOL. Greater level of activity.] [Excellent pain benefit. Able to do more activity, chores and shopping. Sleeping better.] [Meds help a lot. No side effects. Increased activity levels. Pain meds helping patient mucho and allowing better quality of life.] Chronic ob structive pulmonary disease 76641100 J44.9 Using and benefiting from oxygen.FEV 1=1.96 LPS, 72% of predicted, predicted FEV1=2.72 LPS. Obstructiv e sleep apnea syndrome 94935827 G47.33 Uses CPAP with beneit. 440562 [facility] Pulmonary Office [facility],[address], [address] [address] 04/10/2021 08:05:51 04/10/2021 08:43:49 Chronic obstructive pulmonary disease 65102864 J44.9 Using and benefiting from oxygen.FEV 1=1.96 LPS, 72% of predicted, predicted FEV1=2.72 LPS. Chest wall pain 71240265 6 R07.89 Oxycodone is excellent for my pain. Decreasing pain and allowing him to move around better with his cane. Limited activity. Able to do chores and shop. Has significan t arthritic pain. [Getting good benefit from pain meds. Able to have better level of activity and to do some c t tech and shop. No increased dose and no side effects. Uses walker to walk around.] [Benefitin g from pain meds. Uses walker. Better level of activity: able to shop and do chores. Using stable dose; no side effects.] [Better QOL. Greater level of activity.] [Excellent pain benefit. Able to do more activity, chores and shopping. Sleeping better.] [Meds help a lot. No side effects. Increased activity levels. Pain meds helping patient mucho and allowing better quality of life.] Obstructiv e sleep apnea syndrome 00460615 G47.33 Uses CPAP with beneit. [id number] [facility] Pulmonary Office [facility],[address], [address] [place] [address] 07/07/2021 08:14:00 07/07/2021 09:31:19 Chronic obstructive pulmonary disease 43233543 J44.9 Using and benefiting from oxygen.FEV 1=1.96 LPS, 72% of predicted, predicted FEV1=2.72 LPS. Chest wall pain 81098943 6 R07.89 Using and benefiting from pain meds. Stable dose. No side effects. No increased usage. Able to have limited activity. Also notes ESCALONA due to COPD. Able to do chores. [ Oxycodon e is excellent for my pain. Decreasing pain and allowing him to move around better with his cane. Limited activity. Able to do chores and shop. Has significan t arthritic pain.] [Getting good benefit from pain meds. Able to have better level of activity and to do some c t tech and shop. No increased dose and no side effects. Uses walker to walk around.] [Benefitin g from pain meds. Uses walker. Better level of activity: able to shop and do chores. Using stable dose; no side effects.] [Better QOL. Greater level of activity.] [Excellent pain benefit. Able to do more activity, chores and shopping. Sleeping better.] [Meds help a lot. No side effects. Increased activity levels. Pain meds helping patient mucho and allowing better quality of life.] Obstructiv e sleep apnea syndrome 04934470 G47.33 Uses CPAP with beneit. Acute exac erbation of chronic obstructive pulmonary disease 669346346 J44.1 Benign pro static hyperplasia 293848349 N40.0 [id number] jenaro heidi [facility],[address], [address] [place] [address] 07/25/2021 08:15:07 07/25/2021 08:56:31 Chronic obstructive pulmonary disease 84726057 J44.9 Significan t improvemen t over previous.Q uit smoking 17 years agoFEV1=2. 04 LPS, 78% of predicted, predicted FEV1=2.61 LPS, 06/20205777WRA1 =1.96 LPS, 72% of predicted, predicted FEV1=2.72 LPS, 357153 Kendy Ontiveroslowe [facility],[address], [address] [employer] [address] 10/12/2021 08:16:06 10/12/2021 09:00:54 Chest wall pain 038309596 R07.89 Pain meds help a lot. Taking stable dose. No side effects. Uses walker to walk. Able to walk farther and do a bit more. [Using and benefiting from pain meds. Stable dose. No side effects. No increased usage. Able to have limited activity. Also notes ESCALONA due to COPD. Able to do chores.] [ Oxycodon e is excellent for my pain. Decreasing pain and allowing him to move around better with his cane. Limited activity. Able to do chores and shop. Has significan t arthritic pain.] [Getting good benefit from pain meds. Able to have better level of activity and to do some c t tech and shop. No increased dose and no side effects. Uses walker to walk around.] [Benefitin g from pain meds. Uses walker. Better level of activity: able to shop and do chores. Using stable dose; no side effects.] [Better QOL. Greater level of activity.] [Excellent pain benefit. Able to do more activity, chores and shopping. Sleeping better.] [Meds help a lot. No side effects. Increased activity levels. Pain meds helping patient mucho and allowing better quality of life.] Obstructiv e sleep apnea syndrome 05810657 G47.33 Uses CPAP with beneit. Benign pro static hyperplasia 861654095 N40.0 [id number] Toney Lee MD Pulmonary Office [facility],[address], [address] [place] [address] 01/08/2022 07:58:29 01/08/2022 08:41:34 Chest wall pain 452365281 R07.89 Taking stable dose. No side effects. Uses walker to ambulate and can walk more easily.Marquita pware reviewed. [Pain meds help a lot. Taking stable dose. No side effects. Uses walker to walk. Able to walk farther and do a bit more.] [Using and benefiting from pain meds. Stable dose. No side effects. No increased usage. Able to have limited activity. Also notes ESCALONA due to COPD. Able to do chores.] [ Oxycodon e is excellent for my pain. Decreasing pain and allowing him to move around better with his cane. Limited activity. Able to do chores and shop. Has significan t arthritic pain.] [Getting good benefit from pain meds. Able to have better level of activity and to do some c t tech and shop. No increased dose and no side effects. Uses walker to walk around.] [Benefitin g from pain meds. Uses walker. Better level of activity: able to shop and do chores. Using stable dose; no side effects.] [Better QOL. Greater level of activity.] [Excellent pain benefit. Able to do more activity, chores and shopping. Sleeping better.] [Meds help a lot. No side effects. Increased activity levels. Pain meds helping patient mucho and allowing better quality of life.] [id number] Shelby Zaman Pulmonary Office [facility] [place],[address], [address] [place] [address] 04/03/2022 07:55:12 04/03/2022 09:05:39 Chest wall pain 031821144 R07.89 Taking stable dose. No side effects. Uses walker to ambulate and can walk more easily.Marquita pware reviewed. [Pain meds help a lot. Taking stable dose. No side effects. Uses walker to walk. Able to walk farther and do a bit more.] [Using and benefiting from pain meds. Stable dose. No side effects. No increased usage. Able to have limited activity. Also notes ESCALONA due to COPD. Able to do chores.] [ Oxycodon e is excellent for my pain. Decreasing pain and allowing him to move around better with his cane. Limited activity. Able to do chores and shop. Has significan t arthritic pain.] [Getting good benefit from pain meds. Able to have better level of activity and to do some c t tech and shop. No increased dose and no side effects. Uses walker to walk around.] [Benefitin g from pain meds. Uses walker. Better level of activity: able to shop and do chores. Using stable dose; no side effects.] [Better QOL. Greater level of activity.] [Excellent pain benefit. Able to do more activity, chores and shopping. Sleeping better.] [Meds help a lot. No side effects. Increased activity levels. Pain meds helping patient mucho and allowing better quality of life.] Chronic ob structive pulmonary disease 44418990 J44.9 [id number] Shelby Zaman [facility],[address], [address] [place] [address] 07/06/2022 07:55:10 07/09/2022 08:35:37 Chest wall pain 745429623 R07.89 Taking stable dose. No side effects. Uses walker to ambulate and can walk more easily.Marquita pware reviewed. [Pain meds help a lot. Taking stable dose. No side effects. Uses walker to walk. Able to walk farther and do a bit more.] [Using and benefiting from pain meds. Stable dose. No side effects. No increased usage. Able to have limited activity. Also notes ESCALONA due to COPD. Able to do chores.] [ Oxycodon e is excellent for my pain. Decreasing pain and allowing him to move around better with his cane. Limited activity. Able to do chores and shop. Has significan t arthritic pain.] [Getting good benefit from pain meds. Able to have better level of activity and to do some c t tech and shop. No increased dose and no side effects. Uses walker to walk around.] [Benefitin g from pain meds. Uses walker. Better level of activity: able to shop and do chores. Using stable dose; no side effects.] [Better QOL. Greater level of activity.] [Excellent pain benefit. Able to do more activity, chores and shopping. Sleeping better.] [Meds help a lot. No side effects. Increased activity levels. Pain meds helping patient mucho and allowing better quality of life.] Chronic ob structive pulmonary disease 21878314 J44.9 [id number] Shelby [place] Pulmonary Office [facility],[address], [address] [place] [address] 10/05/2022 07:53:51 10/07/2022 20:51:58 Chronic obstructive pulmonary disease 69001249 J44.9 Lumbar spondylosis 82266 0009 M47.896 Taking stable dose. No side effects. Uses walker to ambulate and can walk more easily.Marquita chanda reviewed. [Pain meds help a lot. Taking stable dose. No side effects. Uses walker to walk. Able to walk farther and do a bit more.] [Using and benefiting from pain meds. Stable dose. No side effects. No increased usage. Able to have limited activity. Also notes ESCALONA due to COPD. Able to do chores.] [ Oxycodon e is excellent for my pain. Decreasing pain and allowing him to move around better with his cane. Limited activity. Able to do chores and shop. Has significan t arthritic pain.] [Getting good benefit from pain meds. Able to have better level of activity and to do some c t tech and shop. No increased dose and no side effects. Uses walker to walk around.] [Benefitin g from pain meds. Uses walker. Better level of activity: able to shop and do chores. Using stable dose; no side effects.] [Better QOL. Greater level of activity.] [Excellent pain benefit. Able to do more activity, chores and shopping. Sleeping better.] [Meds help a lot. No side effects. Increased activity levels. Pain meds helping patient mucho and allowing better quality of life.] [id number] Toney Lee MD Pulmonary Office [facility],[address], [address] [place] [address] 11/10/2022 07:53:59 11/11/2022 08:49:02 Chest wall pain 700760025 R07.89 Taking stable dose. No side effects. Uses walker to ambulate and can walk more easily.Marquita chanda reviewed. [Pain meds help a lot. Taking stable dose. No side effects. Uses walker to walk. Able to walk farther and do a bit more.] [Using and benefiting from pain meds. Stable dose. No side effects. No increased usage. Able to have limited activity. Also notes ESCALONA due to COPD. Able to do chores.] [ Oxycodon e is excellent for my pain. Decreasing pain and allowing him to move around better with his cane. Limited activity. Able to do chores and shop. Has significan t arthritic pain.] [Getting good benefit from pain meds. Able to have better level of activity and to do some c t tech and shop. No increased dose and no side effects. Uses walker to walk around.] [Benefitin g from pain meds. Uses walker. Better level of activity: able to shop and do chores. Using stable dose; no side effects.] [Better QOL. Greater level of activity.] [Excellent pain benefit. Able to do more activity, chores and shopping. Sleeping better.] [Meds help a lot. No side effects. Increased activity levels. Pain meds helping patient mucho and allowing better quality of life.] Chronic ob structive pulmonary disease 85976629 J44.9 Significan t improvemen t over previous.Q uit smoking 17 years agoFEV1=2. 04 LPS, 78% of predicted, predicted FEV1=2.61 LPS, 06/20200034UQQ5 =1.96 LPS, 72% of predicted, predicted FEV1=2.72 LPS, Acute uppe r respiratory infection 38032448 J06.9 [id number] Toney Lee MD Pulmonary Office [facility],[address], [address] [place] [address] 02/09/2023 08:08:35 02/09/2023 16:49:31 Chest wall pain 205298613 R07.89 Using and benefiting from pain meds. Taking stable dose and no increase. No side effects. Able to move around more slowly but needs to use a walker. [Taking stable dose. No side effects. Uses walker to ambulate and can walk more easily.Marquita pware reviewed.] [Pain meds help a lot. Taking stable dose. No side effects. Uses walker to walk. Able to walk farther and do a bit more.] [Using and benefiting from pain meds. Stable dose. No side effects. No increased usage. Able to have limited activity. Also notes ESCALONA due to COPD. Able to do chores.] [ Oxycodon e is excellent for my pain. Decreasing pain and allowing him to move around better with his cane. Limited activity. Able to do chores and shop. Has significan t arthritic pain.] [Getting good benefit from pain meds. Able to have better level of activity and to do some c t tech and shop. No increased dose and no side effects. Uses walker to walk around.] [Benefitin g from pain meds. Uses walker. Better level of activity: able to shop and do chores. Using stable dose; no side effects.] [Better QOL. Greater level of activity.] [Excellent pain benefit. Able to do more activity, chores and shopping. Sleeping better.] [Meds help a lot. No side effects. Increased activity levels. Pain meds helping patient mucho and allowing better quality of life.] Health Concerns Section Related Observation LastModified by Organization Detai ls LastModified Time None Recorded Concern Status LastModified by Organization Details LastModified Time None Recorded Advance Directives Directive N: Payers Encounter Date Sequence Insurance Name Policy Number Policy [employer] Covered Member ID [employer] Member ID Guarantor Name 04/03/2022 1 [employer] (MEDICARE REPLACEMENT HMO) Costa Waters [id number] Costa Waters 07/06/2022 1 [employer] (MEDICARE REPLACEMENT HMO) Costa Waters [id number] Costa Waters 10/05/2022 1 [employer] (MEDICARE REPLACEMENT HMO) Costa Waters [id number] Costa Waters 11/10/2022 1 [employer] (MEDICARE REPLACEMENT HMO) Costa Smitho [id number] Costa Waters 02/09/2023 1 [employer] (MEDICARE REPLACEMENT HMO) Costa Waters [id number] Costa Waters Notes Date Note Type Note Provider Name and Address Organization Details Recorded Time 10/05/2022 text/html This is a 72 yea r old male with a history of COPD and Lumbar spondylosis. He presents for a medication refill. Office member Aurelio Melgar assisted as associate professor of chemistry. And the only thing that helps him is his oxycodone. He admits to chest pain and denies back pain.Patient irritable and angry when asked about his pain he states he gets 3 months , and wants his prescriptions. In Urdu, associate professor of chemistry asked if patient had tried other modalities for pain, including but not limited to ice and heat, and anti-inflammatori es. Patient very angry, raised voice, declines any anti-inflammatori es, and states he just wants his dora meses of pain meds. [facility] 10/07/2022 20:51:56 02/09/2023 text/html oxy refill apr 12 Toney Lee MD [address],[facility]. [address], [place], [address], [facility] 02/09/2023 08:34:34
--- OUTSIDE RECORDS SUMMARY | 2024-06-08 10:24 | XMS_ITS | Data Portability ---
Author Organization [facility], [facility] Address [address] [place] [phone] Assessment No assessment recorded. Plan of Treatment Reminders Order Date Submit Date Provider Last Modified By Organization Details Last Modified Time Details Appointments None recorded. Lab None recorded. Referral None recorded. Procedures colonoscopy procedure (PROC) 2015 016 [email or web address] Not available 11:17:14 Surgeries None recorded. Imaging None recorded. Medication Orders None recorded. Patient TargetsNo targets recorded. Patient Instructions Encounter Date Encounter Id Patient Instructions Last Modified By Organization Details Last Modified Time 06/08/2015 [id number] gastroesophageal reflux disease (GERD): care instructions [email or web address] Not available 06/08/2015 11:17:14 abdominal pain: care instructions [email or web address] Not available 06/08/2015 11:17:14 colonoscopy education [email or web address] Not available 06/08/2015 11:17:14 Reason for Referral None Reported. Results Created Date Observation Date Name Description Value Unit Range Abnormal Flag Note LastModifiedBy Organization Detail LastModifiedTime 06/08/19 16 06/14/2014 CT, abdom en + pelvi s, w/wo contr ast No observ ation record ed. [email or web address] Not Available 2015 14:50:30 Result Notes None recorded. Problems Name Problem SNOMED Code Status Onset Date Resolution Date Notes Provider Name and Address Organization Details Recorded Time Left lower quadrant pain 924517840 Active Brittani Abrams-L betsy null, [facility] 6 11:17:14 Gastroesophage al reflux disease 832224574 Active Brittani Abrams-L betsy null, [facility] 6 11:17:14 Problem Notes None recorded. Procedures Surgical History Date Name Laterality Status Provider Name and Address Organization Details Recorded Time 5 EGD completed Brittani Mckeon [facility] 06/08/2015 11:04:40 0 Abdominal Surgery completed Brittani Mckeon [facility] 06/08/2015 11:04:40 Imaging Results Imaging Date Name Status LastModified by Organiz ation Details LastModified Time 06/14/2014 CT, abdomen + pelvis, w/wo contrast completed Information not available 06/08/2015 14:50:30 Procedure Notes None recorded. Medical Equipment None Reported. Allergies No known drug allergies Medications Name Sig Start Date Stop Date Status Note LastModified by Organization Details LastModified Time cyclobenzapr ine 10 mg tablet active Not Available Not Available Not Available latanoprost 0.005 % eye drops active Not Available Not Available Not Available atorvastatin 40 mg tablet Take 1 tablet every day by oral route for 30 days. active Not Available Not Available No t Available metformin 500 mg tablet Take 1 tablet twice a day by oral route with meals for 30 days. active Not Available Not Available No t Available bupropion HCl SR 150 mg tablet,12 hr sustained-re lease active Not Available Not Available Not Available neomycin-criss ymyxin-hydro philippe 3.5 mg/mL-10,000 unit/mL-1 % ear solution Instill 4 drops every day by otic route for 20 days. active Not Available Not Available No t Available prednisone 10 mg tablet active Not Available Not Available Not Available venlafaxine ER 75 mg capsule,exte nded release 24 hr Take 1 capsule 3 times a day by oral route with meals for 30 days. active Not Available Not Available No t Available doxycycline hyclate 100 mg capsule active Not Available Not Available N ot Available albuterol sulfate 2.5 mg/3 mL (0.083 %) solution for nebulization Inhale 3 mL every day by inhalation route as needed for 25 days. active Not Available Not Available No t Available enalapril maleate 5 mg tablet active Not Available Not Available Not Available levalbuterol 0.63 mg/3 mL solution for nebulization Inhale 3 mL every 6 hours by nebulizatio n route for 30 days. active Not Available Not Available No t Available ibuprofen 800 mg tablet active Not Available Not Available Not Available enalapril maleate 2.5 mg tablet active Not Available Not Available No t Available hydroxyzine pamoate 50 mg capsule Take 1 capsule every day by oral route at bedtime for 30 days. active Not Available Not Available No t Available Accu-Chek Softclix Lancets active Not Available Not Available Not Available ciprofloxaci n 250 mg tablet active Not Available Not Available Not Available tramadol 50 mg tablet active Not Available Not Available No t Available simvastatin 40 mg tablet active Not Available Not Available Not Available lamotrigine 25 mg tablet active Not Available Not Available Not Available baclofen 10 mg tablet active Not Available Not Available No t Available pantoprazole 40 mg tablet,delay ed release active Not Available Not Available N ot Available promethazine 25 mg tablet active Not Available Not Available Not Available gabapentin 300 mg capsule active Not Available Not Available Not Available omeprazole 20 mg capsule,kelsea yed release Take 1 capsule twice a day by oral route for 30 days. active Not Available Not Available No t Available montelukast 10 mg tablet active Not Available Not Available Not Available gabapentin 100 mg capsule Take 1 capsule 3 times a day by oral route for 30 days. active Not Available Not Available No t Available cefuroxime axetil 500 mg tablet active Not Available Not Available No t Available fentanyl 25 mcg/hr transdermal patch active Not Available Not Available Not Available bupropion HCl XL 300 mg 24 hr tablet, extended release Take 1 tablet every day by oral route for 30 days. active Not Available Not Available No t Available Spiriva with HandiHaler 18 mcg and inhalation capsules active Not Available Not Available Not Available metformin ER 500 mg tablet,exten ded release 24hr (osmotic) active Not Available Not Available No t Available ProAir HFA 90 mcg/actuatio n aerosol inhaler active Not Available Not Available Not Available Advair HFA 230 mcg-21 mcg/actuatio n aerosol inhaler Inhale 2 puffs twice a day by inhalation route for 30 days. active Not Available Not Available No t Available Symbicort 160 mcg-4.5 mcg/actuatio n HFA aerosol inhaler Inhale 2 puffs twice a day by inhalation route for 30 days. active Not Available Not Available No t Available Seroquel XR 400 mg tablet,exten ded release Take 2 tablets every day by oral route with meals for 30 days. active Not Available Not Available No t Available oxycodone 10 mg tablet Take 1 tablet every 4-6 hours by oral route as needed for 30 days. active Not Available Not Available No t Available Accu-Chek Nataliia Plus test strips active Not Available Not Available Not Available lactulose 10 gram/15 mL (15 mL) oral solution Take 30 mL 3 times a day by oral route for 20 days. active Not Available Not Available No t Available Vitals Date Recorded Body mass index (BMI) Body weight Body temperature Body height Heart rate Systolic blood pressure Diastolic blood pressure Provider Name and Address Organization Details Last Updated DateTime 6 28.2 kg/m2 74158.6 6475 g 98.7 [degF] 167.64 cm 77 /min 131 mm[Hg] 76 mm[Hg] [facility] 6 10:49:24 Social History Question Answer Notes LastModified by Organizat ion Details LastModified Time Tobacco Smoking Status Former Smoker Not Available [facility] 02/23/2020 03:16:34 What Is Your Level Of Alcohol Consumption? Heavy [id number] Information not available 02/23/2020 What Is Your Level Of Caffeine Consumption? Heavy 3 Cups A Day 8 Oz [id number] Information not available 02/23/2020 Which Illicit Or Recreational Drugs Have You Used? Everything Quit 10 Years Ago [id number] Information not available 02/23/2020 Marital Status Single Informatio n not available 06/08/2015 At What Age Did You Start Smoking Tobacco? 16 [id number] Information not available 02/23/2020 How Much Tobacco Do You Smoke? 3+ PPD Quit 5 Years Ago [id number] Information not available 02/23/2020 Sex: Unknown Functional Status None recorded. Mental Status None recorded. Family History Nothing Reported Notes:not aware of any cance rs or polyps in fx Medical History Condition Response Diabetes Y Gout Y Acid reflux (GERD) Y Bronchitis Y Hypertension Y COPD Y Asthma Y Pneumonia Y Past Encounters Encounter ID Performer Location Encounter Start Date Encounter Closed Date Diagnosis/Indication Diagnosis SNOMED-CT Code Diagnosis ICD10 Code Diagnosis Note [id number] Brittani roca [facility] Office [address] [address] 06/08/2015 09:43:48 06/08/2015 11:16:19 Left lower quadrant pain 182274670 R10.32 Gastroesop hageal reflux disease 305851227 K21.9 Resolved w PPI. Already had EGD by Dr Liu. Health Concerns Section Related Observation LastModified by Organization Detai ls LastModified Time None Recorded Concern Status LastModified by Organization Details LastModified Time None Recorded Advance Directives Directive None Recorded Payers Encounter Date Sequence Insurance Name Policy Number Policy [employer] Covered Member ID [employer] Member ID Guarantor Name 06/08/[address] [facility] (MEDICAID HMO) Costa Waters [id number] Costa Waters Notes Date Note Type Note Provider Name and Address Organization Details Recorded Time 06/08/2015 text/html Abdominal PainReported bypatient.Location :[facility] Quality:pain Severity:mild Duration:intermitt ent Onset/Timing:wax/w ane Context:not related to food. Modifying Factors:nothing gives relief Associated Symptoms:no fever; no chills; no blood in the urine; no heartburn; no shortness of breathReflux/GERDR eported bypatient.Symptoms Asymptomatic; heartburn;difficul ty swallowing (dysphagia);pain swallowing (odynophagia) Quality:burning;st abbing;pressure Severity:waking up at night;worsening;mo derate Duration:present 1-4 years Onset/Timing:occas ional; occurs upon awakening; occurs at night/while sleeping; occurs immediately after meals Context:smoker PPD(has quit 5 years ago);drug use(has quit 10 years ago);drug/alcohol withdrawal(hx of /has quit 10 years ago);related to caffeine;history of endoscopy Alleviating Factors:OTC medication Aggravating Factors:lying down Associated Symptoms:no frequent coughing; no belching/burping; no nausea; no vomiting; not vomiting blood; no bad taste; no weight loss; no black/tarry stools; no fatigue;feels like fullness/mass in throat;hoarseness; food getting stuck;regurgitatio n;shortness of breath;chest pain;heartburn;dif ficulty swallowing;pain when swallowing;decreas ed appetite;throat pain [facility] 06/08/2015 11:17:17
--- OUTSIDE RECORDS SUMMARY | 2024-06-08 10:24 | XMS_ITS ---
Author Organization [facility] Address [address] [place] [phone] Care Team Providers Care Show Worker Name Role Phone Migration, Provider Unavailable Unavailable REASON FOR VISIT EMR-David Encounters Encounter Location Date Provider Diagnosis [address] [address] 12/01/2023 Provider Migration Plan Of Treatment No Information Progress Notes * Costa IRIZARRYDOB:12/1949 (74 yo M)Acc No.[id number]:12/01/2023 Patient:?Allan IRIZARRY :1950???Age:73 Y???Sex:Male Address[address] [address] Subjective: * Chief Complaints: * ???EMR-David * Medical History:? * Surgical History:? * Hospitalization/Major Diagno stic Procedure:? * Medications:? Objective: * Vitals:? * Physical Examination:? Assessment: Plan: * Treatment: * Procedure Codes:? * * Date:?
--- OUTSIDE RECORDS SUMMARY | 2024-06-08 10:24 | XMS_ITS | Patient Health Record ---
Author Organization [facility] Address [address] [place] [address] Care Team Providers Care Cigarette Tipper Name Role Phone Julián Crowe Unavailable [phone] Allergies Allergen (clinical drug ingredient) Drug/Non Drug Allergy documented on EMR Reaction Allergy Type Onset Date Status morphine Morphine stomach upset Drug Allergy Act stacy Reason For Referral No Information Medications Medication SIG (Take, Route, Frequency, Duration) Notes Start Date End Date Status QUEtiapine Fumarate 100 MG 1 tablet at b edtime Orally Once a day Active PARoxetine HCl 20 MG 1 tablet in the mor belinda Orally Once a day for 30 days 03/04/2023 Active QUEtiapine Fumarate 200 MG 1 tablet at b edtime Orally Once a day for 30 days 03/04/2023 Active oxyCODONE HCl 10 MG 1 tablet as needed O rally every 6 hrs Active Social History Tobacco Use: Social History Observation Description Date Details (start date - stop date) Never Smoker NA - NA Tobacco Use/Smoking Question Answer Notes Tobacco use: nonsmoker Problems Problem Type SNOMED Code ICD Code Onset Dates Problem Status W/U Status Risk Notes Problem Severe recurrent major depression without psychotic features (97023726) Major depressive disorder, recurrent severe without psychotic features (F33.2) Active confirmed Problem Persistent insomnia (776665182) Primary insomnia (F51.01) Active confirmed Plan Of Treatment No Information Insurance Providers Payer Name Payer Address Payer Phone Subscriber Number Group Number Insured Name Patient Relationship to Insured Coverage Start Date Coverage End Date [employer] [address] [address] [place] [address] [id number] Cornelius Costa Waters Self - patient is the insured Medical (General) History Medical History History ICD Code no medical history Surgical History Surgery Date(Month/Year) intestine 09/2002
--- OUTSIDE RECORDS SUMMARY | 2024-06-08 10:24 | XMS_ITS | Patient Health Record ---
Author Organization [facility] Address [address] [address] Care Team Providers Care Bean Snapper Name Role Phone Migration, Provider Unavailable Unavailable Reason For Referral No Information Encounters Encounter Location Date Provider Diagnosis [facility] [address] [address] 11/30/2023 Provider Migration [facility] [address] [address] 12/01/2023 Provider Migration Plan Of Treatment No Information
--- OUTSIDE RECORDS SUMMARY | 2024-06-08 10:25 | XMS_ITS ---
Author Organization [facility] Address [address] [place] [address] Care Team Providers Care Sod Stripper Name Role Phone Migration, Provider Unavailable Unavailable REASON FOR VISIT EMR-David Encounters Encounter Location Date Provider Diagnosis [address] [address] 11/30/2023 Provider Migration Plan Of Treatment No Information Progress Notes * Costa IRIZARRYDOB:12/1949 (74 yo M)Acc No.[id number]:11/30/2023 Patient:?Allan IRIZARRY :1950???Age:73 Y???Sex:Male Address[address] [address] Subjective: * Chief Complaints: * ???EMR-David * Medical History:? * Surgical History:? * Hospitalization/Major Diagno stic Procedure:? * Medications:? Objective: * Vitals:? * Physical Examination:? Assessment: Plan: * Treatment: * Procedure Codes:? * * Date:?
--- OUTSIDE RECORDS SUMMARY | 2024-06-08 10:25 | XMS_ITS ---
Author Organization [facility] Address [address] [place] [address] Care Team Providers Care Cooker Casing Name Role Phone Julián Crowe Unavailable REASON FOR VISIT 1 month f/u Encounters Encounter Location Date Provider Diagnosis [facility] [address] [place] [address] 04/04/2023 Julián Bhat Plan Of Treatment No Information Progress Notes * Costa IRIZARRYDOB:12/1949 (74 yo M)Acc No.[id number]:04/04/2023 Progress Notes Patient:?Allan IRIZARRY Provider:?Julián Bhat MD :1950???Age:73 Y???Sex:Male Win e:04/04/2023 Address:[address] [place], [place] [phone] Subjective: * Chief Complaints: * ???1. 1 month f/u. * Medical History:? Objective: * Vitals:? Assessment: Plan: * Treatment: * Billing Information: * Visit Code:? * Procedure Codes:? * Electronic signature of Peyman Bhat MD on 06/08/2024 at 10:24 AM EST Sign off status: Pending * Provider:?Julián Bhat MD Date: ?04/04/2023 Generated for David martines/George/eTransmitting on:?06/08/2024 10:24 AM EST
[2024-06-08 10:28] VITALS: BP 168/82; PULSE 72; O2SAT 95; BMI 23.0
--- NOTE | 2024-06-08 10:28 | MHC.PC.OV ---
Vital Signs 06/08/24 10:28 06/08/24 10:59 Height 5 ft 10 in Weight 160 lb 2 oz BMI 23.0 BP 168/82 H 149/78 H Blood Pressure Location Rt brachial Position Sitting Pulse 72 Pulse Source Pulse Oximeter Pulse Oximetry (%) 95 Oxygen Delivery Method Nasal Cannula Oxygen Flow Rate 2 Intake Visit Reasons: 30 minutes complex Loading Unit Operator Powder Charging Required: Yes Loading Unit Operator Powder Charging Language: Enameler Name: Alesia ([id number]) Information Interpreted: clinical only Allergies morphine Allergy (Severe, Verified 06/08/24 10:32) Agitated Tobacco use date assessed: 06/08/24 Fall risk assessment: 1 Fall in past year Last assessed Fall Risk: 06/08/24 Dental Screening Dental Screen Date: 06/08/24 Did you have a dental visit in the last 12 months?: No Did you have a dental problem in the last 6 months where you did not have access to dental care?: No Was dental information given to patient?: Yes HPI HPI Comments History of Present Illness Details 74-year-old male Italian speaking with diabetes type 2, COPD O2 dependent on 2 L of oxygen, empyema status post chest tube and VATS, status post tracheostomy now decannulated, interstitial lung disease, status post right-sided rib fractures, glaucoma, MDD, urinary incontinence, CAD, bifascilar block and chronic pain presents for follow up appointment. Video lacquer machine feeder used for appointment. Cynthia's (his [id number]) daughter is his CLUB ATTENDANT. She is there overnight with him when needed. Right now he lives in an apartment in [place], but Cynthia and her live in [place]. They are trying to move him closer. He is compliant with Januvia 100 mg daily and metformin 1000 mg twice daily for type 2 diabetes. His hemoglobin A1c is 8% today. Denies low blood sugars. I called Cynthia who confirmed he is taking his medications. His CLUB ATTENDANT checks his blood glucose. CLUB ATTENDANT also knows how to correct low sugar. He is seeing Dr. Meehan now for Psychiatry. He is on a wait list for therapy. He is sleeping better now on the increased dose of Seroquel. Chronic pain- He endorses pain in his bilateral knees, his lower back and middle back, neuropathy in his feet. On average pain is an 8/10. It makes it harder for him to sleep. He has difficulty moving from a sitting to standing position. He uses an assistive device for walking. They tell me that he was previously tried on gabapentin and Lyrica which were ineffective. In [place] he was on doses of oxycodone up to 10 mg 4 times a day. His kakssxok-fi-yge has attempted to get the pharmacy records and records from the machine wedger who prescribed this due to postthoracotomy pain syndrome. We have received records from his prior PCP's office. I contacted the pulmonary office, but they have now closed, so we sent a fax request for records. He also saw pain management. I restarted oxycodone at 5 mg every 12 hours. Patient says it helps, but it wears off too quickly. The pharmacy only dispensed a 7 day supply on May 26 (confirmed on mass pat) so he is out of the medication. He is using his cane today. He saw the eye doctor. He got a new pair of glasses, and he says that they will do surgery cataracts in June. He is following with Cardiology and pulmonology. No interval hospitalization or ER visits. His blood pressure is elevated today, but it was normal at his cardiology appointment last week per vital in EMR. He had a cup of coffee with caffeine before the visit, and he says that he has also been in more pain since running out of oxycodone. Denies chest pain, increased shortness of breath, dizziness or headache. He declines influenza vaccine. ROS: Constitutional: No fevers or chills. Endocrine: No cold or heat intolerance. No polyuria or polydipsia. Psychiatric: No SI/HI. Physical exam: Constitutional: Alert, in no distress. Neck: Supple, Full range of motion. No lymphadenopathy. Respiratory: Clear to auscultation. Cardiovascular: S1 S2 regular. No murmurs. Neurologic: No focal neurological deficits. Extremities: Warm and well perfused. No clubbing, cyanosis or edema. Psychiatric: Cooperative [facility] Medical History Dry skin Bipolar affective disorder Low platelet count Depression Diabetic neuropathy Abnormal CBC Fatty liver Post-thoracotomy pain syndrome Emphysema (subcutaneous) (surgical) resulting from a procedure Hernia COVID-19 Diabetes mellitus, type 2 Bronchitis Pneumonia Surgical History Tympanic tube insertion History of intestinal surgery Family History Mother Mental health disorder Brother Substance use disorder Social History Household Members: None Housing: Apartment Alcohol intake: never Patient Tobacco Use Status: Former Tobacco user Cigarette Packs Per Day: 1 Cigarettes Per Day: 1 Years Smoked: 40 e-Cigarette/Vaping Use: Never Used service: No Current occupational status: disabled Current occupational exposures/hazards: No Sexual orientation: Straight/Heterosexual Gender identity: Male Cognitive needs: No Hearing needs: No Vision needs: No Questionnaire PHQ-9 Over the last 2 weeks, how often have you been bothered by any of the following problems? 1. Little interest or pleasure in doing things: not at all 2. Feeling down, depressed, or hopeless: several days 3. Trouble falling or staying asleep, or sleeping too much: not at all 4. Feeling tired or having little energy: several days 5. Poor appetite or overeating: several days 6. Feeling bad about yourself - or that you are a failure or have let yourself or your family down: several days 7. Trouble concentrating on things, such as reading the newspaper or watching television: several days 8. Moving or speaking so slowly that other people could have noticed. Or the opposite - being so fidgety or restless that you have been moving around a lot more than usual: several days 9. Thoughts that you would be better off or of hurting yourself in some way: not at all Total score: 6 Depression Screening Interpretation: Positive Depression Screening Done: Yes 37953 - PHQ-9 Billing: Yes Source: Developed by Drs. Ap Medina, Aidee Emerson, Demetrius Romano and colleagues, with an educational simon from [employer]. Thrive Questionnaire Date Thrive assessed: 05/07/24 I am a: Patient What is your living situation today?: I have a steady place to live Within the past 12 months, did the food you bought not last and you didn't have the money to get more?: Sometimes True Within the past 12 months, did you worry whether your food would run out before you got money to buy more?: Sometimes True Do you have trouble paying for medicines?: No Do you have trouble getting transportation to medical appointments?: No Do you have trouble paying your heating and electricity bill?: No Do you have trouble taking care of your child, family member or friend?: Yes Do you have trouble with day-to-day activities such as bathing, preparing meals, shopping, managing finances, etc.?: Yes Are you currently unemployed and looking for a job?: Yes Are you interested in more education?: Yes Please select the resources that you would like help with: None Currently or been in a relationship where the following occur: I choose not to answer THRIVE Score: 2 AUDIT C Alcohol Use Questionnaire (AUDIT-C) 1. How often do you have a drink containing alcohol?: Never 3. How often do you have six or more drinks on one occasion?: Never Total Score: 0 BERRY-7 AMB Questionnaire BERRY-7 Date BERRY - 7 assessed: 06/08/24 Feeling nervous, anxious, or on edge: 1 = Several days Not being able to stop or control worryin = Several days Worrying too much about different things: 0 = Not at all Trouble relaxin = Several days Being so restless that it is hard to sit still: 1 = Several days Becoming easily annoyed or irritable: 1 = Several days Feeling afraid as if something awful might happen: 0 = Not at all Total BERRY-7 score (0-4 normal; 5-9 mild; 10-14 moderate; 15-21 severe): 5 Source: Developed by Drs. Ap Medina, Aidee Emerson, Demetrius Romano and colleagues, with an educational simon from [employer]. BERRY-7 Assessment Billing BERRY-7 Assessment Tool: BERRY-7 Assessment 75515 Physical exam (Primary Care) Vital Signs: Last Vital Signs Pulse 72 06/08/24 10:28 BP 168/82 H 06/08/24 10:28 Pulse Ox 95 06/08/24 10:28 Oxygen Delivery Method Nasal Cannula 06/08/24 10:28 Oxygen Flow Rate 2 06/08/24 10:28 BMI result Body Mass Index 23.0 Tobacco/Smoking Status: Tobacco use Status Tobacco use date assessed 06/08/24 06/08/24 10:34 Patient Tobacco Use Status Former Tobacco user 06/08/24 10:34 e-Cigarette/Vaping Use Never Used 06/08/24 10:34 PHQ-9: PHQ-9 Score PHQ-9: Total score 6 06/08/24 10:37 Depression Screening Interpretation: Positive Thrive Assessment: Date of Thrive Assessment Date Thrive assessed 05/07/24 06/08/24 10:34 Currently or been in a relationship where the following occur: I choose not to answer Results AMB Hemoglobin A1c AMB Hemoglobin A1c 8.0 % Last Edit by Jennifer Johnson CMA on 06/08/24 10:53 Coding Level of Care Code Est Pt Level 5 (05723) Complex EM visit Add On G2211 Diagnoses Diabetes mellitus type 2 with complications E11.8 ILD (interstitial lung disease) J84.9 COPD mixed type J44.9 Hypertension associated with type 2 diabetes mellitus E11.59; I15.2 Lumbar back pain M54.50 Thoracic back pain M54.6 Diabetic neuropathy E11.40 Depression F32.A Post-thoracotomy pain syndrome G89.12 Additional Codes BERRY-7 Assessment Billing - BERRY-7 Assessment Tool: BERRY-7 Assessment 99441 ([id number]) PHQ-9 - 06636 - PHQ-9 Billing: Yes ([id number]) Time Spent (min) 46 Comment Direct patient care and completing documentation and coordinating care Assessment & Plan Assessment & Plan (1) Diabetes mellitus type 2 with complications: Comment: Code(s): E11.8 - Type 2 diabetes mellitus with unspecified complications Category: Medical Plan: Continue metformin 1000 mg twice daily and Januvia 100 mg and add glipizide extended release 2.5 mg daily. I contacted his daughter in-law to review these changes on the phone. Reviewed blood glucose monitoring and how to treat hypoglycemia. Recommended low carbohydrate, low sugar diet. (2) ILD (interstitial lung disease): Code(s): J84.9 - Interstitial pulmonary disease, unspecified Category: Medical Plan: Continue management per pulmonology. (3) COPD mixed type: Comment: Continue management per pulmonology [facility] Code(s): J44.9 - Chronic obstructive pulmonary disease, unspecified Category: Medical (4) Hypertension associated with type 2 diabetes mellitus: Code(s): E11.59 - Type 2 diabetes mellitus with other circulatory complications; I15.2 - Hypertension secondary to endocrine disorders Category: Medical Plan: Patient was previously on losartan which reportedly caused leg weakness. Blood pressure is elevated today though it did improve when I rechecked it. I will bring him back in 4 weeks to recheck blood pressure. (5) Lumbar back pain: Code(s): M54.50 - Low back pain, unspecified Category: Medical (6) Thoracic back pain: Code(s): M54.6 - Pain in thoracic spine Category: Medical (7) Diabetic neuropathy: Code(s): E11.40 - Type 2 diabetes mellitus with diabetic neuropathy, unspecified Category: Medical Plan: Patient is seeing pain management. (8) Depression: Code(s): F32.A - Depression, unspecified Category: Medical Plan: Patient now managed by Dr. Meehan. Continue current medications per Psychiatry. (9) Post-thoracotomy pain syndrome: Code(s): G89.12 - Acute post-thoracotomy pain Category: Medical Plan The patient has chronic pain which is multifactorial related to prior thoracotomy, diabetic neuropathy, high likelihood of degenerative arthritis and chronic lung disease. He will have x-rays of the lumbar and thoracic spine completed. Patient has been cooperative at appointments, and assistance from nurse navigator appreciated. CLUB ATTENDANT is in the home. Increase oxycodone to 5 mg every 8 hours as needed for severe pain. Administration, side effects reviewed. Advised it is it addictive, habit-forming medication. It must be taken as directed. Reviewed risks associated with this medication including increased depression, constipation, dizziness, drowsiness, increased risk of falls, respiratory suppression. Because the pain is debilitating for the patient the benefit outweighs these risks. He is tolerating it thus far. Follow up in 1 month for re-evaluation. Orders: Orders AMB Hemoglobin A1c Today Z13.9 - Encounter for screening, unspecified Medications: New glipizide ER 2.5 mg PO DAILY 90 tabs 1RF Changed From oxycodone Partial Fill upon patient request. 5 mg PO Q12H 28 days PRN 56 tabs 0RF pain, severe To oxycodone Partial Fill upon patient request. 5 mg PO Q8H 28 days PRN 84 tabs 0RF pain, severe
[2024-06-08 10:59] VITALS: BP 149/78
== END 2024-06-08 11:08 | disposition home or self-care (01) ==
PROVIDERS: PCP Physician Assistant Medical; Visit Provider Physician Assistant Medical
DX: E11.8 Type 2 diabetes mellitus with unspecified complications (principal); J84.9 Interstitial pulmonary disease, unspecified; J44.9 Chronic obstructive pulmonary disease, unspecified; E11.59 Type 2 diabetes mellitus with other circulatory complications; E11.40 Type 2 diabetes mellitus with diabetic neuropathy, unspecified; I15.2 Hypertension secondary to endocrine disorders; M54.50 Low back pain, unspecified; M54.6 Pain in thoracic spine; F32.A Depression, unspecified; G89.12 Acute post-thoracotomy pain

== ENCOUNTER → 2024-06-08 09:40 | Outpatient (BNVA) | payer OTHER, SELFPAY | PROVIDERS: PCP Physician Assistant Medical; Visit Provider Physician Assistant Medical | DX: E11.40 Type 2 diabetes mellitus with diabetic neuropathy, unspecified (principal); J44.9 Chronic obstructive pulmonary disease, unspecified; J84.9 Interstitial pulmonary disease, unspecified; E11.59 Type 2 diabetes mellitus with other circulatory complications; I15.2 Hypertension secondary to endocrine disorders; M54.50 Low back pain, unspecified; M54.6 Pain in thoracic spine; F32.A Depression, unspecified; G89.12 Acute post-thoracotomy pain; Z99.81 Dependence on supplemental oxygen | CPT/HCPCS: 83036; 96127; 99212 ==

== ENCOUNTER → 2024-06-09 13:27 | Outpatient (BNV) | payer OTHER, SELFPAY | PROVIDERS: PCP Physician Assistant Medical; Visit Provider Internal Medicine | DX: D69.6 Thrombocytopenia, unspecified (principal) | CPT/HCPCS: 99204; G2211 ==

== ENCOUNTER 2024-07-09 14:28 | Outpatient (AMB) | payer OTHER, SELFPAY ==
--- NOTE | 2024-07-09 14:37 | A.OFFPC_ITS ---
Vital Signs 07/09/24 14:47 07/09/24 15:02 Height 5 ft 6 in Weight 160 lb BMI 25.8 BP 143/68 H 121/62 Blood Pressure Location Rt brachial Position Sitting Respiration 16 Pulse 76 Pulse Source Pulse Oximeter Temp 97.6 F Temp Source Oral Pulse Oximetry (%) 95 Oxygen Delivery Method Room Air Intake Visit Reasons: 4weeks med review 30 minutes Intake Note: patient here for 4 wks follow up for med review Patternmaker Plaster Required: Yes Patternmaker Plaster Language: Citizen Of [place] Information Interpreted: non-clinical & clinical Accompanied by: Son Allergies morphine Allergy (Severe, Verified 07/09/24 14:42) Agitated Tobacco use date assessed: 07/09/24 Fall risk assessment: No Falls in past year Last assessed Fall Risk: 07/09/24 Dental Screening Dental Screen Date: 07/09/24 Did you have a dental visit in the last 12 months?: No Did you have a dental problem in the last 6 months where you did not have access to dental care?: No Was dental information given to patient?: No HPI HPI Comments History of Present Illness Details 74-year-old male Citizen Of [place] speaking with d iabetes type 2, COPD O2 dependent on 2 L of oxygen, empyema status post chest tube and VATS, status post tracheostomy now decannulated, interstitial lung disease, status post right- sided rib fractures, glaucoma, MDD, urinary incontinence, CAD, bifascilar block and chronic pain presents for follow up appointment. Video spanish interpreter used for appointment. He is here with his son, Costa. Costa tells me that he has assumed the role as caregiver because the SMOKE JUMPER SUPERVISOR is no longer working for them. They tell me he was hospitalized at [facility] for 4 days in early June with a UTI, pneumonia, COPD exacerbation and influenza. He completed all of his medications, and he is feeling well today. The records have been requested. During hospitalization due to high sugars they report glipizide was increased from 2.5 to 5 mg daily. They do not have his glucometer with him today. His rn acute care is Lien Palacios from [facility]. Her contact number is [phone], and her e-mail address is [email or web address]. He is compliant with Januvia 100 mg daily , glipizide 5 mg extended release and metformin 1000 mg twice daily for type 2 diabetes. His most recent hemoglobin A1c was 8%. Denies low blood sugars. He is seeing Dr. Meehan now for Psychiatry. He is on a wait list for therapy. He is sleeping well. Chronic pain- He has chronic pain in his bilateral knees, his lower back and middle back, neuropathy in his feet. On average pain is an 8/10. It makes it harder for him to sleep. He has difficulty moving from a sitting to standing position. He uses an assistive device for walking. Patient reported he tried gabapentin and Lyrica which were ineffective. In [place] he was on doses of oxycodone up to 10 mg 4 times a day. His [id number] attempted to get the pharmacy records and records from the archaeology professor who prescribed this due to postthoracotomy pain syndrome. I contacted the pulmonary office, but they have now closed, so we sent a fax request for records. He also saw pain management. I restarted oxycodone, and he is currently taking 5 mg every 8 hours. Patient reports his pain is well-controlled right now. Order for Rollator walker is going to be faxed to [facility] for the patient. This is medically necessary due to his history of osteoarthritis, gait instability and COPD requiring supplemental oxygen. He declines influenza vaccine. ROS: Constitutional: No fevers, chills, night sweats. He lost 3 or 4 lb when he was hospitalized, but his appetite is improving. ENT: No ear pain, sneezing, congestion, runny nose or sore throat. Respiratory: Patient currently denies shortness of breath, cough, sputum production or hemoptysis. Cardiovascular: No chest pain, chest pressure or chest discomfort. No palpitations or pedal edema. Gastrointestinal: No anorexia, nausea, vomiting or diarrhea. No abdominal pain Genitourinary: No dysuria, hematuria, urinary frequency. Neurologic: No headache or dizziness Musculoskeletal: See HPI Physical exam: Constitutional: Alert, in no distress. Neck: Supple, Full range of motion. No lymphadenopathy. Respiratory: Clear to auscultation. Cardiovascular: S1 S2 regular. No murmurs. Neurologic: No focal neurological deficits. Extremities: Warm and well perfused. No clubbing, cyanosis or edema. Psychiatric: [facility] Medical History (Updated 07/10/24 @ 09:15 by KANDIS Malhotra) Hospital discharge follow-up History of pneumonia Dry skin Bipolar affective disorder Low platelet count Depression Diabetic neuropathy Abnormal CBC Fatty liver Post-thoracotomy pain syndrome Emphysema (subcutaneous) (surgical) resulting from a procedure Hernia COVID-19 Diabetes mellitus, type 2 Bronchitis Pneumonia Surgical History (Updated 06/09/24 @ 13:55 by Meagan Anthony MD) Tympanic tube insertion History of intestinal surgery Family History Mother Mental health disorder Brother Substance use disorder Social History Household Members: None Housing: Apartment Alcohol intake: never Patient Tobacco Use Status: Former Tobacco user Cigarette Packs Per Day: 1 Years Smoked: 40 e-Cigarette/Vaping Use: Never Used service: No Current occupational status: disabled Current occupational exposures/hazards: No Sexual orientation: Straight/Heterosexual Gender identity: Male Cognitive needs: No Hearing needs: No Vision needs: No Questionnaire Thrive Questionnaire Date Thrive assessed: 06/08/24 I am a: Patient What is your living situation today?: I have a steady place to live Within the past 12 months, did the food you bought not last and you didn't have the money to get more?: Sometimes True Within the past 12 months, did you worry whether your food would run out before you got money to buy more?: Sometimes True Do you have trouble paying for medicines?: No Do you have trouble getting transportation to medical appointments?: No Do you have trouble paying your heating and electricity bill?: No Do you have trouble taking care of your child, family member or friend?: Yes Do you have trouble with day-to-day activities such as bathing, preparing meals, shopping, managing finances, etc.?: Yes Are you currently unemployed and looking for a job?: Yes Are you interested in more education?: Yes Please select the resources that you would like help with: None Currently or been in a relationship where the following occur: I choose not to answer THRIVE Score: 2 BERRY-7 AMB Questionnaire BERRY-7 Date BERRY - 7 assessed: 06/08/24 Source: Developed by Drs. Ap Medina, Aidee Emerson, Demetrius Romano and colleagues, with an educational simon from Recorded Future. Physical exam (Primary Care) Vital Signs: Last Vital Signs Temp 97.6 F 07/09/24 14:47 Pulse 76 07/09/24 14:47 Resp 16 07/09/24 14:47 BP 121/62 07/09/24 15:02 Pulse Ox 95 07/09/24 14:47 Oxygen Delivery Method Room Air 07/09/24 14:47 BMI result Body Mass Index 25.8 Tobacco/Smoking Status: Tobacco use Status Tobacco use date assessed 07/09/24 07/09/24 14:52 Patient Tobacco Use Status Former Tobacco user 07/09/24 14:39 e-Cigarette/Vaping Use Never Used 07/09/24 14:39 Thrive Assessment: Date of Thrive Assessment Date Thrive assessed 06/08/24 07/09/24 14:39 Currently or been in a relationship where the following occur: I choose not to answer Coding Level of Care Code Est Pt Level 5 (04527) Complex EM visit Add On G2211 Diagnoses Diabetes mellitus type 2 with complications E11.8 ILD (interstitial lung disease) J84.9 COPD mixed type J44.9 Hypertension associated with type 2 diabetes mellitus E11.59; I15.2 Lumbar back pain M54.50 Thoracic back pain M54.6 Diabetic neuropathy E11.40 Depression F32.A 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 Reviewed blood glucose monitoring and how to treat hypoglycemia. Written instructions provided. Glucose gel packet sent to the pharmacy. Recommended low carbohydrate, low sugar diet. They will follow up and bring the glucometer with them so I can review his blood sugars. (2) ILD (interstitial lung disease): Code(s): J84.9 - Interstitial pulmonary disease, unspecified Category: Medical Plan: Continue management per pulmonology. (3) COPD mixed type: Comment: Continue management per pulmonology [facility] 02 Code(s): J44.9 - Chronic obstructive pulmonary disease, unspecified Category: Medical (4) Hypertension associated with type 2 diabetes mellitus: Code(s): E11.59 - Type 2 diabetes mellitus with other circulatory complications; I15.2 - Hypertension secondary to endocrine disorders Category: Medical Plan: Patient was previously on losartan which reportedly caused leg weakness. His blood pressure is normal today. (5) Lumbar back pain: Code(s): M54.50 - Low back pain, unspecified Category: Medical (6) Thoracic back pain: Code(s): M54.6 - Pain in thoracic spine Category: Medical (7) Diabetic neuropathy: Code(s): E11.40 - Type 2 diabetes mellitus with diabetic neuropathy, unspecified Category: Medical Plan: Patient is seeing pain management. (8) Depression: Code(s): F32.A - Depression, unspecified Category: Medical Plan: Patient now managed by Dr. Meehan. Continue current medications per Psychiatry. (9) Post-thoracotomy pain syndrome: Code(s): G89.12 - Acute post-thoracotomy pain Category: Medical (10) History of pneumonia: Code(s): Z87.01 - Personal history of pneumonia (recurrent) Category: Medical (11) Hospital discharge follow-up: Code(s): Z09 - Encounter for follow-up examination after completed treatment for conditions other than malignant neoplasm Category: Medical Plan: Records requested from the hospital. Patient says he feels well today. Strongly recommended pneumonia vaccine, RSV vaccine and seasonal influenza vaccine. He previously refused flu vaccine. Patient also thinks that they gave him pneumonia vaccine during hospitalization. He is declining RSV vaccine. He declines flu vaccine. I will request the records and review them. Plan The patient has chronic pain which is multifactorial related to prior thoracotomy, diabetic neuropathy, high likelihood of degenerative arthritis and chronic lung disease. He will have x-rays of the lumbar and thoracic spine completed. Patient has been cooperative at appointments, and assistance from nurse is navigator appreciated. Continue oxycodone to 5 mg every 8 hours as needed for severe pain. Administration, side effects reviewed. Advised it is it addictive, habit-forming medication. It must be taken as directed. Reviewed risks associated with this medication including increased depression, constipation, dizziness, drowsiness, increased risk of falls, respiratory suppression. Because the pain is debilitating for the patient the benefit outweighs these risks. He is tolerating it thus far. Follow up in 8 weeks. Medications: New dextrose (TRUEplus Glucose) hasta que los s?ntomas del bajo nivel de az?car en liya est?n controlados y el nivel de az?car en liya sea superior a 70. 15 grams (32 mL) PO Q15M PRN 128 mL 3RF low blood sugar glipizide ER 5 mg PO BID 90 tabs 0RF dextrose (TRUEplus Glucose) until symptoms of low blood sugar are controlled and blood sugar is over 70. 15 grams (32 mL) PO Q15M PRN 128 mL 3RF low blood sugar Refilled walker As directed 1 ea 0RF Discontinued glipizide ER Discontinued Reason: Doctor's Order 2.5 mg PO DAILY 90 tabs 1RF Patient Instructions: If you experience low blood sugar (<70), treat this by eating a chewable fruit candy like skittles or jelly beans (about 8 pieces), 4 ounces (1/2 cup) of fruit juice (not diet), 1 tablespoon of honey or a pack of glucose gel. If your blood sugar is under 55, take double the amount of one of the above. Recheck your blood sugar in 15 minutes. Si tiene un nivel bajo de az?car en la liya (<70), tr?telo comiendo un caramelo masticable de fruta mable Skittles o Jelly Beans (aproximadamente 8 piezas), 113 ml (1/2 taza) de jugo de fruta (no light), 1 cucharada de miel o un paquete de gel de glucosa. Si chappell nivel de az?car en la liya es inferior a 55, tome el doble de la cantidad de harpreet de los mencionados. Vuelva a medir chappell nivel de az?car en la liya en 15 minutos.
[2024-07-09 14:47] VITALS: BP 143/68; PULSE 76; RESP 16; TEMP 36.4; O2SAT 95; BMI 25.8
[2024-07-09 15:02] VITALS: BP 121/62
--- OUTSIDE RECORDS SUMMARY | 2024-07-09 18:20 | XMS_ITS ---
Author Organization [facility] Address [address] [place] [address] Care Team Providers Care Straight Cutter Name Role Phone Julián Crowe Unavailable Migration, Provider Unavailable Unavailable Allergies Allergen (clinical drug ingredient) Drug/Non Drug Allergy documented on EMR Reaction Allergy Type Onset Date Status morphine Morphine stomach upset Drug Allergy Act stacy REASON FOR VISIT EMR-David Encounters Encounter Location Date Provider Diagnosis [facility] [address] [place] [address] 06/02/2023 Provider Migration Plan Of Treatment No Information Progress Notes * Costa JONESDOB:12/1949 (74 yo M)Acc No.[id number]:06/02/2023 Patient:?Allan JONES :1950???Age:73 Y???Sex:Male Address:[address] [place] [address] Subjective: * Chief Complaints: * ???EMR-David * Medical History:? * Surgical History:? * Hospitalization/Major Diagno stic Procedure:? * Medications:? * Allergies:?Morphine: stomach upset - Allergy Objective: * Vitals:? * Physical Examination:? Assessment: Plan: * Treatment: * Procedure Codes:? * * Date:?
--- OUTSIDE RECORDS SUMMARY | 2024-07-09 18:20 | XMS_ITS | Data Portability ---
Author Organization [facility], [facility] Address [address] [place] [id number] Assessment No assessment recorded. Plan of Treatment [...] By Organization Details Last Modified Time 06/08/2015 52930 gastroesophageal reflux disease (GERD): care instructions [id number] [...] Details Recorded Time Left lower quadrant pain 717960159 Active Brittani Abrams-L betsy null, [facility] 6 11:17:14 Gastroesophage al reflux disease 913335373 Active Brittani Abrams-L betsy null, [facility] 6 11:17:14 Problem Notes None recorded. Procedures Surgical History Date Name Laterality Status Provider Name and Address Organization Details Recorded Time 5 EGD completed Brittani Mckeon [facility] 06/08/2015 11:04:40 0 Abdominal Surgery completed Brittani Mckeon [facility] 06/08/2015 11:04:40 Imaging Results [...] Details Last Updated DateTime 6 28.2 kg/m2 45105.6 6475 g 98.7 [degF] 167.64 cm 77 /min 131 mm[Hg] 76 mm[Hg] [facility] 6 10:49:24 Social History Question Answer Notes LastModified by Organizat ion Details LastModified Time Tobacco Smoking Status Former Smoker Not Available [facility] 02/23/2020 03:16:34 What Is Your Level Of Alcohol Consumption? Heavy [id number] Information not available 02/23/2020 What Is Your Level Of Caffeine Consumption? Heavy 3 Cups A Day 8 Oz [id number] Information not available 02/23/2020 Which Illicit Or Recreational Drugs Have You Used? Everything Quit 10 Years Ago [id number] Information not available 02/23/2020 Marital Status Single Informatio n not available 06/08/2015 At What Age Did You Start Smoking Tobacco? 16 [id number] Information not available 02/23/2020 How Much Tobacco Do You Smoke? 3+ PPD Quit 5 Years Ago [id number] Information not available 02/23/2020 Sex: Unknown Functional [...] SNOMED-CT Code Diagnosis ICD10 Code Diagnosis Note [id number] Brittani roca [facility] [address] [address] 06/08/2015 09:43:48 06/08/2015 11:16:19 Left lower quadrant pain 372704033 R10.32 Gastroesop hageal reflux disease 669580791 K21.9 Resolved w PPI. Already had EGD by Dr Liu. Health Concerns Section Related Observation LastModified by Organization Detai ls LastModified Time None Recorded Concern Status LastModified by Organization Details LastModified Time None Recorded Advance Directives Directive None Recorded Payers Encounter Date Sequence Insurance Name Policy Number Policy [employer] Covered Member ID [employer] Member ID Guarantor Name 06/08/2015 1 [facility] (MEDICAID HMO) Costa Waters [id number] Costa Waters Notes Date Note Type Note [...]
--- OUTSIDE RECORDS SUMMARY | 2024-07-09 18:20 | XMS_ITS | Patient Health Record ---
Author Organization [facility] Address [address] [address] Care Team Providers Care Shaving Machine Operator Name Role Phone Migration, Provider Unavailable Unavailable Reason For Referral No Information Encounters Encounter Location Date Provider Diagnosis [facility] [address] [address] 11/30/2023 Provider Migration [facility] [address] [address] 12/01/2023 Provider Migration Plan Of Treatment No Information
--- OUTSIDE RECORDS SUMMARY | 2024-07-09 18:20 | XMS_ITS | Clinical Summary ---
Author Organization [facility] Address [address] [place] [address] Care Team Providers Care Wealth Management Consultant Name Role Phone Unavailable Primary Care Provider [...] patient's age to complete this topic Insurance [facility] STANDARD
--- OUTSIDE RECORDS SUMMARY | 2024-07-09 18:21 | XMS_ITS ---
Author Organization [facility] Address [address] [place] [address] Care Team Providers Care Automatic Profile Shaper Operator Name Role Phone Jayden BhatJulián pretty Unavailable Migration, Provider Unavailable Unavailable REASON FOR VISIT EMR-David Encounters Encounter Location Date Provider Diagnosis [facility] [address] [place] [address] 06/01/2023 Provider Migration Plan Of Treatment No Information Progress Notes * PERLA FRAIREOCostaDOB:12/1949 (74 yo M)Acc No.[id number]:06/01/2023 Patient:?Allan IRIZARRY :1950???Age:73 Y???Sex:Male Address:[address] [place] [address] Subjective: * Chief Complaints: * ???EMR-David * Medical History:? * Surgical History:? * Hospitalization/Major Diagno stic Procedure:? * Medications:? Objective: * Vitals:? * Physical Examination:? Assessment: Plan: * Treatment: * Procedure Codes:? * * Date:?
--- OUTSIDE RECORDS SUMMARY | 2024-07-09 18:21 | XMS_ITS | Data Portability ---
Author Organization [facility] - Melissa schwarz, Internal Medicine Office Address [address] [address] Care Team Providers Care Carpentry Instructor Name Role Phone TONEY LEE Referring Provider [phone] Assessment Encounter Date Assessment Date Assessment LastModified by Organization Details LastModified Time 04/03/2022 04/03/2022 The patient is a 72 year old male with a PMH . Reviewed and discussed all possible medication interactions with patient. Patient voiced understanding that if receiving controlled medications, they must be re-evaluated every 90 days before medication will be refilled. Also, [place] [facility] monitoring database will be consulted verifying [...] in 3 month unless appointment required sooner. [email or web address] Not available 04/03/2022 08:42:54 07/06/2022 07/06/2022 Reviewed and discussed all possible medication interactions with patient. Patient voiced understanding that if receiving controlled medications, they must be re-evaluated every 90 days before medication will be refilled. Also, [place] [facility] [employer] database will be consulted verifying no duplication [...] in 3 month unless appointment required sooner. [email or web address] Not available 10/07/2022 20:37:42 10/05/2022 10/05/2022 Patient [...] days before medication will be refilled. Also, [place] [facility] monitoring database will be consulted verifying [...] in 3 month unless appointment required sooner. [email or web address] Not available 10/07/2022 20:51:48 11/10/2022 11/10/2022 The patient is a 72 year old male with a PMH . Reviewed and discussed all possible medication interactions with patient. Patient voiced understanding that if receiving controlled medications, they must be re-evaluated every 90 days before medication will be refilled. Also, [place] [facility] [employer] database will be consulted verifying no duplication [...] in 3 month unless appointment required sooner. [email or web address] Not available 11/10/2022 08:15:17 Plan of Treatment Reminders Order Date Submit Date Provider Last Modified By Organization Details Last Modified Time Details Appointments None recorded. Lab None recorded. Referral None recorded. Procedures None recorded. Surgeries None recorded. Imaging CT, chest, w/o contrast - Chronic chest wll pain. 2022 023 [facility], [address] [facility] [address], [place], [address], 3 08:35:02 Medication Orders oxycodone 10 mg tablet 2022 023 [facility], [address] [address] [address], [place], [place], [id number], 3 08:36:28 oxycodone 10 mg tablet 2022 023 [facility], [address] [facility] [address] [place], [id number], 3 08:36:28 oxycodone 10 mg tablet 2022 023 [facility], [address] [facility] [address] [place], [id number], 3 08:36:29 oxycodone 10 mg tablet 2022 023 [email or web address] 1 Not available 3 09:23:15 oxycodone 10 mg tablet 2022 023 [email or web address] 1 Not available 3 09:23:15 oxycodone 10 mg tablet 2022 023 [email or web address] 1 Not available 3 09:23:15 prednisone 10 mg tablet 2022 023 [email or web address] 1 [facility], [address] [place] [address], [id number], 3 09:23:15 Zithromax Z-Joe 250 mg tablet 2022 023 [email or web address] 1 [facility], [address] [place] [address], [id number], 3 09:23:15 oxycodone 10 mg tablet 2022 023 [email or web address] 4 Not available 3 14:35:36 oxycodone 10 mg tablet 2022 023 [email or web address] Not available 3 09:28:01 albuterol sulfate HFA 90 mcg/actuati on aerosol inhaler 2022 023 [facility], [address] [place] [address], [id number], 3 08:25:22 Advair HFA 230 mcg-21 mcg/actuati on aerosol inhaler 2022 023 [facility], [address] [place] [address], [id number], 3 08:25:23 albuterol sulfate 2.5 mg/3 mL (0.083 %) solution for nebulizatio n 2022 023 [facility], [address] [place] [address], [id number], 3 08:25:22 Cipro 250 mg tablet 2022 023 [facility], [address] [place] [address], [id number], 3 08:28:24 oxycodone 10 mg tablet 2021 022 [email or web address] 4 Not available 2 08:42:53 oxycodone 10 mg tablet 2021 022 [email or web address] 4 Not available 2 08:42:53 oxycodone 10 mg tablet 2021 022 4 Not available 2 08:42:53 Advair HFA 230 mcg-21 mcg/actuati on aerosol inhaler 2021 [facility], [address] [place] [address], [place], [place], [id number], 2 08:45:37 Patient TargetsNo targets recorded. Patient InstructionsNo instructions recorded. Reason for Referral None Reported. Problems Name Problem SNOMED Code Status Onset Date Resolution Date Notes Provider Name and Address Organization Details Recorded Time Prostatism 26293243 Active [facility] 4 17:23:28 Chronic obstructive pulmonary disease 66318408 Active [facility] 4 17:23:28 Tobacco dependence syndrome 01851535 Active [facility] 4 17:23:28 Hyperlipidemia 05856827 Active [facility] 4 17:23:28 Type 2 diabetes mellitus 56466025 Active [facility] 4 17:23:28 Nausea and vomiting 16437130 Active [facility] 4 17:23:28 Pneumonia 088505866 Active [facility] 4 17:23:28 Otitis media 43750303 Active [facility] 4 17:23:28 Pain radiating to left shoulder 066208734 Active [facility] 4 17:23:28 Pain in thoracic spine 278890846 Active [place] 4 17:23:28 Hemoptysis 55505595 Active [place] [facility] [facility] 4 17:23:28 Backache 423470383 Active [place] [facility] [facility] 4 17:23:28 Neck pain 87629573 Active Montse valle [facility] 4 17:23:28 Musculoskeleta l pain 447398328 Active [place] valle [facility] 4 17:23:28 Parotitis 93953695 Active [place] valle [facility] 4 17:23:28 Hypoxia 601759051 Active [place]se valle [facility] 4 17:23:28 Hoarse 64871889 Active [place]le [facility] 4 17:23:28 Bronchitis 68504175 Active [place] [facility] 4 17:23:28 Shoulder pain 42358007 Active [place] [facility] 4 17:23:28 Chest wall pain 101938738 Active 2021 [place] [facility] 4 17:23:28 Lumbar spondylosis 100675120 Active 2022 [place] [facility] [...] tab 400mg active Not Available Not Available No t Available gabapentin 100 mg caps active Not [...] Not Available Not Available Not Available prednisone oje 10mg active Not Available Not Available Not [...] prednisone 10 mg tablet Take 4 tabs [id number], 3 tabs HTs5jeei, 2 tabs [id number], 1 tab NYm0imwi active Not Available Not Available No t [...] Available Not Available Not Available Fluzone High-Dose 5264-4865 (PF) 180 mcg/0.5 mL intramuscul ar syringe [...] Updated DateTime 2 167.64 cm 26.1 kg/m2 09565.9 6 g 97.9 [degF] 16 /min 94 [...] Updated DateTime 3 167.64 cm 26.1 kg/m2 49118.1 7 g 97.4 [degF] 76 /min 96 [...] Updated DateTime 3 167.64 cm 26.5 kg/m2 33775.1 5 g 74 /min 96 % 96 [...] Updated DateTime 3 167.64 cm 25.8 kg/m2 39200.7 8 g 87 /min 96 % 96 [...] Updated DateTime 3 167.64 cm 25.8 kg/m2 52145.7 8 g 97 % 97 % 3 L/min 90 /min 130 mm[Hg] 80 mm[Hg] [facility] 3 08:19:20 Social History Question Answer Notes LastModified by Organizat ion Details LastModified Time Tobacco Smoking Status Former [facility]oker quit 2011 [facility] Available [facility] 02/23/2020 03:16:30 Do You Have An Advance Directive? No [id number] Information not available 02/23/2020 What Is Your Level Of Alcohol Consumption? None [id number] Information not available 02/23/2020 What Is Your Level Of Caffeine Consumption? Occasional [id number] Information not available 02/23/2020 How Much Tobacco Do You Chew? None [id number] Information not available 02/23/2020 Which Illicit Or Recreational Drugs Have You Used? None [id number] Information not available 02/23/2020 Marital Status Single [email or web address] Informatio n not available 04/03/2013 What Was The Date Of Your Most Recent Tobacco Screening? 08/21/2018 [id number] Information not available 02/23/2020 At What Age Did You Start Smoking Tobacco? 16 [id number] Information not available 02/23/2020 How Much Tobacco Do You Smoke? 1.5 PPD [id number] Information not available 02/23/2020 Sex: Unknown Functional Status None recorded. Mental Status None recorded. Family History Nothing Reported. Medical History Condition Response HIV or AIDS N Gout N Acid reflux (GERD) N Thyroid Disease N Emphysema N Depression Y Congenital Heart Disease N COPD Y Pneumonia N Any Hepatitis N Lung Mass N Sinusitis N Cystic Fibrosis N Obesity N Arthritis N Blood Clot N Cancer N Oxygen Dependent N Stroke N Hospital Admission other than N High Cholesterol Y Liver Disease N Kidney Disease N Allergies/Hayfever N NSAID Use N Anemia N Multiple Sclerosis N Mental Illness N Diabetes N Seizures/Epilepsy N Tuberculosis N Diverticulitis N Asthma N Sleep Apnea N Heart Disease N Bronchitis N Pulmonary Embolism N Hypertension Y Osteoporosis N Immunizations Vaccine Type Date Status Note Provider Nam e and Address Organization Details Recorded Time Influenza, split virus, trivalent, PF 05/20/2013 completed Not Available [facility] 2019 02:13:33 Past Encounters Encounter ID Performer Location Encounter Start Date Encounter Closed Date Diagnosis/Indication Diagnosis SNOMED-CT Code Diagnosis ICD10 Code Diagnosis Note [id number] Britney Jayden [facility],[address] [place] [address] 04/03/2013 09:01:40 04/03/2013 09:52:54 Chronic obstructive pulmonary disease 32901515 Tobacco de pendence syndrome 85524429 Hyperlipidemia 20733723 [id number] Eliz Rodriguez [facility],[address] [place] [address] 05/20/2013 08:28:06 05/20/2013 11:14:24 Chronic obstructive pulmonary disease 16545007 Tobacco de pendence syndrome 59899588 Hyperlipidemia 90433961 Hemoptysis 14883912 Backache 802814946 Neck pain 33059185 Musculoskeletal pain 616804640 [id number] Eliz Rodriguez [facility],[address] [place] [address] 06/05/2013 07:58:32 06/05/2013 09:19:17 Chronic obstructive pulmonary disease 82295275 Tobacco de pendence syndrome 74185697 Hyperlipidemia 98847681 Backache 160089017 Neck pain 94660858 Bronchitis 84982113 Gree n phlegm. Shoulder pain 89732633 [id number] [facility] [address] [place] [address] 07/09/2013 14:06:17 09/01/2013 14:31:00 [id number] Eliz Rodriguez [facility],[address] [place] [address] 07/20/2013 10:38:02 07/20/2013 16:49:21 Musculoskeletal pain 008592835 Shoulder pain 68916676 Chronic ob structive pulmonary disease 28599367 [id number] [facility],[address] [place] [address] 08/17/2013 08:57:53 08/17/2013 16:40:33 Chronic obstructive pulmonary disease 96836873 Musculoskeletal pain 305810615 Shoulder pain 73877475 S end to Dr. Adis Rsoales. [id number] [facility],[address] [place] [address] 09/15/2013 09:37:52 09/15/2013 16:17:51 Chronic obstructive pulmonary disease 65204117 Musculoskeletal pain 179958847 Shoulder pain 26232047 P lease send to Dr. Arceo for shoulder pain now on right side. Kenalog right deltoid. [id number],[address] [place] [address] 10/13/2013 09:28:29 10/13/2013 11:32:10 Chronic obstructive pulmonary disease 48483549 Musculoskeletal pain 375086171 Shoulder pain 47692764 [address] [facility],[address] [place] [address] 11/26/2013 07:51:48 11/26/2013 12:21:33 Chronic obstructive pulmonary disease 11678289 Musculoskeletal pain 278413494 Please get referral to Phillip Mendez. [facility] CALLED, CAN ONLY FILL 90 TABS, WILL NEED ANOTHER RX FFOR 30 TABS TO COMPLETE HIS MONTHLY DOSAGE OF OXYCODONE 10MG. Hyperlipidemia 63135639 Neck pain 40061966 Backache 270906405 Bronchitis 02755192 Gree n phlegm. Tobacco de pendence syndrome 50367571 Prostatism 03173177 To Sarah Santos evaluate prostatism . [id number] [facility],[address] [place] [address] 12/24/2013 07:47:08 12/24/2013 10:21:24 Chronic obstructive pulmonary disease 22545458 Prostatism 77108532 To Sarah Santos evaluate prostatism . Musculoskeletal pain 760158442 Please get referral to Phillip Mendez [facility]. Hyperlipidemia 12308675 Neck pain 69437210 Backache 538354888 Tobacco de pendence syndrome 09374488 [id number] [facility],[address] [place] [address] 03/03/2014 08:28:41 03/03/2014 16:56:44 Chronic obstructive pulmonary disease 67947530 Needs portable O2 tank. Shoulder pain 45726520 [id number] [facility],[address] [place] [address] 04/30/2014 08:54:07 04/30/2014 11:54:41 Shoulder pain 71046077 Chronic ob structive pulmonary disease 61045682 Prostatism 55871408 Musculoskeletal pain 328102667 Hyperlipidemia 32439487 Neck pain 47887485 Backache 550994898 Hemoptysis 59521615 Bronchitis 65466093 Tobacco de pendence syndrome 23138680 Type 2 joon betes mellitus 16196595 [id number] [facility],[address] [place] [address] 06/09/2014 09:16:14 06/10/2014 16:21:40 Chronic obstructive pulmonary disease 64646495 Shoulder pain 52771057 [id number] [facility],[address] [place] [address] 06/23/2014 08:03:44 06/25/2014 15:49:11 Musculoskeletal pain 829908659 Oxycontin 20 mg BID. Oxycodone 10 mg po Q4H PRN. [I tried to call [phone] Brian, his audience coordinator, to discuss change in his medication s. I left a message for her.] Chronic ob structive pulmonary disease 25995537 Nausea and vomiting 91758140 Side effect of gabapentin . I advised he stop this. [id number] [facility],[address] [place] [address] 11/23/2014 08:02:08 11/23/2014 11:23:00 Chronic obstructive pulmonary disease 68850545 Musculoskeletal pain 156037090 Kenalog 40 mg IM left shoulder. Nausea and vomiting 80590496 Pneumonia 569391664 Hosp italiz ed in [facility] Type 2 joon betes mellitus 87875548 [id number] Eliz Rodriguez [facility],[address] [place] [address] 12/17/2014 07:53:05 12/17/2014 15:46:46 Neck pain 03771615 Shoulder pain 70789684 K enalog 80 mg IM left shoulder. Need MRI reports. To Dr. Bhakta. [id number] Toney Lee MD Pulmonary Office [facility],[address] [place] [address] 02/04/2015 08:18:18 02/05/2015 12:40:20 Otitis media 40905924 H66.012 Hemoptysis 88265800 R04. 2 Pain radia ting to left shoulder 248856852 M25.519 Kenalog 80 mg IM. Chronic pain for years/deca josy affecting quality of life. [id number] Toney Lee MD Pulmonary Office [facility],[address] [place] [address] 04/11/2015 09:10:28 04/27/2015 19:29:09 Chronic obstructive pulmonary disease 02122906 J44.9 Backache 039027803 M54.9 Musculoskeletal pain 279 053105 M79.1 Kenalog 40 mg IM left shoulder. [id number] Toney Lee MD Pulmonary Office [facility],[address] [place] [address] 07/04/2015 10:41:28 07/04/2015 12:16:19 Chronic obstructive pulmonary disease 99735087 J44.9 Pain in th oracic spine 436877886 M54.6 [id number] Toeny Lee MD Pulmonary Office [facility],[address] [place] [address] 08/09/2015 08:11:12 08/09/2015 13:44:59 Chronic obstructive pulmonary disease 63511038 J44.9 Pain in th oracic spine 897473558 M54.6 Parotitis 03880420 K11.[address] Crystal. BL parotid soft swelling, very tender. [id number] Toney Lee MD [facility],[address] [place] [address] 09/15/2015 07:49:48 09/15/2015 14:48:41 Pain in thoracic spine 297509107 M54.6 Shoulder pain 51003811 M 25.519 Chronic ob structive pulmonary disease 58127642 J44.9 Hypoxia 648390373 G47.34 Nocturnal O2. [id number] Toney Lee MD Pulmonary Office [facility],[address] [place] [address] 11/08/2015 10:41:17 11/08/2015 11:46:34 Shoulder pain 24398047 M25.519 Hoarse 70403165 R49.0 Hoarseness getting worse. Please refer back to Dr. True Crystal. [id number] Toney Lee MD Pulmonary Office [facility],[address] [place] [address] 12/12/2015 08:23:06 12/12/2015 11:10:30 Bronchitis 44598667 J40 Type 2 joon betes mellitus 12440643 E11.9 Pain in th oracic spine 419911224 M54.6 [id number] Toney Lee MD Pulmonary Office [facility],[address] [place] [address] 01/23/2016 07:43:50 01/23/2016 08:44:35 Chronic obstructive pulmonary disease 51126214 J44.9 Pain in th oracic spine 649414775 M54.6 Pain radia ting to left shoulder 531203544 M25.519 Hoarse 49472428 R49.0 Hoarseness persistent .. Please refer back to Dr. True Crystal. [id number] Toney Lee MD Pulmonary Office [facility],[address] [place] [address] 02/21/2016 08:53:41 02/21/2016 12:18:12 Pain in thoracic spine 064448913 M54.6 Musculoskeletal pain 279 073340 M79.1 Pain radia ting to left shoulder 958614043 M25.519 Please give 3 months of Rx'es pre-dated for patient kylah walls Type 2 joon annaes mellitus 47809734 E11.9 [id number] Toney Lee MD Pulmonary Office [facility],[address] [place] [address] 05/22/2016 07:44:02 05/22/2016 11:54:27 Pain in thoracic spine 674164274 M54.6 Patient's sister dying and he will be going to [place] to be with her. He needs 3 months of pain medication s pre-dated. [id number] Toney Lee MD Pulmonary Office [facility],[address] [place] [address] 08/20/2016 07:40:42 08/20/2016 08:28:44 Pain in thoracic spine 319661936 M54.6 Bronchitis 08658215 J40 [id number] Toney Lee MD Pulmonary Office [facility],[address] [place] [address] 11/19/2016 07:44:41 11/19/2016 08:53:05 Bronchitis 33368961 J40 Chronic pain 60008216 G8 9.29 [id number] Toney Lee MD Pulmonary Office [facility],[address] [place] [address] 02/18/2017 07:40:33 02/18/2017 10:34:22 Shoulder pain 54379625 M25.519 Chronic ob structive pulmonary disease 46341298 J44.9 Utibron sample given, first dose given and instructio ns given to patient. Pain in th oracic spine 526460256 M54.6 [id number] Toney Lee MD Pulmonary Office [facility],[address] [place] [address] 05/20/2017 07:54:29 05/20/2017 15:57:14 Shoulder pain 29946552 M25.[address] Carty for evaluation . [id number] EVA ART Pulmonary Office [facility],[address] [place] [address] 07/31/2017 09:43:03 07/31/2017 12:22:41 Shoulder pain 32268575 M25.519 Pneumonia 174298107 J18. 9 pt with dullness present to L will treat and eval in office Acute uppe r respiratory infection 49133963 J06.9 add to treatment as pt is still with diff breathing, use neb 4x day [id number] Toney Lee MD Pulmonary Office [facility],[address] [place] [address] 10/18/2017 08:36:43 10/18/2017 10:03:41 Shoulder pain 39070880 M25.[address] Carty for evaluation . Chronic ob structive pulmonary disease 81986821 J44.9 Anonro sample given, first dose given and instructio ns given to patient. Chronic hoarseness 76417 13288 105 R49.0 Adverse re action to drug 25523984 T45.95XA Dizziness from steroids. [id number] Toney Lee MD Pulmonary Office [facility],[address] [place] [address] 11/15/2017 10:27:46 11/15/2017 11:20:59 Chronic obstructive pulmonary disease 86411004 J44.9 FEV1=1.96 LPS, 72% of predicted, predicted FEV1=2.72 LPS. Musculoskeletal pain 279 506728 M79.1 Severe pain, alleviated with oxycodone. Pain incapacita ting and with meds able to do small chores around house, go shopping and walk a bit with his cane. [id number] EVA ART [facility] Office [facility],[address] [place] [address] 12/27/2017 13:51:08 12/27/2017 14:45:19 Chronic obstructive pulmonary disease 41987902 J44.9 FEV1=1.96 LPS, 72% of predicted, predicted FEV1=2.72 LPS. Musculoskeletal pain 279 129120 M79.1 pt had recent thoracotom y to left lobe pain 8/10 controlled better with pain [[[Severe pain, alleviated with oxycodone. Pain incapacita ting and with meds able to do small chores around house, go shopping and walk a bit with his cane.]]] Lung mass 748871043 R91. 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 pt had left lobe thoracotom y december 17 need all records from [place] for results.. [id number] jenaro gordon Pul[facility] Office [facility],[address] [place] [address] 02/10/2018 13:18:28 02/10/2018 15:20:01 Chest wall pain 234491021 R07.89 Need discharge summary from [facility] Pneumonia 749496840 J18. 9 [id number] Toney Lee MD Pulmonary Office [facility],[address] [place] [address] 05/16/2018 09:11:45 05/16/2018 13:48:04 [id number] Philipp Montez [facility],[address] [place] [address] 07/14/2018 10:35:00 07/14/2018 11:51:59 Chest wall pain 190459562 R07.89 Need discharge summary from [facility] Pneumonia 887880849 J18. 9 [id number] Toney Lee MD Pulmonary Office [facility],[address] [place] [address] 08/11/2018 14:35:18 08/11/2018 16:33:25 Chronic obstructive pulmonary disease 17044851 J44.9 FEV1=1.96 LPS, 72% of predicted, predicted FEV1=2.72 LPS. Lucinda Cornelius, andre, . Obstructiv e sleep apnea syndrome 94945611 G47.33 Snores and stops breathing. Witnessed apneas. Daytime somnolence . ESS 18. [id number] j[facility]aro gordon [facility],[address] [place], [place] [address] 08/21/2018 13:04:36 08/21/2018 13:46:29 Hypoxemia 048380502 R09.02 Nocturnal hypoxemia <=88% for 17 minutes. 6MWT decreased to 86% and recovered to 90% with O2. Patient requests portable O2 concentrat or if possible. [id number] jenaro gordon [facility],[address] [place], [place] [address] 10/13/2018 08:08:00 10/13/2018 08:31:40 Chest wall pain 877550583 R07.89 Chronic ob structive pulmonary disease 78053406 J44.9 [FEV1=1.96 LPS, 72% of predicted, predicted FEV1=2.72 LPS. Lucinda Cornelius andre, .] [id number] jenaro gordon [facility],[address] [place] [address] 01/14/2019 07:52:06 01/14/2019 08:44:54 Chest wall pain 726974165 R07.89 Medication s of significan t benefit. Allow patient better quality of life and greater level of activity. No side effects. Chronic ob structive pulmonary disease 46318092 J44.9 [FEV1=1.96 LPS, 72% of predicted, predicted FEV1=2.72 LPS. Lucinda Adryan andre, [phone].] [id number] jenaro gordon [facility],[address], [address] [place] [address] 04/14/2019 07:57:12 04/14/2019 08:47:19 Chest wall pain 894220924 R07.89 Pain meds helping patient mucho and allowing better quality of life. Chronic ob structive pulmonary disease 37084542 J44.9 [FEV1=1.96 LPS, 72% of predicted, predicted FEV1=2.72 LPS. andre De Dios, [phone].] [id number] jenaro gordon Pulmonary [facility],[address] [place] [address] 07/13/2019 08:59:34 07/13/2019 09:49:02 Chest wall pain 341215593 R07.89 Pain meds helping patient mucho and allowing better quality of life. Chronic ob structive pulmonary disease [id number] J44.9 [FEV1=1.96 LPS, 72% of predicted, predicted FEV1=2.72 LPS. andre De Dios, .] 46486 jenaro gordon Pulmonary Office [facility],[address] [place] [address] 10/15/2019 10:50:50 10/15/2019 11:49:37 Chest wall pain 492832353 R07.89 Pain meds helping patient mucho and allowing better quality of life. Chronic ob structive pulmonary disease 85320688 J44.9 [FEV1=1.96 LPS, 72% of predicted, predicted FEV1=2.72 LPS. andre De Dios, .] 30225 Toney Lee MD Pulmonary Office [facility],[address] [place] [address] 01/15/2020 08:35:04 01/15/2020 09:43:28 Chest wall pain 822391995 R07.89 Meds help a lot. No side effects. Increased activity levels. Pain meds helping patient mucho and allowing better quality of life.] Chronic ob structive pulmonary disease 70231092 J44.9 [FEV1=1.96 LPS, 72% of predicted, predicted FEV1=2.72 LPS. andre De Dios, .] 42688 Kendy Mena Pulmonary Office [facility],[address], [address] [place] [address] 03/15/2020 13:41:38 03/15/2020 15:00:16 Chest wall pain 386669634 R07.89 Excellent pain benefit. Able to do more activity, chores and shopping. Sleeping better. [Meds help a lot. No side effects. Increased activity levels. Pain meds helping patient mucho and allowing better quality of life.] Chronic ob structive pulmonary disease 67591129 J44.9 Alpha-1 swab. FEV1=1.36 LPS, 49% of predicted, predicted FEV1=2.78 LPS, 01/2020FEV 1=1.96 LPS, 72% of predicted, predicted FEV1=2.72 LPS, 10/2017.FEV 1=1.72 LPS, 57% of predicted, predicted FEV1=3.03 LPS, 05/2014 11525 Kendy Mena Pulmonary Office [facility],[address], [address] [place], [facility] [address] 04/12/2020 12:33:35 04/12/2020 13:54:32 Chronic obstructive pulmonary disease 96056639 J44.9 FEV1=1.96 LPS, 72% of predicted, predicted FEV1=2.72 LPS. andre De Dios, [id number]. Obstructiv e sleep apnea syndrome 86135151 G47.33 Uses CPAP with beneit. 95251 jenaro gordon Pulmonary Office [facility],[address], [address] [place], [facility] [address] 04/15/2020 09:24:47 04/15/2020 11:27:24 Chronic obstructive pulmonary disease 51037867 J44.9 FEV1=1.96 LPS, 72% of predicted, predicted FEV1=2.72 LPS. andre De Dios, . Obstructiv e sleep apnea syndrome 01168147 G47.33 Uses CPAP with beneit. Chest wall pain 33643687 6 R07.89 Better QOL. Greater level of activity. [Excellent pain benefit. Able to do more activity, chores and shopping. Sleeping better.] [Meds help a lot. No side effects. Increased activity levels. Pain meds helping patient mucho and allowing better quality of life.] Cramp in lower limb 0769 49180 R25.2 Drink quinine water as needed. 34218 Toney Lee MD Pulmonary Office [facility],[address], [address] [place], [place] [address] 10/10/2020 09:24:16 10/10/2020 10:51:26 Chest wall pain 285965193 R07.89 Benefiting from pain meds. Uses walker. [...] of life.] Chronic ob structive pulmonary disease 15501695 J44.9 Using and benefiting from oxygen.FEV 1=1.96 LPS, 72% of predicted, predicted FEV1=2.72 LPS. Obstructiv e sleep apnea syndrome 19432649 G47.33 Uses CPAP with beneit. Cramp in lower limb 4499 36653 R25.2 Drink quinine water as needed. 464314 [facility],[address], [address] [place] [address] 01/10/2021 10:17:08 01/10/2021 11:00:54 Chest wall pain 857017322 R07.89 Getting good benefit from pain meds. Able to have better level of activity and to do some flavor extractor and shop. No increased dose and no [...] of life.] Chronic ob structive pulmonary disease 13204613 J44.9 Using and benefiting from oxygen.FEV 1=1.96 LPS, 72% of predicted, predicted FEV1=2.72 LPS. Obstructiv e sleep apnea syndrome 51914304 G47.33 Uses CPAP with beneit. 004894 [facility],[address], [address] [place] [address] 04/10/2021 08:05:51 04/10/2021 08:43:49 Chronic obstructive pulmonary disease 69781627 J44.9 Using and benefiting from oxygen.FEV 1=1.96 LPS, 72% of predicted, predicted FEV1=2.72 LPS. Chest wall pain 66469272 6 R07.89 Oxycodone is excellent for my pain. Decreasing pain and allowing him to move around better with his cane. Limited activity. Able to do chores and shop. Has significan t arthritic pain. [Getting good benefit from pain meds. Able to have better level of activity and to do some flavor extractor and shop. No increased dose and no [...] of life.] Obstructiv e sleep apnea syndrome 57135100 G47.33 Uses CPAP with beneit. 587238 [facility] Pulmonary Office [facility],[address], [address] [place] [address] 07/07/2021 08:14:00 07/07/2021 09:31:19 Chronic obstructive pulmonary disease 23447122 J44.9 Using and benefiting from oxygen.FEV 1=1.96 LPS, 72% of predicted, predicted FEV1=2.72 LPS. Chest wall pain 48840251 6 R07.89 Using and benefiting from pain [...] level of activity and to do some flavor extractor and shop. No increased dose and no [...] of life.] Obstructiv e sleep apnea syndrome 43570829 G47.33 Uses CPAP with beneit. Acute exac erbation of chronic obstructive pulmonary disease 197088148 J44.1 Benign pro static hyperplasia 999029866 N40.0 370983 jenaro heidi [facility],[address], [address] [place] [address] 07/25/2021 08:15:07 07/25/2021 08:56:31 Chronic obstructive pulmonary disease 37574822 J44.9 Significan t improvemen t over previous.Q uit smoking 17 years agoFEV1=2. 04 LPS, 78% of predicted, predicted FEV1=2.61 LPS, 06/20209928XRP6 =1.96 LPS, 72% of predicted, predicted FEV1=2.72 LPS, 845345 Kendy Ontiveroslowe Pul[facility] Office [facility],[address], [address] [place] [address] 10/12/2021 08:16:06 10/12/2021 09:00:54 Chest wall pain 219366203 R07.89 Pain meds help a lot. Taking [...] level of activity and to do some flavor extractor and shop. No increased dose and no [...] of life.] Obstructiv e sleep apnea syndrome 82967202 G47.33 Uses CPAP with beneit. Benign pro static hyperplasia 275423060 N40.0 922704 Toney Lee MD Pulmonary Office [facility],[address], [address] [place] [address] 01/08/2022 07:58:29 01/08/2022 08:41:34 Chest wall pain 980767320 R07.89 Taking stable dose. No side effects. [...] level of activity and to do some flavor extractor and shop. No increased dose and no [...] mucho and allowing better quality of life.] 144361 Shelby Zaman Pulmonary Office [facility],[address], [address] [place] [address] 04/03/2022 07:55:12 04/03/2022 09:05:39 Chest wall pain 012797775 R07.89 Taking stable dose. No side effects. [...] level of activity and to do some flavor extractor and shop. No increased dose and no [...] of life.] Chronic ob structive pulmonary disease 63373255 J44.9 945884 Shelby Zaman [facility],[address], [address] [place] [address] 07/06/2022 07:55:10 07/09/2022 08:35:37 Chest wall pain 145517846 R07.89 Taking stable dose. No side effects. [...] level of activity and to do some flavor extractor and shop. No increased dose and no [...] of life.] Chronic ob structive pulmonary disease 14448024 J44.9 425330 Shelby Scotland Pulmonary Office [facility],[address], [address] [place] [address] 10/05/2022 07:53:51 10/07/2022 20:51:58 Chronic obstructive pulmonary disease 09545369 J44.9 Lumbar spondylosis 75180 0009 M47.896 Taking stable dose. No side [...] level of activity and to do some flavor extractor and shop. No increased dose and no [...] mucho and allowing better quality of life.] 038189 Toney Lee MD Pulmonary Office [place] [facility],[address], [address] [place] [address] 11/10/2022 07:53:59 11/11/2022 08:49:02 Chest wall pain 828395088 R07.89 Taking stable dose. No side effects. [...] level of activity and to do some flavor extractor and shop. No increased dose and no [...] of life.] Chronic ob structive pulmonary disease 79975083 J44.9 Significan t improvemen t over previous.Q uit smoking 17 years agoFEV1=2. 04 LPS, 78% of predicted, predicted FEV1=2.61 LPS, 06/20202700YSQ3 =1.96 LPS, 72% of predicted, predicted FEV1=2.72 LPS, Acute uppe r respiratory infection 59527817 J06.9 355837 Toney Lee MD Pulmonary Office [place] [facility],[address], [address] [place] [address] 02/09/2023 08:08:35 02/09/2023 16:49:31 Chest wall pain 758488636 R07.89 Using and benefiting from pain meds. [...] level of activity and to do some flavor extractor and shop. No increased dose and no [...] 04/03/2022 1 [employer] (MEDICARE REPLACEMENT HMO) [place] [id number] Costa Waters 07/06/2022 1 [employer] (MEDICARE REPLACEMENT HMO) Costa Waters [id number] Costa Waters 10/05/2022 1 [employer] (MEDICARE REPLACEMENT HMO) Costa Waters [id number] Costa Waters 11/10/2022 1 [employer] (MEDICARE REPLACEMENT HMO) Costa Smitho [id number] Costa Waters 02/09/2023 1 [employer] (MEDICARE REPLACEMENT HMO) Costa Waters [id number] Costa Waters Notes Date Note Type Note Provider Name and Address Organization Details Recorded Time 10/05/2022 text/html This is a 72 yea r old male with a history of COPD and Lumbar spondylosis. He presents for a medication refill. Office member Aurelio Melgar assisted as shank carrier. And the only thing that helps him is his oxycodone. He admits to chest pain and denies back pain.Patient irritable and angry when asked about his pain he states he gets 3 months , and wants his prescriptions. In Vietnamese, shank carrier asked if patient had tried other modalities for pain, including but not limited to ice and heat, and anti-inflammatori es. Patient very angry, raised voice, declines any anti-inflammatori es, and states he just wants his dora meses of pain meds. [facility] 10/07/2022 20:51:56 02/09/2023 text/html oxy refill apr 12 Toney Lee MD [address],[facility]. [facility], [place], [address], [facility] 02/09/2023 08:34:34
--- OUTSIDE RECORDS SUMMARY | 2024-07-09 18:21 | XMS_ITS | Patient Health Record ---
Author Organization [facility] Address [address] [place] [address] Care Team Providers Care Stemming Machine Operator Name Role Phone Julián Crowe Unavailable Allergies Allergen (clinical drug ingredient) Drug/Non [...] Severe recurrent major depression without psychotic features (84615179) Major depressive disorder, recurrent severe without psychotic features (F33.2) Active confirmed Problem Persistent insomnia (837208880) Primary insomnia (F51.01) Active confirmed Plan Of Treatment No Information Insurance Providers Payer Name Payer Address Payer Phone Subscriber Number Group Number Insured Name Patient Relationship to Insured Coverage Start Date Coverage End Date [employer] [address] [address] [place] [address] [phone] [id number] Cornelius Costa Waters Self - patient is the insured Medical (General) History Medical History History ICD Code no medical history Surgical History Surgery Date(Month/Year) intestine 09/2002
--- OUTSIDE RECORDS SUMMARY | 2024-07-09 18:21 | XMS_ITS ---
Author Name Shanemo ORESTES, RN, RD, [place] Address [address] [place] [address] Phone [phone] [facility] [facility] Care Team Providers Care Precision Instrument Maker And Repairer Name Role Phone Noelle Meeks Unavailable [phone] [facility] Unavailable Reason for Referral Not Available Allergies, adverse reactions, alerts No known allergies History of medication use Medication Class Instructions Start Date End Date traZODone 50 mg Tab TOME DOS TABLETAS PO R V A ORAL AL ACOSTARSE CUANDO SEA NECESARIO PARA DORMIR 2024-01-14 No Data Available OneTouch Verio Strip USE SEG N LO INDICA DO TO CHECK BLOOD GLUCOSE DOS VECES AL D A 2024-02-24 No Data Available OneTouch Verio Flex System w/Device Kit USE DIRECTED TO CHECK BLOOD GLUCOSE TWICE DAILY FOR TYPE II DIABETES MELLITUS. 2024-02-24 No Data Available OneTouch Delica Plus Nluraa43V Miscellaneous USE SEG N LO INDICADO TO CHECK BLOOD GLUCOSE DOS VECES AL D A 2024-02-24 No Data Available metFORMIN 1000 mg Tab TOME 1 TABLETA POR V A ORAL DOS VECES AL D A 2024-03-04 No Data Available Januvia 100 mg Tab TOME 1 TABLETA POR V A ORAL TODOS LOS D 2024-02-24 No Data Available QUEtiapine Fumarate 150 mg Tab TOME BG TABLETA POR V A ORAL AL ACOSTARSE 2024-03-05 No Data Available predniSONE 10 mg Tab TOME 1 TABLETA POR V A ORAL TODOS LOS D 2024-05-01 No Data Available oxyCODONE 5 mg Tab TOME BG TABLETA POR V A ORAL CADA OCHO HORAS PARA DOLOR NIYAH CUANDO SEA NECESARIO 2024-05-12 No Data Available PARoxetine 10 mg Tab TOME 1 TABLETA POR V A ORAL TODOS LOS D 2024-05-29 No Data Available glipiZIDE ER 2.5 mg Tab ER 24hr TOME 1 TABLETA POR V A ORAL TODOS LOS D 2024-06-08 No Data Available Problem List No known problems Encounters Encounters Type Facility Date of Service Diagnosis/Co mplaint RN, CN or CP time with patient by phone; use with 1111F, BP, A1c or other CPTII codes [facility] 07/04/2024 Encounter for other specifie d aftercare Social History Sex Male History of Procedures Procedures Service Procedure code Service date Servicing provider Phone# RN, CN or CP time with patient by phone; use with 1111F, BP, A1c or other CPTII codes 27610 2024-07-04 No Data Available No Data Avai lable Functional Status No Information Mental Status No Information Assessments Not Available Plan of Care Not Available
--- OUTSIDE RECORDS SUMMARY | 2024-07-09 18:22 | XMS_ITS ---
Author Organization [facility] Address [address] [place] [address] Care Team Providers Care Critical Care Nurse Practitioner Name Role Phone Migration, Provider Unavailable Unavailable REASON FOR VISIT EMR-David Encounters Encounter Location Date Provider Diagnosis [address] [address] 12/01/2023 Provider Migration Plan Of Treatment No Information Progress Notes * Costa IRIZARRYDOB:12/1949 (74 yo M)Acc No.[id number]:12/01/2023 Patient:?Allan IRIZARRY :1950???Age:73 Y???Sex:Male Address[address] [address] Subjective: * Chief Complaints: * ???EMR-David * Medical History:? * Surgical History:? * Hospitalization/Major Diagno stic Procedure:? * Medications:? Objective: * Vitals:? * Physical Examination:? Assessment: Plan: * Treatment: * Procedure Codes:? * * Date:?
--- OUTSIDE RECORDS SUMMARY | 2024-07-09 18:22 | XMS_ITS ---
Author Organization [facility] Address [address] [place] [address] Care Team Providers Care Patient Observation Assistant Name Role Phone Julián Crowe Unavailable [phone] REASON FOR VISIT 1 month f/u Encounters Encounter Location Date Provider Diagnosis [facility] [address] [email or web address] [address] 04/04/2023 Julián Bhat Plan Of Treatment No Information Progress Notes * Costa JONESDOB:12/1949 (74 yo M)Acc No.[id number]:04/04/2023 Progress Notes Patient:?Allan JONES Provider:?Julián Bhat MD :1950???Age:73 Y???Sex:Male Win e:04/04/2023 Address:[address] [place], [place] [id number] Subjective: * Chief Complaints: * ???1. 1 month f/u. * Medical History:? Objective: * Vitals:? Assessment: Plan: * Treatment: * Billing Information: * Visit Code:? * Procedure Codes:? * Electronic signature of Peyman Bhat MD on 07/09/2024 at 06:21 PM EDT Sign off status: Pending * Provider:?Julián Bhat MD Date: ?04/04/2023 Generated for Editai ng/Fanazaning/eTransmitting on:?07/09/2024 06:21 PM EDT
--- OUTSIDE RECORDS SUMMARY | 2024-07-09 18:22 | XMS_ITS ---
Author Organization [facility] Address [address] [place] [address] Care Team Providers Care Director Of Claims Name Role Phone Migration, Provider Unavailable Unavailable REASON FOR VISIT EMR-David Encounters Encounter Location Date Provider Diagnosis [address] [address] 11/30/2023 Provider Migration Plan Of Treatment No Information Progress Notes * Costa IRIZARRYDOB:12/1949 (74 yo M)Acc No.[id number]:11/30/2023 Patient:?Allan IRIZARRY :1950???Age:73 Y???Sex:Male Address[address] [address] Subjective: * Chief Complaints: * ???EMR-David * Medical History:? * Surgical History:? * Hospitalization/Major Diagno stic Procedure:? * Medications:? Objective: * Vitals:? * Physical Examination:? Assessment: Plan: * Treatment: * Procedure Codes:? * * Date:?
== END 2024-07-09 15:26 | disposition home or self-care (01) ==
LOC: HO.HMCFM 14:29
PROVIDERS: PCP Physician Assistant Medical; Visit Provider Physician Assistant Medical
DX: E11.8 Type 2 diabetes mellitus with unspecified complications (principal); J84.9 Interstitial pulmonary disease, unspecified; J44.9 Chronic obstructive pulmonary disease, unspecified; E11.59 Type 2 diabetes mellitus with other circulatory complications; E11.40 Type 2 diabetes mellitus with diabetic neuropathy, unspecified; I15.2 Hypertension secondary to endocrine disorders; M54.50 Low back pain, unspecified; M54.6 Pain in thoracic spine; F32.A Depression, unspecified; G89.12 Acute post-thoracotomy pain; Z87.01 Personal history of pneumonia (recurrent); Z09 Encounter for follow-up examination after completed treatment for conditions other than malignant neoplasm

== ENCOUNTER → 2024-07-09 14:28 | Outpatient (BNVA) | payer OTHER, SELFPAY | PROVIDERS: PCP Physician Assistant Medical; Visit Provider Physician Assistant Medical | DX: J43.9 Emphysema, unspecified (principal); J84.9 Interstitial pulmonary disease, unspecified; E11.59 Type 2 diabetes mellitus with other circulatory complications; E11.40 Type 2 diabetes mellitus with diabetic neuropathy, unspecified; I15.2 Hypertension secondary to endocrine disorders; M54.50 Low back pain, unspecified; M54.6 Pain in thoracic spine; F32.A Depression, unspecified; G89.12 Acute post-thoracotomy pain; Z09 Encounter for follow-up examination after completed treatment for conditions other than malignant neoplasm; Z99.81 Dependence on supplemental oxygen; Z87.01 Personal history of pneumonia (recurrent) | CPT/HCPCS: 99212 ==

== ENCOUNTER 2024-07-20 15:18 | Outpatient (AMB) | payer OTHER, SELFPAY ==
[2024-07-20 15:25] VITALS: BP 158/82; PULSE 79; O2SAT 97; BMI 26.5
--- NOTE | 2024-07-20 15:25 | MHC.OFFVIS ---
Vital Signs 07/20/24 15:25 Height 5 ft 6 in Weight 164 lb 3.91 oz BMI 26.5 BP 158/82 H Blood Pressure Location Rt brachial Position Sitting Pulse 79 Pulse Source Pulse Oximeter Pulse Oximetry (%) 97 Oxygen Delivery Method Nasal Cannula Oxygen Flow Rate 3 Intake Visit Reasons: Pulmonary Nodules Allergies morphine Allergy (Severe, Verified 07/20/24 15:30) Agitated HPI Comments Details: The patient is a pleasant 74-year-old male, former smoker, quit 10 years ago, with 150+ pack year history and underlying asthma since childhood, COPD, history of COVID-19 in March 2020 with history of possible empyema s/p chest tube and ?VATS, s/p tracheostomy, decannulated (August 2020), with chronic hypoxic respiratory failure on 2L NC. He is unaccompanied, and ambulating with walker. At baseline, he states that his COPD is poorly controlled on 10 mg prednisone, which he has reportedly been on for the past year while living in [place]. At the last visit, Trelegy was sent in but patient states he has not received it. He has been using his albuterol 3-4 times per day with suboptimal effect. Today he kept referring to his oxycodone and need for medication to treat his lung pain . He was sent for chest CT to evaluate for any abnormalities or ILD, which was noted in prior history, report not available today. He continues to report significant dyspnea with minimal exertion, labored breathing, intermittent productive cough and wheezing. He is currently using his POC at 2 and has a concentrator at home through [facility]. in the meantime early October the patient was having worsening respiratory symptoms and persistent left-sided pleuritic pain and he went to the ER. There he had a CT of the chest which demonstrated then had airspace disease consistent with pneumonia. was treated and released and then went back to the ER where he was placed on couple courses of antibiotics. subsequently after that the patient did have a repeat CT scan of the chest 11/13/2023 which also reviewed. The patient appears to have a stable pulmonary nodule about vomiting medicine size in the left hemithorax. in addition to that he has extensive emphysema. He is oxygen dependent. The patient is complaining why he was taken off the oxycodone the family as well. Explained to the patient that he has severe respiratory failure and morphine we can only resulting worsening respiratory failure with suppression of his respiratory drive and he should avoided at all cost. 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 01/14/2024 the patient is here for a pulmonary follow-up visit. Patient still having some difficulty with breathing. Develop significant dyspnea on exertion. He has been using the oxygen with good effect. Has been having hard time with his activities of daily living. Currently his away from his family which makes it hard for him to receive the care would like to move closer to his family to be able to be get additional care in view of his advanced and severe respiratory disease. Did have a CT scan of the chest in 11/16/2023 which we personally reviewed. Patient does have extensive emphysema and also some pulmonary fibrosis. In addition to that he has small pulmonary nodules that are being followed. Subcentimeter in nature. We did review his pulmonary function studies demonstrating the significant COPD. He will be a great candidate for pulmonary rehabilitation to start building up and strengthening his respiratory muscles. Therefore, will go ahead and requested at this time. Did have an issue with Trelegy. It caused significant nausea so he could not tolerate it. Therefore will go ahead and stop that and place him on Advair HFA which she has tolerated in the past. Once he tolerates that we can always add a long-acting muscarinic antagonist if need be. But will just do 1 at a time since he already had a reaction to 1 inhaler. He is having hard time sleeping. Also awaiting a primary care appointment. Will go ahead and continue the gabapentin and will add trazodone at nighttime for sleep. Hopefully this combination helps him. Prior to that he was using Seroquel but he would need to have primary care or psychiatry or left for him if the combination trazodone/ gabapentin is not helpful. 07/20/2024 The patient is here for a hospital F/U visit. He developed FluA and admitted to [facility] with bronchopneumonia and copd exaecerbation and acute resp failure. He is currently on oxygen vis POC 3L/pulse. We will continue the current oxygen therapy and retest when he returns. He does not like the powder inhalers, causes irritation. He did have a CXR at [facility] with chronic changes. He completed the prednisone and antibiotics at this time. Still complains of dyspnea on exertion, moderate in severity. Also has been tired more than usual. [facility] Medical History (Updated 07/20/24 @ 21:51 by Brett Crystal MD) Asthma-COPD overlap syndrome Hospital discharge follow-up History of pneumonia Dry skin Bipolar affective disorder Low platelet count Depression Diabetic neuropathy Abnormal CBC Fatty liver Post-thoracotomy pain syndrome Emphysema (subcutaneous) (surgical) resulting from a procedure Hernia COVID-19 Diabetes mellitus, type 2 Bronchitis Pneumonia Surgical History (Updated 06/09/24 @ 13:55 by Meagan Anthony MD) Tympanic tube insertion History of intestinal surgery Family History Mother Mental health disorder Brother Substance use disorder Social History Household Members: None Housing: Apartment Alcohol intake: never Patient Tobacco Use Status: Former Tobacco user Cigarette Packs Per Day: 1 Years Smoked: 40 e-Cigarette/Vaping Use: Never Used service: No Current occupational status: disabled Current occupational exposures/hazards: No Sexual orientation: Straight/Heterosexual Gender identity: Male Cognitive needs: No Hearing needs: No Vision needs: No Physical Exam Vital Signs: Last Vital Signs Pulse 79 07/20/24 15:25 BP 158/82 H 07/20/24 15:25 Pulse Ox 97 07/20/24 15:25 Oxygen Delivery Method Nasal Cannula 07/20/24 15:25 Oxygen Flow Rate 3 07/20/24 15:25 BMI result Body Mass Index 26.5 Assessment & Plan Assessment & Plan (1) Chronic respiratory failure with hypoxia, on home oxygen therapy: Code(s): J96.11 - Chronic respiratory failure with hypoxia; Z99.81 - Dependence on supplemental oxygen Category: Medical (2) COPD (chronic obstructive pulmonary disease): Code(s): J44.9 - Chronic obstructive pulmonary disease, unspecified Category: Medical Qualifiers: COPD type: emphysema Emphysema type: centrilobular Qualified Code(s): J43.2 - Centrilobular emphysema (3) Personal history of tobacco use: Comment: 150 + pack year history Code(s): Z87.891 - Personal history of nicotine dependence Category: Social Hx (4) Dyspnea: Code(s): R06.00 - Dyspnea, unspecified Category: Medical Qualifiers: Dyspnea type: dyspnea on exertion Qualified Code(s): R06.09 - Other forms of dyspnea (5) Pulmonary nodule: Code(s): R91.1 - Solitary pulmonary nodule Category: Medical (6) Post-thoracotomy pain syndrome: Code(s): G89.12 - Acute post-thoracotomy pain Category: Medical (7) Pneumonia: Code(s): J18.9 - Pneumonia, unspecified organism Category: Medical Qualifiers: Pneumonia type: due to unspecified organism Laterality: bilateral Lung location: unspecified part of lung Qualified Code(s): J18.9 - Pneumonia, unspecified organism (8) Asthma-COPD overlap syndrome: Code(s): J44.89 - Other specified chronic obstructive pulmonary disease Category: Medical Plan stop Trelegy start Breztri ELBA as needed cotinue Gabapentin 300mg QHS continue oxygen supplemnetation 2L at rest, 3L with activity start pulmonary rehab at [facility] f/U 4-6 months Orders: Orders Pulmonary Rehab Today J44.89 - Other specified chronic obstructive pulmonary disease Medications: New cutxddvmrv-qibwysou-beysqihgxo 160-9-4.8 mcg/actuation (Breztri Aerosphere) 2 inhalations inhalation BID 10.7 grams 0RF multivitamin 1 tab PO DAILY 30 days 30 tabs 6RF Changed From albuterol sulfate 2.5 mg (3 mL) inhalation Q4-6H PRN 90 mL 0RF shortness of breath or wheezing To albuterol sulfate 2.5 mg (3 mL) inhalation Q6H PRN 90 mL 6RF shortness of breath or wheezing Refilled albuterol sulfate 90 mcg/actuation (Ventolin HFA) 2 puffs inhalation QID 30 days PRN 18 grams 11RF shortness of breath or wheezing Coding Level of Care Code Est Pt Level 4 (05758) Complex EM visit Add On G2211 Diagnoses Chronic respiratory failure with hypoxia, on home oxygen therapy J96.11; Z99.81 Centrilobular emphysema J43.2 COPD type: emphysema Emphysema type: centrilobular Personal history of tobacco use Z87.891 Dyspnea on exertion R06.09 Dyspnea type: dyspnea on exertion Pulmonary nodule R91.1 Post-thoracotomy pain syndrome G89.12 Pneumonia of both lungs due to infectious organism, unspecified part of lung J18.9 Pneumonia type: due to unspecified organism Laterality: bilateral Lung location: unspecified part of lung Asthma-COPD overlap syndrome J44.89 Time Spent (min) 18
--- OUTSIDE RECORDS SUMMARY | 2024-07-20 18:13 | XMS_ITS | Patient Health Record ---
Author Organization [facility] Address [address] [address] Care Team Providers Care Last Repairer Name Role Phone Migration, Provider Unavailable Unavailable Reason For Referral No Information Encounters Encounter Location Date Provider Diagnosis [facility] [address] [address] 11/30/2023 Provider Migration [facility] [address] [place] [phone] 12/01/2023 Provider Migration Plan Of Treatment No Information
--- OUTSIDE RECORDS SUMMARY | 2024-07-20 18:13 | XMS_ITS | Data Portability ---
Author Organization [facility], [facility] Address [address] [place] [phone] Assessment No assessment recorded. Plan of Treatment [...] By Organization Details Last Modified Time 06/08/2015 35689 gastroesophageal reflux disease (GERD): care instructions [email or web address] [...] Details Recorded Time Left lower quadrant pain 668950348 Active Brittani Abrams-L betsy null, [facility] 6 11:17:14 Gastroesophage al reflux disease 543390005 Active Brittani Abrams-L betsy null, [facility] 6 11:17:14 Problem Notes None recorded. Procedures Surgical History Date Name Laterality Status Provider Name and Address Organization Details Recorded Time 5 EGD completed Brittani Mckeon [facility] 06/08/2015 11:04:40 0 Abdominal Surgery completed Brittani Mckeon [facility] 06/08/2015 11:04:40 [...] Details Last Updated DateTime 6 28.2 kg/m2 33649.6 6475 g 98.7 [degF] 167.64 cm 77 /min 131 mm[Hg] 76 mm[Hg] [facility] 6 10:49:24 Social History Question Answer Notes LastModified by Organizat ion Details LastModified Time Tobacco Smoking Status Former Smoker Not Available [facility] 02/23/2020 03:16:34 What Is Your Level Of Alcohol Consumption? Heavy [id number] Information not available 02/23/2020 What Is Your Level Of Caffeine Consumption? Heavy 3 Cups A Day 8 Oz [id number] Information not available 02/23/2020 Which Illicit Or Recreational Drugs Have You Used? Everything Quit 10 Years Ago [id number] Information not available 02/23/2020 Marital Status Single Informatio n not available 06/08/2015 At What Age Did You Start Smoking Tobacco? 16 [id number] Information not available 02/23/2020 How Much Tobacco Do You Smoke? 3+ PPD Quit 5 Years Ago [id number] Information not available 02/23/2020 Sex: Unknown Functional [...] SNOMED-CT Code Diagnosis ICD10 Code Diagnosis Note [id number] Brittani roca [facility] [address] [phone] 06/08/2015 09:43:48 06/08/2015 11:16:19 Left lower quadrant pain 945268561 R10.32 Gastroesop hageal reflux disease 322372000 K21.9 Resolved w PPI. Already had EGD by Dr Liu. Health Concerns Section Related Observation LastModified by Organization Detai ls LastModified Time None Recorded Concern Status LastModified by Organization Details LastModified Time None Recorded Advance Directives Directive None Recorded Payers Encounter Date Sequence Insurance Name Policy Number Policy [employer] Covered Member ID Cox Member ID Guarantor Name 06/08/2015 1 [facility] (MEDICAID HMO) Costa Waters [id number] Costa Waters Notes Date Note Type Note [...]
--- OUTSIDE RECORDS SUMMARY | 2024-07-20 18:13 | XMS_ITS | Patient Health Record ---
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 [address] [place] [address] [id number] Cornelius Costa Waters Self - patient is the insured Medical (General) History Medical History History ICD Code no medical history Surgical History Surgery Date(Month/Year) intestine 09/2002
--- OUTSIDE RECORDS SUMMARY | 2024-07-20 18:13 | XMS_ITS | Clinical Summary ---
Author Organization [facility] Address [address] [place] [address] Care Team Providers Care Register Of Wills Name Role Phone Unavailable Primary Care Provider [...] patient's age to complete this topic Insurance [facility]
--- OUTSIDE RECORDS SUMMARY | 2024-07-20 18:13 | XMS_ITS ---
Author Organization [facility] Address [address] [place] [address] Care Team Providers Care Molecular Modeler Name Role Phone Julián Crowe Unavailable Migration, Provider Unavailable Unavailable Allergies Allergen (clinical drug ingredient) Drug/Non Drug Allergy documented on EMR Reaction Allergy Type Onset Date Status morphine Morphine stomach upset Drug Allergy Act stacy REASON FOR VISIT EMR-David Encounters Encounter Location Date Provider Diagnosis [facility] [address] [place] [address] 06/02/2023 Provider Migration Plan Of Treatment No Information Progress Notes * Costa JONESDOB:12/1949 (74 yo M)Acc No.[id number]:06/02/2023 Patient:?Allan JONES :1950???Age:73 Y???Sex:Male Address:[address] [place] [address] Subjective: * Chief Complaints: * ???EMR-David * Medical History:? * Surgical History:? * Hospitalization/Major Diagno stic Procedure:? * Medications:? * Allergies:?Morphine: stomach upset - Allergy Objective: * Vitals:? * Physical Examination:? Assessment: Plan: * Treatment: * Procedure Codes:? * * Date:?
--- OUTSIDE RECORDS SUMMARY | 2024-07-20 18:14 | XMS_ITS ---
Author Organization [facility] Address [address] [place] [phone] Care Team Providers Care Nuclear Medicine Chief Technologist Name Role Phone Migration, Provider Unavailable Unavailable REASON FOR VISIT EMR-David Encounters Encounter Location Date Provider Diagnosis [address] [address] 11/30/2023 Provider Migration Plan Of Treatment No Information Progress Notes * Costa IRIZARRYDOB:12/1949 (74 yo M)Acc No.[id number]:11/30/2023 Patient:?Allan IRIZARRY :1950???Age:73 Y???Sex:Male Address[address] [address] Subjective: * Chief Complaints: * ???EMR-David * Medical History:? * Surgical History:? * Hospitalization/Major Diagno stic Procedure:? * Medications:? Objective: * Vitals:? * Physical Examination:? Assessment: Plan: * Treatment: * Procedure Codes:? * * Date:?
--- OUTSIDE RECORDS SUMMARY | 2024-07-20 18:14 | XMS_ITS ---
Author Organization [facility] Address [address] [place] [address] Care Team Providers Care Chiropractic Teacher Name Role Phone Jayden BhatJulián pretty Unavailable Migration, Provider Unavailable Unavailable REASON FOR VISIT EMR-David Encounters Encounter Location Date Provider Diagnosis [facility] [address] [place] [address] 06/01/2023 Provider Migration Plan Of Treatment No Information Progress Notes * PERLA FRAIREOCostaDOB:12/1949 (74 yo M)Acc No.[id number]:06/01/2023 Patient:?Allan IRIZARRY :1950???Age:73 Y???Sex:Male Address:[address] [place] [address] Subjective: * Chief Complaints: * ???EMR-David * Medical History:? * Surgical History:? * Hospitalization/Major Diagno stic Procedure:? * Medications:? Objective: * Vitals:? * Physical Examination:? Assessment: Plan: * Treatment: * Procedure Codes:? * * Date:?
--- OUTSIDE RECORDS SUMMARY | 2024-07-20 18:14 | XMS_ITS ---
Author Organization [facility] Address [address] [place] [address] Care Team Providers Care Pattern Grader Cutter Name Role Phone Migration, Provider Unavailable Unavailable REASON FOR VISIT EMR-David Encounters Encounter Location Date Provider Diagnosis [address] [address] 12/01/2023 Provider Migration Plan Of Treatment No Information Progress Notes * Costa IRIZARRYDOB:12/1949 (74 yo M)Acc No.[id number]:12/01/2023 Patient:?Allan IRIZARRY :1950???Age:73 Y???Sex:Male Address:[address] [address] Subjective: * Chief Complaints: * ???EMR-David * Medical History:? * Surgical History:? * Hospitalization/Major Diagno stic Procedure:? * Medications:? Objective: * Vitals:? * Physical Examination:? Assessment: Plan: * Treatment: * Procedure Codes:? * * Date:?
--- OUTSIDE RECORDS SUMMARY | 2024-07-20 18:14 | XMS_ITS | Data Portability ---
Author Organization [facility] - Melissa schwarz, Internal Medicine Office Address [address] [address] Care Team Providers Care Retail Sales Advisor Name Role Phone TONEY LEE Referring Provider Assessment Encounter Date Assessment Date Assessment LastModified by Organization Details LastModified Time 04/03/2022 04/03/2022 The patient is a 72 year old male with a PMH . Reviewed and discussed all possible medication interactions with patient. Patient voiced understanding that if receiving controlled medications, they must be re-evaluated every 90 days before medication will be refilled. Also, [place] Drug monitoring database will be consulted verifying [...] in 3 month unless appointment required sooner. [email or web address] Not available 04/03/2022 08:42:54 07/06/2022 07/06/2022 Reviewed and discussed all possible medication interactions with patient. Patient voiced understanding that if receiving controlled medications, they must be re-evaluated every 90 days before medication will be refilled. Also, [place] Drug [employer] database will be consulted verifying no duplication [...] in 3 month unless appointment required sooner. [email or web address] Not available 10/07/2022 20:37:42 10/05/2022 10/05/2022 Patient [...] days before medication will be refilled. Also, [place] Drug monitoring database will be consulted verifying [...] in 3 month unless appointment required sooner. [email or web address] Not available 10/07/2022 20:51:48 11/10/2022 11/10/2022 The patient is a 72 year old male with a PMH . Reviewed and discussed all possible medication interactions with patient. Patient voiced understanding that if receiving controlled medications, they must be re-evaluated every 90 days before medication will be refilled. Also, [place] Drug [employer] database will be consulted verifying no duplication [...] in 3 month unless appointment required sooner. [email or web address] Not available 11/10/2022 08:15:17 Plan of Treatment Reminders Order Date Submit Date Provider Last Modified By Organization Details Last Modified Time Details Appointments None recorded. Lab None recorded. Referral None recorded. Procedures None recorded. Surgeries None recorded. Imaging CT, chest, w/o contrast - Chronic chest wll pain. 2022 023 [facility], [address] [facility] [address], [place], [address], 3 08:35:02 Medication Orders oxycodone 10 mg tablet 2022 023 [facility], [address] [address] [address], [place], [place], [id number], 3 08:36:28 oxycodone 10 mg tablet 2022 023 [facility], [address] [facility] [address] [place], [id number], 3 08:36:28 oxycodone 10 mg tablet 2022 023 [facility], [address] [facility] [address] [place], [id number], 3 08:36:29 oxycodone 10 mg tablet 2022 023 [email or web address] 1 Not available 3 09:23:15 oxycodone 10 mg tablet 2022 023 [email or web address] 1 Not available 3 09:23:15 oxycodone 10 mg tablet 2022 023 [email or web address] 1 Not available 3 09:23:15 prednisone 10 mg tablet 2022 023 [email or web address] 1 [facility], [address] [place] [address], [id number], 3 09:23:15 Zithromax Z-Joe 250 mg tablet 2022 023 [email or web address] 1 [facility], [address] [place] [address], [id number], 3 09:23:15 oxycodone 10 mg tablet 2022 023 4 Not available 3 14:35:36 oxycodone 10 mg tablet 2022 023 [email or web address] Not available 3 09:28:01 albuterol sulfate HFA 90 mcg/actuati on aerosol inhaler 2022 023 [facility], [address] [place] [address], [id number], 3 08:25:22 Advair HFA 230 mcg-21 mcg/actuati on aerosol inhaler 2022 023 [facility], [address] [place] [address], [id number], 3 08:25:23 albuterol sulfate 2.5 mg/3 mL (0.083 %) solution for nebulizatio n 2022 023 [facility], [address] [place] [address], [id number], 3 08:25:22 Cipro 250 mg tablet 2022 023 [facility], [address] [place] [address], [id number], 3 08:28:24 oxycodone 10 mg tablet 2021 022 4 Not available 2 08:42:53 oxycodone 10 mg tablet 2021 022 [email or web address] 4 Not available 2 08:42:53 oxycodone 10 mg tablet 2021 022 [email or web address] 4 Not available 2 08:42:53 Advair HFA 230 mcg-21 mcg/actuati on aerosol inhaler 2021 [facility], [address] [place] [address], [place], [place], [id number], 2 08:45:37 Patient TargetsNo targets recorded. Patient InstructionsNo instructions recorded. Reason for Referral None Reported. 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 Active [facility] 4 17:23:28 Chronic obstructive pulmonary disease 86393554 Active [facility] 4 17:23:28 Tobacco dependence syndrome 97209556 Active [facility] 4 17:23:28 Hyperlipidemia 42342308 Active [facility] 4 17:23:28 Type 2 diabetes mellitus 21837126 Active [facility] 4 17:23:28 Nausea and vomiting 05011188 Active [facility] 4 17:23:28 Pneumonia 962819403 Active [facility] 4 17:23:28 Otitis media 40915897 Active [facility] 4 17:23:28 Pain radiating to left shoulder 145292483 Active [facility] 4 17:23:28 Pain in thoracic spine 639523445 Active [place] [facility] 4 17:23:28 Hemoptysis 75115382 Active [place] [facility] 4 17:23:28 Backache 842578822 Active [place] [facility] 4 17:23:28 Neck pain 43613347 Active [place] 4 17:23:28 Musculoskeleta l pain 331796380 Active [place] [facility] 4 17:23:28 Parotitis 42231495 Active [place] [facility] 4 17:23:28 Hypoxia 072461726 Active [place] [facility] 4 17:23:28 Hoarse 87000710 Active [place] [facility] 4 17:23:28 Bronchitis 62667206 Active [place] [facility] 4 17:23:28 Shoulder pain 85335814 Active [place] [facility] 4 17:23:28 Chest wall pain 638621029 Active 2021 [place] [facility] 4 17:23:28 Lumbar spondylosis 993450317 Active 2022 [place] [facility] [...] Available Hydromet 5 mg-1.5 mg/5 mL oral solution TK 5 ML PO Q 4 H [...] prednisone 10 mg tablet Take 4 tabs [id number], 3 tabs APh7lulb, 2 tabs [id number], 1 tab [id number] active Not Available Not Available No t [...] hours by oral route for 30 days. 05/20/ 2014 06/19 /2014 completed Not Available Not Available Not Available [...] Available Not Available Not Available Fluzone High-Dose 3261-4500 (PF) 180 mcg/0.5 mL intramuscul ar syringe [...] completed Not Available Not Available Not Available Breztri InsightETEphere 160 mcg-9mcg-4. 8mcg/actuat ion HFA aerosol inhaler [...] Updated DateTime 2 167.64 cm 26.1 kg/m2 20328.9 6 g 97.9 [degF] 16 /min 94 % 94 % 84 /min 160 mm[Hg] 84 mm[Hg] Monet [facility] 2 08:17:56 Date Recorded Body height Body mass index (BMI) Body weight Body temperature Heart rate Oxygen saturation Oxygen saturation in Arterial blood by Pulse oximetry Respiratory rate Systolic blood pressure Diastolic blood pressure Provider Name and Address Organization Details Last Updated DateTime 3 167.64 cm 26.1 kg/m2 55061.1 7 g 97.4 [degF] 76 /min 96 % 96 % 16 /min 162 mm[Hg] 84 mm[Hg] Linda [facility] 3 08:00:06 Date Recorded Body height Body mass index (BMI) Body weight Heart rate Oxygen saturation Oxygen saturation in Arterial blood by Pulse oximetry Respiratory rate Body temperature Systolic blood pressure Diastolic blood pressure Provider Name and Address Organization Details Last Updated DateTime 3 167.64 cm 26.5 kg/m2 60874.1 5 g 74 /min 96 % 96 % 24 /min 98 [degF] 172 mm[Hg] 102 mm[Hg] Linda [facility] 3 08:14:50 Date Recorded Body height Body mass index (BMI) Body weight Heart rate Oxygen saturation Oxygen saturation in Arterial blood by Pulse oximetry Body temperature Systolic blood pressure Diastolic blood pressure Provider Name and Address Organization Details Last Updated DateTime 3 167.64 cm 25.8 kg/m2 52195.7 8 g 87 /min 96 % 96 [...] Updated DateTime 3 167.64 cm 25.8 kg/m2 34217.7 8 g 97 % 97 % 3 L/min 90 /min 130 mm[Hg] 80 mm[Hg] [facility] 3 08:19:20 Social History Question Answer Notes LastModified by Organizat ion Details LastModified Time Tobacco Smoking Status Former Smoker quit 2011 Not Available [facility] 02/23/2020 03:16:30 Do You Have An Advance Directive? No [id number] Information not available 02/23/2020 What Is Your Level Of Alcohol Consumption? None [id number] Information not available 02/23/2020 What Is Your Level Of Caffeine Consumption? Occasional [id number] Information not available 02/23/2020 How Much Tobacco Do You Chew? None [id number] Information not available 02/23/2020 Which Illicit Or Recreational Drugs Have You Used? None [id number] Information not available 02/23/2020 Marital Status Single Informatio n not available 04/03/2013 What Was The Date Of Your Most Recent Tobacco Screening? 08/21/2018 [id number] Information not available 02/23/2020 At What Age Did You Start Smoking Tobacco? 16 [id number] Information not available 02/23/2020 How Much Tobacco Do You Smoke? 1.5 PPD [id number] Information not available 02/23/2020 Sex: Unknown Functional [...] Obesity N Arthritis N Blood Clot N Oxygen Dependent N Cancer N Stroke N Hospital Admission other than [...] virus, trivalent, PF 05/20/2013 completed Not Available [facility] 02:13:33 Past Encounters Encounter ID Performer Location Encounter Start Date Encounter Closed Date Diagnosis/Indication Diagnosis SNOMED-CT Code Diagnosis ICD10 Code Diagnosis Note [id number] Britney Jayden [facility],[address] [place] [address] 04/03/2013 09:01:40 04/03/2013 09:52:54 Chronic obstructive pulmonary disease 55238495 Tobacco de pendence syndrome 35366529 Hyperlipidemia 73102103 [id number] Eliz Rodriguez [facility],[address] [place] [address] 05/20/2013 08:28:06 05/20/2013 11:14:24 Chronic obstructive pulmonary disease 10710795 Tobacco de pendence syndrome 00398358 Hyperlipidemia 66864221 Hemoptysis 13190857 Backache 825430657 Neck pain 71119816 Musculoskeletal pain 534767029 [id number] Eliz Rodriguez [facility],[address] [place] [address] 06/05/2013 07:58:32 06/05/2013 09:19:17 Chronic obstructive pulmonary disease 78110311 Tobacco de pendence syndrome 33468984 Hyperlipidemia 14971871 Backache 218878466 Neck pain 42344387 Bronchitis 37364231 Gree n phlegm. Shoulder pain 60575581 4890 [facility] [address] [place] [address] 07/09/2013 14:06:17 09/01/2013 14:31:00 [id number] Eliz Rodriguez [facility],[address] [place] [address] 07/20/2013 10:38:02 07/20/2013 16:49:21 Musculoskeletal pain 593629565 Shoulder pain 06242493 Chronic ob structive pulmonary disease 49588744 6[address] [facility] [place],[address] [place] [address] 08/17/2013 08:57:53 08/17/2013 16:40:33 Chronic obstructive pulmonary disease 77294187 Musculoskeletal pain 964906221 Shoulder pain 04408880 S end to Dr. Adis Rosales. [id number] [facility] [place],[address] [place] [address] 09/15/2013 09:37:52 09/15/2013 16:17:51 Chronic obstructive pulmonary disease 82685796 Musculoskeletal pain 928080560 Shoulder pain 38118416 P lease send to Dr. Arceo for shoulder pain now on right side. Kenalog right deltoid. [id number] [facility] [place],[address] [place] [address] 10/13/2013 09:28:29 10/13/2013 11:32:10 Chronic obstructive pulmonary disease 44161235 Musculoskeletal pain 192308474 Shoulder pain 89663723 [id number] [place] [place] [address] 11/26/2013 07:51:48 11/26/2013 12:21:33 Chronic obstructive pulmonary disease 68366349 Musculoskeletal pain 107875927 Please get referral to Phillip Mendez. [facility] CALLED, CAN ONLY FILL 90 TABS, WILL NEED ANOTHER RX FFOR 30 TABS TO COMPLETE HIS MONTHLY DOSAGE OF OXYCODONE 10MG. Hyperlipidemia 81160951 Neck pain 19802188 Backache 264404881 Bronchitis 66043064 Gree n phlegm. Tobacco de pendence syndrome 85467330 Prostatism 43378304 To Sarah Santos evaluate prostatism . [id number] [facility] [place],[address] [place] [address] 12/24/2013 07:47:08 12/24/2013 10:21:24 Chronic obstructive pulmonary disease 20404485 Prostatism 22383691 To Sarah Santos evaluate prostatism . Musculoskeletal pain 531290135 Please get referral to Phillip Mendez [facility]. Hyperlipidemia 14793639 Neck pain 09990302 Backache 102121002 Tobacco de pendence syndrome 81404840 [id number] [facility],[address] [place] [address] 03/03/2014 08:28:41 03/03/2014 16:56:44 Chronic obstructive pulmonary disease 94740921 Needs portable O2 tank. Shoulder pain 71322272 [id number] [facility],[address] [place] [address] 04/30/2014 08:54:07 04/30/2014 11:54:41 Shoulder pain 23894409 Chronic ob structive pulmonary disease 95562399 Prostatism 30538345 Musculoskeletal pain 845856865 Hyperlipidemia 82014938 Neck pain 65130357 Backache 411392011 Hemoptysis 07970374 Bronchitis 06027968 Tobacco de pendence syndrome 47076398 Type 2 joon betes mellitus 94995824 [id number] [facility],[address] [place] [address] 06/09/2014 09:16:14 06/10/2014 16:21:40 Chronic obstructive pulmonary disease 27897199 Shoulder pain 15954083 [id number] [facility] [place] [address] 06/23/2014 08:03:44 06/25/2014 15:49:11 Musculoskeletal pain 874018766 Oxycontin 20 mg BID. Oxycodone 10 mg po Q4H PRN. [I tried to call [phone] Brian, his picker tender helper, to discuss change in his medication s. I left a message for her.] Chronic ob structive pulmonary disease 71345308 Nausea and vomiting 43887448 Side effect of gabapentin . I advised he stop this. [id number] [facility],[address] [place] [address] 11/23/2014 08:02:08 11/23/2014 11:23:00 Chronic obstructive pulmonary disease 65172762 Musculoskeletal pain 985172688 Kenalog 40 mg IM left shoulder. Nausea and vomiting 44747767 Pneumonia 639470330 Hosp italiz ed in [facility] Type 2 joon betes mellitus 50327316 [id number] Eliz Rodriguez [facility],[address] [place] [address] 12/17/2014 07:53:05 12/17/2014 15:46:46 Neck pain 73452246 Shoulder pain 52973670 K enalog 80 mg IM left shoulder. Need MRI reports. To Dr. Bhakta. [id number] Toney Lee MD Pulmonary Office [facility] n[facility] [place],[address] [place] [address] 02/04/2015 08:18:18 02/05/2015 12:40:20 Otitis media 02494409 H66.012 Hemoptysis 75667504 R04. 2 Pain radia ting to left shoulder 614479099 M25.519 Kenalog 80 mg IM. Chronic pain for years/deca josy affecting quality of life. [id number] Toney Lee MD Pulmonary Office [facility] [place],[address] [place] [address] 04/11/2015 09:10:28 04/27/2015 19:29:09 Chronic obstructive pulmonary disease 85386228 J44.9 Backache 740896876 M54.9 Musculoskeletal pain 279 464087 M79.1 Kenalog 40 mg IM left shoulder. [id number] Toney Lee MD [facility] [place],[address] [place] [address] 07/04/2015 10:41:28 07/04/2015 12:16:19 Chronic obstructive pulmonary disease 66658160 J44.9 Pain in th oracic spine 470613977 M54.6 [id number] Toney Lee MD Pulmonary Office [facility] [place],[address] [place] [address] 08/09/2015 08:11:12 08/09/2015 13:44:59 Chronic obstructive pulmonary disease 56138876 J44.9 Pain in th oracic spine 121838731 M54.6 Parotitis 30440958 K11.[address] Crystal. BL parotid soft swelling, very tender. [id number] Toney Lee [facility] [place],[address] [place] [address] 09/15/2015 07:49:48 09/15/2015 14:48:41 Pain in thoracic spine 901573884 M54.6 Shoulder pain 02043436 M 25.519 Chronic ob structive pulmonary disease 50599738 J44.9 Hypoxia 883764601 G47.34 Nocturnal O2. [id number] Toney Lee MD Pulmonary Office [facility] [place],[address] [place] [address] 11/08/2015 10:41:17 11/08/2015 11:46:34 Shoulder pain 87635400 M25.519 Hoarse 91955378 R49.0 Hoarseness getting worse. Please refer back to Dr. True Crystal. [id number] Toney Lee MD Pulmonary Office [facility] [place],[address] [place] [address] 12/12/2015 08:23:06 12/12/2015 11:10:30 Bronchitis 85824147 J40 Type 2 joon betes mellitus 19514690 E11.9 Pain in th oracic spine 593498825 M54.6 [id number] Toney Lee MD Pulmonary Office [facility] [place],[address] [place] [address] 01/23/2016 07:43:50 01/23/2016 08:44:35 Chronic obstructive pulmonary disease 80856588 J44.9 Pain in th oracic spine 794851215 M54.6 Pain radia ting to left shoulder 732384297 M25.519 Hoarse 18025883 R49.0 Hoarseness persistent .. Please refer back to Dr. True Crystal. [id number] Toney Lee MD Pulmonary Office [facility] [place],[address] [place] [address] 02/21/2016 08:53:41 02/21/2016 12:18:12 Pain in thoracic spine 449404296 M54.6 Musculoskeletal pain 279 043691 M79.1 Pain radia ting to left shoulder 313593551 M25.519 Please give 3 months of Rx'es pre-dated for patient kylah walls Type 2 joon betes mellitus 79591880 E11.9 [id number] Toney Lee MD Pulmonary Office [facility] [place],[address] [place] [address] 05/22/2016 07:44:02 05/22/2016 11:54:27 Pain in thoracic spine 664441079 M54.6 Patient's sister dying and he will be going to [place] to be with her. He needs 3 months of pain medication s pre-dated. [id number] Toney Lee MD Pulmonary Office [facility],[address] [place] [address] 08/20/2016 07:40:42 08/20/2016 08:28:44 Pain in thoracic spine 849237660 M54.6 Bronchitis 29057464 J40 [id number] Toney Lee MD Pul[facility] Office [facility],[address] [place] [address] 11/19/2016 07:44:41 11/19/2016 08:53:05 Bronchitis 95083654 J40 Chronic pain 54177189 G8 9.29 [id number] Toney Lee MD Pulmonary Office [facility] [place],[address] [place] [address] 02/18/2017 07:40:33 02/18/2017 10:34:22 Shoulder pain 29576479 M25.519 Chronic ob structive pulmonary disease 23913909 J44.9 Utibron sample given, first dose given and instructio ns given to patient. Pain in th oracic spine 524954166 M54.6 [id number] Toney Lee MD Pulmonary Office [facility],[address] [place] [address] 05/20/2017 07:54:29 05/20/2017 15:57:14 Shoulder pain 25812512 M25.[address] Carty for evaluation . [id number] EV[facility] ART [facility] Office [facility] [place],[address] [facility], [place] [address] 07/31/2017 09:43:03 07/31/2017 12:22:41 Shoulder pain 87371526 M25.519 Pneumonia 113155329 J18. 9 pt with dullness present to L will treat and eval in office Acute uppe r respiratory infection 82648897 J06.9 add to treatment as pt is still with diff breathing, use neb 4x day [id number] Toney Lee MD Pulmonary Office [facility] [place],[address] [place] [address] 10/18/2017 08:36:43 10/18/2017 10:03:41 Shoulder pain 72238361 M25.[address] Carty for evaluation . Chronic ob structive pulmonary disease 33796824 J44.9 Anonro sample given, first dose given and instructio ns given to patient. Chronic hoarseness 92036 47153 105 R49.0 Adverse re action to drug 38782826 T45.95XA Dizziness from steroids. [id number] Toney Lee MD Pulmonary Office [facility] [place],[address] [place] [address] 11/15/2017 10:27:46 11/15/2017 11:20:59 Chronic obstructive pulmonary disease 68938872 J44.9 FEV1=1.96 LPS, 72% of predicted, predicted FEV1=2.72 LPS. Musculoskeletal pain 279 654976 M79.1 Severe pain, alleviated with oxycodone. Pain incapacita ting and with meds able to do small chores around house, go shopping and walk a bit with his cane. [id number] [facility],[address] [place] [address] 12/27/2017 13:51:08 12/27/2017 14:45:19 Chronic obstructive pulmonary disease 18503206 J44.9 FEV1=1.96 LPS, 72% of predicted, predicted FEV1=2.72 LPS. Musculoskeletal pain 279 674252 M79.1 pt had recent thoracotom y to left lobe pain 8/10 controlled better with pain [[[Severe pain, alleviated with oxycodone. Pain incapacita ting and with meds able to do small chores around house, go shopping and walk a bit with his cane.]]] Lung mass 008196708 R91. 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 pt had left lobe thoracotom y december 17 need all records from [place] for results.. [id number] jenaro gordon Pul[facility] Office [facility],[address] [place] [address] 02/10/2018 13:18:28 02/10/2018 15:20:01 Chest wall pain 183808187 R07.89 Need discharge summary from [facility] Pneumonia 927386238 J18. 9 [id number] Toney Lee MD Pulmonary Office [facility],[address] [place] [address] 05/16/2018 09:11:45 05/16/2018 13:48:04 [id number] Philipp Montez [facility] Office [facility],[address] [place] [address] 07/14/2018 10:35:00 07/14/2018 11:51:59 Chest wall pain 516869862 R07.89 Need discharge summary from [facility] Pneumonia 785818848 J18. 9 [id number] Toney Lee MD Pulmonary Office [facility],[address] [place] [address] 08/11/2018 14:35:18 08/11/2018 16:33:25 Chronic obstructive pulmonary disease 65127193 J44.9 FEV1=1.96 LPS, 72% of predicted, predicted FEV1=2.72 LPS. Lucinda Cornelius, andre, . Obstructiv e sleep apnea syndrome 30035495 G47.33 Snores and stops breathing. Witnessed apneas. Daytime somnolence . ESS 18. [id number] j[facility]aro gordon [facility] [place], [place] [address] 08/21/2018 13:04:36 08/21/2018 13:46:29 Hypoxemia 318043066 R09.02 Nocturnal hypoxemia <=88% for 17 minutes. 6MWT decreased to 86% and recovered to 90% with O2. Patient requests portable O2 concentrat or if possible. [id number] jenaro gordon [facility] [facility], [place] [address] 10/13/2018 08:08:00 10/13/2018 08:31:40 Chest wall pain 926079540 R07.89 Chronic ob structive pulmonary disease 30628335 J44.9 [FEV1=1.96 LPS, 72% of predicted, predicted FEV1=2.72 LPS. Lucinda Cornelius andre, .] [id number] jenaro gordon [facility] [place] [address] 01/14/2019 07:52:06 01/14/2019 08:44:54 Chest wall pain 567102416 R07.89 Medication s of significan t benefit. Allow patient better quality of life and greater level of activity. No side effects. Chronic ob structive pulmonary disease 46009726 J44.9 [FEV1=1.96 LPS, 72% of predicted, predicted FEV1=2.72 LPS. Lucinda Adryan andre, .] [id number] jenaro gordon [facility],[address] [place], [place] [address] 04/14/2019 07:57:12 04/14/2019 08:47:19 Chest wall pain 212122509 R07.89 Pain meds helping patient mucho and allowing better quality of life. Chronic ob structive pulmonary disease 87352196 J44.9 [FEV1=1.96 LPS, 72% of predicted, predicted FEV1=2.72 LPS. Lucinda Cornelius andre, .] 25110 jenaro gordon [facility] [place] [address] 07/13/2019 08:59:34 07/13/2019 09:49:02 Chest wall pain 395793314 R07.89 Pain meds helping patient mucho and allowing better quality of life. Chronic ob structive pulmonary disease 37971589 J44.9 [FEV1=1.96 LPS, 72% of predicted, predicted FEV1=2.72 LPS. andre De Dios, .] 83509 jenaro gordon Pulmonary Office [facility],[address], [address] [place] [address] 10/15/2019 10:50:50 10/15/2019 11:49:37 Chest wall pain 970412879 R07.89 Pain meds helping patient mucho and allowing better quality of life. Chronic ob structive pulmonary disease 64604624 J44.9 [FEV1=1.96 LPS, 72% of predicted, predicted FEV1=2.72 LPS. andre De Dios, .] 34517 Toney Lee MD Pulmonary Office [facility],[address] [place] [address] 01/15/2020 08:35:04 01/15/2020 09:43:28 Chest wall pain 730418600 R07.89 Meds help a lot. No side effects. Increased activity levels. Pain meds helping patient mucho and allowing better quality of life.] Chronic ob structive pulmonary disease 06589716 J44.9 [FEV1=1.96 LPS, 72% of predicted, predicted FEV1=2.72 LPS. andre De Dios, .] 47868 Kendy Mena [facility], [address] [place] [address] 03/15/2020 13:41:38 03/15/2020 15:00:16 Chest wall pain 719287146 R07.89 Excellent pain benefit. Able to do more activity, chores and shopping. Sleeping better. [Meds help a lot. No side effects. Increased activity levels. Pain meds helping patient mucho and allowing better quality of life.] Chronic ob structive pulmonary disease 92138303 J44.9 Alpha-1 swab. FEV1=1.36 LPS, 49% of predicted, predicted FEV1=2.78 LPS, 01/2020FEV 1=1.96 LPS, 72% of predicted, predicted FEV1=2.72 LPS, 10/2017.FEV 1=1.72 LPS, 57% of predicted, predicted FEV1=3.03 LPS, 05/2014 64069 Kendy Mena Pulmonary Office [facility],[address], [address] [employer], [employer] [address] 04/12/2020 12:33:35 04/12/2020 13:54:32 Chronic obstructive pulmonary disease 68430629 J44.9 FEV1=1.96 LPS, 72% of predicted, predicted FEV1=2.72 LPS. andre De Dios, [phone]. Obstructiv e sleep apnea syndrome 84276788 G47.33 Uses CPAP with beneit. 18225 jenaro gordon [facility],[address], [address] [employer], [employer] [address] 04/15/2020 09:24:47 04/15/2020 11:27:24 Chronic obstructive pulmonary disease 76748753 J44.9 FEV1=1.96 LPS, 72% of predicted, predicted FEV1=2.72 LPS. andre De Dios, . Obstructiv e sleep apnea syndrome 78059868 G47.33 Uses CPAP with beneit. Chest wall pain 82218962 6 R07.89 Better QOL. Greater level of activity. [Excellent pain benefit. Able to do more activity, chores and shopping. Sleeping better.] [Meds help a lot. No side effects. Increased activity levels. Pain meds helping patient mucho and allowing better quality of life.] Cramp in lower limb 6759 94537 R25.2 Drink quinine water as needed. 64710 Toney Lee MD Pulmonary Office [facility] [place],[address], [address] [employer], [employer] [address] 10/10/2020 09:24:16 10/10/2020 10:51:26 Chest wall pain 504081420 R07.89 Benefiting from pain meds. Uses walker. [...] of life.] Chronic ob structive pulmonary disease 29566752 J44.9 Using and benefiting from oxygen.FEV 1=1.96 LPS, 72% of predicted, predicted FEV1=2.72 LPS. Obstructiv e sleep apnea syndrome 22131872 G47.33 Uses CPAP with beneit. Cramp in lower limb 4499 81811 R25.2 Drink quinine water as needed. 861371 [facility],[address], [address] [employer] [address] 01/10/2021 10:17:08 01/10/2021 11:00:54 Chest wall pain 825650652 R07.89 Getting good benefit from pain meds. Able to have better level of activity and to do some layout mechanic and shop. No increased dose and no [...] of life.] Chronic ob structive pulmonary disease 47957397 J44.9 Using and benefiting from oxygen.FEV 1=1.96 LPS, 72% of predicted, predicted FEV1=2.72 LPS. Obstructiv e sleep apnea syndrome 75148302 G47.33 Uses CPAP with beneit. 277813 [facility],[address], [address] [employer] [address] 04/10/2021 08:05:51 04/10/2021 08:43:49 Chronic obstructive pulmonary disease 76302333 J44.9 Using and benefiting from oxygen.FEV 1=1.96 LPS, 72% of predicted, predicted FEV1=2.72 LPS. Chest wall pain 50472450 6 R07.89 Oxycodone is excellent for my pain. Decreasing pain and allowing him to move around better with his cane. Limited activity. Able to do chores and shop. Has significan t arthritic pain. [Getting good benefit from pain meds. Able to have better level of activity and to do some layout mechanic and shop. No increased dose and no [...] of life.] Obstructiv e sleep apnea syndrome 16807525 G47.33 Uses CPAP with beneit. 607839 [facility] Pulmonary Office [facility],[address], [address] [place] [address] 07/07/2021 08:14:00 07/07/2021 09:31:19 Chronic obstructive pulmonary disease 58001479 J44.9 Using and benefiting from oxygen.FEV 1=1.96 LPS, 72% of predicted, predicted FEV1=2.72 LPS. Chest wall pain 59249483 6 R07.89 Using and benefiting from pain [...] level of activity and to do some layout mechanic and shop. No increased dose and no [...] of life.] Obstructiv e sleep apnea syndrome 39519554 G47.33 Uses CPAP with beneit. Acute exac erbation of chronic obstructive pulmonary disease 066776640 J44.1 Benign pro static hyperplasia 114389561 N40.0 571321 jenaro heidi Pul[facility],[address], [address] [employer] [address] 07/25/2021 08:15:07 07/25/2021 08:56:31 Chronic obstructive pulmonary disease 99260756 J44.9 Significan t improvemen t over previous.Q uit smoking 17 years agoFEV1=2. 04 LPS, 78% of predicted, predicted FEV1=2.61 LPS, 06/20203128OMW8 =1.96 LPS, 72% of predicted, predicted FEV1=2.72 LPS, 525573 Kendy Ontiveroslowe Pulmonary Office [facility] [employer],[address], [address] [employer] [address] 10/12/2021 08:16:06 10/12/2021 09:00:54 Chest wall pain 596271355 R07.89 Pain meds help a lot. Taking [...] level of activity and to do some layout mechanic and shop. No increased dose and no [...] of life.] Obstructiv e sleep apnea syndrome 51736839 G47.33 Uses CPAP with beneit. Benign pro static hyperplasia 679462083 N40.0 793479 Toney Lee MD Pulmonary Office [facility],[address], [address] [place] [address] 01/08/2022 07:58:29 01/08/2022 08:41:34 Chest wall pain 094028605 R07.89 Taking stable dose. No side effects. [...] level of activity and to do some layout mechanic and shop. No increased dose and no [...] mucho and allowing better quality of life.] 196846 Shelby Zaman Pulmonary Office [facility] [place],[address], [address] [place] [address] 04/03/2022 07:55:12 04/03/2022 09:05:39 Chest wall pain 852745457 R07.89 Taking stable dose. No side effects. [...] level of activity and to do some layout mechanic and shop. No increased dose and no [...] of life.] Chronic ob structive pulmonary disease 14161578 J44.9 073006 Shelby Zaman Pulmonary Office [facility],[address], [address] [place] [address] 07/06/2022 07:55:10 07/09/2022 08:35:37 Chest wall pain 040362774 R07.89 Taking stable dose. No side effects. [...] level of activity and to do some layout mechanic and shop. No increased dose and no [...] of life.] Chronic ob structive pulmonary disease 78829015 J44.9 064301 Shelby White Pulmonary Office [facility] [address], [address] [place] [address] 10/05/2022 07:53:51 10/07/2022 20:51:58 Chronic obstructive pulmonary disease 50851954 J44.9 Lumbar spondylosis 98123 0009 M47.896 Taking stable dose. No side effects. Uses walker to ambulate and can walk more easily.Marquita armas reviewed. [Pain meds help a lot. Taking [...] level of activity and to do some layout mechanic and shop. No increased dose and no [...] mucho and allowing better quality of life.] 536900 Toney Lee MD Pulmonary Office [place] [facility],[address], [address] [place] [address] 11/10/2022 07:53:59 11/11/2022 08:49:02 Chest wall pain 686079634 R07.89 Taking stable dose. No side effects. [...] level of activity and to do some layout mechanic and shop. No increased dose and no [...] of life.] Chronic ob structive pulmonary disease 93308077 J44.9 Significan t improvemen t over previous.Q uit smoking 17 years agoFEV1=2. 04 LPS, 78% of predicted, predicted FEV1=2.61 LPS, 06/20205738GJL0 =1.96 LPS, 72% of predicted, predicted FEV1=2.72 LPS, Acute uppe r respiratory infection 74269268 J06.9 557137 Toney Lee MD Pulmonary Office [place] [facility],[address], [address] [place] [address] 02/09/2023 08:08:35 02/09/2023 16:49:31 Chest wall pain 320139911 R07.89 Using and benefiting from pain meds. [...] level of activity and to do some layout mechanic and shop. No increased dose and no [...] [employer] (MEDICARE REPLACEMENT HMO) Costa Waters [id number] Costa Waters 07/06/2022 1 [employer] (MEDICARE REPLACEMENT HMO) Costa Waters [id number] Costa Waters 10/05/2022 1 [employer] (MEDICARE REPLACEMENT HMO) Costa Waters [id number] Costa Waters 11/10/2022 1 [employer] (MEDICARE REPLACEMENT HMO) Costa Smitho [id number] Costa Waters 02/09/2023 1 [employer] (MEDICARE REPLACEMENT HMO) Costa Waters [id number] [employer] Waters Notes Date Note Type Note Provider Name and Address Organization Details Recorded Time 10/05/2022 text/html This is a 72 yea r old male with a history of COPD and Lumbar spondylosis. He presents for a medication refill. Office member Aurelio Melgar assisted as hog stomach preparer. And the only thing that helps him is his oxycodone. He admits to chest pain and denies back pain.Patient irritable and angry when asked about his pain he states he gets 3 months , and wants his prescriptions. In Swedish, hog stomach preparer asked if patient had tried other modalities for pain, including but not limited to ice and heat, and anti-inflammatori es. Patient very angry, raised voice, declines any anti-inflammatori es, and states he just wants his dora meses of pain meds. Shelby [facility] 10/07/2022 20:51:56 02/09/2023 text/html oxy refill apr 12 Toney Lee MD [address],[facility]. 1, [place], [address], [facility] 02/09/2023 08:34:34
--- OUTSIDE RECORDS SUMMARY | 2024-07-20 18:14 | XMS_ITS ---
Author Name Shaenmo ORESTES, RN, RD, Noelle Address [address] [place] [address] Phone [phone] [facility] [employer] [facility] Care Team Providers Care Civil Engineering Project Manager Name Role Phone Noelle Meeks Unavailable [phone] [facility] Unavailable Reason for Referral Not Available Allergies, [...] 2024-02-24 No Data Available OneTouch Delica Plus [id number] Miscellaneous USE SEG N LO INDICADO TO [...] 1111F, BP, A1c or other CPTII codes [facility], ([place]) 07/04/2024 Encounter for other specifie d aftercare Social History Sex Male History of Procedures Procedures Service Procedure code Service date Servicing provider Phone# RN, CN or CP time with patient by phone; use with 1111F, BP, A1c or other CPTII codes 74954 2024-07-04 No Data Available No Data Avai lable Functional Status No Information Mental Status No Information Assessments Not Available Plan of Care Not Available
--- OUTSIDE RECORDS SUMMARY | 2024-07-20 18:14 | XMS_ITS ---
Author Organization [facility] Address [address] [place] [address] Care Team Providers Care Teacher Preschool Name Role Phone Julián Crowe Unavailable REASON FOR VISIT 1 month f/u Encounters Encounter Location Date Provider Diagnosis [facility] [address] [place] [address] 04/04/2023 Julián Bhat Plan Of Treatment No Information Progress Notes * Costa JONESDOB:12/1949 (74 yo M)Acc No.[id number]:04/04/2023 Progress Notes Patient:?Allan JONES Provider:?Julián Bhat MD :1950???Age:73 Y???Sex:Male Win e:04/04/2023 Address:[address] [place], [place] [address] Subjective: * Chief Complaints: * ???1. 1 month f/u. * Medical History:? Objective: * Vitals:? Assessment: Plan: * Treatment: * Billing Information: * Visit Code:? * Procedure Codes:? * Electronic signature of Peyman Bhat MD on 07/20/2024 at 06:14 PM EDT Sign off status: Pending * Provider:?Julián Bhat MD Date: ?04/04/2023 Generated for Editai ng/Faxing/eTransmitting on:?07/20/2024 06:14 PM EDT
== END 2024-07-20 15:52 | disposition home or self-care (01) ==
LOC: HO.HPS 15:19
PROVIDERS: PCP Nurse Practitioner Family; Visit Provider Hospitalist
DX: R91.1 Solitary pulmonary nodule (principal); J96.11 Chronic respiratory failure with hypoxia; Z99.81 Dependence on supplemental oxygen; J43.2 Centrilobular emphysema; Z87.891 Personal history of nicotine dependence; G89.12 Acute post-thoracotomy pain; J18.9 Pneumonia, unspecified organism; J44.89 Other specified chronic obstructive pulmonary disease
CPT/HCPCS: 99214; G2211

== ENCOUNTER → 2024-07-20 15:18 | Outpatient (BNVA) | payer OTHER, SELFPAY | PROVIDERS: PCP Nurse Practitioner Family; Visit Provider Hospitalist | DX: J44.89 Other specified chronic obstructive pulmonary disease (principal); J96.11 Chronic respiratory failure with hypoxia; J18.9 Pneumonia, unspecified organism; J43.2 Centrilobular emphysema; R91.1 Solitary pulmonary nodule; Z99.81 Dependence on supplemental oxygen; Z87.891 Personal history of nicotine dependence | CPT/HCPCS: 99212 ==

== ENCOUNTER 2024-07-28 11:30 | Outpatient (REF) | payer OTHER, SELFPAY ==
--- NOTE | ~2024-07-28 | XR_ITS ---
EXAMINATION: XR LUMBOSACRAL SPINE CLINICAL INFORMATION: M54.50 - Low back pain, unspecified COMPARISON: None available. TECHNIQUE: Three views of the lumbosacral spine. FINDINGS: Mild endplate sclerosis at L4-5 and L5-S1 levels. Facet joint hypertrophy at L5-S1. No acute cortical disruption. No gross malalignment. No lytic or blastic lesions. Sclerosis and subchondral cyst formation in both femoral heads. Calcified plaques, vascular. XR/XR lumbar spine 2-3V IMPRESSION: Spondylosis L5-S1 and to a lesser extent L4-5. Atherosclerosis disease, abdominal aorta and iliac arteries. 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 Electronically signed by: Solomon Nino MD 07/29/2024 08:42 AM EDT
--- NOTE | ~2024-07-28 | US_ITS ---
EXAMINATION: US ABDOMEN HISTORY: ? Hepatosplenomegaly TECHNIQUE: Real-time grayscale ultrasound imaging of the abdomen was performed and images were reviewed. COMPARISON: There are no prior studies for comparison. FINDINGS: Liver: The right lobe of the liver measures 16.7 cm in size. The left lobe of the liver measures 10.5 cm in size. The liver demonstrates increased echotexture, consistent with steatosis. No focal mass or intrahepatic biliary ductal dilatation is identified. There is a calcification in the right lobe. Gallbladder and biliary tree: The gallbladder is unremarkable, without evidence of calculi, wall thickening, or pericholecystic fluid. There is no sonographic Farias sign. The common bile duct is normal in caliber measuring 3 mm. Kidneys: The right kidney measures 9.3 cm in length. The left kidney measures 10.3 cm in length. The kidneys are unremarkable, without evidence of masses, hydronephrosis, or calculi. Pancreas: The pancreatic head, neck, and body are unremarkable. The pancreatic tail is obscured by bowel gas. Spleen: The spleen is normal in size and contour, measuring 10.0 cm in length. There are multiple punctate echogenic foci within the spleen consistent with calcifications. Abdominal aorta and inferior vena cava: The visualized portions of the abdominal aorta and inferior vena cava are normal in caliber. There is no free fluid in the abdomen. US/US abdomen complete IMPRESSION: 1. Hepatomegaly and hepatic steatosis. 2. Hepatic and splenic calcifications, consistent with old granulomatous disease. Electronically signed by: Ap Mathis MD 07/28/2024 01:40 PM EDT
--- NOTE | ~2024-07-28 | XR_ITS ---
EXAMINATION: XR THORACIC SPINE CLINICAL INFORMATION: M54.6 - Pain in thoracic spine COMPARISON: None available. TECHNIQUE: 3 views of the thoracic spine were obtained. FINDINGS: Multilevel marginal osteophyte formation and endplate sclerosis and decreased intervertebral disc height. Chondrocalcinosis within the intervertebral disc of the mid thoracic spine. No acute cortical disruption. No gross malalignment. Mild S-shaped curvature of the thoracic spine. Osteopenia versus osteoporosis. Calcified plaque thoracic aortic arch. Pulmonary reticular pattern. Bilateral apical lung scarring. XR/XR thoracic spine 2V IMPRESSION: Multilevel thoracic spondylosis. Consider chronic interstitial lung disease. Electronically signed by: Solomon Nino MD 07/29/2024 08:43 AM EDT
--- OUTSIDE RECORDS SUMMARY | 2024-07-28 13:59 | XMS_ITS | Patient Health Record ---
Author Organization [facility] Address [address] [place] [address] Care Team Providers Care Fork Truck Operator Name Role Phone Julián Crowe Unavailable [...] Severe recurrent major depression without psychotic features (56355295) Major depressive disorder, recurrent severe without psychotic features (F33.2) Active confirmed Problem Persistent insomnia (122902685) Primary insomnia (F51.01) Active confirmed Plan Of Treatment No Information Insurance Providers Payer Name Payer Address Payer Phone Subscriber Number Group Number Insured Name Patient Relationship to Insured Coverage Start Date Coverage End Date [employer] [address] [address] [place] [address] [phone] [id number] Cornelius Costa Waters Self - patient is the insured Medical (General) History Medical History History ICD Code no medical history Surgical History Surgery Date(Month/Year) intestine 09/2002
--- OUTSIDE RECORDS SUMMARY | 2024-07-28 13:59 | XMS_ITS ---
Author Organization [facility] Address [address] [place] [address] Care Team Providers Care Education Nurse Name Role Phone Julián Crowe Unavailable Migration, Provider Unavailable Unavailable Allergies Allergen (clinical drug ingredient) Drug/Non Drug Allergy documented on EMR Reaction Allergy Type Onset Date Status morphine Morphine stomach upset Drug Allergy Act stacy REASON FOR VISIT EMR-David Encounters Encounter Location Date Provider Diagnosis [facility] [address] [place] [address] 06/02/2023 Provider Migration Plan Of Treatment No Information Progress Notes * Costa JONESDOB:12/1949 (74 yo M)Acc No.[id number]:06/02/2023 Patient:?Allan JONES :1950???Age:73 Y???Sex:Male Address:[address] [place] [address] Subjective: * Chief Complaints: * ???EMR-David * Medical History:? * Surgical History:? * Hospitalization/Major Diagno stic Procedure:? * Medications:? * Allergies:?Morphine: stomach upset - Allergy Objective: * Vitals:? * Physical Examination:? Assessment: Plan: * Treatment: * Procedure Codes:? * * Date:?
--- OUTSIDE RECORDS SUMMARY | 2024-07-28 13:59 | XMS_ITS | Patient Health Record ---
Author Organization [facility] Address [address] [address] Care Team Providers Care Catapult And Arresting Gear Officer Name Role Phone Migration, Provider Unavailable Unavailable Reason For Referral No Information Encounters Encounter Location Date Provider Diagnosis [facility] [address] [address] 11/30/2023 Provider Migration [facility] [address] [address] 12/01/2023 Provider Migration Plan Of Treatment No Information
--- OUTSIDE RECORDS SUMMARY | 2024-07-28 13:59 | XMS_ITS | Clinical Summary ---
Author Organization [employer] Address [address] [facility] [address] [place] [address] Care Team Providers Care African History Professor Name Role Phone Unavailable Primary Care Provider [...] Vaccines (1 of 2) 2001 COVID-19 Vaccine (2023-2 5 season) 2023 Influenza Vaccine (#1) 2023 [...] patient's age to complete this topic Insurance [facility] STANDARD
--- OUTSIDE RECORDS SUMMARY | 2024-07-28 13:59 | XMS_ITS | Data Portability ---
Author Organization [facility], [facility] Address [address] [place] [address] Assessment No assessment recorded. Plan of Treatment [...] By Organization Details Last Modified Time 06/08/2015 86543 gastroesophageal reflux disease (GERD): care instructions [email or web address] 1 Not available 06/08/2015 11:17:14 abdominal pain: [...] Details Recorded Time Left lower quadrant pain 168040611 Active Brittani Abrams-L betsy null, [facility] 6 11:17:14 Gastroesophage al reflux disease 514780603 Active Brittani Abrams-L betsy null, [facility] 6 11:17:14 Problem Notes None recorded. Procedures Surgical History Date Name Laterality Status Provider Name and Address Organization Details Recorded Time 5 EGD completed Brittani Mckeon [facility] 06/08/2015 11:04:40 0 Abdominal Surgery completed Brittani Mckeon [facility] 06/08/2015 11:04:40 Imaging Results [...] Details Last Updated DateTime 6 28.2 kg/m2 28411.6 6475 g 98.7 [degF] 167.64 cm 77 /min 131 mm[Hg] 76 mm[Hg] [facility] 6 10:49:24 Social History Question Answer Notes LastModified by Organizat ion Details LastModified Time Tobacco Smoking Status Former Smoker Not Available [facility] 02/23/2020 03:16:34 What Is Your Level Of Alcohol Consumption? Heavy [id number] Information not available 02/23/2020 What Is Your Level Of Caffeine Consumption? Heavy 3 Cups A Day 8 Oz [id number] Information not available 02/23/2020 Which Illicit Or Recreational Drugs Have You Used? Everything Quit 10 Years Ago [id number] Information not available 02/23/2020 Marital Status Single Informatio n not available 06/08/2015 At What Age Did You Start Smoking Tobacco? 16 [id number] Information not available 02/23/2020 How Much Tobacco Do You Smoke? 3+ PPD Quit 5 Years Ago [id number] Information not available 02/23/2020 Sex: Unknown Functional [...] SNOMED-CT Code Diagnosis ICD10 Code Diagnosis Note 99539 Brittani roca [facility] [address] [address] 06/08/2015 09:43:48 06/08/2015 11:16:19 Left lower quadrant pain 033223273 R10.32 Gastroesop hageal reflux disease 743403761 K21.9 Resolved w PPI. Already had EGD by Dr Liu. Health Concerns Section Related Observation LastModified by Organization Detai ls LastModified Time None Recorded Concern Status LastModified by Organization Details LastModified Time None Recorded Advance Directives Directive None Recorded Payers Encounter Date Sequence Insurance Name Policy Number Policy [employer] Covered Member ID [employer] Member ID Guarantor Name 06/08/2015 [address] [facility] (MEDICAID HMO) Costa Waters [id number] Costa Waters Notes Date Note Type Note [...]
--- OUTSIDE RECORDS SUMMARY | 2024-07-28 14:00 | XMS_ITS ---
Author Organization [facility] Address [address] [place] [address] Care Team Providers Care Measurer Machine Name Role Phone [facility] Julián Unavailable Migration, Provider Unavailable Unavailable REASON FOR VISIT EMR-David Encounters Encounter Location Date Provider Diagnosis [facility] [address] [place] [address] 06/01/2023 Provider Migration Plan Of Treatment No Information Progress Notes * PERLA FRAIREOCostaDOB:12/1949 (74 yo M)Acc No.[id number]:06/01/2023 Patient:?Allan JONES :1950???Age:73 Y???Sex:Male Address:[address] [place] [address] Subjective: * Chief Complaints: * ???EMR-David * Medical History:? * Surgical History:? * Hospitalization/Major Diagno stic Procedure:? * Medications:? Objective: * Vitals:? * Physical Examination:? Assessment: Plan: * Treatment: * Procedure Codes:? * * Date:?
--- OUTSIDE RECORDS SUMMARY | 2024-07-28 14:00 | XMS_ITS ---
Author Name Shanemo ORESTES, RN, RD, [place] Address [address] [place] [address] Phone [phone] [facility] Care Team Providers Care Adoption Specialist Name Role Phone Noelle Meeks Unavailable [phone] [facility] Unavailable Reason for Referral Not Available Allergies, [...] 2024-02-24 No Data Available OneTouch Delica Plus [id number] Miscellaneous USE SEG N LO INDICADO TO [...] or other CPTII codes [facility], ([place]) 07/04/2024 Encounter for other specifie d aftercare Social History Sex Male History of Procedures Procedures Service Procedure code Service date Servicing provider Phone# RN, CN or CP time with patient by phone; use with 1111F, BP, A1c or other CPTII codes 64140 2024-07-04 No Data Available No Data Avai lable Functional Status No Information Mental Status No Information Assessments Not Available Plan of Care Not Available
--- OUTSIDE RECORDS SUMMARY | 2024-07-28 14:00 | XMS_ITS ---
Author Organization [facility] Address [address] [place] [address] Care Team Providers Care Bush And Vine Farmer Fruit Crops Name Role Phone Migration, Provider Unavailable Unavailable REASON FOR VISIT EMR-David Encounters Encounter Location Date Provider Diagnosis [address] [address] 12/01/2023 Provider Migration Plan Of Treatment No Information Progress Notes * Costa IRIZARRYDOB:12/1949 (74 yo M)Acc No.[id number]:12/01/2023 Patient:?Allan IRIZARRY :1950???Age:73 Y???Sex:Male Address:[address] [address] Subjective: * Chief Complaints: * ???EMR-David * Medical History:? * Surgical History:? * Hospitalization/Major Diagno stic Procedure:? * Medications:? Objective: * Vitals:? * Physical Examination:? Assessment: Plan: * Treatment: * Procedure Codes:? * * Date:?
--- OUTSIDE RECORDS SUMMARY | 2024-07-28 14:00 | XMS_ITS ---
Author Organization [facility] Address [address] [place] [address] Care Team Providers Care Hatchery Worker Name Role Phone Julián Crowe Unavailable REASON FOR VISIT 1 month f/u Encounters Encounter Location Date Provider Diagnosis [facility] [address] [place] [address] 04/04/2023 Julián Bhat Plan Of Treatment No Information Progress Notes * Costa JONESDOB:12/1949 (74 yo M)Acc No.[id number]:04/04/2023 Progress Notes Patient:?Allan JONES Provider:?Julián Bhat MD :1950???Age:73 Y???Sex:Male Win e:04/04/2023 Address:[address] [place], [place] [address] Subjective: * Chief Complaints: * ???1. 1 month f/u. * Medical History:? Objective: * Vitals:? Assessment: Plan: * Treatment: * Billing Information: * Visit Code:? * Procedure Codes:? * Electronic signature of Peyman Bhat MD on 07/28/2024 at 02:00 PM EDT Sign off status: Pending * Provider:?Julián Bhat MD Date: ?04/04/2023 Generated for Editai ng/Fanazaning/eTransmitting on:?07/28/2024 02:00 PM EDT
--- OUTSIDE RECORDS SUMMARY | 2024-07-28 14:00 | XMS_ITS ---
Author Organization [facility] Address [address] [place] [address] Care Team Providers Care Outbound Sales Consultant Name Role Phone Migration, Provider Unavailable Unavailable REASON FOR VISIT EMR-David Encounters Encounter Location Date Provider Diagnosis [address] [address] 11/30/2023 Provider Migration Plan Of Treatment No Information Progress Notes * Costa IRIZARRYDOB:12/1949 (74 yo M)Acc No.[id number]:11/30/2023 Patient:?Allan IRIZARRY :1950???Age:73 Y???Sex:Male Address:[address] [address] Subjective: * Chief Complaints: * ???EMR-David * Medical History:? * Surgical History:? * Hospitalization/Major Diagno stic Procedure:? * Medications:? Objective: * Vitals:? * Physical Examination:? Assessment: Plan: * Treatment: * Procedure Codes:? * * Date:?
== END 2024-07-28 11:31 | disposition home or self-care (01) ==
LOC: HO.US 11:30
PROVIDERS: PCP Physician Assistant Medical; Visit Provider Internal Medicine
DX: D69.6 Thrombocytopenia, unspecified (principal); M54.6 Pain in thoracic spine; M54.50 Low back pain, unspecified
CPT/HCPCS: 72070; 72100; 76700

== ENCOUNTER → 2024-07-28 11:36 | Outpatient (BNV) | payer OTHER, SELFPAY | PROVIDERS: PCP Physician Assistant Medical; Visit Provider Radiology Diagnostic Radiology | DX: M47.896 Other spondylosis, lumbar region (principal); M47.894 Other spondylosis, thoracic region | CPT/HCPCS: 72070; 72100 ==

== ENCOUNTER 2024-08-07 14:02 | Outpatient (REF) | payer OTHER, SELFPAY ==
--- NOTE | ~2024-08-07 | XR_ITS ---
EXAMINATION: XR BILATERAL HIPS WITH AP PELVIS CLINICAL INFORMATION: M25.551 - Pain in right hip COMPARISON: None available. TECHNIQUE: AP view of the pelvis and 2 views of each hip were obtained. FINDINGS: No fracture, dislocation, or suspicious bone lesion. Normal alignment. There is AVN of both femoral heads without subchondral collapse or irregularity. Joint spaces appear preserved. There is mild osteophytic lipping of the acetabula. There is normal acetabular coverage. There are mild degenerative changes in both SI joints. The sacrum appears intact. No soft tissue abnormalities. Surgical jaswinder project over the right iliac crest. XR/XR hip BI w PEL1V IMPRESSION: 1. AVN of both femoral heads without subchondral collapse. 2. Minimal degenerative arthritis in both hip joints. Electronically signed by: Taiwo Casillas MD 08/07/2024 02:47 PM EDT
--- OUTSIDE RECORDS SUMMARY | 2024-08-07 14:26 | XMS_ITS | Patient Health Record ---
Author Organization [facility] Address [address] [place] [address] Care Team Providers Care Data Collection Specialist Name Role Phone Julián Crowe Unavailable Allergies [...] Severe recurrent major depression without psychotic features (32353807) Major depressive disorder, recurrent severe without psychotic features (F33.2) Active confirmed Problem Persistent insomnia (171134004) Primary insomnia (F51.01) Active confirmed Plan Of Treatment No Information Insurance Providers Payer Name Payer Address Payer Phone Subscriber Number Group Number Insured Name Patient Relationship to Insured Coverage Start Date Coverage End Date [employer] [address] [address] [place] [address] [phone] [id number] Cornelius Cosat Waters Self - patient is the insured Medical (General) History Medical History History ICD Code no medical history Surgical History Surgery Date(Month/Year) intestine 09/2002
--- OUTSIDE RECORDS SUMMARY | 2024-08-07 14:26 | XMS_ITS | Clinical Summary ---
Author Organization [employer] Address [address] [facility] [address] [place] [address] Care Team Providers Care Silver Lap Machine Tender Name Role Phone Unavailable Primary [...] patient's age to complete this topic Insurance [facility] STANDARD
--- OUTSIDE RECORDS SUMMARY | 2024-08-07 14:26 | XMS_ITS ---
Author Organization [facility] Address [address] [place] [address] Care Team Providers Care Cycle Liaison Name Role Phone Jayden BhatJulián Unavailable Migration, Provider Unavailable Unavailable REASON FOR VISIT EMR-David Encounters Encounter Location Date Provider Diagnosis [facility] [address] [place] [address] 06/01/2023 Provider Migration Plan Of Treatment No Information Progress Notes * PERLA FRAIREOCostaDOB:12/1949 (74 yo M)Acc No.[id number]:06/01/2023 Patient:?Allan JONES :1950???Age:73 Y???Sex:Male Address:[address] [place] [address] Subjective: * Chief Complaints: * ???EMR-David * Medical History:? * Surgical History:? * Hospitalization/Major Diagno stic Procedure:? * Medications:? Objective: * Vitals:? * Physical Examination:? Assessment: Plan: * Treatment: * Procedure Codes:? * * Date:?
--- OUTSIDE RECORDS SUMMARY | 2024-08-07 14:26 | XMS_ITS ---
Author Name Shanemo ORESTES, RN, RD, Noelle Address [address] [place] [address] Phone [phone] [facility] Care Team Providers Care Space Buyer Name Role Phone Noelle Meeks Unavailable [phone] [facility] Unavailable Reason for Referral Not Available Allergies, [...] 2024-02-24 No Data Available OneTouch Delica Plus [id number] Miscellaneous USE SEG N LO INDICADO TO [...] 1111F, BP, A1c or other CPTII codes [facility] [place] 07/04/2024 Encounter for other specifie d aftercare Unlisted special service; to be used for medical record reviews and reporting CPTII codes (1111F, etc) [facility] [place] 07/28/2024 Encounter for other specifie d aftercare Unlisted special service; to be used for medical record reviews and reporting CPTII codes (1111F, etc) [facility] [place] 07/28/2024 Social History Sex Male History of Procedures Procedures Service Procedure code Service date Servicing provider Phone# RN, CN or CP time with patient by phone; use with 1111F, BP, A1c or other CPTII codes 85725 2024-07-04 No Data Available No Data Avai lable Unlisted special service; to be used for medical record reviews and reporting CPTII codes (1111F, etc) 56071 2024-07-28 No Data Available No Data Availa ble Medications prescribed in hospital were reviewed and reconciled against what they were taking prior to admission during today's visit. (1111F) 1111F 2024-07-28 No Data Available No Data Availa ble Functional Status No Information Mental Status No Information Assessments Not Available Plan of Care Not Available
--- OUTSIDE RECORDS SUMMARY | 2024-08-07 14:26 | XMS_ITS ---
Author Organization [facility] Address [address] [place] [address] Care Team Providers Care Bag Grader Name Role Phone Julián Crowe Unavailable Migration, Provider Unavailable Unavailable Allergies Allergen (clinical drug ingredient) Drug/Non Drug Allergy documented on EMR Reaction Allergy Type Onset Date Status morphine Morphine stomach upset Drug Allergy Act stacy REASON FOR VISIT EMR-David Encounters Encounter Location Date Provider Diagnosis [facility] [address] [place] [address] 06/02/2023 Provider Migration Plan Of Treatment No Information Progress Notes * Costa JONESDOB:12/1949 (74 yo M)Acc No.[id number]:06/02/2023 Patient:?Allan JONES :1950???Age:73 Y???Sex:Male Address:[address] [place] [address] Subjective: * Chief Complaints: * ???EMR-David * Medical History:? * Surgical History:? * Hospitalization/Major Diagno stic Procedure:? * Medications:? * Allergies:?Morphine: stomach upset - Allergy Objective: * Vitals:? * Physical Examination:? Assessment: Plan: * Treatment: * Procedure Codes:? * * Date:?
--- OUTSIDE RECORDS SUMMARY | 2024-08-07 14:26 | XMS_ITS | Data Portability ---
Author Organization [facility], [facility] Address [address] [place] [address] Assessment No assessment recorded. Plan of Treatment Reminders Order Date Submit Date Provider Last Modified By Organization Details Last Modified Time Details Appointments None recorded. Lab None recorded. Referral None recorded. Procedures colonoscopy procedure (PROC) 2015 016 [email or web address] Not available 6 11:17:14 Surgeries None recorded. Imaging None recorded. Medication Orders None recorded. Patient TargetsNo targets recorded. Patient Instructions Encounter Date Encounter Id Patient Instructions Last Modified By Organization Details Last Modified Time 06/08/2015 [id number] gastroesophageal reflux disease (GERD): care instructions [email or web address] [...] Details Recorded Time Left lower quadrant pain 696004194 Active Brittani Abrams-L betsy null, [facility] 6 11:17:14 Gastroesophage al reflux disease 908104034 Active Brittani Abrams-L betsy null, [facility] 6 11:17:14 Problem Notes None recorded. Procedures Surgical History Date Name Laterality Status Provider Name and Address Organization Details Recorded Time 5 EGD completed Brittani Mckeon [facility] 06/08/2015 11:04:40 0 Abdominal Surgery completed Brittani Mckeon [facility] 06/08/2015 11:04:40 Imaging [...] Details Last Updated DateTime 6 28.2 kg/m2 35828.6 6475 g 98.7 [degF] 167.64 cm 77 /min 131 mm[Hg] 76 mm[Hg] [facility] 6 10:49:24 Social History Question Answer Notes LastModified by Organizat ion Details LastModified Time Tobacco Smoking Status Former Smoker Not Available [facility] 02/23/2020 03:16:34 What Is Your Level Of Alcohol Consumption? Heavy [id number] Information not available 02/23/2020 What Is Your Level Of Caffeine Consumption? Heavy 3 Cups A Day 8 Oz [id number] Information not available 02/23/2020 Which Illicit Or Recreational Drugs Have You Used? Everything Quit 10 Years Ago [id number] Information not available 02/23/2020 Marital Status Single Informatio n not available 06/08/2015 At What Age Did You Start Smoking Tobacco? 16 [id number] Information not available 02/23/2020 How Much Tobacco Do You Smoke? 3+ PPD Quit 5 Years Ago [id number] Information not available 02/23/2020 Sex: Unknown Functional [...] SNOMED-CT Code Diagnosis ICD10 Code Diagnosis Note 39520 Brittani roca [facility] Office [address] [address] 06/08/2015 09:43:48 06/08/2015 11:16:19 Left lower quadrant pain 385847254 R10.32 Gastroesop hageal reflux disease 341193346 K21.9 Resolved w PPI. Already had EGD by Dr Liu. Health Concerns Section Related Observation LastModified by Organization Detai ls LastModified Time None Recorded Concern Status LastModified by Organization Details LastModified Time None Recorded Advance Directives Directive None Recorded Payers Encounter Date Sequence Insurance Name Policy Number Policy [employer] Covered Member ID [employer] Member ID Guarantor Name 06/08/2015 1 [facility] (MEDICAID HMO) Costa Waters [id number] Costa Waters Notes Date Note Type Note [...]
--- OUTSIDE RECORDS SUMMARY | 2024-08-07 14:26 | XMS_ITS | Patient Health Record ---
Author Organization [facility] Address [address] [address] Care Team Providers Care Director Athletic Name Role Phone Migration, Provider Unavailable Unavailable Reason For Referral No Information Encounters Encounter Location Date Provider Diagnosis [facility] [address] [address] 11/30/2023 Provider Migration [facility] [address] [address] 12/01/2023 Provider Migration Plan Of Treatment No Information
--- OUTSIDE RECORDS SUMMARY | 2024-08-07 14:27 | XMS_ITS ---
Author Organization [facility] Address [address] [place] [address] Care Team Providers Care Mobile Qa Tester Name Role Phone Migration, Provider Unavailable Unavailable REASON FOR VISIT EMR-David Encounters Encounter Location Date Provider Diagnosis [address] [address] 11/30/2023 Provider Migration Plan Of Treatment No Information Progress Notes * Costa IRIZARRYDOB:12/1949 (74 yo M)Acc No.[id number]:11/30/2023 Patient:?Allan IRIZARRY :1950???Age:73 Y???Sex:Male Address[address] [address] Subjective: * Chief Complaints: * ???EMR-David * Medical History:? * Surgical History:? * Hospitalization/Major Diagno stic Procedure:? * Medications:? Objective: * Vitals:? * Physical Examination:? Assessment: Plan: * Treatment: * Procedure Codes:? * * Date:?
--- OUTSIDE RECORDS SUMMARY | 2024-08-07 14:27 | XMS_ITS ---
Author Organization [facility] Address [address] [place] [address] Care Team Providers Care Rag Inspector Name Role Phone Julián Crowe Unavailable REASON FOR VISIT 1 month f/u Encounters Encounter Location Date Provider Diagnosis [facility] [address] [place] [address] 04/04/2023 Julián Bhat Plan Of Treatment No Information Progress Notes * Costa JONESDOB:12/1949 (74 yo M)Acc No.[id number]:04/04/2023 Progress Notes Patient:?Allan JONES Provider:?Julián Bhat MD :1950???Age:73 Y???Sex:Male Win e:04/04/2023 Address:[address] [place], [place] [address] Subjective: * Chief Complaints: * ???1. 1 month f/u. * Medical History:? Objective: * Vitals:? Assessment: Plan: * Treatment: * Billing Information: * Visit Code:? * Procedure Codes:? * Electronic signature of Peyman Bhat MD on 08/07/2024 at 02:27 PM EDT Sign off status: Pending * Provider:?Julián Bhat MD Date: ?04/04/2023 Generated for Editai ng/Fanazaning/eTransmitting on:?08/07/2024 02:27 PM EDT
--- OUTSIDE RECORDS SUMMARY | 2024-08-07 14:27 | XMS_ITS ---
Author Organization [facility] Address [address] [place] [address] Care Team Providers Care Adobe Cq Developer Name Role Phone Migration, Provider Unavailable Unavailable REASON FOR VISIT EMR-David Encounters Encounter Location Date Provider Diagnosis [address] [address] 12/01/2023 Provider Migration Plan Of Treatment No Information Progress Notes * Costa IRIZARRYDOB:12/1949 (74 yo M)Acc No.[id number]:12/01/2023 Patient:?Allan IRIZARRY :1950???Age:73 Y???Sex:Male Address:[address] [address] Subjective: * Chief Complaints: * ???EMR-David * Medical History:? * Surgical History:? * Hospitalization/Major Diagno stic Procedure:? * Medications:? Objective: * Vitals:? * Physical Examination:? Assessment: Plan: * Treatment: * Procedure Codes:? * * Date:?
== END 2024-08-07 14:03 | disposition home or self-care (01) ==
LOC: HO.XRAY 14:02
PROVIDERS: PCP Physician Assistant Medical; Visit Provider Physician Assistant Medical
DX: M25.551 Pain in right hip (principal); M25.552 Pain in left hip
CPT/HCPCS: 73521

== ENCOUNTER → 2024-08-07 14:09 | Outpatient (BNV) | payer OTHER, SELFPAY | PROVIDERS: PCP Physician Assistant Medical; Visit Provider Radiology Diagnostic Radiology | DX: M87.051 Idiopathic aseptic necrosis of right femur (principal); M87.052 Idiopathic aseptic necrosis of left femur | CPT/HCPCS: 73521 ==

== ENCOUNTER 2024-08-13 13:52 | Outpatient (AMB) | payer OTHER, SELFPAY ==
--- NOTE | 2024-08-13 14:01 | MHC.OFFVIS ---
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 He has been having ongoing hip pain for about 6 months and was diagnosed with avascular necrosis recently. He complains of right hip more than left hip pain. [facility] Medical History (Updated 08/07/24 @ 14:55 by KANDIS Malhotra) Avascular necrosis of bones of both hips Bilateral hip pain Risk for falls Asthma-COPD overlap syndrome Hospital discharge follow-up History of pneumonia Dry skin Bipolar affective disorder Low platelet count Depression Diabetic neuropathy Abnormal CBC Fatty liver Post-thoracotomy pain syndrome Emphysema (subcutaneous) (surgical) resulting from a procedure Hernia COVID-19 Diabetes mellitus, type 2 Bronchitis Pneumonia Surgical History (Updated 06/09/24 @ 13:55 by Meagan Anthony MD) Tympanic tube insertion History of intestinal surgery Family History Mother Mental health disorder Brother Substance use disorder Social History Household Members: None Housing: Apartment Alcohol intake: never Patient Tobacco Use Status: Former Tobacco user Cigarette Packs Per Day: 1 Years Smoked: 40 e-Cigarette/Vaping Use: Never Used service: No Current occupational status: disabled Current occupational exposures/hazards: No Sexual orientation: Straight/Heterosexual Gender identity: Male Cognitive needs: No Hearing needs: No Vision needs: No Physical Exam Vital Signs: BMI result Body Mass Index 26.3 Extrem Other: Uses a walker to ambulate. Positive impingement test bilaterally. Results Reviewed Results Reviewed: I personally reviewed relevant radiographs. AVN without subchondral collapse bilaterally. Assessment & Plan Assessment & Plan (1) Avascular necrosis of bones of both hips: Code(s): M87.051 - Idiopathic aseptic necrosis of right femur; M87.052 - Idiopathic aseptic necrosis of left femur Category: Medical Plan: Symptomatic avascular necrosis bilateral femoral heads without collapse. He is not a surgical candidate. He himself describes surgery is not being option and so we discussed nonsurgical treatment options of which I recommend a referral to pain management. I discussed this with him. He has Coding Level of Care Code New Pt Level 3 (98463) Diagnoses Avascular necrosis of bones of both hips M87.051; M87.052
[2024-08-13 14:03] VITALS: BMI 26.3
--- OUTSIDE RECORDS SUMMARY | 2024-08-13 16:58 | XMS_ITS ---
Author Organization [facility] Address [address] [place] [address] Care Team Providers Care Force Adjustment Supervisor Name Role Phone Julián Crowe Unavailable Migration, Provider Unavailable Unavailable Allergies Allergen (clinical drug ingredient) Drug/Non Drug Allergy documented on EMR Reaction Allergy Type Onset Date Status morphine Morphine stomach upset Drug Allergy Act stacy REASON FOR VISIT EMR-David Encounters Encounter Location Date Provider Diagnosis [facility] [address] [place] [address] 06/02/2023 Provider Migration Plan Of Treatment No Information Progress Notes * Costa JONESDOB:12/1949 (74 yo M)Acc No.[id number]:06/02/2023 Patient:?Allan JONES :1950???Age:73 Y???Sex:Male Address:[address] [place] [address] Subjective: * Chief Complaints: * ???EMR-David * Medical History:? * Surgical History:? * Hospitalization/Major Diagno stic Procedure:? * Medications:? * Allergies:?Morphine: stomach upset - Allergy Objective: * Vitals:? * Physical Examination:? Assessment: Plan: * Treatment: * Procedure Codes:? * * Date:?
--- OUTSIDE RECORDS SUMMARY | 2024-08-13 16:58 | XMS_ITS | Clinical Summary ---
Author Organization [employer] Address [address] [facility] 7[address] [place] [address] Care Team Providers Care Associate Scientist Name Role Phone Unavailable Primary Care Provider [...] age to complete this topic Insurance [facility]
--- OUTSIDE RECORDS SUMMARY | 2024-08-13 16:58 | XMS_ITS | Data Portability ---
Author Organization [facility], [facility] Address [address] [place] [address] Assessment No assessment recorded. Plan of Treatment [...] By Organization Details Last Modified Time 06/08/2015 88123 gastroesophageal reflux disease (GERD): care instructions [email or web address] [...] Details Recorded Time Left lower quadrant pain 463528296 Active Brittani Abrams-L betsy null, [facility] 6 11:17:14 Gastroesophage al reflux disease 810770683 Active Brittani Abrams-L betsy null, [facility] 6 11:17:14 Problem Notes None recorded. Procedures Surgical History Date Name Laterality Status Provider Name and Address Organization Details Recorded Time 5 EGD completed Brittani Mckeon [facility] 06/08/2015 11:04:40 0 Abdominal Surgery completed Brittani Mckeon [facility] 06/08/2015 11:04:40 [...] Details Last Updated DateTime 6 28.2 kg/m2 48026.6 6475 g 98.7 [degF] 167.64 cm 77 /min 131 mm[Hg] 76 mm[Hg] [facility] 6 10:49:24 Social History Question Answer Notes LastModified by Organizat ion Details LastModified Time Tobacco Smoking Status Former Smoker Not Available [facility] 02/23/2020 03:16:34 What Is Your Level Of Alcohol Consumption? Heavy [id number] Information not available 02/23/2020 What Is Your Level Of Caffeine Consumption? Heavy 3 Cups A Day 8 Oz [id number] Information not available 02/23/2020 Which Illicit Or Recreational Drugs Have You Used? Everything Quit 10 Years Ago [id number] Information not available 02/23/2020 Marital Status Single Informatio n not available 06/08/2015 At What Age Did You Start Smoking Tobacco? 16 [id number] Information not available 02/23/2020 How Much Tobacco Do You Smoke? 3+ PPD Quit 5 Years Ago [id number] Information not available 02/23/2020 Sex: Unknown Functional Status None recorded. Mental Status None recorded. Family History Nothing Reported Notes:not aware of any cance rs or polyps in fx Medical History Condition Response Gout Y Acid reflux (GERD) Y COPD Y Pneumonia Y Diabetes Y Asthma Y Bronchitis Y Hypertension Y Past Encounters Encounter ID Performer Location Encounter Start Date Encounter Closed Date Diagnosis/Indication Diagnosis SNOMED-CT Code Diagnosis ICD10 Code Diagnosis Note [id number] Brittani roca [facility] Office [address] [address] 06/08/2015 09:43:48 06/08/2015 11:16:19 Left lower quadrant pain 227027488 R10.32 Gastroesop hageal reflux disease 765147335 K21.9 Resolved w PPI. Already had EGD by Dr Liu. Health Concerns Section Related Observation LastModified by Organization Detai ls LastModified Time None Recorded Concern Status LastModified by Organization Details LastModified Time None Recorded Advance Directives Directive None Recorded Payers Encounter Date Sequence Insurance Name Policy Number Policy [employer] Covered Member ID [employer] Member ID Guarantor Name 06/08/2015 1 [facility] (MEDICAID HMO) Costa Waters [id number] Costa Waters Notes Date Note Type Note [...]
--- OUTSIDE RECORDS SUMMARY | 2024-08-13 16:58 | XMS_ITS | Patient Health Record ---
Author Organization [facility] Address [address] [address] Care Team Providers Care Rat Exterminator Name Role Phone Migration, Provider Unavailable Unavailable Reason For Referral No Information Encounters Encounter Location Date Provider Diagnosis [facility] [address] [address] 11/30/2023 Provider Migration [facility] [address] [address] 12/01/2023 Provider Migration Plan Of Treatment No Information
--- OUTSIDE RECORDS SUMMARY | 2024-08-13 16:59 | XMS_ITS ---
Author Organization [facility] Address [address] [place] [address] Care Team Providers Care Unit Nurse Name Role Phone Jayden BhatJulián pretty Unavailable [phone] Migration, Provider Unavailable Unavailable REASON FOR VISIT EMR-David Encounters Encounter Location Date Provider Diagnosis [facility] [address] [place] [address] 06/01/2023 Provider Migration Plan Of Treatment No Information Progress Notes * PERLA FRAIREOCostaDOB:12/1949 (74 yo M)Acc No.[id number]:06/01/2023 Patient:?Allan IRIZARRY :1950???Age:73 Y???Sex:Male Address:[address] [place] [address] Subjective: * Chief Complaints: * ???EMR-David * Medical History:? * Surgical History:? * Hospitalization/Major Diagno stic Procedure:? * Medications:? Objective: * Vitals:? * Physical Examination:? Assessment: Plan: * Treatment: * Procedure Codes:? * * Date:?
--- OUTSIDE RECORDS SUMMARY | 2024-08-13 16:59 | XMS_ITS ---
Author Organization [facility] Address [address] [place] [address] Care Team Providers Care Brick Mason Name Role Phone Migration, Provider Unavailable Unavailable REASON FOR VISIT EMR-David Encounters Encounter Location Date Provider Diagnosis [address] [address] 12/01/2023 Provider Migration Plan Of Treatment No Information Progress Notes * Costa IRIZARRYDOB:12/1949 (74 yo M)Acc No.[id number]:12/01/2023 Patient:?Allan IRIZARRY :1950???Age:73 Y???Sex:Male Address[address] [address] Subjective: * Chief Complaints: * ???EMR-David * Medical History:? * Surgical History:? * Hospitalization/Major Diagno stic Procedure:? * Medications:? Objective: * Vitals:? * Physical Examination:? Assessment: Plan: * Treatment: * Procedure Codes:? * * Date:?
--- OUTSIDE RECORDS SUMMARY | 2024-08-13 16:59 | XMS_ITS ---
Author Organization [facility] Address [address] [place] [address] Care Team Providers Care Hydrogen Treater Name Role Phone Migration, Provider Unavailable Unavailable REASON FOR VISIT EMR-David Encounters Encounter Location Date Provider Diagnosis [address] [address] 11/30/2023 Provider Migration Plan Of Treatment No Information Progress Notes * Costa IRIZARRYDOB:12/1949 (74 yo M)Acc No.[id number]:11/30/2023 Patient:?Allan IRIZARRY :1950???Age:73 Y???Sex:Male Address:[address] [address] Subjective: * Chief Complaints: * ???EMR-David * Medical History:? * Surgical History:? * Hospitalization/Major Diagno stic Procedure:? * Medications:? Objective: * Vitals:? * Physical Examination:? Assessment: Plan: * Treatment: * Procedure Codes:? * * Date:?
--- OUTSIDE RECORDS SUMMARY | 2024-08-13 16:59 | XMS_ITS ---
Author Organization [facility] Address [address] [place] [address] Care Team Providers Care Machine Stamper Name Role Phone Julián Crowe Unavailable REASON FOR VISIT 1 month f/u Encounters Encounter Location Date Provider Diagnosis [facility] [address] [place] [address] 04/04/2023 Julián Bhat Plan Of Treatment No Information Progress Notes * Costa JONESDOB:12/1949 (74 yo M)Acc No.[id number]:04/04/2023 Progress Notes Patient:?Allan JONES Provider:?Julián Bhat MD :1950???Age:73 Y???Sex:Male Win e:04/04/2023 Address:[address] [place], [place] [address] Subjective: * Chief Complaints: * ???1. 1 month f/u. * Medical History:? Objective: * Vitals:? Assessment: Plan: * Treatment: * Billing Information: * Visit Code:? * Procedure Codes:? * Electronic signature of Peyman Bhat MD on 08/13/2024 at 04:59 PM EDT Sign off status: Pending * Provider:?Julián Bhat MD Date: ?04/04/2023 Generated for Editai ng/Fanazaning/eTransmitting on:?08/13/2024 04:59 PM EDT
--- OUTSIDE RECORDS SUMMARY | 2024-08-13 16:59 | XMS_ITS | Patient Health Record ---
Author Organization [facility] Address [address] [place] [address] Care Team Providers Care Truck Driver Helper Name Role Phone Julián Crowe Unavailable Allergies [...] Severe recurrent major depression without psychotic features (02170470) Major depressive disorder, recurrent severe without psychotic features (F33.2) Active confirmed Problem Persistent insomnia (007798520) Primary insomnia (F51.01) Active confirmed Plan Of Treatment No Information Insurance Providers Payer Name Payer Address Payer Phone Subscriber Number Group Number Insured Name Patient Relationship to Insured Coverage Start Date Coverage End Date [email or web address] [address] [address] [place] [address] [id number] Cornelius Costa Waters Self - patient is the insured Medical (General) History Medical History History ICD Code no medical history Surgical History Surgery Date(Month/Year) intestine 09/2002
--- OUTSIDE RECORDS SUMMARY | 2024-08-13 16:59 | XMS_ITS ---
Author Name Shanemo ORESTES, RN, RD, Noelle Address [address] [place] [address] Phone [phone] [facility] Care Team Providers Care Legal Word Processor Name Role Phone Noelle Meeks Unavailable [phone] [facility] Unavailable Reason for Referral Not Available Allergies, [...] 2024-02-24 No Data Available OneTouch Delica Plus Alcuom57Y Miscellaneous USE SEG N LO INDICADO TO [...] 1111F, BP, A1c or other CPTII codes [facility] [place] 07/04/2024 Encounter for other specifie d aftercare Unlisted special service; to be used for medical record reviews and reporting CPTII codes (1111F, etc) [facility] [place]/2024 Encounter for other specifie d aftercare Unlisted special service; to be used for medical record reviews and reporting CPTII codes (1111F, etc) [facility] [place] 07/28/2024 Social History Sex Male History of Procedures Procedures Service Procedure code Service date Servicing provider Phone# RN, CN or CP time with patient by phone; use with 1111F, BP, A1c or other CPTII codes 79772 2024-07-04 No Data Available No Data Avai lable Unlisted special service; to be used for medical record reviews and reporting CPTII codes (1111F, etc) 37053 2024-07-28 No Data Available No Data Availa ble Medications prescribed in hospital were reviewed and reconciled against what they were taking prior to admission during today's visit. (1111F) 1111F 2024-07-28 No Data Available No Data Availa ble Functional Status No Information Mental Status No Information Assessments Not Available Plan of Care Not Available
== END 2024-08-13 14:23 | disposition home or self-care (01) ==
LOC: HO.HOS 13:53
PROVIDERS: PCP Physician Assistant Medical; Visit Provider Orthopaedic Surgery
DX: M87.051 Idiopathic aseptic necrosis of right femur (principal); M87.052 Idiopathic aseptic necrosis of left femur
CPT/HCPCS: 99203

== ENCOUNTER → 2024-08-13 13:52 | Outpatient (BNVA) | payer OTHER, SELFPAY | PROVIDERS: PCP Physician Assistant Medical; Visit Provider Orthopaedic Surgery | DX: M87.051 Idiopathic aseptic necrosis of right femur (principal); M87.052 Idiopathic aseptic necrosis of left femur; E11.40 Type 2 diabetes mellitus with diabetic neuropathy, unspecified; J44.9 Chronic obstructive pulmonary disease, unspecified; Z99.81 Dependence on supplemental oxygen | CPT/HCPCS: 99202 ==

== ENCOUNTER 2024-09-04 14:39 | Outpatient (AMB) | payer OTHER, SELFPAY ==
--- NOTE | 2024-09-04 14:42 | A.OFFVIS_ITS ---
Vital Signs 09/04/24 14:48 Height 5 ft 6 in Weight 152 lb BMI 24.5 BP 164/72 H Blood Pressure Location Rt brachial Position Sitting Pulse 77 Pulse Source Pulse Oximeter Pulse Oximetry (%) 97 Oxygen Delivery Method Nasal Cannula Oxygen Flow Rate 3 Intake Visit Reasons: Idiopathic aseptic necrosis of right femur Intake Note: Pain today 01/06 Process Excellence Manager Required: Yes Process Excellence Manager Language: Cypriot Accompanied by: Self / Same As Patient Allergies morphine Allergy (Severe, Verified 09/04/24 14:49) Agitated HPI Comments Details: The patient is a 74-year-old male presenting with bilateral hip pain. He has sought orthopedic evaluation; however, surgery was not recommended due to comorbidities. His A1c level is currently at 8. Despite medication, including Metformin and Januvia, his glucose levels remain inadequately controlled. The pain in his hips is severe enough to impact his daily activities, thus necessitating prolonged opioid therapy prescribed by his primary care physician. The patient has noted partial pain relief from this regimen. He denies consuming sugar in his diet, yet struggles with regulation of blood glucose levels. An assessment and management plan focusing on his pain and its relationship with his diabetes is crucial. Patient has not interested in hip replacement surgery. - Onset: Chronic - Quality: Persistent pain localized to both hips - Exacerbating factors: Not specified - Relieving factors: Reports some relief with oxycodone - Functional impact: Significantly interferes with daily activities - Affect: Pain significantly impacts daily activities - Analgesia: Currently using oxycodone, with some relief reported - Adverse Effects: None reported from opioids - Activities of Daily Living: Significant interference noted due to pain in hips - Aberrant Drug-Related Behaviors: None reported or discussed [facility] Medical History (Updated 08/07/24 @ 14:55 by KANDIS Malhotra) Avascular necrosis of bones of both hips Bilateral hip pain Risk for falls Asthma-COPD overlap syndrome Hospital discharge follow-up History of pneumonia Dry skin Bipolar affective disorder Low platelet count Depression Diabetic neuropathy Abnormal CBC Fatty liver Post-thoracotomy pain syndrome Emphysema (subcutaneous) (surgical) resulting from a procedure Hernia COVID-19 Diabetes mellitus, type 2 Bronchitis Pneumonia Surgical History (Updated 06/09/24 @ 13:55 by Meagan Anthony MD) Tympanic tube insertion History of intestinal surgery Family History Mother Mental health disorder Brother Substance use disorder Social History Household Members: None Housing: Apartment Alcohol intake: never Patient Tobacco Use Status: Former Tobacco user Cigarette Packs Per Day: 1 Years Smoked: 40 e-Cigarette/Vaping Use: Never Used service: No Current occupational status: disabled Current occupational exposures/hazards: No Sexual orientation: Straight/Heterosexual Gender identity: Male Cognitive needs: No Hearing needs: No Vision needs: No Review of Systems Const Details: - Musculoskeletal: Reports bilateral hip pain - Endocrine: Reports issues controlling blood glucose levels, denies dietary sugar intake - Respiratory: Reports issues with breathing Physical Exam Vital Signs: Last Vital Signs Pulse 77 09/04/24 14:48 BP 164/72 H 09/04/24 14:48 Pulse Ox 97 09/04/24 14:48 Oxygen Delivery Method Nasal Cannula 09/04/24 14:48 Oxygen Flow Rate 3 09/04/24 14:48 BMI result Body Mass Index 24.5 General: awake, alert, oriented. Answers questions appropriately. Fully engaged in examination. Skin: warm, dry, intact. HEENT: Normocephalic. Hearing intact. Cardiac: External chest normal in appearance. Respiratory: No cough, audible wheezing or stridor. Patient utilizing continuous oxygen at 2 L nasal cannula Abdomen: without gross distension. MS: No obvious swelling or deformities. Pain with internal/external rotation of hips bilaterally. Able to transition from sit to stand unassisted Ambulates with steady gait utilizing a Rollator walker Neurological: Oriented to person, place, time and situation. Thought process intact. Ambulates with a Rollator walker Psychiatric: Appropriate mood and affect. Good judgment and insight. Results Reviewed Results Reviewed: 08/07/2024 XR/XR hip BI w PEL1V FINDINGS: No fracture, dislocation, or suspicious bone lesion. Normal alignment. There is AVN of both femoral heads without subchondral collapse or irregularity. Joint spaces appear preserved. There is mild osteophytic lipping of the acetabula. There is normal acetabular coverage. There are mild degenerative changes in both SI joints. The sacrum appears intact. No soft tissue abnormalities. Surgical jaswinder project over the right iliac crest. IMPRESSION: 1. AVN of both femoral heads without subchondral collapse. 2. Minimal degenerative arthritis in both hip joints. Assessment & Plan Assessment & Plan (1) Bilateral hip pain: Code(s): M25.551 - Pain in right hip; M25.552 - Pain in left hip Category: Medical Plan The current plan for this patient involves addressing his bilateral hip pain in conjunction with physical therapy and improving glycemic control, as his diabetes is not adequately managed. Steroid injections are deferred until his A1c is reduced. Encouraging discussions with a personnel placement specialist through his primary care provider is critical to managing his diabetes more effectively. The patient's primary care physician will continue to manage pain with oxycodone, and options for interventional management will be revisited once glycemic goals are met. During today's consultation, I discussed the patient's bilateral hip pain and the management plan. Given his high A1c, steroid injections are not feasible, and the focus should be on improving diabetes management, potentially under the care of a personnel placement specialist. The patient understands the importance of this diabetic control not only for the potential for future steroid injections but also for his overall health. Risks of continued opioid use were addressed, and he will maintain his current regimen with his primary care physician's supervision. We also discussed the potential for revisiting surgical options wi th his A1c under control. The patient consented to this plan. Patient was informed and verbally consented to the use of an ambient scribe for clinic note documentation during this visit. Orders: Orders PT Evaluation and Treatment Today M25.551 - Pain in right hip, M25.552 - Pain in left hip Patient Instructions: - attend physical therapy sessions, expect a call to schedule - Continue current medications as prescribed by your primary care doctor. - Discuss potential referral to a personnel placement specialist with your primary care provider. - Monitor blood glucose levels closely and adhere to dietary recommendations. - Contact your primary care physician if increased pain occurs or if pain is not managed effectively with current treatment. - Return for follow-up as advised by your primary care provider. Coding Level of Care Code Est Pt Level 3 (99225) Complex EM visit Add On G2211 Diagnoses Bilateral hip pain M25.551; M25.552
--- OUTSIDE RECORDS SUMMARY | 2024-09-04 14:42 | XMS_ITS ---
Author Organization [facility] Address [address] [place] [address] Care Team Providers Care Automobile Damage Appraiser Name Role Phone Julián Crowe Unavailable [phone] Migration, Provider Unavailable Unavailable Allergies Allergen (clinical drug ingredient) Drug/Non Drug Allergy documented on EMR Reaction Allergy Type Onset Date Status morphine Morphine stomach upset Drug Allergy Act stacy REASON FOR VISIT EMR-David Encounters Encounter Location Date Provider Diagnosis [facility] [address] [place] [address] 06/02/2023 Provider Migration Plan Of Treatment No Information Progress Notes * Costa JONESDOB:12/1949 (74 yo M)Acc No.[id number]:06/02/2023 Patient:?Allan JONES :1950???Age:73 Y???Sex:Male Address:[address] [place] [address] Subjective: * Chief Complaints: * ???EMR-David * Medical History:? * Surgical History:? * Hospitalization/Major Diagno stic Procedure:? * Medications:? * Allergies:?Morphine: stomach upset - Allergy Objective: * Vitals:? * Physical Examination:? Assessment: Plan: * Treatment: * Procedure Codes:? * * Date:?
--- OUTSIDE RECORDS SUMMARY | 2024-09-04 14:43 | XMS_ITS ---
Author Organization [facility] Address [address] [place] [address] Care Team Providers Care Terrazzo Helper Name Role Phone Julián Crowe Unavailable [phone] REASON FOR VISIT 1 month f/u Encounters Encounter Location Date Provider Diagnosis [facility] [address] [place] [address] 04/04/2023 Julián Bhat Plan Of Treatment No Information Progress Notes * Costa JONESDOB:12/1949 (74 yo M)Acc No.[id number]:04/04/2023 Progress Notes Patient:?Allan JONES Provider:?Julián Bhat MD :1950???Age:73 Y???Sex:Male Win e:04/04/2023 Address:[address] [place], [place] [address] Subjective: * Chief Complaints: * ???1. 1 month f/u. * Medical History:? Objective: * Vitals:? Assessment: Plan: * Treatment: * Billing Information: * Visit Code:? * Procedure Codes:? * Electronic signature of Peyman Bhat MD on 09/04/2024 at 02:43 PM EDT Sign off status: Pending * Provider:?Julián Bhat MD Date: ?04/04/2023 Generated for Editai ng/Fanazaning/eTransmitting on:?09/04/2024 02:43 PM EDT
--- OUTSIDE RECORDS SUMMARY | 2024-09-04 14:43 | XMS_ITS ---
Author Organization [facility] Address [address] [place] [address] Care Team Providers Care Harness Cleaner Name Role Phone Jayden BhatJulián pretty Unavailable Migration, Provider Unavailable Unavailable REASON FOR VISIT EMR-David Encounters Encounter Location Date Provider Diagnosis [facility] [address] [place] [address] 06/01/2023 Provider Migration Plan Of Treatment No Information Progress Notes * Costa JONESDOB:12/1949 (74 yo M)Acc No.[id number]:06/01/2023 Patient:?Allan JONES :1950???Age:73 Y???Sex:Male Address:[address] [place] [address] Subjective: * Chief Complaints: * ???EMR-David * Medical History:? * Surgical History:? * Hospitalization/Major Diagno stic Procedure:? * Medications:? Objective: * Vitals:? * Physical Examination:? Assessment: Plan: * Treatment: * Procedure Codes:? * * Date:?
--- OUTSIDE RECORDS SUMMARY | 2024-09-04 14:43 | XMS_ITS | Data Portability ---
Author Organization [facility] - Melissa schwarz, Internal Medicine Office Address [address] [address] Care Team Providers Care Skid Man Name Role Phone TONEY LEE Referring Provider Assessment Encounter Date Assessment Date Assessment LastModified by Organization Details LastModified Time 04/03/2022 04/03/2022 The patient is a 72 year old male with a PMH . Reviewed and discussed all possible medication interactions with patient. Patient voiced understanding that if receiving controlled medications, they must be re-evaluated every 90 days before medication will be refilled. Also, [place] Drug monitoring database will be consulted verifying [...] in 3 month unless appointment required sooner. [email or web address] Not available 04/03/2022 08:42:54 07/06/2022 07/06/2022 Reviewed and discussed all possible medication interactions with patient. Patient voiced understanding that if receiving controlled medications, they must be re-evaluated every 90 days before medication will be refilled. Also, [place] Drug Aptidata database will be consulted verifying no duplication [...] in 3 month unless appointment required sooner. [email or web address] Not available 10/07/2022 20:37:42 10/05/2022 10/05/2022 Patient [...] days before medication will be refilled. Also, [place] Drug monitoring database will be consulted verifying [...] in 3 month unless appointment required sooner. [email or web address] Not available 10/07/2022 20:51:48 11/10/2022 11/10/2022 The patient is a 72 year old male with a PMH . Reviewed and discussed all possible medication interactions with patient. Patient voiced understanding that if receiving controlled medications, they must be re-evaluated every 90 days before medication will be refilled. Also, [place] Drug Aptidata database will be consulted verifying no duplication [...] in 3 month unless appointment required sooner. Not available 11/10/2022 08:15:17 Plan of Treatment Reminders Order Date Submit Date Provider Last Modified By Organization Details Last Modified Time Details Appointments None recorded. Lab None recorded. Referral None recorded. Procedures None recorded. Surgeries None recorded. Imaging CT, chest, w/o contrast - Chronic chest wll pain. 2022 023 [facility], [address] [facility] [address], [place], [address], 3 08:35:02 Medication Orders oxycodone 10 mg tablet 2022 023 [facility], [address] [address] [address], [place], [place], [id number], 3 08:36:28 oxycodone 10 mg tablet 2022 023 [facility], [address] [facility] [address] [place], [id number], 3 08:36:28 oxycodone 10 mg tablet 2022 023 [facility], [address] [facility] [address] [place], [id number], 3 08:36:29 oxycodone 10 mg tablet 2022 023 [email or web address] 1 Not available 3 09:23:15 oxycodone 10 mg tablet 2022 023 [email or web address] 1 Not available 3 09:23:15 oxycodone 10 mg tablet 2022 023 [email or web address] 1 Not available 3 09:23:15 prednisone 10 mg tablet 2022 023 [email or web address] 1 [facility], [address] [place] [address], [id number], 3 09:23:15 Zithromax Z-Joe 250 mg tablet 2022 023 [email or web address] 1 [facility], [address] [place] [address], [id number], 3 09:23:15 oxycodone 10 mg tablet 2022 023 [email or web address] 4 Not available 3 14:35:36 oxycodone 10 mg tablet 2022 023 [email or web address] Not available 3 09:28:01 albuterol sulfate HFA 90 mcg/actuati on aerosol inhaler 2022 023 [facility], [address] [place] [address], [id number], 3 08:25:22 Advair HFA 230 mcg-21 mcg/actuati on aerosol inhaler 2022 023 [facility], [address] [place] [address], [id number], 3 08:25:23 albuterol sulfate 2.5 mg/3 mL (0.083 %) solution for nebulizatio n 2022 023 [facility], [address] [place] [address], [id number], 3 08:25:22 Cipro 250 mg tablet 2022 023 [facility], [address] [place] [address], [id number], 3 08:28:24 oxycodone 10 mg tablet 2021 022 [email or web address] 4 Not available 2 08:42:53 oxycodone 10 mg tablet 2021 022 4 Not available 2 08:42:53 oxycodone 10 mg tablet 2021 022 [email or web address] 4 Not available 2 08:42:53 Advair HFA 230 mcg-21 mcg/actuati on aerosol inhaler 2021 [facility], [address] [place] [address], [place], [place], [id number], 2 08:45:37 Patient TargetsNo targets recorded. Patient InstructionsNo instructions recorded. Reason for Referral None Reported. Problems Name Problem SNOMED Code Status Onset Date Resolution Date Notes Provider Name and Address Organization Details Recorded Time Prostatism 33857627 Active [facility] 4 17:23:28 Chronic obstructive pulmonary disease 33583199 Active [facility] 4 17:23:28 Tobacco dependence syndrome 53161651 Active [facility] 4 17:23:28 Hyperlipidemia 16395388 Active [facility] 4 17:23:28 Type 2 diabetes mellitus 01018002 Active [facility] 4 17:23:28 Nausea and vomiting 87063010 Active [facility] 4 17:23:28 Pneumonia 252191320 Active [facility] 4 17:23:28 Otitis media 87204642 Active [facility] 4 17:23:28 Pain radiating to left shoulder 288989467 Active [facility] 4 17:23:28 Pain in thoracic spine 189638256 Active [place] [facility] 4 17:23:28 Hemoptysis 41651991 Active [place] [facility] 4 17:23:28 Backache 269956256 Active [place] [facility] 4 17:23:28 Neck pain 76330580 Active [place] [facility] 4 17:23:28 Musculoskeleta l pain 904127716 Active [place] [facility] 4 17:23:28 Parotitis 18846287 Active [place] [facility] 4 17:23:28 Hypoxia 490739672 Active [place] [facility] 4 17:23:28 Hoarse 99755791 Active [place] [facility] 4 17:23:28 Bronchitis 27439414 Active [place] [facility] 4 17:23:28 Pain of shoulder region 62813728 Active [place] [facility] 4 17:23:28 Chest wall pain 852419830 Active 2021 [place] [facility] 4 17:23:28 Lumbar spondylosis 473862628 Active 2022 [place] [facility] [...] prednisone 10 mg tablet Take 4 tabs [id number], 3 tabs [id number], 2 tabs [id number], 1 tab [id number] active Not Available Not Available No t [...] Available Not Available Not Available Fluzone High-Dose 0193-1551 (PF) 180 mcg/0.5 mL intramuscul ar syringe [...] Updated DateTime 2 167.64 cm 26.1 kg/m2 37752.9 6 g 97.9 [degF] 16 /min 94 [...] Updated DateTime 3 167.64 cm 26.1 kg/m2 14158.1 7 g 97.4 [degF] 76 /min 96 [...] Updated DateTime 3 167.64 cm 26.5 kg/m2 22174.1 5 g 74 /min 96 % 96 [...] Updated DateTime 3 167.64 cm 25.8 kg/m2 60263.7 8 g 87 /min 96 % 96 [...] Updated DateTime 3 167.64 cm 25.8 kg/m2 45216.7 8 g 97 % 97 % 3 L/min 90 /min 130 mm[Hg] 80 mm[Hg] [facility] 3 08:19:20 Social History Question Answer Notes LastModified by Organizat ion Details LastModified Time Tobacco Smoking Status Former Smoker quit 2011 Not Available [facility] 02/23/2020 03:16:30 Do You Have An Advance Directive? No [id number] Information not available 02/23/2020 What Is Your Level Of Alcohol Consumption? None [id number] Information not available 02/23/2020 What Is Your Level Of Caffeine Consumption? Occasional [id number] Information not available 02/23/2020 How Much Tobacco Do You Chew? None [id number] Information not available 02/23/2020 Which Illicit Or Recreational Drugs Have You Used? None [id number] Information not available 02/23/2020 Marital Status Single [email or web address] Informatio n not available 04/03/2013 What Was The Date Of Your Most Recent Tobacco Screening? 08/21/2018 [id number] Information not available 02/23/2020 At What Age Did You Start Smoking Tobacco? 16 [id number] Information not available 02/23/2020 How Much Tobacco Do You Smoke? 1.5 PPD [id number] Information not available 02/23/2020 Sex: Unknown Functional Status None recorded. Mental Status None recorded. Family History Nothing Reported. Medical History Condition Response Allergies/Hayfever N HIV or AIDS N Gout N Thyroid Disease N Acid reflux (GERD) N Emphysema N NSAID Use N Depression Y Congenital Heart Disease N COPD Y Pneumonia N Anemia N Multiple Sclerosis N Lung Mass N Any Hepatitis N Sinusitis N Mental Illness N Cystic Fibrosis N Diabetes N Obesity N Arthritis N Seizures/Epilepsy N [...] virus, trivalent, PF 05/20/2013 completed Not Available [facility] 02:13:33 Past Encounters Encounter ID Performer Location Encounter Start Date Encounter Closed Date Diagnosis/Indication Diagnosis SNOMED-CT Code Diagnosis ICD10 Code Diagnosis Note [id number] [facility] [place] [place] [address] 04/03/2013 09:01:40 04/03/2013 09:52:54 Chronic obstructive pulmonary disease 86180706 Tobacco de pendence syndrome 52815192 Hyperlipidemia 14932431 [id number] Toney Lee MD Pulmonary Office [facility] [place],[address] [place] [address] 05/20/2013 08:28:06 05/20/2013 11:14:24 Chronic obstructive pulmonary disease 84012479 Tobacco de pendence syndrome 52035238 Hyperlipidemia 30222311 Hemoptysis 75110753 Backache 770115088 Neck pain 76396207 Musculoskeletal pain 231059712 [id number] Toney Lee MD Pulmonary Office [facility] [place],[address] [place] [address] 06/05/2013 07:58:32 06/05/2013 09:19:17 Chronic obstructive pulmonary disease 49824819 Tobacco de pendence syndrome 54484758 Hyperlipidemia 24277619 Backache 216162176 Neck pain 51276956 Bronchitis 41796803 Gree n phlegm. Pain of [place] 76854121 [id number] Jasen Hawkins MD Infectiou s Office [address] [facility] [address] [place] [address] 07/09/2013 14:06:17 09/01/2013 14:31:00 [id number] Toney Lee MD Pulmonary Office [facility] [place],[address] [place] [address] 07/20/2013 10:38:02 07/20/2013 16:49:21 Musculoskeletal pain 626603290 [facility] of [facility] 73715473 Chronic ob structive pulmonary disease 12910154 [id number] Toney Lee MD Pulmonary Office [facility] [place],[address] [place] [address] 08/17/2013 08:57:53 08/17/2013 16:40:33 Chronic obstructive pulmonary disease 23293889 Musculoskeletal pain 866668783 Pain of [facility] 67288024 Send to Dr. Arceo [place]. [id number] Toney Lee MD Pulmonary Office [facility] [place],[address] [place] [address] 09/15/2013 09:37:52 09/15/2013 16:17:51 Chronic obstructive pulmonary disease 36513484 Musculoskeletal pain 481668219 [facility] of [facility] 39254607 Please send to Dr. Arceo for shoulder pain now on right side. Kenalog right deltoid. [id number] Toney Lee MD Pulmonary Office [facility] [place],[address] [place] [address] 10/13/2013 09:28:29 10/13/2013 11:32:10 Chronic obstructive pulmonary disease 13637878 Musculoskeletal pain 672535563 Pain of [facility] 69530640 [id number] Toney Lee MD Pulmonary Office [facility] [place],[address] [place] [address] 11/26/2013 07:51:48 11/26/2013 12:21:33 Chronic obstructive pulmonary disease 27152160 Musculoskeletal pain 139126379 Please get referral to Phillip Mendez. [facility] CALLED, CAN ONLY FILL 90 TABS, WILL NEED ANOTHER RX FFOR 30 TABS TO COMPLETE HIS MONTHLY DOSAGE OF OXYCODONE 10MG. Hyperlipidemia 54596905 Neck pain 53916677 Backache 685495441 Bronchitis 06197081 Gree n phlegm. Tobacco de pendence syndrome 45731732 Prostatism 05602415 To Sarah Santos evaluate prostatism . [id number] Toney Lee MD Pulmonary Office [facility] [place],[address] [place] [address] 12/24/2013 07:47:08 12/24/2013 10:21:24 Chronic obstructive pulmonary disease 68115571 Prostatism 92744177 To Sarah Santos evaluate prostatism . Musculoskeletal pain 289059619 Please get referral to Phillip Mendez [facility]. Hyperlipidemia 96188262 Neck pain 06065214 Backache 050824263 Tobacco de pendence syndrome 63076377 [id number] Toney Lee MD Pulmonary Office [facility] [place],[address] [place] [address] 03/03/2014 08:28:41 03/03/2014 16:56:44 Chronic obstructive pulmonary disease 93574318 Needs portable O2 tank. Pain of [place] 45416984 [id number] Toney Lee MD Pulmonary Office [facility] [place],[address] [place] [address] 04/30/2014 08:54:07 04/30/2014 11:54:41 Pain of shoulder region 31175695 Chronic ob structive pulmonary disease 44955042 Prostatism 83468489 Musculoskeletal pain 898644838 Hyperlipidemia 69734598 Neck pain 49929172 Backache 372254879 Hemoptysis 90390836 Bronchitis 60138652 Tobacco de pendence syndrome 66774065 Type 2 joon betes mellitus 29185320 [id number] Toney Lee MD Pulmonary Office [facility] [place],[address] [place] [address] 06/09/2014 09:16:14 06/10/2014 16:21:40 Chronic obstructive pulmonary disease 81420561 Pain of [place] 63533274 [id number] Toney Lee MD Pulmonary Office [facility] [place],[address] [place] [address] 06/23/2014 08:03:44 06/25/2014 15:49:11 Musculoskeletal pain 026727889 Oxycontin 20 mg BID. Oxycodone 10 mg po Q4H PRN. 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 I left a message for her.] Chronic ob structive pulmonary disease 48823256 Nausea and vomiting 90387359 Side effect of gabapentin . I advised he stop this. [id number] Toney Lee MD Pulmonary Office [facility] [place],[address] [place] [address] 11/23/2014 08:02:08 11/23/2014 11:23:00 Chronic obstructive pulmonary disease 58385808 Musculoskeletal pain 371803908 Kenalog 40 mg IM left shoulder. Nausea and vomiting 91862385 Pneumonia 054890547 Hosp italiz ed in [facility] Type 2 joon betes mellitus 03337880 [id number] Toney Lee MD Pulmonary Office [facility] [place],[address] [place] [address] 12/17/2014 07:53:05 12/17/2014 15:46:46 Neck pain 18588776 Pain of sh [place] 42473650 Kenalog 80 mg IM left shoulder. Need MRI reports. To Dr. Bhakta. [id number] Toney Lee MD [facility] [place],[address] [place] [address] 02/04/2015 08:18:18 02/05/2015 12:40:20 Otitis media 06467844 H66.012 Hemoptysis 43847979 R04. 2 Pain radia ting to left shoulder 658203017 M25.519 Kenalog 80 mg IM. Chronic pain for years/deca josy affecting quality of life. [id number] Toney Lee MD [facility] [place],[address] [place] [address] 04/11/2015 09:10:28 04/27/2015 19:29:09 Chronic obstructive pulmonary disease 50302105 J44.9 Backache 627308513 M54.9 Musculoskeletal pain 279 931048 M79.1 Kenalog 40 mg IM left shoulder. [id number] Toney Lee MD [facility] [place],[address] [place] [address] 07/04/2015 10:41:28 07/04/2015 12:16:19 Chronic obstructive pulmonary disease 49240104 J44.9 Pain in th oracic spine 555693718 M54.6 [id number] Toney Lee MD Pulmonary Office [facility] [place],[address] [place] [address] 08/09/2015 08:11:12 08/09/2015 13:44:59 Chronic obstructive pulmonary disease 48485154 J44.9 Pain in th oracic spine 422618699 M54.6 Parotitis 61046456 K11.[address] Crystal. BL parotid soft swelling, very tender. [id number] Toney Lee MD Pulmonary Office [facility] [place],[address] [place] [address] 09/15/2015 07:49:48 09/15/2015 14:48:41 Pain in thoracic spine 184012100 M54.6 Pain of [place] 70808962 M25.519 Chronic ob structive pulmonary disease 54819094 J44.9 Hypoxia 447402256 G47.34 Nocturnal O2. [id number] Toney Lee MD Pulmonary Office [facility] [place],[address] [place] [address] 11/08/2015 10:41:17 11/08/2015 11:46:34 Pain of shoulder region 20443244 M25.519 Hoarse 42524315 R49.0 Hoarseness getting worse. Please refer back to Dr. True Crystal. [id number] Toney Lee MD Pulmonary Office [facility] [place],[address] [place] [address] 12/12/2015 08:23:06 12/12/2015 11:10:30 Bronchitis 78902343 J40 Type 2 joon betes mellitus 11718160 E11.9 Pain in th oracic spine 732574665 M54.6 [id number] Toney Lee MD Pulmonary Office [facility] [place],[address] [place] [address] 01/23/2016 07:43:50 01/23/2016 08:44:35 Chronic obstructive pulmonary disease 52445625 J44.9 Pain in th oracic spine 719485209 M54.6 Pain radia ting to left shoulder 292146479 M25.519 Hoarse 82544415 R49.0 Hoarseness persistent .. Please refer back to Dr. True Crystal. [id number] Toney Lee MD Pulmonary Office [facility] [place],[address] [place] [address] 02/21/2016 08:53:41 02/21/2016 12:18:12 Pain in thoracic spine 478418130 M54.6 Musculoskeletal pain 279 463409 M79.1 Pain radia ting to left shoulder 851955247 M25.519 Please give 3 months of Rx'es pre-dated for patient kylah walls Type 2 joon betes mellitus 26063073 E11.9 [id number] Toney Lee MD Pulmonary Office [facility] [place],[address] [place] [address] 05/22/2016 07:44:02 05/22/2016 11:54:27 Pain in thoracic spine 354400233 M54.6 Patient's sister dying and he will be going to [place] to be with her. He needs 3 months of pain medication s pre-dated. [id number] Toney Lee MD Pulmonary Office [facility] [place],[address] [place] [address] 08/20/2016 07:40:42 08/20/2016 08:28:44 Pain in thoracic spine 068226397 M54.6 Bronchitis 17548092 J40 [id number] Toney Lee MD Pulmonary Office [facility] [place],[address] [place] [address] 11/19/2016 07:44:41 11/19/2016 08:53:05 Bronchitis 81187381 J40 Chronic pain 85869607 G8 9.29 [id number] Toney Lee MD Pulmonary Office [facility] [place],[address] [place] [address] 02/18/2017 07:40:33 02/18/2017 10:34:22 Pain of shoulder region 37676951 M25.519 Chronic ob structive pulmonary disease 95854064 J44.9 Utibron sample given, first dose given and instructio ns given to patient. Pain in th oracic spine 986242813 M54.6 [id number] Toney Lee MD Pulmonary Office [facility] [place],[address] [place] [address] 05/20/2017 07:54:29 05/20/2017 15:57:14 Pain of shoulder region 42553673 M25.[address] Carty for evaluation . [id number] Bessy Yo Pulmonary Office [facility] [employer] [facility] [place],[address] [place] [address] 07/31/2017 09:43:03 07/31/2017 12:22:41 Pain of shoulder region 96578154 M25.519 Pneumonia 513113379 J18. 9 pt with dullness present to [facility] will treat and eval in office Acute uppe r respiratory infection 32674129 J06.9 add to treatment as pt is still with diff breathing, use neb 4x day [id number] Toney Lee MD Pulmonary Office [facility] [place],[address] [place] [address] 10/18/2017 08:36:43 10/18/2017 10:03:41 Pain of shoulder region 57753299 M25.[address] Carty for evaluation . Chronic ob structive pulmonary disease 37860819 J44.9 Anonro sample given, first dose given and instructio ns given to patient. Chronic hoarseness 54367 95071 105 R49.0 Adverse re action to drug 04195738 T45.95XA Dizziness from steroids. [id number] Toney Lee MD Pulmonary Office [facility] [place],[address] [place] [address] 11/15/2017 10:27:46 11/15/2017 11:20:59 Chronic obstructive pulmonary disease 89659216 J44.9 FEV1=1.96 LPS, 72% of predicted, predicted FEV1=2.72 LPS. Musculoskeletal pain 279 184765 M79.1 Severe pain, alleviated with oxycodone. Pain incapacita ting and with meds able to do small chores around house, go shopping and walk a bit with his cane. [id number] Bessy Ram Pulmonary Office [facility] [place],[address] [place] [address] 12/27/2017 13:51:08 12/27/2017 14:45:19 Chronic obstructive pulmonary disease 75034175 J44.9 FEV1=1.96 LPS, 72% of predicted, predicted FEV1=2.72 LPS. Musculoskeletal pain 279 101773 M79.1 pt had recent thoracotom y to left lobe pain 12/06 controlled better with pain [[[Severe pain, alleviated with oxycodone. Pain incapacita ting and with meds able to do small chores around house, go shopping and walk a bit with his cane.]]] Lung mass 783754561 R91. 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 pt had left lobe thoracotom y december 17 need all records from [facility] for results.. [id number] Toney Lee MD Pulmonary Office [facility] [place],[address] [place] [address] 02/10/2018 13:18:28 02/10/2018 15:20:01 Chest wall pain 911358181 R07.89 Need discharge summary from [facility] Pneumonia 700674973 J18. 9 [id number] Toney Lee MD Pulmonary Office [facility] [place],[address] [place] [address] 05/16/2018 09:11:45 05/16/2018 13:48:04 [id number] Toney Lee MD Pulmonary Office [facility] [place],[address] [place] [address] 07/14/2018 10:35:00 07/14/2018 11:51:59 Chest wall pain 343413031 R07.89 Need discharge summary from [facility] Pneumonia 499275410 J18. 9 [id number] Toney Lee MD Pulmonary Office [facility] [place],[address] [place] [address] 08/11/2018 14:35:18 08/11/2018 16:33:25 Chronic obstructive pulmonary disease 19082259 J44.9 FEV1=1.96 LPS, 72% of predicted, predicted FEV1=2.72 LPS. andre De Dios, . Obstructiv e sleep apnea syndrome 02950158 G47.33 Snores and stops breathing. Witnessed apneas. Daytime somnolence . ESS 18. [id number] Toney Lee MD Pulmonary Office [facility] [place],[address] [place] [address] 08/21/2018 13:04:36 08/21/2018 13:46:29 Hypoxemia 324523452 R09.02 Nocturnal hypoxemia <=88% for 17 minutes. 6MWT decreased to 86% and recovered to 90% with O2. Patient requests portable O2 concentrat or if possible. [id number] Toney Lee MD Pulmonary Office [facility] [place],[address] [place] [address] 10/13/2018 08:08:00 10/13/2018 08:31:40 Chest wall pain 839710241 R07.89 Chronic ob structive pulmonary disease 82022641 J44.9 [FEV1=1.96 LPS, 72% of predicted, predicted FEV1=2.72 LPS. andre De Dios, .] [id number] Toney Lee MD Pulmonary Office [facility] [place],[address] [place] [address] 01/14/2019 07:52:06 01/14/2019 08:44:54 Chest wall pain 239479197 R07.89 Medication s of significan t benefit. Allow patient better quality of life and greater level of activity. No side effects. Chronic ob structive pulmonary disease 45263180 J44.9 [FEV1=1.96 LPS, 72% of predicted, predicted FEV1=2.72 LPS. andre De Dios, .] [id number] Toney Lee MD Pulmonary Office [facility] [place],[address] [place] [address] 04/14/2019 07:57:12 04/14/2019 08:47:19 Chest wall pain 065375548 R07.89 Pain meds helping patient mucho and allowing better quality of life. Chronic ob structive pulmonary disease 10772297 J44.9 [FEV1=1.96 LPS, 72% of predicted, predicted FEV1=2.72 LPS. andre De Dios, .] [id number] Toney Lee MD Pulmonary Office [facility] [place],[address] [place] [address] 07/13/2019 08:59:34 07/13/2019 09:49:02 Chest wall pain 883337755 R07.89 Pain meds helping patient mucho and allowing better quality of life. Chronic ob structive pulmonary disease 17836372 J44.9 [FEV1=1.96 LPS, 72% of predicted, predicted FEV1=2.72 LPS. andre De Dios, .] 58100 Toney Lee MD Pulmonary Office [facility],[address] [place] [address] 10/15/2019 10:50:50 10/15/2019 11:49:37 Chest wall pain 209778767 R07.89 Pain meds helping patient mucho and allowing better quality of life. Chronic ob structive pulmonary disease 65554726 J44.9 [FEV1=1.96 LPS, 72% of predicted, predicted FEV1=2.72 LPS. andre De Dios, .] 42067 Tnoey Lee MD Pulmonary Office [facility] [place],[address], [address] [place] [address] 01/15/2020 08:35:04 01/15/2020 09:43:28 Chest wall pain 351612249 R07.89 Meds help a lot. No side effects. Increased activity levels. Pain meds helping patient mucho and allowing better quality of life.] Chronic ob structive pulmonary disease 92206775 J44.9 [FEV1=1.96 LPS, 72% of predicted, predicted FEV1=2.72 LPS. andre De Dios, .] 61246 Toney Lee MD Pulmonary Office [facility],[address], [place] [place] [address] 03/15/2020 13:41:38 03/15/2020 15:00:16 Chest wall pain 635517704 R07.89 Excellent pain benefit. Able to do more activity, chores and shopping. Sleeping better. [Meds help a lot. No side effects. Increased activity levels. Pain meds helping patient mucho and allowing better quality of life.] Chronic ob structive pulmonary disease 01925637 J44.9 Alpha-1 swab. FEV1=1.36 LPS, 49% of predicted, predicted FEV1=2.78 LPS, 01/2020FEV 1=1.96 LPS, 72% of predicted, predicted FEV1=2.72 LPS, 10/2017.FEV 1=1.72 LPS, 57% of predicted, predicted FEV1=3.03 LPS, 05/2014 16812 Toney Lee MD Pulmonary Office [facility],[address], [address] [place] [address] 04/12/2020 12:33:35 04/12/2020 13:54:32 Chronic obstructive pulmonary disease 38490640 J44.9 FEV1=1.96 LPS, 72% of predicted, predicted FEV1=2.72 LPS. andre De Dios, . Obstructiv e sleep apnea syndrome 80952631 G47.33 Uses CPAP with beneit. 28815 Toney Lee MD Pulmonary Office [facility],[address], [address] [place] [address] 04/15/2020 09:24:47 04/15/2020 11:27:24 Chronic obstructive pulmonary disease 22972169 J44.9 FEV1=1.96 LPS, 72% of predicted, predicted FEV1=2.72 LPS. andre De Dios, . Obstructiv e sleep apnea syndrome 93740832 G47.33 Uses CPAP with beneit. Chest wall pain 20736474 6 R07.89 Better QOL. Greater level of activity. [Excellent pain benefit. Able to do more activity, chores and shopping. Sleeping better.] [Meds help a lot. No side effects. Increased activity levels. Pain meds helping patient mucho and allowing better quality of life.] Cramp in lower limb 4499 12819 R25.2 Drink quinine water as needed. 73754 Toney Lee MD Pulmonary Office [facility],[address], [address] [employer] [address] 10/10/2020 09:24:16 10/10/2020 10:51:26 Chest wall pain 813448430 R07.89 Benefiting from pain meds. Uses walker. [...] of life.] Chronic ob structive pulmonary disease 22428863 J44.9 Using and benefiting from oxygen.FEV 1=1.96 LPS, 72% of predicted, predicted FEV1=2.72 LPS. Obstructiv e sleep apnea syndrome 39254644 G47.33 Uses CPAP with beneit. Cramp in lower limb 4499 27651 R25.2 Drink quinine water as needed. 190738 Toney Lee MD Pulmonary Office [facility],[address], [address] [employer] [address] 01/10/2021 10:17:08 01/10/2021 11:00:54 Chest wall pain 557422887 R07.89 Getting good benefit from pain meds. 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 No increased dose and no [...] of life.] Chronic ob structive pulmonary disease 60529578 J44.9 Using and benefiting from oxygen.FEV 1=1.96 LPS, 72% of predicted, predicted FEV1=2.72 LPS. Obstructiv e sleep apnea syndrome 08232819 G47.33 Uses CPAP with beneit. 320027 Toney Lee MD Pulmonary Office [facility],[address], [address] [employer] [address] 04/10/2021 08:05:51 04/10/2021 08:43:49 Chronic obstructive pulmonary disease 02658999 J44.9 Using and benefiting from oxygen.FEV 1=1.96 LPS, 72% of predicted, predicted FEV1=2.72 LPS. Chest wall pain 95351996 6 R07.89 Oxycodone is excellent for my pain. Decreasing pain and allowing him to move around better with his cane. Limited activity. Able to do chores and shop. Has significan t arthritic pain. [Getting good benefit from pain meds. 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 No increased dose and no [...] of life.] Obstructiv e sleep apnea syndrome 53864101 G47.33 Uses CPAP with beneit. 790244 Toney Lee MD Pulmonary Office [facility] [place],[address], [address] [employer] [address] 07/07/2021 08:14:00 07/07/2021 09:31:19 Chronic obstructive pulmonary disease 51577402 J44.9 Using and benefiting from oxygen.FEV 1=1.96 LPS, 72% of predicted, predicted FEV1=2.72 LPS. 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 No increased dose and no [...] of life.] Obstructiv e sleep apnea syndrome 16415621 G47.33 Uses CPAP with beneit. Acute exac erbation of chronic obstructive pulmonary disease 976183434 J44.1 Benign pro static hyperplasia 812554955 N40.0 745138 Toney Lee MD Pulmonary Office [facility] [place],[address], [address] [place] [address] 07/25/2021 08:15:07 07/25/2021 08:56:31 Chronic obstructive pulmonary disease 47018752 J44.9 Significan t improvemen t over previous.Q uit smoking 17 years agoFEV1=2. 04 LPS, 78% of predicted, predicted FEV1=2.61 LPS, 06/20208592SXD7 =1.96 LPS, 72% of predicted, predicted FEV1=2.72 LPS, 923114 Toney Lee MD Pulmonary Office [facility] [place],[address], [address] [place] [address] 10/12/2021 08:16:06 10/12/2021 09:00:54 Chest wall pain 726157524 R07.89 Pain meds help a lot. 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 No increased dose and no [...] of life.] Obstructiv e sleep apnea syndrome 40961299 G47.33 Uses CPAP with beneit. Benign pro static hyperplasia 232578260 N40.0 818732 Toney Lee MD Pulmonary Office [facility] [address], [address] [place] [address] 01/08/2022 07:58:29 01/08/2022 08:41:34 Chest wall pain 856799432 R07.89 Taking stable dose. No side effects. 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 No increased dose and no [...] mucho and allowing better quality of life.] 793682 Toney Lee MD Pulmonary Office [facility],[address], [address] [place] [address] 04/03/2022 07:55:12 04/03/2022 09:05:39 Chest wall pain 260866499 R07.89 Taking stable dose. No side effects. 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 No increased dose and no [...] of life.] Chronic ob structive pulmonary disease 98622091 J44.9 434360 [facility]oney Lee [facility],[address], [address] [place] [address] 07/06/2022 07:55:10 07/09/2022 08:35:37 Chest wall pain 529187270 R07.89 Taking stable dose. No side effects. 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 No increased dose and no [...] of life.] Chronic ob structive pulmonary disease 43681516 J44.9 875455 Toney Lee MD Pulmonary Office [facility],[address], [address] [place] [address] 10/05/2022 07:53:51 10/07/2022 20:51:58 Chronic obstructive pulmonary disease 83575537 J44.9 Lumbar spondylosis 42819 0009 M47.896 Taking stable dose. 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 No increased dose and no [...] mucho and allowing better quality of life.] 293354 Toney Lee MD Pulmonary Office [facility] [place],[address], [address] [place] [address] 11/10/2022 07:53:59 11/11/2022 08:49:02 Chest wall pain 474393324 R07.89 Taking stable dose. No side effects. 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 No increased dose and no [...] of life.] Chronic ob structive pulmonary disease 81280743 J44.9 Significan t improvemen t over previous.Q uit smoking 17 years agoFEV1=2. 04 LPS, 78% of predicted, predicted FEV1=2.61 LPS, 06/20201892GWR6 =1.96 LPS, 72% of predicted, predicted FEV1=2.72 LPS, Acute uppe r respiratory infection 22570046 J06.9 962602 Toney Lee MD Pulmonary Office [facility],[address], [address] [place] [address] 02/09/2023 08:08:35 02/09/2023 16:49:31 Chest wall pain 281511459 R07.89 Using and benefiting from pain meds. 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 No increased dose and no [...] Policy Number Policy [facility] Covered Member ID Ocx Member ID Guarantor Name 04/03/2022 1 [employer] (MEDICARE REPLACEMENT HMO) Costa Smitho [id number] Costa Cornelius Jt 07/06/2022 1 [employer] (MEDICARE REPLACEMENT HMO) Costa Smitho [id number] Costa Cornelius Jt 10/05/2022 1 [employer] (MEDICARE REPLACEMENT HMO) Costa Cornelius Jt [id number] Costa Cornelius Jt 11/10/2022 1 [employer] (MEDICARE REPLACEMENT HMO) Costa Smitho [id number] Costa Cornelius Jt 02/09/2023 1 [employer] (MEDICARE REPLACEMENT HMO) Costa Smitho [id number] Costa Smitho Notes Date Note Type Note Provider Name and Address Organization Details Recorded Time 10/05/2022 text/html This is a 72 yea r old male with a history of COPD and Lumbar spondylosis. He presents for a medication refill. Office member Aurelio Melgar assisted as process manufacturing engineer. And the only thing that helps him is his oxycodone. He admits to chest pain and denies back pain.Patient irritable and angry when asked about his pain he states he gets 3 months , and wants his prescriptions. In Russian, process manufacturing engineer asked if patient had tried other modalities for pain, including but not limited to ice and heat, and anti-inflammatori es. Patient very angry, raised voice, declines any anti-inflammatori es, and states he just wants his dora meses of pain meds. Shelby valle, [facility] 10/07/2022 20:51:56 02/09/2023 text/html oxy refill apr 12 Toney Lee MD [address] [place] [address], [phone], [facility] 02/09/2023 08:34:34
--- OUTSIDE RECORDS SUMMARY | 2024-09-04 14:43 | XMS_ITS | Data Portability ---
Author Organization [facility], [facility] Address [address] [place] [address] Assessment No assessment recorded. Plan of Treatment [...] By Organization Details Last Modified Time 06/08/2015 35249 gastroesophageal reflux disease (GERD): care instructions [email or web address] [...] Details Recorded Time Left lower quadrant pain 948720318 Active Nickolas Abrams-L betsy null, [facility] 6 11:17:14 Gastroesophage al reflux disease 869681922 Active Nickolas Arbams-L betsy null, [facility] 6 11:17:14 Problem Notes None recorded. Procedures Surgical History Date Name Laterality Status Provider Name and Address Organization Details Recorded Time 5 EGD completed Nickolas Mckeon [facility] 06/08/2015 11:04:40 0 Abdominal Surgery completed Nickolas Mckeon [facility] 06/08/2015 11:04:40 Imaging [...] Details Last Updated DateTime 6 28.2 kg/m2 24987.6 6475 g 98.7 [degF] 167.64 cm 77 /min 131 mm[Hg] 76 mm[Hg] Viv GORDON - [facility] 6 10:49:24 Social History Question Answer Notes LastModified by Organizat ion Details LastModified Time Tobacco Smoking Status Former Smoker Not Available [facility] 02/23/2020 03:16:34 What Is Your Level Of Alcohol Consumption? Heavy [id number] Information not available 02/23/2020 What Is Your Level Of Caffeine Consumption? Heavy 3 Cups A Day 8 Oz [id number] Information not available 02/23/2020 Which Illicit Or Recreational Drugs Have You Used? Everything Quit 10 Years Ago [id number] Information not available 02/23/2020 Marital Status Single Informatio n not available 06/08/2015 At What Age Did You Start Smoking Tobacco? 16 [id number] Information not available 02/23/2020 How Much Tobacco Do You Smoke? 3+ PPD Quit 5 Years Ago [id number] Information not available 02/23/2020 Sex: Unknown Functional [...] SNOMED-CT Code Diagnosis ICD10 Code Diagnosis Note 30446 NICKOLAS MOSLEY MD G[facility] Office [address] [address] 06/08/2015 09:43:48 06/08/2015 11:16:19 Left lower quadrant pain 708379814 R10.32 Gastroesop hageal reflux disease 933366825 K21.9 Resolved w PPI. Already had EGD by Dr Liu. Health Concerns Section Related Observation LastModified by Organization Detai ls LastModified Time None Recorded Concern Status LastModified by Organization Details LastModified Time None Recorded Advance Directives Directive None Recorded Payers Encounter Date Sequence Insurance Name Policy Number Policy [facility] Covered Member ID Cox Member ID Guarantor Name 06/08/2015 1 [facility]MEDICAID HMO) Costa Waters [id number] Costa Waters Notes Date Note Type Note [...]
--- OUTSIDE RECORDS SUMMARY | 2024-09-04 14:43 | XMS_ITS | Patient Health Record ---
Author Organization [facility] Address [address] [place] [address] Care Team Providers Care Automotive Service Writer Name Role Phone Julián Crowe Unavailable Allergies [...] Severe recurrent major depression without psychotic features (00008954) Major depressive disorder, recurrent severe without psychotic features (F33.2) Active confirmed Problem Persistent insomnia (708297676) Primary insomnia (F51.01) Active confirmed Plan Of Treatment No Information Insurance Providers Payer Name Payer Address Payer Phone Subscriber Number Group Number Insured Name Patient Relationship to Insured Coverage Start Date Coverage End Date [employer] [address] [address] [place] [address] [id number] Cornelius Costa Waters Self - patient is the insured Medical (General) History Medical History History ICD Code no medical history Surgical History Surgery Date(Month/Year) intestine 09/2002
--- OUTSIDE RECORDS SUMMARY | 2024-09-04 14:43 | XMS_ITS | Patient Health Record ---
Author Organization [facility] Address [address] [address] Care Team Providers Care Cracking Machine Operator Name Role Phone Migration, Provider Unavailable Unavailable Reason For Referral No Information Encounters Encounter Location Date Provider Diagnosis [facility] [address] [address] 11/30/2023 Provider Migration [facility] [address] [address] 12/01/2023 Provider Migration Plan Of Treatment No Information
--- OUTSIDE RECORDS SUMMARY | 2024-09-04 14:43 | XMS_ITS ---
Author Name Shanemo ORESTES, RN, RD, [place] Address [address] [place] [address] Phone [phone] [facility] Care Team Providers Care Controls Technician Name Role Phone Noelle Meeks Unavailable [phone] [facility] Unavailable Reason for Referral Not Available [...] 2024-02-24 No Data Available OneTouch Delica Plus [id number] Miscellaneous USE SEG N LO INDICADO TO [...] 1111F, BP, A1c or other CPTII codes [facility] [place]2024 Encounter for other specifie d aftercare Unlisted special service; to be used for medical record reviews and reporting CPTII codes (1111F, etc) [facility] 07/28/2024 Encounter for other specifie d aftercare Unlisted special service; to be used for medical record reviews and reporting CPTII codes (1111F, etc) [facility] 07/28/2024 Social History Sex Male History of Procedures Procedures Service Procedure code Service date Servicing provider Phone# RN, CN or CP time with patient by phone; use with 1111F, BP, A1c or other CPTII codes 82764 2024-07-04 No Data Available No Data Avai lable Unlisted special service; to be used for medical record reviews and reporting CPTII codes (1111F, etc) 79410 2024-07-28 No Data Available No Data Availa ble Medications prescribed in hospital were reviewed and reconciled against what they were taking prior to admission during today's visit. (1111F) 1111F 2024-07-28 No Data Available No Data Availa ble Functional Status No Information Mental Status No Information Assessments Not Available Plan of Care Not Available
--- OUTSIDE RECORDS SUMMARY | 2024-09-04 14:43 | XMS_ITS ---
Author Organization [facility] Address [address] [place] [address] Care Team Providers Care Underground Truck Operator Name Role Phone Migration, Provider Unavailable Unavailable REASON FOR VISIT EMR-David Encounters Encounter Location Date Provider Diagnosis [address] [address] 11/30/2023 Provider Migration Plan Of Treatment No Information Progress Notes * Costa IRIZARRYDOB:12/1949 (74 yo M)Acc No.[id number]:11/30/2023 Patient:?Allan IRIZARRY :1950???Age:73 Y???Sex:Male Address[address] [address] Subjective: * Chief Complaints: * ???EMR-David * Medical History:? * Surgical History:? * Hospitalization/Major Diagno stic Procedure:? * Medications:? Objective: * Vitals:? * Physical Examination:? Assessment: Plan: * Treatment: * Procedure Codes:? * * Date:?
--- OUTSIDE RECORDS SUMMARY | 2024-09-04 14:43 | XMS_ITS | Clinical Summary ---
Author Organization [employer] Address [address] [facility] [address] [place] [address] Care Team Providers Care Steel Pan Form Placing Supervisor Name Role Phone Unavailable Primary Care Provider [...] patient's age to complete this topic Insurance [facility] STAND[facility]
--- OUTSIDE RECORDS SUMMARY | 2024-09-04 14:43 | XMS_ITS ---
Author Organization [facility] Address [address] [place] [address] Care Team Providers Care Cryptographic Center Specialist Name Role Phone Migration, Provider Unavailable Unavailable REASON FOR VISIT EMR-David Encounters Encounter Location Date Provider Diagnosis [address] [address] 12/01/2023 Provider Migration Plan Of Treatment No Information Progress Notes * Costa IRIZARRYDOB:12/1949 (74 yo M)Acc No.[id number]:12/01/2023 Patient:?Allan IRIZARRY :1950???Age:73 Y???Sex:Male Address[address] [address] Subjective: * Chief Complaints: * ???EMR-David * Medical History:? * Surgical History:? * Hospitalization/Major Diagno stic Procedure:? * Medications:? Objective: * Vitals:? * Physical Examination:? Assessment: Plan: * Treatment: * Procedure Codes:? * * Date:?
[2024-09-04 14:48] VITALS: BP 164/72; PULSE 77; O2SAT 97; BMI 24.5
== END 2024-09-04 15:02 | disposition home or self-care (01) ==
LOC: HO.PMC 14:40
PROVIDERS: PCP Physician Assistant Medical; Referring Provider Orthopaedic Surgery; Visit Provider Registered Nurse Emergency
DX: M25.551 Pain in right hip (principal); M25.552 Pain in left hip
CPT/HCPCS: 99213; G2211

== ENCOUNTER → 2024-09-04 14:39 | Outpatient (BNVA) | payer OTHER, SELFPAY | PROVIDERS: PCP Physician Assistant Medical; Referring Provider Orthopaedic Surgery; Visit Provider Registered Nurse Emergency | DX: M25.551 Pain in right hip (principal); M25.552 Pain in left hip | CPT/HCPCS: 99212 ==

== ENCOUNTER 2024-09-10 14:13 | Outpatient (AMB) | payer OTHER, SELFPAY ==
--- NOTE | 2024-09-10 14:18 | MHC.PC.OV ---
Vital Signs 09/10/24 14:31 Height 5 ft 6 in Weight 156 lb BMI 25.2 BP 116/68 Blood Pressure Location Rt brachial Position Sitting Pulse 70 Pulse Source Pulse Oximeter Temp 98.4 F Temp Source Temporal Artery Scan Pulse Oximetry (%) 97 Oxygen Delivery Method Room Air Intake Visit Reasons: Physical / DM - see comments Intake Note: Costa presents in the office today for his annual physical and DM. Allergies morphine Allergy (Severe, Verified 09/10/24 14:23) Agitated Medication List - Last Reconciled 09/10/24 by KANDIS Malhotra albuterol sulfate 90 mcg/actuation (Ventolin HFA) 2 puffs inhalation QID PRN 30 days albuterol sulfate 2.5 mg (3 mL) inhalation Q6H PRN atorvastatin 10 mg PO BEDTIME blood sugar diagnostic As directed twice per day blood sugar diagnostic (PinMyPetTouch Verio test strips) Use as directed to check blood glucose twice daily. blood-glucose meter As directed twice per day blood-glucose meter (PinMyPetTouch Verio Flex Meter) Use as directed to check blood glucose twice daily for Type II diabetes mellitus. 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 latanoprost 0.005% 1 drp ophthalmic (eye) DAILY metformin 1,000 mg PO BID miscellaneous medical supply As directed multivitamin 1 tab PO DAILY 30 days nebulizer and compressor (Easy Neb Compressor Nebulizer) As directed oxycodone 5 mg PO Q8H PRN 28 days Oxygen Home Use As directed paroxetine HCl 20 mg PO DAILY quetiapine 100 mg PO BEDTIME quetiapine (Seroquel) 50 mg PO BEDTIME quetiapine 150 mg PO DAILY sitagliptin phosphate (Januvia) 100 mg PO DAILY walker As directed Tobacco use date assessed: 09/10/24 Fall risk assessment: 1 Fall in past year Last assessed Fall Risk: 09/10/24 Dental Screening Dental Screen Date: 09/10/24 Did you have a dental visit in the last 12 months?: Yes Did you have a dental problem in the last 6 months where you did not have access to dental care?: No Was dental information given to patient?: Patient has dentist HPI HPI Comments History of Present Illness Details 74-year-old male Faroese speaking with diabetes type 2, COPD O2 dependent on 2 L of oxygen, empyema status post chest tube and VATS, status post tracheostomy now decannulated, interstitial lung disease, status post right-sided rib fractures, glaucoma, MDD, urinary incontinence, CAD, bifascilar block and chronic pain presents for a physical exam. 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 Patient is unaccompanied today. Type 2 diabetes-taking Januvia 100 mg daily and metformin 1000 mg twice daily. He stopped glipizide because the pill was too difficult to swallow. His hemoglobin A1c is 8.1% today. Denies low blood sugars. Patient brought his glucometer. Patient says he is checking his blood sugar, but there is only 1 reading from August and none from July. Patient says his machine is not working properly. 09/10 134 07/22 213 07/[address] Meehan now for Psychiatry. He is on a wait list for therapy. He is sleeping well. Chronic pain- Patient had recent imaging which showed avascular necrosis of both hips. He saw [facility] on 08/13/2024, but he is not a surgical candidate. He saw pain management on 09/04/2024. He has been referred to physical therapy steroid injections have been deferred until his A1c has decreased. He has chronic pain in his bilateral knees, his lower back and middle back, neuropathy in his feet. On average pain is an 8/10. It makes it harder for him to sleep. He has difficulty moving from a sitting to standing position. He uses an assistive device for walking. Patient reported he tried gabapentin and Lyrica which were ineffective. Patient is taking 5 mg every 8 hours. Abnormal CBC-followed by Dr. Anthony. Hgb and HCT normalized. Patient has thrombocytopenia. Unknown last colonoscopy-sometime in [place]. Patient says that the procedure was complicated by GI bleeding, and he does not wish to proceed with colon cancer screenings at this time. Denies history of polyps. Denies family history of colon cancer. Refuses vaccines that are recommended. ROS: Constitutional: No unexplained weight loss, fever, chills or night sweats. Eyes: No vision changes, blurry vision, double vision, eye pain, eye redness, eye discharge. ENT: No hearing loss, sneezing, congestion, runny nose or sore throat. Respiratory: No increase in shortness of breath or increased cough or increased sputum production. No hemoptysis. Cardiovascular: No chest pain, chest pressure or chest discomfort. No palpitations or pedal edema. Gastrointestinal: No anorexia, nausea, vomiting or diarrhea. No abdominal pain or blood in stool. Genitourinary: No dysuria, hematuria, urinary frequency. Neurologic: No headache, dizziness, syncope Musculoskeletal: See HPI Hematologic/Lymphatics: No bleeding or bruising. No painful lymph nodes. Skin: No rash Endocrine: No cold or heat intolerance. No polyuria or polydipsia. Psychiatric: See HPI Physical exam: Constitutional: Alert, in no distress. On oxygen via cannula. Uses walker to ambulate slowly. Head: Normocephalic. Eyes: Pupils are equal, round and reactive to light. Extraocular muscles intact. Ear, Nose and Throat: Canals clear. TMs normal. Normal nasal mucosa. No nasal discharge. No oral lesions. Neck: Supple, Full range of motion. No lymphadenopathy. No palpable thyroid masses. Respiratory: Clear to auscultation. Cardiovascular: S1 S2 regular. No murmurs. Gastrointestinal: Abdomen soft, non-tender, non-distended. Normal bowel sounds. No palpable masses. Neurologic: No focal neurological deficits. Extremities: Warm and well perfused. No clubbing, cyanosis or edema. No open wounds on the feet. Psychiatric: Normal mood and affect [facility] Medical History (Updated 09/11/24 @ 13:00 by KANDIS Malhotra) Routine physical examination Avascular necrosis of bones of both hips Bilateral hip pain Risk for falls Asthma-COPD overlap syndrome Hospital discharge follow-up History of pneumonia Dry skin Bipolar affective disorder Low platelet count Depression Diabetic neuropathy Abnormal CBC Fatty liver Post-thoracotomy pain syndrome Emphysema (subcutaneous) (surgical) resulting from a procedure Hernia COVID-19 Diabetes mellitus, type 2 Bronchitis Pneumonia Surgical History (Updated 06/09/24 @ 13:55 by Meagan Anthony MD) Tympanic tube insertion History of intestinal surgery Family History Mother Mental health disorder Brother Substance use disorder Social History (Updated 09/10/24 @ 15:40 by Bessy Baldwin MA) Household Members: None Housing: Apartment Alcohol intake: never Patient Tobacco Use Status: Former Tobacco user Cigarette Packs Per Day: 1 Years Smoked: 40 e-Cigarette/Vaping Use: Never Used service: No Current occupational status: disabled Current occupational exposures/hazards: No Sexual orientation: Straight/Heterosexual Gender identity: Male Cognitive needs: No Hearing needs: No Vision needs: No Questionnaire PHQ-9 Over the last 2 weeks, how often have you been bothered by any of the following problems? 1. Little interest or pleasure in doing things: several days 2. Feeling down, depressed, or hopeless: several days 3. Trouble falling or staying asleep, or sleeping too much: nearly every day 4. Feeling tired or having little energy: nearly every day 5. Poor appetite or overeating: several days 6. Feeling bad about yourself - or that you are a failure or have let yourself or your family down: several days 7. Trouble concentrating on things, such as reading the newspaper or watching television: several days 8. Moving or speaking so slowly that other people could have noticed. Or the opposite - being so fidgety or restless that you have been moving around a lot more than usual: several days 9. Thoughts that you would be better off or of hurting yourself in some way: not at all Total score: 12 Depression Screening Interpretation: Positive Depression Screening Follow-up: Existing condition and In treatment Depression Screening Done: Yes 89800 - PHQ-9 Billing: Yes Source: Developed by Drs. Ap Medina, Aidee Emerson, Demetrius Romano and colleagues, with an educational simon from [employer]. Thrive Questionnaire Date Thrive assessed: 09/10/24 I am a: Patient What is your living situation today?: I have a steady place to live Within the past 12 months, did the food you bought not last and you didn't have the money to get more?: Sometimes True Within the past 12 months, did you worry whether your food would run out before you got money to buy more?: Sometimes True Do you have trouble paying for medicines?: No Do you have trouble getting transportation to medical appointments?: No Do you have trouble paying your heating and electricity bill?: No Do you have trouble taking care of your child, family member or friend?: Yes Do you have trouble with day-to-day activities such as bathing, preparing meals, shopping, managing finances, etc.?: Yes Are you currently unemployed and looking for a job?: Yes Are you interested in more education?: Yes Please select the resources that you would like help with: None Currently or been in a relationship where the following occur: I choose not to answer THRIVE Score: 2 AUDIT C Alcohol Use Questionnaire (AUDIT-C) 1. How often do you have a drink containing alcohol?: Never Total Score: 0 BERRY-7 AMB Questionnaire BERRY-7 Date BERRY - 7 assessed: 09/10/24 Feeling nervous, anxious, or on edge: 1 = Several days Not being able to stop or control worryin = Several days Worrying too much about different things: 0 = Not at all Trouble relaxin = Several days Being so restless that it is hard to sit still: 0 = Not at all Becoming easily annoyed or irritable: 0 = Not at all Feeling afraid as if something awful might happen: 1 = Several days Total BERRY-7 score (0-4 normal; 5-9 mild; 10-14 moderate; 15-21 severe): 4 Source: Developed by Drs. Ap Medina, Aidee Emerson, Demetrius Romano and colleagues, with an educational simon from [employer]. BERRY-7 Assessment Billing BERRY-7 Assessment Tool: BERRY-7 Assessment 50119 Physical exam (Primary Care) Vital Signs: Last Vital Signs Temp 98.4 F 09/10/24 14:31 Pulse 70 09/10/24 14:31 BP 116/68 09/10/24 14:31 Pulse Ox 97 09/10/24 14:31 Oxygen Delivery Method Room Air 09/10/24 14:31 BMI result Body Mass Index 25.2 Tobacco/Smoking Status: Tobacco use Status Tobacco use date assessed 09/10/24 09/10/24 14:35 Patient Tobacco Use Status Former Tobacco user 09/10/24 14:21 e-Cigarette/Vaping Use Never Used 09/10/24 14:21 PHQ-9: PHQ-9 Score PHQ-9: Total score 12 09/10/24 15:42 Depression Screening Interpretation: Positive Depression Screening Follow-up: Existing condition and In treatment Thrive Assessment: Date of Thrive Assessment Date Thrive assessed 09/10/24 09/10/24 15:42 Currently or been in a relationship where the following occur: I choose not to answer Results AMB Hemoglobin A1c AMB Hemoglobin A1c 8.1 % Last Edit by Bessy Baldwin MA on 09/10/24 15:04 Results Reviewed Results Reviewed: Laboratory Last Values Hgb A1c (Clinic) 8.1 % (4.0-6.0) H 09/10/24 15:02 Coding Level of Care Code Est Pt Prev Care >65y(12653) Diagnoses Diabetes mellitus type 2 with complications E11.8 ILD (interstitial lung disease) J84.9 COPD mixed type J44.9 Hypertension associated with type 2 diabetes mellitus E11.59; I15.2 Lumbar back pain M54.50 Thoracic back pain M54.6 Diabetic neuropathy E11.40 Depression F32.A 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 Denies contraindications to GLP 1. Start Trulicity 0.75 mg weekly. Reviewed administration and potential side effects. Sent new glucometer to pharmacy. Refer to diabetes Center at [facility]. Reviewed blood glucose monitoring and how to treat hypoglycemia. Written instructions have been provided to him. Recommended low carbohydrate, low sugar diet. (2) ILD (interstitial lung disease): Code(s): J84.9 - Interstitial pulmonary disease, unspecified Category: Medical Plan: Continue management per pulmonology. (3) COPD mixed type: Comment: Continue management per pulmonology [facility] Code(s): J44.9 - Chronic obstructive pulmonary disease, unspecified Category: Medical (4) Hypertension associated with type 2 diabetes mellitus: Code(s): E11.59 - Type 2 diabetes mellitus with other circulatory complications; I15.2 - Hypertension secondary to endocrine disorders Category: Medical Plan: Patient was previously on losartan which reportedly caused leg weakness. His blood pressure is normal today. (5) Lumbar back pain: Code(s): M54.50 - Low back pain, unspecified Category: Medical (6) Thoracic back pain: Code(s): M54.6 - Pain in thoracic spine Category: Medical (7) Diabetic neuropathy: Code(s): E11.40 - Type 2 diabetes mellitus with diabetic neuropathy, unspecified Category: Medical (8) Depression: Code(s): F32.A - Depression, unspecified Category: Medical Plan: Patient now managed by Dr. Meehan. Continue current medications per Psychiatry. (9) Post-thoracotomy pain syndrome: Code(s): G89.12 - Acute post-thoracotomy pain Category: Medical (10) Routine physical examination: Code(s): Z00.00 - Encounter for general adult medical examination without abnormal findings Category: Medical Plan: Patient is seen today for a routine physical. As part of this visit we reviewed the following issues, which are considered and essential part of preventative health in this age group: - Discussed Prostate cancer screening - Nutritional and exercise counseling - Counseling of injury prevention including fire prevention, smoke alarms and seat belt usage - Screening for depression - Recommendations about immunizations - Recommendation of an eye exam - Screening for substance abuse Plan The patient has chronic pain which is multifactorial related to prior thoracotomy, avascular necrosis of the hips, diabetic neuropathy, high likelihood of degenerative arthritis and chronic lung disease. Continue oxycodone to 5 mg every 8 hours as needed for severe pain. Administration, side effects reviewed. Advised it is it addictive, habit-forming medication. It must be taken as directed. Reviewed risks associated with this medication including increased depression, constipation, dizziness, drowsiness, increased risk of falls, respiratory suppression. Because the pain is debilitating for the patient the benefit outweighs these risks. He is tolerating it thus far. Not a surgical candidate per Orthopedics. Followed by pain management. Refer to physical therapy. Follow up in 4 weeks. Orders: Orders Prostate Specific Antigen 09/10/24 Z12.5 - Encounter for screening for malignant neoplasm of prostate AMB Hemoglobin A1c 09/10/24 E11.59 - Type 2 diabetes mellitus with other circulatory complications, E11.69 - Type 2 diabetes mellitus with other specified complication, E78.5 - Hyperlipidemia, unspecified, I15.2 - Hypertension secondary to endocrine disorders Comprehensive Met. Panel 09/10/24 E11.8 - Type 2 diabetes mellitus with unspecified complications Lipid Panel 09/10/24 E78.5 - Hyperlipidemia, unspecified Referrals Endocrinology Referral E11.42 - Type 2 diabetes mellitus with diabetic polyneuropathy Medications: New dulaglutide (Trulicity) 0.75 mg (0.5 mL) subcut QWEEK 2 mL 0RF Refilled blood-glucose meter (OneTouch Verio Flex Meter) Use as directed to check blood glucose twice daily for Type II diabetes mellitus. 1 ea 0RF Patient Instructions: Continue Metfromin 1 pill twice daily Continue Januvia 100 mg daily Start Trulicity 0.75 mg injection once weekly The diabetes center will call to schedule the appointment
[2024-09-10 14:31] VITALS: BP 116/68; PULSE 70; TEMP 36.9; O2SAT 97; BMI 25.2
--- OUTSIDE RECORDS SUMMARY | 2024-09-10 14:54 | XMS_ITS | Data Portability ---
Author Organization [facility] - Melissa schwarz, Internal Medicine Office Address [address] [address] Care Team Providers Care Manager Transmission Name Role Phone TONEY LEE Referring Provider [phone] Assessment Encounter Date Assessment Date Assessment LastModified by Organization Details LastModified Time 04/03/2022 04/03/2022 The patient is a 72 year old male with a PMH . Reviewed and discussed all possible medication interactions with patient. Patient voiced understanding that if receiving controlled medications, they must be re-evaluated every 90 days before medication will be refilled. Also, [place] [facility] monitoring database will be consulted verifying [...] in 3 month unless appointment required sooner. [email or web address] Not available 04/03/2022 08:42:54 07/06/2022 07/06/2022 Reviewed and discussed all possible medication interactions with patient. Patient voiced understanding that if receiving controlled medications, they must be re-evaluated every 90 days before medication will be refilled. Also, [place] [facility] [employer] database will be consulted verifying no duplication [...] month unless appointment required sooner. Not available 10/07/2022 20:37:42 10/05/2022 10/05/2022 Patient [...] days before medication will be refilled. Also, [place] [facility] monitoring database will be consulted verifying [...] in 3 month unless appointment required sooner. [email or web address] Not available 10/07/2022 20:51:48 11/10/2022 11/10/2022 The patient is a 72 year old male with a PMH . Reviewed and discussed all possible medication interactions with patient. Patient voiced understanding that if receiving controlled medications, they must be re-evaluated every 90 days before medication will be refilled. Also, [place] [facility] [employer] database will be consulted verifying no duplication [...] in 3 month unless appointment required sooner. [email or web address] Not available 11/10/2022 08:15:17 Plan of Treatment Reminders Order Date Submit Date Provider Last Modified By Organization Details Last Modified Time Details Appointments None recorded. Lab None recorded. Referral None recorded. Procedures None recorded. Surgeries None recorded. Imaging CT, chest, w/o contrast - Chronic chest wll pain. 2022 023 [facility], [address] [facility] [address], [place], [address], 3 08:35:02 Medication Orders oxycodone 10 mg tablet 2022 023 [facility], [address] [address] [address], [place], [place], [id number], 3 08:36:28 oxycodone 10 mg tablet 2022 023 [facility], [address] [facility] [address] [place], [id number], 3 08:36:28 oxycodone 10 mg tablet 2022 023 [facility], [address] [facility] [address] [place], [id number], 3 08:36:29 oxycodone 10 mg tablet 2022 023 [email or web address] 1 Not available 3 09:23:15 oxycodone 10 mg tablet 2022 023 [email or web address] 1 Not available 3 09:23:15 oxycodone 10 mg tablet 2022 023 [email or web address] 1 Not available 3 09:23:15 prednisone 10 mg tablet 2022 023 [email or web address] 1 [facility], [address] [place] [address], [id number], 3 09:23:15 Zithromax Z-Joe 250 mg tablet 2022 023 [email or web address] 1 [facility], [address] [place] [address], [id number], 3 09:23:15 oxycodone 10 mg tablet 2022 023 [email or web address] 4 Not available 3 14:35:36 oxycodone 10 mg tablet 2022 023 [email or web address] Not available 3 09:28:01 albuterol sulfate HFA 90 mcg/actuati on aerosol inhaler 2022 023 [facility], [address] [place] [address], [id number], 3 08:25:22 Advair HFA 230 mcg-21 mcg/actuati on aerosol inhaler 2022 023 [facility], [address] [place] [address], [id number], 3 08:25:23 albuterol sulfate 2.5 mg/3 mL (0.083 %) solution for nebulizatio n 2022 023 [facility], [address] [place] [address], [id number], 3 08:25:22 Cipro 250 mg tablet 2022 023 [facility], [address] [place] [address], [id number], 3 08:28:24 oxycodone 10 mg tablet 2021 022 4 Not available 2 08:42:53 oxycodone 10 mg tablet 2021 022 [email or web address] 4 Not available 2 08:42:53 oxycodone 10 mg tablet 2021 022 4 Not available 2 08:42:53 Advair HFA 230 mcg-21 mcg/actuati on aerosol inhaler 2021 [facility], [address] [place] [address], [place], [place], [id number], 2 08:45:37 Patient TargetsNo targets recorded. Patient InstructionsNo instructions recorded. Reason for Referral None Reported. Problems Name Problem SNOMED Code Status Onset Date Resolution Date Notes Provider Name and Address Organization Details Recorded Time Prostatism 79493353 Active [facility] 4 17:23:28 Chronic obstructive pulmonary disease 78761458 Active [facility] 4 17:23:28 Tobacco dependence syndrome 84964562 Active [facility] 4 17:23:28 Hyperlipidemia 99965074 Active [facility] 4 17:23:28 Type 2 diabetes mellitus 34789551 Active [facility] 4 17:23:28 Nausea and vomiting 07536161 Active [facility] 4 17:23:28 Pneumonia 431070041 Active [facility] 4 17:23:28 Otitis media 25504023 Active [facility] 4 17:23:28 Pain radiating to left shoulder 844688872 Active [facility] 4 17:23:28 Pain in thoracic spine 863234492 Active [facility] 4 17:23:28 Hemoptysis 53038235 Active [place] 4 17:23:28 Backache 923718234 Active [place] [facility] 4 17:23:28 Neck pain 69565803 Active [place]se valle [facility] 4 17:23:28 Musculoskeleta l pain 224318144 Active [place]se valle [facility] 4 17:23:28 Parotitis 34616760 Active [place] valle [facility] 4 17:23:28 Hypoxia 160443430 Active [place]le [facility] 4 17:23:28 Hoarse 30569857 Active [place] [facility] 4 17:23:28 Bronchitis 85638920 Active [place] valle [facility] 4 17:23:28 Pain of shoulder region 33434693 Active [place]se valle [facility] 4 17:23:28 Chest wall pain 175066671 Active 2021 [place] [facility] 4 17:23:28 Lumbar spondylosis 163297672 Active 2022 [place] [facility] [...] prednisone 10 mg tablet Take 4 tabs [id number], 3 tabs [id number], 2 tabs [id number], 1 tab [id number] active Not Available Not Available No t [...] Available Not Available Not Available Fluzone High-Dose 6758-7931 (PF) 180 mcg/0.5 mL intramuscul ar syringe [...] Updated DateTime 2 167.64 cm 26.1 kg/m2 80815.9 6 g 97.9 [degF] 16 /min 94 [...] Updated DateTime 3 167.64 cm 26.1 kg/m2 36660.1 7 g 97.4 [degF] 76 /min 96 [...] Updated DateTime 3 167.64 cm 26.5 kg/m2 78963.1 5 g 74 /min 96 % 96 [...] Updated DateTime 3 167.64 cm 25.8 kg/m2 14638.7 8 g 87 /min 96 % 96 [...] Updated DateTime 3 167.64 cm 25.8 kg/m2 80152.7 8 g 97 % 97 % 3 L/min 90 /min 130 mm[Hg] 80 mm[Hg] [facility] 3 08:19:20 Social History Question Answer Notes LastModified by Organizat ion Details LastModified Time Tobacco Smoking Status Former [facility]oker quit 2011 Not Available [facility] 02/23/2020 03:16:30 Do You Have An Advance Directive? No [id number] Information not available 02/23/2020 What Is Your Level Of Caffeine Consumption? Occasional [id number] Information not available 02/23/2020 How Much Tobacco Do You Chew? None [id number] Information not available 02/23/2020 Which Illicit Or Recreational Drugs Have You Used? None [id number] Information not available 02/23/2020 Marital Status Single [email or web address] Informatio n not available 04/03/2013 What Was The Date Of Your Most Recent Tobacco Screening? 08/21/2018 [id number] Information not available 02/23/2020 At What Age Did You Start Smoking Tobacco? 16 [id number] Information not available 02/23/2020 How Much Tobacco Do You Smoke? 1.5 PPD [id number] Information not available 02/23/2020 Sex: Unknown Functional Status Question Answer Note LastModified by Organization D etails LastModified Time What is your level of alcohol consumption? None [id number] Information not available 02/23/2020 Mental Status None recorded. Family History Nothing [...] virus, trivalent, PF 05/20/2013 completed Not Available [facility] 2019 02:13:33 Past Encounters Encounter ID Performer Location Encounter Start Date Encounter Closed Date Diagnosis/Indication Diagnosis SNOMED-CT Code Diagnosis ICD10 Code Diagnosis Note [id number] Toney Lee MD Pulmonary [facility] [place],[address] [place] [address] 04/03/2013 09:01:40 04/03/2013 09:52:54 Chronic obstructive pulmonary disease 11015266 Tobacco de pendence syndrome 04722270 Hyperlipidemia 60237834 [id number] Toney Lee MD [facility] [place],[address] [place] [address] 05/20/2013 08:28:06 05/20/2013 11:14:24 Chronic obstructive pulmonary disease 06527489 Tobacco de pendence syndrome 33410334 Hyperlipidemia 19835221 Hemoptysis 48439267 Backache 548694924 Neck pain 57448856 Musculoskeletal pain 815006427 [id number] Toney Lee MD [facility] [place],[address] [place] [address] 06/05/2013 07:58:32 06/05/2013 09:19:17 Chronic obstructive pulmonary disease 12402896 Tobacco de pendence syndrome 96815279 Hyperlipidemia 03578550 Backache 431672626 Neck pain 61613982 Bronchitis 24901920 Gree n phlegm. Pain of [place] 77278310 [id number] Jasen Hawkins MD Infectiou s Office [address] [facility] [address] [place] [address] 07/09/2013 14:06:17 09/01/2013 14:31:00 [id number] Toney Lee MD Pulmonary Office [facility] [place],[address] [place] [address] 07/20/2013 10:38:02 07/20/2013 16:49:21 Musculoskeletal pain 202461894 Pain of [facility] 95216668 Chronic ob structive pulmonary disease 20519343 [id number] Toney Lee MD Pulmonary Office [facility] [place],[address] [place] [address] 08/17/2013 08:57:53 08/17/2013 16:40:33 Chronic obstructive pulmonary disease 72611429 Musculoskeletal pain 438657143 Pain of [facility] 39195928 Send to Dr. Arceo [place]. [id number] Toney Lee MD Pulmonary [facility] [place],[address] [place] [address] 09/15/2013 09:37:52 09/15/2013 16:17:51 Chronic obstructive pulmonary disease 64624334 Musculoskeletal pain 118893039 Pain of [facility] 51075852 Please send to Dr. Arceo for shoulder pain now on right side. Kenalog right deltoid. [id number] Toney Lee MD Pulmonary Office [facility] [place],[address] [place] [address] 10/13/2013 09:28:29 10/13/2013 11:32:10 Chronic obstructive pulmonary disease 75267494 Musculoskeletal pain 656365568 Pain of [facility] 05823146 [id number] Toney Lee MD Pulmonary Office [facility] [place],[address] [place] [address] 11/26/2013 07:51:48 11/26/2013 12:21:33 Chronic obstructive pulmonary disease 64185180 Musculoskeletal pain 300698056 Please get referral to Phillip Mendez. [facility] CALLED, CAN ONLY FILL 90 TABS, WILL NEED ANOTHER RX FFOR 30 TABS TO COMPLETE HIS MONTHLY DOSAGE OF OXYCODONE 10MG. Hyperlipidemia 44139540 Neck pain 84678164 Backache 075071439 Bronchitis 87278047 Gree n phlegm. Tobacco de pendence syndrome 13970782 Prostatism 52361738 To Sarah Santos evaluate prostatism . [id number] Toney Lee MD Pulmonary Office [facility] [place],[address] [place] [address] 12/24/2013 07:47:08 12/24/2013 10:21:24 Chronic obstructive pulmonary disease 20677187 Prostatism 38452222 To Sarah Santos evaluate prostatism . Musculoskeletal pain 758698615 Please get referral to Phillip Mendez [facility]. Hyperlipidemia 87940925 Neck pain 58831181 Backache 180323659 Tobacco de pendence syndrome 93747530 [id number] Toney Lee MD Pulmonary Office [facility] [place],[address] [place] [address] 03/03/2014 08:28:41 03/03/2014 16:56:44 Chronic obstructive pulmonary disease 02918070 Needs portable O2 tank. Pain of [place] 78772771 [id number] Toney Lee MD Pulmonary Office [facility] [place],[address] [place] [address] 04/30/2014 08:54:07 04/30/2014 11:54:41 Pain of shoulder region 81557934 Chronic ob structive pulmonary disease 02089038 Prostatism 10501810 Musculoskeletal pain 587282702 Hyperlipidemia 79524339 Neck pain 84581967 Backache 046198868 Hemoptysis 54369829 Bronchitis 35707491 Tobacco de pendence syndrome 87607981 Type 2 joon betes mellitus 72996974 [id number] [facility] [place],[address] [place] [address] 06/09/2014 09:16:14 06/10/2014 16:21:40 Chronic obstructive pulmonary disease 95014836 Pain of [place] 08373071 [id number] [facility] [place],[address] [place] [address] 06/23/2014 08:03:44 06/25/2014 15:49:11 Musculoskeletal pain 370361591 Oxycontin 20 mg BID. Oxycodone 10 mg po Q4H PRN. [I tried to call [phone] Brian, his job honer, to discuss change in his medication s. I left a message for her.] Chronic ob structive pulmonary disease 82465217 Nausea and vomiting 42926337 Side effect of gabapentin . I advised he stop this. [id number] Toney Lee MD Pul[facility] Office [facility] [place],[address] [place] [address] 11/23/2014 08:02:08 11/23/2014 11:23:00 Chronic obstructive pulmonary disease 25180457 Musculoskeletal pain 999906625 Kenalog 40 mg IM left shoulder. Nausea and vomiting 27537272 Pneumonia 175932366 [facility] ed in [facility] Type 2 joon betes mellitus 93423292 [id number] Toney Lee MD Pulmonary Office [facility] [place],[address] [place] [address] 12/17/2014 07:53:05 12/17/2014 15:46:46 Neck pain 49577106 Pain of sh [place] 10283641 Kenalog 80 mg IM left shoulder. Need MRI reports. To Dr. Bhakta. [id number] Toney Lee MD Pulmonary Office [facility] [place],[address] [place] [address] 02/04/2015 08:18:18 02/05/2015 12:40:20 Otitis media 64511355 H66.012 Hemoptysis 72439675 R04. 2 Pain radia ting to left shoulder 469712840 M25.519 Kenalog 80 mg IM. Chronic pain for years/deca josy affecting quality of life. [id number] Toney Lee MD Pulmonary Office [facility] [place],[address] [place] [address] 04/11/2015 09:10:28 04/27/2015 19:29:09 Chronic obstructive pulmonary disease 90023341 J44.9 Backache 064516618 M54.9 Musculoskeletal pain 279 789178 M79.1 Kenalog 40 mg IM left shoulder. [id number] Toney Lee MD [facility] [place],[address] [place] [address] 07/04/2015 10:41:28 07/04/2015 12:16:19 Chronic obstructive pulmonary disease 63191555 J44.9 Pain in th oracic spine 634594091 M54.6 [id number] Toney Lee MD Pulmonary Office [facility] [place],[address] [place] [address] 08/09/2015 08:11:12 08/09/2015 13:44:59 Chronic obstructive pulmonary disease 34519654 J44.9 Pain in th oracic spine 763586839 M54.6 Parotitis 17689146 K11.[address] Crystal. BL parotid soft swelling, very tender. [id number] Toney Lee MD Pulmonary Office [facility] [place],[address] [place] [address] 09/15/2015 07:49:48 09/15/2015 14:48:41 Pain in thoracic spine 539473333 M54.6 Pain of sh [place] 85153543 M25.519 Chronic ob structive pulmonary disease 65992550 J44.9 Hypoxia 811215218 G47.34 Nocturnal O2. [id number] Toney Lee MD Pulmonary Office [facility] [place],[address] [place] [address] 11/08/2015 10:41:17 11/08/2015 11:46:34 Pain of shoulder region 87629164 M25.519 Hoarse 43916734 R49.0 Hoarseness getting worse. Please refer back to Dr. True Crystal. [id number] Toney Lee MD [facility] [place],[address] [place] [address] 12/12/2015 08:23:06 12/12/2015 11:10:30 Bronchitis 93421896 J40 Type 2 joon betes mellitus 11403244 E11.9 Pain in th oracic spine 474506707 M54.6 [id number] Toney Lee MD Pul[facility] Office [facility] [place],[address] [place] [address] 01/23/2016 07:43:50 01/23/2016 08:44:35 Chronic obstructive pulmonary disease 43820893 J44.9 Pain in th oracic spine 635497246 M54.6 Pain radia ting to left shoulder 169973914 M25.519 Hoarse 44290472 R49.0 Hoarseness persistent .. Please refer back to Dr. True Crystal. [id number] Toney Lee MD Pulmonary Office [facility] [place],[address] [place] [address] 02/21/2016 08:53:41 02/21/2016 12:18:12 Pain in thoracic spine 694525410 M54.6 Musculoskeletal pain 279 790349 M79.1 Pain radia ting to left shoulder 684218926 M25.519 Please give 3 months of Rx'es pre-dated for patient kylah e. Type 2 joon betes mellitus 45836263 E11.9 [id number] Toney Lee MD Pulmonary Office [facility] [place],[address] [place] [address] 05/22/2016 07:44:02 05/22/2016 11:54:27 Pain in thoracic spine 646472957 M54.6 Patient's sister dying and he will be going to [place] to be with her. He needs 3 months of pain medication s pre-dated. [id number] Toney Lee MD Pulmonary Office [facility] [place],[address] [place] [address] 08/20/2016 07:40:42 08/20/2016 08:28:44 Pain in thoracic spine 381348174 M54.6 Bronchitis 34653959 J40 [id number] [facility] Lee [facility] [place],[address] [place] [address] 11/19/2016 07:44:41 11/19/2016 08:53:05 Bronchitis 84303230 J40 Chronic pain 28219457 G8 9.29 [id number] Toney Lee MD [facility] [place],[address] [place] [address] 02/18/2017 07:40:33 02/18/2017 10:34:22 Pain of shoulder region 49762567 M25.519 Chronic ob structive pulmonary disease 71734994 J44.9 Utibron sample given, first dose given and instructio ns given to patient. Pain in th oracic spine 496670756 M54.6 [id number] Toney Lee MD Pulmonary Office [facility],[address] [place] [address] 05/20/2017 07:54:29 05/20/2017 15:57:14 Pain of shoulder region 32146326 M25.[address] Carty for evaluation . [id number] Bessy DennisYo Pulmonary Office [facility],[address] [email or web address] [address] 07/31/2017 09:43:03 07/31/2017 12:22:41 Pain of shoulder region 76836976 M25.519 Pneumonia 744652449 J18. 9 pt with dullness present to LLL will treat and eval in office Acute uppe r respiratory infection 10040325 J06.9 add to treatment as pt is still with diff breathing, use neb 4x day [id number] Toney Lee MD Pulmonary Office [facility],[address] [place] [address] 10/18/2017 08:36:43 10/18/2017 10:03:41 Pain of shoulder region 99948215 M25.[address] Carty for evaluation . Chronic ob structive pulmonary disease 24821200 J44.9 Anonro sample given, first dose given and instructio ns given to patient. Chronic hoarseness 17511 65616 105 R49.0 Adverse re action to drug 08139536 T45.95XA Dizziness from steroids. [id number] Toney Lee MD Pulmonary Office [facility],[address] [email or web address] [address] 11/15/2017 10:27:46 11/15/2017 11:20:59 Chronic obstructive pulmonary disease 78838264 J44.9 FEV1=1.96 LPS, 72% of predicted, predicted FEV1=2.72 LPS. Musculoskeletal pain 279 699276 M79.1 Severe pain, alleviated with oxycodone. Pain incapacita ting and with meds able to do small chores around house, go shopping and walk a bit with his cane. [id number] Bessy Ram Pulmonary Office [facility],[address] [place] [address] 12/27/2017 13:51:08 12/27/2017 14:45:19 Chronic obstructive pulmonary disease 46152695 J44.9 FEV1=1.96 LPS, 72% of predicted, predicted FEV1=2.72 LPS. Musculoskeletal pain 279 995960 M79.1 pt had recent thoracotom y to left lobe pain 12/06 controlled better with pain [[[Severe pain, alleviated with oxycodone. Pain incapacita ting and with meds able to do small chores around house, go shopping and walk a bit with his cane.]]] Lung mass 201362139 R91. 8 pt has had persistent area to left lobe which [place] [facility] [place] [place] [facility] [place] [facility] [place], need all results. pt had left lobe thoracotom y december 17 need all records from [place] for results.. [id number] Toney Lee MD Pulmonary Office [facility],[address] [place] [address] 02/10/2018 13:18:28 02/10/2018 15:20:01 Chest wall pain 806865373 R07.89 Need discharge summary from [facility] Pneumonia 737713187 J18. 9 [id number] Toney Lee MD Pulmonary Office [facility],[address] [place] [address] 05/16/2018 09:11:45 05/16/2018 13:48:04 [id number] Toney Lee MD Pulmonary Office [facility],[address] [place] [address] 07/14/2018 10:35:00 07/14/2018 11:51:59 Chest wall pain 272307659 R07.89 Need discharge summary from [facility] Pneumonia 352144930 J18. 9 [id number] Toney Lee MD Pulmonary Office [facility],[address] [place] [address] 08/11/2018 14:35:18 08/11/2018 16:33:25 Chronic obstructive pulmonary disease 38708973 J44.9 FEV1=1.96 LPS, 72% of predicted, predicted FEV1=2.72 LPS. andre De Dios, [phone]. Obstructiv e sleep apnea syndrome 55960735 G47.33 Snores and stops breathing. Witnessed apneas. Daytime somnolence . ESS 18. [id number] T[facility] Lee [facility] [place] [address] 08/21/2018 13:04:36 08/21/2018 13:46:29 Hypoxemia 246017952 R09.02 Nocturnal hypoxemia <=88% for 17 minutes. 6MWT decreased to 86% and recovered to 90% with O2. Patient requests portable O2 concentrat or if possible. [id number] Toney Lee MD Pulmonary Office [facility] [place],[address] [place] [address] 10/13/2018 08:08:00 10/13/2018 08:31:40 Chest wall pain 181520972 R07.89 Chronic ob structive pulmonary disease 67625389 J44.9 [FEV1=1.96 LPS, 72% of predicted, predicted FEV1=2.72 LPS. andre De Dios, .] [id number] Toney Lee MD Pulmonary Office [facility] [place],[address] [place] [address] 01/14/2019 07:52:06 01/14/2019 08:44:54 Chest wall pain 968858286 R07.89 Medication s of significan t benefit. Allow patient better quality of life and greater level of activity. No side effects. Chronic ob structive pulmonary disease 96849695 J44.9 [FEV1=1.96 LPS, 72% of predicted, predicted FEV1=2.72 LPS. andre De Dios, .] [id number] Toney Lee MD Pulmonary Office [facility] [place],[address] [place] [address] 04/14/2019 07:57:12 04/14/2019 08:47:19 Chest wall pain 799102467 R07.89 Pain meds helping patient mucho and allowing better quality of life. Chronic ob structive pulmonary disease 81323266 J44.9 [FEV1=1.96 LPS, 72% of predicted, predicted FEV1=2.72 LPS. andre De Dios, .] [id number] Toney Lee MD Pulmonary Office [facility],[address] [place] [address] 07/13/2019 08:59:34 07/13/2019 09:49:02 Chest wall pain 821159212 R07.89 Pain meds helping patient mucho and allowing better quality of life. Chronic ob structive pulmonary disease 80585700 J44.9 [FEV1=1.96 LPS, 72% of predicted, predicted FEV1=2.72 LPS. andre De Dios, .] [id number] Toney Lee MD Pulmonary Office [facility],[address] [email or web address] [address] 10/15/2019 10:50:50 10/15/2019 11:49:37 Chest wall pain 934889190 R07.89 Pain meds helping patient mucho and allowing better quality of life. Chronic ob structive pulmonary disease 89097249 J44.9 [FEV1=1.96 LPS, 72% of predicted, predicted FEV1=2.72 LPS. andre De Dios, .] [id number] Toney Lee MD Pulmonary Office [facility] [place],[address], [address] [place] [address] 01/15/2020 08:35:04 01/15/2020 09:43:28 Chest wall pain [id number] R07.89 Meds help a lot. No side effects. Increased activity levels. Pain meds helping patient mucho and allowing better quality of life.] Chronic ob structive pulmonary disease [id number] J44.9 [FEV1=1.96 LPS, 72% of predicted, predicted FEV1=2.72 LPS. andre De Dios, .] [id number] Toney Lee MD [facility],[address], [address] [employer], [employer] [address] 03/15/2020 13:41:38 03/15/2020 15:00:16 Chest wall pain [id number] R07.89 Excellent pain benefit. Able to do more activity, chores and shopping. Sleeping better. [Meds help a lot. No side effects. Increased activity levels. Pain meds helping patient mucho and allowing better quality of life.] Chronic ob structive pulmonary disease [id number] J44.9 Alpha-1 swab. FEV1=1.36 LPS, 49% of predicted, predicted FEV1=2.78 LPS, 01/2020FEV 1=1.96 LPS, 72% of predicted, predicted FEV1=2.72 LPS, 10/2017.FEV 1=1.72 LPS, 57% of predicted, predicted FEV1=3.03 LPS, 05/2014 [id number] Toney Lee MD Pulmonary Office [facility] [place],[address], [address] [employer], [employer] [address] 04/12/2020 12:33:35 04/12/2020 13:54:32 Chronic obstructive pulmonary disease 03149476 J44.9 FEV1=1.96 LPS, 72% of predicted, predicted FEV1=2.72 LPS. andre De Dios, . Obstructiv e sleep apnea syndrome 11706219 G47.33 Uses CPAP with beneit. 83015 [facility],[address], [address] [employer], [employer] [address] 04/15/2020 09:24:47 04/15/2020 11:27:24 Chronic obstructive pulmonary disease 76729581 J44.9 FEV1=1.96 LPS, 72% of predicted, predicted FEV1=2.72 LPS. Lucinda Cornelius, neighbor, . Obstructiv e sleep apnea syndrome 27314243 G47.33 Uses CPAP with beneit. Chest wall pain 07272191 6 R07.89 Better QOL. Greater level of activity. [Excellent pain benefit. Able to do more activity, chores and shopping. Sleeping better.] [Meds help a lot. No side effects. Increased activity levels. Pain meds helping patient mucho and allowing better quality of life.] Cramp in lower limb 4499 44502 R25.2 Drink quinine water as needed. [id number] Toney Lee MD Pulmonary Office [facility] [place],[address], [address] [place] [address] 10/10/2020 09:24:16 10/10/2020 10:51:26 Chest wall pain 292723334 R07.89 Benefiting from pain meds. Uses walker. [...] of life.] Chronic ob structive pulmonary disease 07374706 J44.9 Using and benefiting from oxygen.FEV 1=1.96 LPS, 72% of predicted, predicted FEV1=2.72 LPS. Obstructiv e sleep apnea syndrome 18595938 G47.33 Uses CPAP with beneit. Cramp in lower limb 4499 91428 R25.2 Drink quinine water as needed. [id number] Toney Lee MD Pulmonary Office [facility] [place],[address], [address] [place] [address] 01/10/2021 10:17:08 01/10/2021 11:00:54 Chest wall pain 218802721 R07.89 Getting good benefit from pain meds. Able to have better level of activity and to do some field recorder and shop. No increased dose and no [...] of life.] Chronic ob structive pulmonary disease 45730853 J44.9 Using and benefiting from oxygen.FEV 1=1.96 LPS, 72% of predicted, predicted FEV1=2.72 LPS. Obstructiv e sleep apnea syndrome 90030910 G47.33 Uses CPAP with beneit. [id number] Toney Lee MD Pulmonary Office [facility],[address], [address] [employer] [address] 04/10/2021 08:05:51 04/10/2021 08:43:49 Chronic obstructive pulmonary disease 22335719 J44.9 Using and benefiting from oxygen.FEV 1=1.96 LPS, 72% of predicted, predicted FEV1=2.72 LPS. Chest wall pain 44789868 6 R07.89 Oxycodone is excellent for my pain. Decreasing pain and allowing him to move around better with his cane. Limited activity. Able to do chores and shop. Has significan t arthritic pain. [Getting good benefit from pain meds. Able to have better level of activity and to do some field recorder and shop. No increased dose and no [...] of life.] Obstructiv e sleep apnea syndrome 57121207 G47.33 Uses CPAP with beneit. [id number] Toney Lee MD Pulmonary Office [facility] [place],[address], [address] [employer] [address] 07/07/2021 08:14:00 07/07/2021 09:31:19 Chronic obstructive pulmonary disease 22083673 J44.9 Using and benefiting from oxygen.FEV 1=1.96 LPS, 72% of predicted, predicted FEV1=2.72 LPS. Chest wall pain 13012639 6 R07.89 Using and benefiting from pain [...] level of activity and to do some field recorder and shop. No increased dose and no [...] of life.] Obstructiv e sleep apnea syndrome 17411244 G47.33 Uses CPAP with beneit. Acute exac erbation of chronic obstructive pulmonary disease 584805606 J44.1 Benign pro static hyperplasia 957555519 N40.0 [id number] Toney Lee MD Pulmonary Office [facility] [place],[address], [address] [place] [address] 07/25/2021 08:15:07 07/25/2021 08:56:31 Chronic obstructive pulmonary disease 94195285 J44.9 Significan t improvemen t over previous.Q uit smoking 17 years agoFEV1=2. 04 LPS, 78% of predicted, predicted FEV1=2.61 LPS, 06/20201662NRS9 =1.96 LPS, 72% of predicted, predicted FEV1=2.72 LPS, [id number] Toney Lee MD Pulmonary Office [facility] [place],[address], [address] [place] [address] 10/12/2021 08:16:06 10/12/2021 09:00:54 Chest wall pain 831826612 R07.89 Pain meds help a lot. Taking [...] level of activity and to do some field recorder and shop. No increased dose and no [...] of life.] Obstructiv e sleep apnea syndrome 82429350 G47.33 Uses CPAP with beneit. Benign pro static hyperplasia 162791064 N40.0 [id number] T[facility] Lee [facility],[address], [address] [place] [address] 01/08/2022 07:58:29 01/08/2022 08:41:34 Chest wall pain 366907400 R07.89 Taking stable dose. No side effects. Uses walker to ambulate and can walk more easily.Marquita pwsteven reviewed. [Pain meds help a lot. Taking [...] level of activity and to do some field recorder and shop. No increased dose and no [...] mucho and allowing better quality of life.] [id number] Toney Lee MD Pulmonary Office [facility],[address], [address] [place] [address] 04/03/2022 07:55:12 04/03/2022 09:05:39 Chest wall pain 041021059 R07.89 Taking stable dose. No side effects. [...] level of activity and to do some field recorder and shop. No increased dose and no [...] of life.] Chronic ob structive pulmonary disease 69477803 J44.9 [id number] Toney Lee MD Pulmonary Office [facility] [place],[address], [address] [employer] [address] 07/06/2022 07:55:10 07/09/2022 08:35:37 Chest wall pain 395183222 R07.89 Taking stable dose. No side effects. [...] level of activity and to do some field recorder and shop. No increased dose and no [...] of life.] Chronic ob structive pulmonary disease 38355952 J44.9 [id number] Toney Lee MD Pulmonary Office [facility] [place],[address], [address] [employer] [place] [address] 10/05/2022 07:53:51 10/07/2022 20:51:58 Chronic obstructive pulmonary disease 18119957 J44.9 Lumbar spondylosis 97580 0009 M47.896 Taking stable dose. No side [...] level of activity and to do some field recorder and shop. No increased dose and no [...] mucho and allowing better quality of life.] [id number] Toney Lee MD Pulmonary Office [facility],[address], [address] [place] [address] 11/10/2022 07:53:59 11/11/2022 08:49:02 Chest wall pain 842860789 R07.89 Taking stable dose. No side effects. [...] level of activity and to do some field recorder and shop. No increased dose and no [...] of life.] Chronic ob structive pulmonary disease 36997943 J44.9 Significan t improvemen t over previous.Q uit smoking 17 years agoFEV1=2. 04 LPS, 78% of predicted, predicted FEV1=2.61 LPS, 06/20204595ZYK2 =1.96 LPS, 72% of predicted, predicted FEV1=2.72 LPS, Acute uppe r respiratory infection 87180535 J06.9 [id number] Toney Lee MD Pulmonary Office [facility],[address], [address] [place] [address] 02/09/2023 08:08:35 02/09/2023 16:49:31 Chest wall pain 405369598 R07.89 Using and benefiting from pain meds. [...] level of activity and to do some field recorder and shop. No increased dose and no [...] [employer] (MEDICARE REPLACEMENT HMO) Costa Smitho [id number] Costa Cornelius Jt 07/06/2022 1 [employer] (MEDICARE REPLACEMENT HMO) Costa [place]do [id number] Costa Cornelius Jt 10/05/2022 1 [employer] (MEDICARE REPLACEMENT HMO) Costa Cornelius Jt [id number] Costa Cornelius Jt 11/10/2022 1 [employer] (MEDICARE REPLACEMENT HMO) Costa [place]am[place]do [id number] Costa Cornelius Jt 02/09/2023 1 [employer] (MEDICARE REPLACEMENT HMO) Costa Guamanaldo [id number] Costa Smitho Notes Date Note Type Note Provider Name and Address Organization Details Recorded Time 10/05/2022 text/html This is a 72 yea r old male with a history of COPD and Lumbar spondylosis. He presents for a medication refill. Office member Aurelio Melgar assisted as coremaker experimental. And the only thing that helps him is his oxycodone. He admits to chest pain and denies back pain.Patient irritable and angry when asked about his pain he states he gets 3 months , and wants his prescriptions. In [place], coremaker experimental asked if patient had tried other modalities for pain, including but not limited to ice and heat, and anti-inflammatori es. Patient very angry, raised voice, declines any anti-inflammatori es, and states he just wants his dora meses of pain meds. Shelby Zaman [facility] 10/07/2022 20:51:56 02/09/2023 text/html oxy refill apr 12 Toney Lee MD [address] [place] [address], [phone], [facility] 02/09/2023 08:34:34
--- OUTSIDE RECORDS SUMMARY | 2024-09-10 14:54 | XMS_ITS | Clinical Summary ---
Author Organization [employer] Address [address] [place] [address] Care Team Providers Care Punch Press Setter Name Role Phone Unavailable Primary Care Provider [...] patient's age to complete this topic Meningococcal B Vaccine Aged Out No l onger eligible based on patient's age to complete this topic Meningococcal Vaccine Aged Out No roger humza eligible based on patient's age to complete this topic RSV under 20 months Aged Out No longe r eligible based on patient's age to complete this topic Rotavirus Vaccines Aged Out No longer eligible based on patient's age to complete this topic Insurance [employer]
--- OUTSIDE RECORDS SUMMARY | 2024-09-10 14:54 | XMS_ITS ---
Author Name Jeanna ORESTES, RN, RD, Noelle Address [address] [place] [address] Phone [phone] [facility] Care Team Providers Care Finisher Map And Chart Name Role Phone Noelle Meeks Unavailable [phone] [facility] Unavailable Reason for Referral Not Available [...] 2024-02-24 No Data Available [employer] [id number] Miscellaneous USE SEG N LO INDICADO TO [...] 1111F, BP, A1c or other CPTII codes [facility] ([place] 07/04/2024 Encounter for other specifie d aftercare Unlisted special service; to be used for medical record reviews and reporting CPTII codes (1111F, etc) [facility] [place] 07/28/2024 Encounter for other specifie d aftercare Unlisted special service; to be used for medical record reviews and reporting CPTII codes (1111F, etc) [facility] ([place] 07/28/2024 Social History Sex Male History of Procedures Procedures Service Procedure code Service date Servicing provider Phone# RN, CN or CP time with patient by phone; use with 1111F, BP, A1c or other CPTII codes 23147 2024-07-04 No Data Available No Data Avai lable Unlisted special service; to be used for medical record reviews and reporting CPTII codes (1111F, etc) 84509 2024-07-28 No Data Available No Data Availa ble Medications prescribed in hospital were reviewed and reconciled against what they were taking prior to admission during today's visit. (1111F) 1111F 2024-07-28 No Data Available No Data Availa ble Functional Status No Information Mental Status No Information Assessments Not Available Plan of Care Not Available
== END 2024-09-10 15:28 | disposition home or self-care (01) ==
LOC: HO.HMCFM 14:14
PROVIDERS: PCP Physician Assistant Medical; Visit Provider Physician Assistant Medical
DX: E11.59 Type 2 diabetes mellitus with other circulatory complications (principal); I15.2 Hypertension secondary to endocrine disorders; E11.69 Type 2 diabetes mellitus with other specified complication; E78.5 Hyperlipidemia, unspecified

== ENCOUNTER → 2024-09-10 14:13 | Outpatient (BNVA) | payer OTHER, SELFPAY | PROVIDERS: PCP Physician Assistant Medical; Visit Provider Physician Assistant Medical | DX: Z00.00 Encounter for general adult medical examination without abnormal findings (principal); E11.8 Type 2 diabetes mellitus with unspecified complications; J84.9 Interstitial pulmonary disease, unspecified; J44.9 Chronic obstructive pulmonary disease, unspecified; E11.59 Type 2 diabetes mellitus with other circulatory complications; I15.2 Hypertension secondary to endocrine disorders; M54.50 Low back pain, unspecified; M54.6 Pain in thoracic spine; E11.40 Type 2 diabetes mellitus with diabetic neuropathy, unspecified; F32.A Depression, unspecified; G89.12 Acute post-thoracotomy pain; M87.9 Osteonecrosis, unspecified; Z79.84 Long term (current) use of oral hypoglycemic drugs; Z99.81 Dependence on supplemental oxygen | CPT/HCPCS: 83036; 96127; 99397 ==

== ENCOUNTER 2024-10-12 14:14 | Outpatient (AMB) | payer OTHER, SELFPAY ==
--- NOTE | 2024-10-12 14:19 | A.OFFPC_ITS ---
Vital Signs 10/12/24 14:37 Height 5 ft 6 in Weight 154 lb BMI 24.9 BP 120/68 Blood Pressure Location Lt brachial Position Sitting Pulse 92 Pulse Source Pulse Oximeter Temp 98 F Temp Source Temporal Artery Scan Pulse Oximetry (%) 94 Oxygen Delivery Method Room Air Intake Visit Reasons: 30 minute follow up complex Intake Note: Costa presents in the office today for a follow up to his diabetes. Allergies morphine Allergy (Severe, Verified 10/12/24 14:29) Agitated Tobacco use date assessed: 10/12/24 Dental Screening Dental Screen Date: 10/12/24 Did you have a dental visit in the last 12 months?: No Did you have a dental problem in the last 6 months where you did not have access to dental care?: No Was dental information given to patient?: Patient declined HPI HPI Comments History of Present Illness Details 74-year-old male [place] speaking with d iabetes type 2, COPD O2 dependent on 2 L of oxygen, empyema status post chest tube and VATS, status post tracheostomy now decannulated, interstitial lung disease, status post right- sided rib fractures, glaucoma, MDD, urinary incontinence, CAD, bifascilar block and chronic pain presents for a physical exam. Video power sewing machine operator used for appointment. Patient's son, Costa, present. No interval ER visits or hospitalizations. Type 2 diabetes-taking Trulicity 0.75 mg weekly, Januvia 100 mg daily and metformin 1000 mg twice daily. No side effects on Trulicity. Previously stopped glipizide due to difficulty swallowing the pill. His last hemoglobin A1c was 8.1% 09/10/2024. Denies low blood sugars. Patient doesn't have his glucometer today, but he reports he is checking twice a day. Morning blood sugars range between 75-110. Postprandial blood sugars range from 105-120. Denies low blood sugars. He was referred to endocrinology, and his son needs to call them back to schedule the appointment. He is seeing Dr. Meehan now for Psychiatry. He is on a wait list for therapy. He is sleeping well. Chronic pain- Patient had recent imaging which showed avascular necrosis of both hips. He saw [facility] on 08/13/2024, but he is not a surgical candidate. He saw pain management on 09/04/2024. He has been referred to physical therapy and just started this in September. Steroid injections deferred until his A1c has decreased. He has chronic pain in his bilateral knees, his lower back and middle back, neuropathy in his feet. On average pain is an 8/10. It makes it harder for him to sleep. He has difficulty moving from a sitting to standing position. He uses a cane and walker. Handicap placard form was completed for him today. He does not drive. Patient reported he tried gabapentin and Lyrica which were ineffective. Patient is taking 5 mg of oxycodone every 8 hours which is effective. Abnormal CBC-followed by Dr. Anthony. Hgb and HCT normalized. Patient has thrombocytopenia. Unknown last colonoscopy-sometime in [place]. Patient says that the procedure was complicated by GI bleeding, and he does not wish to proceed with colon cancer screenings at this time. Denies history of polyps. Denies family history of colon cancer. Refuses vaccines that are recommended. ROS: Constitutional: No unexplained weight loss, fever, chills or night sweats. Eyes: No vision changes, blurry vision, double vision, eye pain, eye redness, eye discharge. ENT: No hearing loss, sneezing, congestion, runny nose or sore throat. Respiratory: No increase in shortness of breath or increased cough or increased sputum production. No hemoptysis. Cardiovascular: No chest pain, chest pressure or chest discomfort. No palpitations or pedal edema. Gastrointestinal: No anorexia, nausea, vomiting or diarrhea. No abdominal pain or blood in stool. Neurologic: No headache, dizziness, syncope Musculoskeletal: See HPI Hematologic/Lymphatics: No bleeding or bruising. No painful lymph nodes. Skin: No rash Endocrine: No cold or heat intolerance. No polyuria or polydipsia. Psychiatric: See HPI Physical exam: Constitutional: Alert, in no distress. On oxygen via cannula. Uses cane to ambulate slowly. Eyes: Pupils are equal, round and reactive to light. Extraocular muscles intact. Neck: Supple, Full range of motion. No lymphadenopathy. Respiratory: Clear to auscultation. Cardiovascular: S1 S2 regular. No murmurs. Neurologic: No focal neurological deficits. Extremities: Warm and well perfused. No clubbing, cyanosis or edema. No open wounds on the feet. Intact dorsalis pedis pulses. Psychiatric: Normal mood and affect [facility] Medical History (Updated 09/11/24 @ 13:00 by KANDIS Malhotra) Routine physical examination Avascular necrosis of bones of both hips Bilateral hip pain Risk for falls Asthma-COPD overlap syndrome Hospital discharge follow-up History of pneumonia Dry skin Bipolar affective disorder Low platelet count Depression Diabetic neuropathy Abnormal CBC Fatty liver Post-thoracotomy pain syndrome Emphysema (subcutaneous) (surgical) resulting from a procedure Hernia COVID-19 Diabetes mellitus, type 2 Bronchitis Pneumonia Surgical History (Updated 06/09/24 @ 13:55 by Meagan Anthony MD) Tympanic tube insertion History of intestinal surgery Family History Mother Mental health disorder Brother Substance use disorder Social History (Updated 10/12/24 @ 14:21 by Bessy Baldwin MA) Household Members: None Housing: Apartment Alcohol intake: never Patient Tobacco Use Status: Former Tobacco user Cigarette Packs Per Day: 1 Years Smoked: 40 e-Cigarette/Vaping Use: Never Used Second Hand Smoke Exposure: No service: No Current occupational status: disabled Current occupational exposures/hazards: No Sexual orientation: Straight/Heterosexual Gender identity: Male Cognitive needs: No Hearing needs: No Vision needs: No Questionnaire Thrive Questionnaire Date Thrive assessed: 09/10/24 I am a: Patient What is your living situation today?: I have a steady place to live Within the past 12 months, did the food you bought not last and you didn't have the money to get more?: Sometimes True Within the past 12 months, did you worry whether your food would run out before you got money to buy more?: Sometimes True Do you have trouble paying for medicines?: No Do you have trouble getting transportation to medical appointments?: No Do you have trouble paying your heating and electricity bill?: No Do you have trouble taking care of your child, family member or friend?: Yes Do you have trouble with day-to-day activities such as bathing, preparing meals, shopping, managing finances, etc.?: Yes Are you currently unemployed and looking for a job?: Yes Are you interested in more education?: Yes Please select the resources that you would like help with: None Currently or been in a relationship where the following occur: I choose not to answer THRIVE Score: 2 BERRY-7 AMB Questionnaire BERRY-7 Date BERRY - 7 assessed: 09/10/24 Source: Developed by Drs. Ap Medina, Aidee Emerson, Demetrius Romano and colleagues, with an educational simon from [employer]. Physical exam (Primary Care) Vital Signs: Last Vital Signs Temp 98 F 10/12/24 14:37 Pulse 92 10/12/24 14:37 BP 120/68 10/12/24 14:37 Pulse Ox 94 10/12/24 14:37 Oxygen Delivery Method Room Air 10/12/24 14:37 BMI result Body Mass Index 24.9 Tobacco/Smoking Status: Tobacco use Status Tobacco use date assessed 10/12/24 10/12/24 14:21 Patient Tobacco Use Status Former Tobacco user 10/12/24 14:21 e-Cigarette/Vaping Use Never Used 10/12/24 14:21 Thrive Assessment: Date of Thrive Assessment Date Thrive assessed 09/10/24 10/12/24 14:19 Currently or been in a relationship where the following occur: I choose not to answer Coding Level of Care Code Est Pt Level 5 (84672) Complex EM visit Add On G2211 Diagnoses Diabetes mellitus type 2 with complications E11.8 ILD (interstitial lung disease) J84.9 COPD mixed type J44.9 Hypertension associated with type 2 diabetes mellitus E11.59; I15.2 Lumbar back pain M54.50 Thoracic back pain M54.6 Diabetic neuropathy E11.40 Depression F32.A 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 Reviewed blood glucose monitoring and how to treat hypoglycemia. Written instructions have been provided to him. Recommended low carbohydrate, low sugar diet. Schedule endocrinology appointment. (2) ILD (interstitial lung disease): Code(s): J84.9 - Interstitial pulmonary disease, unspecified Category: Medical Plan: Continue management per pulmonology. (3) COPD mixed type: Comment: Continue management per pulmonology [facility] Code(s): J44.9 - Chronic obstructive pulmonary disease, unspecified Category: Medical Plan: Followed by pulmonology. On supplemental oxygen. No interval ER visits or hospitalizations. (4) Hypertension associated with type 2 diabetes mellitus: Code(s): E11.59 - Type 2 diabetes mellitus with other circulatory complications; I15.2 - Hypertension secondary to endocrine disorders Category: Medical Plan: Patient was previously on losartan which reportedly caused leg weakness. His blood pressure is normal today. (5) Lumbar back pain: Code(s): M54.50 - Low back pain, unspecified Category: Medical (6) Thoracic back pain: Code(s): M54.6 - Pain in thoracic spine Category: Medical (7) Diabetic neuropathy: Code(s): E11.40 - Type 2 diabetes mellitus with diabetic neuropathy, unspecified Category: Medical (8) Depression: Code(s): F32.A - Depression, unspecified Category: Medical Plan: Patient now managed by Dr. Meehan. Continue current medications per Psychiatry. (9) Post-thoracotomy pain syndrome: Code(s): G89.12 - Acute post-thoracotomy pain Category: Medical Plan The patient has chronic pain which is multifactorial related to prior thoracotomy, avascular necrosis of the hips, diabetic neuropathy, degenerative arthritis and chronic lung disease. Continue oxycodone to 5 mg every 8 hours as needed for severe pain. Administration, side effects reviewed. Advised it is it addictive, habit-forming medication. It must be taken as directed. Reviewed risks associated with this medication including increased depression, constipation, dizziness, drowsiness, increased risk of falls, respiratory suppression. Because the pain is debilitating for the patient the benefit outweighs these risks. He is tolerating it thus far. Not a surgical candidate per Orthopedics. Followed by pain management. He has started physical therapy. Follow up in 2 months. Advised patient to have labs done the week before the appointment. Orders: Orders Lipid Panel Today E11.8 - Type 2 diabetes mellitus with unspecified complications, E78.5 - Hyperlipidemia, unspecified Comprehensive Met. Panel Today E11.8 - Type 2 diabetes mellitus with unspecified complications Vitamin B12 Today E11.8 - Type 2 diabetes mellitus with unspecified complications, Z91.89 - Other specified personal risk factors, not elsewhere classified Hemoglobin A1c Today E11.8 - Type 2 diabetes mellitus with unspecified complications, E11.9 - Type 2 diabetes mellitus without complications Complete Blood Count Auto Diff Today E11.8 - Type 2 diabetes mellitus with unspecified complications Microalbumin, Random (w Creat) Today E11.8 - Type 2 diabetes mellitus with unspecified complications, E11.9 - Type 2 diabetes mellitus without complications Medications: New alcohol swabs 1 pad topical BID 100 ea 5RF dextrose (TRUEplus Glucose) until symptoms of low blood sugar are controlled 15 grams (32 mL) PO Q15M PRN 128 mL 3RF hypoglycemia Refilled blood sugar diagnostic (OneTouch Verio test strips) Use as directed to check blood glucose twice daily. 100 ea 5RF lancets (OneTouch Delica Plus Lancet) Use as directed to check blood glucose twice daily. 100 ea 5RF Discontinued quetiapine (Seroquel) Discontinued Reason: Doctor's Order 50 mg PO BEDTIME 30 tabs 2RF Patient Instructions: If you experience low blood sugar (under 70), treat this by eating a chewable fruit candy like skittles or jelly beans (about 8 pieces), 4 ounces (1/2 cup) of fruit juice (not diet), 1 tablespoon of honey or 4 glucose tablets or 1 pack of glucose gel. If your blood sugar is under 55, take double the amount of one of the above. Recheck your blood sugar in 15 minutes. Si tiene un nivel bajo de az?car en la liya (menos de 70), tr?telo comiendo un caramelo masticable de fruta mable Skittles o Jelly Beans (aproximadamente 8 piezas), 113 ml (1/2 taza) de jugo de fruta (no de dieta), 1 cucharada de miel, 4 tabletas de glucosa o 1 paquete de gel de glucosa. Si chappell nivel de az?car en la liya es nabor de 55, tome el doble de la cantidad de harpreet de los medicamentos mencionados. Vuelva a medir chappell nivel de az?car en la liya en 15 minutos.
[2024-10-12 14:37] VITALS: BP 120/68; PULSE 92; TEMP 36.6; O2SAT 94; BMI 24.9
--- OUTSIDE RECORDS SUMMARY | 2024-10-12 15:58 | XMS_ITS ---
Author Organization [facility] Address [address] [place] [address] Care Team Providers Care Supervisor Of Guidance And Testing Name Role Phone Julián Crowe Unavailable Migration, Provider Unavailable Unavailable Allergies Allergen (clinical drug ingredient) Drug/Non Drug Allergy documented on EMR Reaction Allergy Type Onset Date Status morphine Morphine stomach upset Drug Allergy Act stacy REASON FOR VISIT EMR-David Encounters Encounter Location Date Provider Diagnosis [facility] [address] [place] [address] 06/02/2023 Provider Migration Plan Of Treatment No Information Progress Notes * Costa JONESDOB:12/1949 (74 yo M)Acc No.[id number]:06/02/2023 Patient:?Allan JONES :1950???Age:73 Y???Sex:Male Address:[address] [place] [address] Subjective: * Chief Complaints: * ???EMR-David * Medical History:? * Surgical History:? * Hospitalization/Major Diagno stic Procedure:? * Medications:? * Allergies:?Morphine: stomach upset - Allergy Objective: * Vitals:? * Physical Examination:? Assessment: Plan: * Treatment: * Procedure Codes:? * * Date:?
== END 2024-10-12 15:25 | disposition home or self-care (01) ==
LOC: HO.HMCFM 14:15
PROVIDERS: PCP Physician Assistant Medical; Visit Provider Physician Assistant Medical
DX: E11.8 Type 2 diabetes mellitus with unspecified complications (principal); J84.9 Interstitial pulmonary disease, unspecified; J44.9 Chronic obstructive pulmonary disease, unspecified; E11.40 Type 2 diabetes mellitus with diabetic neuropathy, unspecified; E11.59 Type 2 diabetes mellitus with other circulatory complications; I15.2 Hypertension secondary to endocrine disorders; M54.50 Low back pain, unspecified; M54.6 Pain in thoracic spine; F32.A Depression, unspecified; G89.12 Acute post-thoracotomy pain

== ENCOUNTER → 2024-10-12 14:14 | Outpatient (BNVA) | payer OTHER, SELFPAY | PROVIDERS: PCP Physician Assistant Medical; Visit Provider Physician Assistant Medical | DX: E11.8 Type 2 diabetes mellitus with unspecified complications (principal); J84.9 Interstitial pulmonary disease, unspecified; J44.9 Chronic obstructive pulmonary disease, unspecified; E11.59 Type 2 diabetes mellitus with other circulatory complications; I15.2 Hypertension secondary to endocrine disorders; M54.50 Low back pain, unspecified; M54.6 Pain in thoracic spine; E11.40 Type 2 diabetes mellitus with diabetic neuropathy, unspecified; F32.A Depression, unspecified; G89.12 Acute post-thoracotomy pain; Z79.84 Long term (current) use of oral hypoglycemic drugs; Z79.85 Long-term (current) use of injectable non-insulin antidiabetic drugs; Z79.891 Long term (current) use of opiate analgesic | CPT/HCPCS: 99212 ==

== ENCOUNTER 2024-10-16 15:28 | Outpatient (AMB) | payer OTHER, SELFPAY ==
--- OUTSIDE RECORDS SUMMARY | 2023-06-02 05:00 | XMS_ITS ---
Author Organization [facility] Address [address] [place] [address] Care Team Providers Care Duck Farmer Name Role Phone Jayden Warnersukhwinder Julián Unavailable Migration, Provider Unavailable Unavailable Allergies Allergen (clinical drug ingredient) Drug/Non Drug Allergy documented on EMR Reaction Allergy Type Onset Date Status morphine Morphine stomach upset Drug Allergy Act stacy REASON FOR VISIT EMR-David Encounters Encounter Location Date Provider Diagnosis [facility] [address] [place] [address] 06/02/2023 Provider Migration Plan Of Treatment No Information Progress Notes * ADRYAN FLORESALDOCostaDOB:12/1949 (74 yo M)Acc No.[id number]:06/02/2023 Patient: Costa PALACIOS :1950 A ge:73 Y S ex:Male Address:[address] [place] [address] Subjective: * Chief Complaints: * E MR-David * Medical History: * Surgical History: * Hospitalization/Major Diagno stic Procedure: * Medications: * Allergies: M orphine: stomach upset - Allergy Objective: * Vitals: * Physical Examination: Assessment: Plan: * Treatment: * Procedure Codes: * * Date:
[2024-10-16 15:32] VITALS: BP 130/62; PULSE 66; O2SAT 96; BMI 24.4
--- NOTE | 2024-10-16 15:32 | MHC.OFFVIS ---
Vital Signs 10/16/24 15:32 Height 5 ft 6 in Weight 151 lb BMI 24.4 BP 130/62 Blood Pressure Location Rt brachial Position Sitting Pulse 66 Pulse Source Pulse Oximeter Pulse Oximetry (%) 96 Oxygen Delivery Method Nasal Cannula Oxygen Flow Rate 3 Intake Visit Reasons: pulmonary nodules Allergies morphine Allergy (Severe, Verified 10/16/24 15:35) Agitated HPI Comments Details: The patient is a pleasant 74-year-old male, former smoker, quit 10 years ago, with 150+ pack year history and underlying asthma since childhood, COPD, history of COVID-19 in March 2020 with history of possible empyema s/p chest tube and ?VATS, s/p tracheostomy, decannulated (August 2020), with chronic hypoxic respiratory failure on 2L NC. He is unaccompanied, and ambulating with walker. At baseline, he states that his COPD is poorly controlled on 10 mg prednisone, which he has reportedly been on for the past year while living in [place]. At the last visit, Trelegy was sent in but patient states he has not received it. He has been using his albuterol 3-4 times per day with suboptimal effect. Today he kept referring to his oxycodone and need for medication to treat his lung pain . He was sent for chest CT to evaluate for any abnormalities or ILD, which was noted in prior history, report not available today. He continues to report significant dyspnea with minimal exertion, labored breathing, intermittent productive cough and wheezing. He is currently using his POC at 2 and has a concentrator at home through [facility]. in the meantime early October the patient was having worsening respiratory symptoms and persistent left-sided pleuritic pain and he went to the ER. There he had a CT of the chest which demonstrated then had airspace disease consistent with pneumonia. was treated and released and then went back to the ER where he was placed on couple courses of antibiotics. subsequently after that the patient did have a repeat CT scan of the chest 11/13/2023 which also reviewed. The patient appears to have a stable pulmonary nodule about vomiting medicine size in the left hemithorax. in addition to that he has extensive emphysema. He is oxygen dependent. The patient is complaining why he was taken off the oxycodone the family as well. Explained to the patient that he has severe respiratory failure and morphine we can only resulting worsening respiratory failure with suppression of his respiratory drive and he should avoided at all cost. 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 01/14/2024 the patient is here for a pulmonary follow-up visit. Patient still having some difficulty with breathing. Develop significant dyspnea on exertion. He has been using the oxygen with good effect. Has been having hard time with his activities of daily living. Currently his away from his family which makes it hard for him to receive the care would like to move closer to his family to be able to be get additional care in view of his advanced and severe respiratory disease. Did have a CT scan of the chest in 11/16/2023 which we personally reviewed. Patient does have extensive emphysema and also some pulmonary fibrosis. In addition to that he has small pulmonary nodules that are being followed. Subcentimeter in nature. We did review his pulmonary function studies demonstrating the significant COPD. He will be a great candidate for pulmonary rehabilitation to start building up and strengthening his respiratory muscles. Therefore, will go ahead and requested at this time. Did have an issue with Trelegy. It caused significant nausea so he could not tolerate it. Therefore will go ahead and stop that and place him on Advair HFA which she has tolerated in the past. Once he tolerates that we can always add a long-acting muscarinic antagonist if need be. But will just do 1 at a time since he already had a reaction to 1 inhaler. He is having hard time sleeping. Also awaiting a primary care appointment. Will go ahead and continue the gabapentin and will add trazodone at nighttime for sleep. Hopefully this combination helps him. Prior to that he was using Seroquel but he would need to have primary care or psychiatry or left for him if the combination trazodone/ gabapentin is not helpful. 07/20/2024 The patient is here for a hospital F/U visit. He developed FluA and admitted to [place] with bronchopneumonia and copd exaecerbation and acute resp failure. He is currently on oxygen vis POC 3L/pulse. We will continue the current oxygen therapy and retest when he returns. He does not like the powder inhalers, causes irritation. He did have a CXR at [facility] with chronic changes. He completed the prednisone and antibiotics at this time. Still complains of dyspnea on exertion, moderate in severity. Also has been tired more than usual. 10/16/2024 the patient is here for pulmonary follow-up visit. Overall the patient is doing well. He continues uses oxygen with good effect. He continues uses inhalers as prescribed. He has not been able to perform pulmonary rehabilitation because he is too far away from pulmonary rehab. He has a hard time with transportation. He is actually pretty depressed because he lives in [facility] we can always family listen [place] and it makes it really hard for him to be around his family or other people. He feels very depressed and lonely. I did provide him a letter to see if there is any way to facilitate him being transferred over to this area, [place] so he can be closer to family and be less depressed and overall better mental health. From a image standpoint the last CT scan he had was back in October 2023 where he had a multiple nodules but 1 measuring 7 mm in size. He will need to have a CT scan prior to the next visit. Will plan to do that in the next few months. [facility] Medical History (Updated 09/11/24 @ 13:00 by KANDIS Malhotra) Routine physical examination Avascular necrosis of bones of both hips Bilateral hip pain Risk for falls Asthma-COPD overlap syndrome Hospital discharge follow-up History of pneumonia Dry skin Bipolar affective disorder Low platelet count Depression Diabetic neuropathy Abnormal CBC Fatty liver Post-thoracotomy pain syndrome Emphysema (subcutaneous) (surgical) resulting from a procedure Hernia COVID-19 Diabetes mellitus, type 2 Bronchitis Pneumonia Surgical History (Updated 06/09/24 @ 13:55 by Meagan Anthony MD) Tympanic tube insertion History of intestinal surgery Family History Mother Mental health disorder Brother Substance use disorder Social History (Updated 10/12/24 @ 14:21 by Bessy Baldwin MA) Household Members: None Housing: Apartment Alcohol intake: never Patient Tobacco Use Status: Former Tobacco user Cigarette Packs Per Day: 1 Years Smoked: 40 e-Cigarette/Vaping Use: Never Used Second Hand Smoke Exposure: No service: No Current occupational status: disabled Current occupational exposures/hazards: No Sexual orientation: Straight/Heterosexual Gender identity: Male Cognitive needs: No Hearing needs: No Vision needs: No Review of Systems Const Denies chills, Reports difficulty sleeping, Denies excessive sweating, Denies fever(s), Denies headache(s) and Denies night sweats Eyes Denies dry eyes, Denies irritation and Denies itchy eyes ENT Reports Normal hearing present, Denies headache(s), Denies nasal congestion, Denies nasal discharge, Denies post nasal drip and Denies sore throat Card Denies chest pain, Denies chest pain at rest, Denies chest pain with activity, Denies claudication, Denies leg edema, Denies dyspnea, Denies orthopnea and Denies paroxysmal nocturnal dyspnea Resp Denies chest congestion, Denies excessive phlegm production, Denies pain on inspiration, Denies pain with cough, Denies dyspnea and Denies stridor Musc Denies myalgias Neuro Reports Normal hearing present and Denies headache(s) Endo Denies excessive sweating Dennis/Lymph Denies lymphadenopathy Aller/Immun Denies itchy eyes and Denies seasonal rhinorrhea Physical Exam Vital Signs: Last Vital Signs Pulse 66 10/16/24 15:32 BP 130/62 10/16/24 15:32 Pulse Ox 96 10/16/24 15:32 Oxygen Delivery Method Nasal Cannula 10/16/24 15:32 Oxygen Flow Rate 3 10/16/24 15:32 BMI result Body Mass Index 24.4 Const General: cooperative, healthy appearing, comfortable, no acute distress, well developed and alert Orientation/consciousness: patient oriented x3 HEENT Head: Yes normal to inspection, Yes normocephalic and Yes atraumatic Ears: hearing grossly normal bilaterally and external ears normal Eyes General: appearance normal, both eyes and all related structures Eyelids: Yes eyelids normal Sclerae: sclerae normal EOM: EOMs intact bilaterally Neck Neck: Yes normal visual inspection and Yes no lymphadenopathy Lymphatic: no lymphadenopathy noted Chest Chest palpation & inspection: normal inspection of the chest Resp Effort & Inspection: normal respiratory effort, able to speak in complete sentences, no audible wheezes, no cough, no stridor, not tachypneic, no tripod positioning and no use of accessory muscles Cardio Jugular venous distension: no JVD Rate: regular rate Rhythm: regular rhythm Skin Other: warm, dry General skin exam: no rashes or lesions noted Neuro General: patient oriented x3 Cranial nerves: Yes Normal hearing present Cognition (Neuro): normal cognition Extrem General: Yes normal to inspection, Yes capillary refill normal, Yes no clubbing, cyanosis or edema and Yes no pedal edema Psych Appearance: grossly normal and well kempt Speech and movement: Normal speech and movement present and Clear speech present Attitude: cooperative Thought process: Normal thought process present Thought content: Normal thought content present Insight: Good insight present (Psych) Judgement: Good judgement present (Psych) Assessment & Plan Assessment & Plan (1) Chronic respiratory failure with hypoxia, on home oxygen therapy: Code(s): J96.11 - Chronic respiratory failure with hypoxia; Z99.81 - Dependence on supplemental oxygen Category: Medical (2) COPD (chronic obstructive pulmonary disease): Code(s): J44.9 - Chronic obstructive pulmonary disease, unspecified Category: Medical Qualifiers: COPD type: emphysema Emphysema type: centrilobular Qualified Code(s): J43.2 - Centrilobular emphysema (3) Personal history of tobacco use: Comment: 150 + pack year history Code(s): Z87.891 - Personal history of nicotine dependence Category: Social Hx (4) Dyspnea: Code(s): R06.00 - Dyspnea, unspecified Category: Medical Qualifiers: Dyspnea type: dyspnea on exertion Qualified Code(s): R06.09 - Other forms of dyspnea (5) Pulmonary nodule: Code(s): R91.1 - Solitary pulmonary nodule Category: Medical (6) Post-thoracotomy pain syndrome: Code(s): G89.12 - Acute post-thoracotomy pain Category: Medical (7) Pneumonia: Code(s): J18.9 - Pneumonia, unspecified organism Category: Medical Qualifiers: Laterality: bilateral Lung location: unspecified part of lung Pneumonia type: due to unspecified organism Qualified Code(s): J18.9 - Pneumonia, unspecified organism (8) Asthma-COPD overlap syndrome: Code(s): J44.89 - Other specified chronic obstructive pulmonary disease Category: Medical Plan Breztri ELBA as needed cotinue Gabapentin 300mg QHS continue oxygen supplemnetation 2L at rest, 3L with activity once he moves closer to the area we can encourage him to start pulmonary rehab f/U 6-8 months Coding Level of Care Code Est Pt Level 4 (07226) Complex EM visit Add On G2211 Diagnoses Chronic respiratory failure with hypoxia, on home oxygen therapy J96.11; Z99.81 Centrilobular emphysema J43.2 COPD type: emphysema Emphysema type: centrilobular Personal history of tobacco use Z87.891 Dyspnea on exertion R06.09 Dyspnea type: dyspnea on exertion Pulmonary nodule R91.1 Post-thoracotomy pain syndrome G89.12 Pneumonia of both lungs due to infectious organism, unspecified part of lung J18.9 Laterality: bilateral Lung location: unspecified part of lung Pneumonia type: due to unspecified organism Asthma-COPD overlap syndrome J44.89 Time Spent (min) 16
== END 2024-10-16 15:51 | disposition home or self-care (01) ==
LOC: HO.HPS 15:29
PROVIDERS: PCP Nurse Practitioner Family; Visit Provider Hospitalist
DX: J96.11 Chronic respiratory failure with hypoxia (principal); Z99.81 Dependence on supplemental oxygen; J43.2 Centrilobular emphysema; Z87.891 Personal history of nicotine dependence; R06.09 Other forms of dyspnea; R91.1 Solitary pulmonary nodule; G89.12 Acute post-thoracotomy pain; J18.9 Pneumonia, unspecified organism; J44.89 Other specified chronic obstructive pulmonary disease
CPT/HCPCS: 99214; G2211

== ENCOUNTER → 2024-10-16 15:28 | Outpatient (BNVA) | payer OTHER, SELFPAY | PROVIDERS: PCP Nurse Practitioner Family; Visit Provider Hospitalist | DX: J96.11 Chronic respiratory failure with hypoxia (principal); J43.2 Centrilobular emphysema; R91.1 Solitary pulmonary nodule; J18.9 Pneumonia, unspecified organism; J44.89 Other specified chronic obstructive pulmonary disease; G89.12 Acute post-thoracotomy pain; Z99.81 Dependence on supplemental oxygen; Z87.891 Personal history of nicotine dependence | CPT/HCPCS: 99212 ==

== ENCOUNTER 2024-12-02 13:09 | Outpatient (REF) | payer OTHER, SELFPAY ==
[2024-12-02 13:28] LABS: MANUAL DIFF FLAG NO
--- OUTSIDE RECORDS SUMMARY | 2024-12-02 13:45 | XMS_ITS | Clinical Summary ---
Author Organization [employer] Address [address] [facility] [place] [address] Care Team Providers Care Flaring Machine Operator Name Role Phone Unavailable Primary Care Provider [...] 2023-2 5 season) 2023 Influenza Vaccine (#1) 2024 RSV Patients and Pa tients Aged 60 [...] patient's age to complete this topic Insurance [facility]
--- OUTSIDE RECORDS SUMMARY | 2024-12-02 13:45 | XMS_ITS | Patient Health Record ---
Author Organization [facility] Address [address] [address] Support Name Relationship Address Phone Costa Escalante Guarantor Unknown [phone] Reason For Referral No Information Plan Of Treatment No Information
--- OUTSIDE RECORDS SUMMARY | 2024-12-02 13:45 | XMS_ITS ---
Author Name Kassie APRNAmena rajan Address [address] [place] [address] Phone [phone] [facility] [employer] [facility] Care Team Providers Care Violin Tutor Name Role Phone Darling Fernando Unavailable [phone] [facility] Unavailable Reason for Referral Not [...] 2024-02-24 No Data Available OneTouch Delica Plus [id number] Miscellaneous USE SEG N LO INDICADO TO [...] TODOS LOS D 2024-06-08 No Data Available Oseltamivir Phosphate 75 mg Cap TOME 1 C PSULA POR V A ORAL DOS VECES AL D A 2024-07-03 No Data Available Amoxicillin-Pot Clavulanate 875/125 mg Tab TOME 1 TABLETA POR V A ORAL CADA 12 HORAS FOR 2 DAYS 2024-07-03 No Data Available Albuterol Sulfate (2.5 mg/3ML) 0.083% Nebulization Solution INHALE 1 VIAL VIA NEB EVERY 6 HOURS NEEDED FOR SHORTNESS OF BREATH OR WHEEZING 2024-01-14 No Data Available Breztri Aerosphere 160-9-4.8 MCG/ACT Aerosol TOME DOS INHALACIONES POR V A ORAL DOS VECES AL D A 2024-07-20 No Data Available One-Daily Multi-Vitamin Tab TOME 1 TABLE TA POR V A ORAL TODOS LOS D 2024-07-20 No Data Available Trulicity 0.75 mg/0.5ML Solution Auto-injector INYECTE 0.75 MG (0.5 ML) POR V A SUBCUT RAMESH SEMANALMENTE 2024-09-10 No Data Available Problem List Problem Status Onset Date Resolved Date Synopsis Type 2 diabetes mellitus wit h diabetic neuropathy, unspecified Active 2024-10-06 N/A N/A Bipolar disorder Active 2024-10-06 N/A N/A COPD (chronic obstructive pu lmonary disease)Chronic respiratory failure with hypoxia Active 2024-10-06 N/A N/A Encounters Encounters Type Facility Date of Service Diagnosis/Co mplaint RN, CN or CP time with patient by phone; use with 1111F, BP, A1c or other [facility] codes [facility] Encounter for other specifie d aftercare Unlisted special service; to be used for medical record reviews and reporting CPTII codes (1111F, etc) [facility] Encounter for other specifie d aftercare Unlisted special service; to be used for medical record reviews and reporting CPTII codes (1111F, etc) [facility], ([place]) 07/28/2024 Social History Sex Male History of Procedures Procedures Service Procedure code Service date Servicing provider Phone# RN, CN or CP time with patient by phone; use with 1111F, BP, A1c or other CPTII codes 97378 2024-07-04 No Data Available No Data Avai lable Unlisted special service; to be used for medical record reviews and reporting CPTII codes (1111F, etc) 95461 2024-07-28 No Data Available No Data Availa ble Medications prescribed in hospital were reviewed and reconciled against what they were taking prior to admission during today's visit. (1111F) 1111F 2024-07-28 No Data Available No Data Availa ble Functional Status No Information Mental Status No Information Assessments Not Available Plan of Care Not Available
--- OUTSIDE RECORDS SUMMARY | 2024-12-02 13:46 | XMS_ITS | Patient Health Record ---
Author Organization [facility] Address [address] [place] [address] Care Team Providers Care Asphalt Engineer Name Role Phone Julián Crowe Unavailable Allergies [...] in the mor belinda Orally Once a day; Duration: 30 days 03/04/2023 Active QUEtiapine Fumarate 200 MG 1 tablet at b edtime Orally Once a day; Duration: 30 days 03/04/2023 Active oxyCODONE HCl 10 [...] Severe recurrent major depression without psychotic features ([id number]) Major depressive disorder, recurrent severe without psychotic features (F33.2) Active confirmed Problem Primary insomnia (6952703) Primary insomnia (F51.01) Active confirmed Plan Of Treatment No Information Insurance Providers Payer Name Payer Address Payer Phone Subscriber Number Group Number Insured Name Patient Relationship to Insured Coverage Start Date Coverage End Date [employer] [address] [address] [place] [address] [phone] [id number] Costa Jones Self - patient is the insured Medical (General) History Medical History History ICD Code no medical history Surgical History Surgery Date(Month/Year) intestine 09/2002
[2024-12-02 14:34] LABS: Hematocrit 48.7 % (42.0-52.0); Hemoglobin 17.0 g/dl (14.0-18.0); Imm Gran Abs Auto 0.02 X10*3/uL (0.00-0.03); Imm Gran Pct Auto 0.3 % (0.0-0.4); Lymphocytes Absolute Auto 2.2 X10*3/uL (1.2-4.9); Mean Corpuscular HGB Conc 34.9 g/dl (31.0-36.0); Mean Corpuscular Hemoglobin 30.1 pg (27.0-33.0); Mean Corpuscular Volume 86.2 fL (80.0-98.0); NRBC Abs Auto 0.000 X10*3/uL (0.0-0.012); NRBC Pct Auto 0.0 /100WBC (0.0-0.2); Platelet Count 118 X10*3/uL (160-400); Red Blood Count 5.65 X10*6/uL (4.60-5.80); White Blood Count 7.9 X10*3/uL (4.8-10.8)
[2024-12-02 14:43] LABS: Hemoglobin A1C 205.3207 umol/L; Total Hemoglobin (HGBA1C) 4423.1265 umol/L
[2024-12-02 15:09] LABS: Microalbum/Creatinine Ratio Ur 7.9 ug/mg cr (<30)
[2024-12-02 15:11] LABS: Alanine Aminotransferase 48 U/L (0-40); Albumin Level 4.5 g/dL (3.5-5.0); Alkaline Phosphatase 87 U/L (39-117); Anion Gap 11 (12-20); Aspartate Amino Transferase 39 U/L (5-37); Blood Urea Nitrogen 15 mg/dL (9-16); Calcium 9.7 mg/dL (8.4-10.2); Carbon Dioxide 27 mmol/L (22-29); Chloride 106 mmol/L (96-108); Cholesterol 184 mg/dL (<200); Estimated Glomerular Filt Rate > 60; HDL Cholesterol 42 mg/dL (>40); Potassium 4.0 mmol/L (3.3-5.1); Sodium 140 mmol/L (135-145); Total Protein 7.9 g/dL (6.5-8.0); Triglycerides 131 mg/dL (<150)
[2024-12-02 15:35] LABS: Prostate Specific Antigen 11.26 ng/mL (<0.05-4.0); Vitamin B12 441 pg/mL (200-900)
== END 2024-12-02 13:10 | disposition home or self-care (01) ==
LOC: HO.LAB 13:09
PROVIDERS: PCP Physician Assistant Medical; Visit Provider Physician Assistant Medical
DX: I25.10 Atherosclerotic heart disease of native coronary artery without angina pectoris (principal); I45.2 Bifascicular block; Z12.5 Encounter for screening for malignant neoplasm of prostate; E78.5 Hyperlipidemia, unspecified; E11.8 Type 2 diabetes mellitus with unspecified complications; Z91.89 Other specified personal risk factors, not elsewhere classified; R79.89 Other specified abnormal findings of blood chemistry; Z79.4 Long term (current) use of insulin; Z79.84 Long term (current) use of oral hypoglycemic drugs; Z79.899 Other long term (current) drug therapy; Z99.81 Dependence on supplemental oxygen
CPT/HCPCS: 36415; 80053; 80061; 82043; 82570; 82607; 83036; 84153; 85025; 93005; 99212

== ENCOUNTER 2024-12-02 13:34 | Outpatient (AMB) | payer OTHER, SELFPAY ==
--- NOTE | 2024-12-02 13:36 | MHC.OFFVIS ---
Vital Signs 12/02/24 13:39 Height 5 ft 6 in Weight 154 lb 5.177 oz BMI 24.9 BP 140/80 H Blood Pressure Location Lt brachial Position Sitting Pulse 89 Pulse Source Monitor Intake Visit Reasons: 6 mth f/up Beef Tagger Required: Yes Beef Tagger Name: [email or web address] [id number] Allergies morphine Allergy (Severe, Verified 10/16/24 15:35) Agitated Medication List - Last Reconciled 12/02/24 by Russ Lim MD albuterol sulfate 90 mcg/actuation (Ventolin HFA) 2 puffs inhalation QID PRN 30 days albuterol sulfate 2.5 mg (3 mL) inhalation Q6H PRN alcohol swabs 1 pad topical BID blood sugar diagnostic As directed twice per day blood sugar diagnostic (OneTouch Verio test strips) Use as directed to check blood glucose twice daily. blood-glucose meter As directed twice per day blood-glucose meter ([place] HarvestTouch Verio Flex Meter) Use as directed to check blood glucose twice daily for Type II diabetes mellitus. blood-glucose sensor (JumpCamStyle Amadeo 3 Sensor device) As directed blood-glucose,fruit receiver,cont (FreeStyle Amadeo 3 [place]) As directed dextrose (TRUEplus Glucose) 15 grams (32 mL) PO Q15M PRN dulaglutide (Trulicity) 0.75 mg (0.5 mL) subcut QWEEK lancets As directed lancets As directed twice per day lancets (OneTouch Delica Plus Lancet) Use as directed to check blood glucose twice daily. metformin 1,000 mg PO BID miscellaneous medical supply As directed nebulizer and compressor (Easy Neb Compressor Nebulizer) As directed oxycodone 5 mg PO Q8H PRN 28 days Oxygen Home Use As directed paroxetine HCl 20 mg PO DAILY quetiapine 100 mg PO BEDTIME sitagliptin phosphate (Januvia) 100 mg PO DAILY walker As directed HPI Comments Details: Costa returns for follow-up. In the past, he was seen regarding chest pains. He has lot of pulmonary issues but no documented coronary disease. He gets sharp pains in the left chest at different times. Has some pleuritic components. He has undergone echocardiogram and stress test. Overall, feels just about the same as before. No new concerns. He is on supplemental oxygen. [facility] Medical History (Updated 09/11/24 @ 13:00 by KANDIS Malhotra) Routine physical examination Avascular necrosis of bones of both hips Bilateral hip pain Risk for falls Asthma-COPD overlap syndrome Hospital discharge follow-up History of pneumonia Dry skin Bipolar affective disorder Low platelet count Depression Diabetic neuropathy Abnormal CBC Fatty liver Post-thoracotomy pain syndrome Emphysema (subcutaneous) (surgical) resulting from a procedure Hernia COVID-19 Diabetes mellitus, type 2 Bronchitis Pneumonia Surgical History (Updated 06/09/24 @ 13:55 by Meagan Anthony MD) Tympanic tube insertion History of intestinal surgery Family History Mother Mental health disorder Brother Substance use disorder Social History (Updated 10/12/24 @ 14:21 by Bessy Baldwin MA) Household Members: None Housing: Apartment Alcohol intake: never Patient Tobacco Use Status: Former Tobacco user Cigarette Packs Per Day: 1 Years Smoked: 40 e-Cigarette/Vaping Use: Never Used Second Hand Smoke Exposure: No service: No Current occupational status: disabled Current occupational exposures/hazards: No Sexual orientation: Straight/Heterosexual Gender identity: Male Cognitive needs: No Hearing needs: No Vision needs: No Review of Systems Const Denies weakness ENT Denies dizziness Card Denies chest pain, Reports chest pain at rest, Denies chest pain with activity, Denies syncope, Denies rapid heart rate, Denies pedal edema, Denies edema, Denies leg edema, Denies lightheadedness, Denies palpitations, Reports dyspnea, Denies dyspnea on exertion and Denies orthopnea Resp Denies cough, Reports dyspnea and Denies dyspnea on exertion GI Denies hematochezia and Denies change in stool character Musc Denies abnormal gait, Reports arthralgias, Denies muscle cramps, Denies muscle weakness, Denies numbness, Denies radiating pain into limb and Denies tingling Neuro Denies abnormal gait, Denies dizziness, Denies syncope, Denies numbness, Denies tingling and Denies weakness Endo Denies palpitations Physical Exam Vital Signs: Last Vital Signs Pulse 89 12/02/24 13:39 BP 140/80 H 12/02/24 13:39 BMI result Body Mass Index 24.9 Const General: comfortable and no acute distress Orientation/consciousness: patient oriented x3 HEENT Other: Unremarkable Head: Yes normal to inspection Neck Neck: Yes normal visual inspection Chest Chest palpation & inspection: normal inspection of the chest Resp Auscultation: clear to auscultation bilaterally Cardio Palpation: normal PMI Heart sounds: S1 normal heart sound present, S2 normal heart sound present, no gallops, no murmurs and no rubs GI Palpation (GI): Soft to palpation Back/Spine/Pelvis Other: unremarkable Skin General skin exam: no rashes or lesions noted Neuro General: patient oriented x3 Extrem General: Yes normal to inspection Psych Mental Status: mental status grossly normal Office Procedures EKG Details: EKG with underlying sinus rhythm at 89/Min; right bundle-branch block and left posterior fascicular block; [place]. [address]-[id number], Complete Assessment & Plan Assessment & Plan (1) Coronary artery calcification seen on CAT scan: Code(s): I25.10 - Atherosclerotic heart disease of [place] coronary artery without angina pectoris Category: Medical (2) Bifascicular block: Code(s): I45.2 - Bifascicular block Category: Medical Plan EKG with evidence of bifascicular block. Chest CT scan with report of moderate coronary calcification as well as atherosclerotic calcification in the aorta. In the echocardiogram, LVEF is 64%. Basal inferior/inferolateral hypokinesis. No significant valvular findings. Myocardial perfusion imaging study reported have normal perfusion. Overall, coronary disease based on CT scan; echocardiogram finding either a true wall motion abnormality or artifact; normal perfusion. He has got no clear anginal-type symptoms and hence no specific interventions needed. Prior LDL from 2023 was 89 mg/dL. A repeat study from today is pending. He does have mild LFT abnormality. In a prior med list, he was on atorvastatin 10 mg daily but not in his current list. May have to check that irregular with pharmacy. Total time spent including review of data, counseling, documentation, coordination of care-31 minutes. Coding Level of Care Code Est Pt Level 4 (26274) Diagnoses Coronary artery calcification seen on CAT scan I25.10 Bifascicular block I45.2 CPT Codes EKG - CPT: 99415-[id number], Complete ([id number])
[2024-12-02 13:39] VITALS: BP 140/80; PULSE 89; BMI 24.9
== END 2024-12-02 14:09 | disposition home or self-care (01) ==
PROVIDERS: PCP Physician Assistant Medical; Visit Provider Internal Medicine
DX: I25.10 Atherosclerotic heart disease of native coronary artery without angina pectoris (principal); I45.2 Bifascicular block
CPT/HCPCS: 93010; 99214

== ENCOUNTER 2024-12-14 09:51 | Outpatient (REF) | payer OTHER, SELFPAY ==
--- OUTSIDE RECORDS SUMMARY | 2024-12-14 12:00 | XMS_ITS | Clinical Summary ---
Author Organization [employer] Address [address] [place] [address] Care Team Providers Care Program Manager Environmental Planning Name Role Phone Unavailable Primary Care Provider [...] patient's age to complete this topic Insurance [facility] STANDARD
[2024-12-14 14:37] LABS: Alanine Aminotransferase 39 U/L (0-40); Albumin Level 4.5 g/dL (3.5-5.0); Alkaline Phosphatase 79 U/L (39-117); Anion Gap 13 (12-20); Aspartate Amino Transferase 32 U/L (5-37); Blood Urea Nitrogen 16 mg/dL (9-16); Calcium 9.4 mg/dL (8.4-10.2); Carbon Dioxide 25 mmol/L (22-29); Chloride 106 mmol/L (96-108); Cholesterol 164 mg/dL (<200); Estimated Glomerular Filt Rate > 60; HDL Cholesterol 38 mg/dL (>40); Potassium 3.8 mmol/L (3.3-5.1); Sodium 140 mmol/L (135-145); Total Protein 7.8 g/dL (6.5-8.0); Triglycerides 94 mg/dL (<150)
[2024-12-15 08:03] LABS: HBc Num1 11.80 S/CO (0.00-0.79); HBsAGNum1 0.58 S/CO (0.00-0.99); Hepatitis B Surface Antigen Negative (Negative); ~HepC Num1 0.19 S/CO (0.00-0.79); ~Hepatitis C Antibody Nonreactive (Nonreactive)
[2024-12-15 09:22] LABS: HBc Num2 11.16 S/CO; HBc Num3 11.41 S/CO
[2024-12-16 05:28] LABS: Hepatitis B Core Antibody IgM NON-REACTIVE (NON-REACTIVE)
[2024-12-18 07:50] LABS: Hepatitis A Antibody IgM 0.26 Index (0-0.79); ~Hepatitis A Antibody IgG 8.38 S/CO (0.00-0.99); ~Hepatitis A Antibody IgM Nonreactive (Nonreactive)
== END 2024-12-14 09:52 | disposition home or self-care (01) ==
LOC: HO.WFDLDS 09:51
PROVIDERS: PCP Physician Assistant Medical; Referring Provider Hospitalist; Visit Provider Physician Assistant Medical
DX: R79.89 Other specified abnormal findings of blood chemistry (principal); E78.5 Hyperlipidemia, unspecified; J84.9 Interstitial pulmonary disease, unspecified; J44.9 Chronic obstructive pulmonary disease, unspecified; E11.59 Type 2 diabetes mellitus with other circulatory complications; I15.2 Hypertension secondary to endocrine disorders; M54.50 Low back pain, unspecified; M54.6 Pain in thoracic spine; E11.40 Type 2 diabetes mellitus with diabetic neuropathy, unspecified; F32.A Depression, unspecified; G89.12 Acute post-thoracotomy pain; R97.20 Elevated prostate specific antigen [PSA]; I25.10 Atherosclerotic heart disease of native coronary artery without angina pectoris
CPT/HCPCS: 36415; 80053; 80061; 86704; 86705; 86708; 86709; 86803; 87340; 99212

== ENCOUNTER 2024-12-14 09:51 | Outpatient (AMB) | payer OTHER, SELFPAY ==
--- NOTE | 2024-12-14 09:56 | MHC.PC.OV ---
Vital Signs 12/14/24 10:07 Height 5 ft 6 in Weight 155 lb 8 oz BMI 25.1 BP 124/68 Blood Pressure Location Lt brachial Position Sitting Pulse 68 Pulse Source Pulse Oximeter Temp 97.9 F Temp Source Temporal Artery Scan Pulse Oximetry (%) 94 Oxygen Delivery Method Room Air Intake Visit Reasons: 30 minute complex follow up Intake Note: Costa presents in the office today for a follow up. Claims Adjuster Required: Yes Claims Adjuster Name: Héctor Allergies morphine Allergy (Severe, Verified 12/14/24 10:00) Agitated Tobacco use date assessed: 12/14/24 Dental Screening Dental Screen Date: 12/14/24 Did you have a dental visit in the last 12 months?: No Did you have a dental problem in the last 6 months where you did not have access to dental care?: No Was dental information given to patient?: Patient has dentist HPI HPI Comments History of Present Illness Details 74-year-old male Estonian speaking with diabetes type 2, COPD O2 dependent on 2 L of oxygen, empyema status post chest tube and VATS, status post tracheostomy now decannulated, interstitial lung disease, status post right-sided rib fractures, glaucoma, MDD, urinary incontinence, CAD, bifascilar block and chronic pain presents for a physical exam. Video astrobiologist used for appointment. No interval ER visits or hospitalizations. Type 2 diabetes-taking Trulicity 0.75 mg weekly, Januvia 100 mg daily and metformin 1000 mg twice daily. No side effects. Previously stopped glipizide due to difficulty swallowing the pill. His hemoglobin A1c is 6.7%. Denies hypoglycemic episodes. Reviewed glucometer. He psychiatrist is Dr. Meehan. Chronic pain- imaging showed avascular necrosis of both hips. He saw [facility] on 08/13/2024, but he is not a surgical candidate. He saw pain management on 09/04/2024. He is in physical therapy. Steroid injections were initially deferred until A1c decreased. He has chronic pain in his bilateral knees, his lower back and middle back, neuropathy in his feet. On average pain is an 8/10. It makes it harder for him to sleep. He has difficulty moving from a sitting to standing position. He uses a cane and walker. He does not drive. Patient reported he tried gabapentin and Lyrica which were ineffective. Patient is taking 5 mg of oxycodone every 8 hours which is effective. On 12/30/24 he is seeing his jig and fixture builder to review the results of the MRI. Abnormal CBC-followed by Dr. Anthony. Hgb and HCT normalized. Patient has chronic thrombocytopenia. Unknown last colonoscopy-sometime in [place]. Patient says that the procedure was complicated by GI bleeding, and he does not wish to proceed with colon cancer screenings at this time. Denies history of polyps. Denies family history of colon cancer. Refuses vaccines that are recommended. His PSA level is elevated at 11.26. Denies personal and family history of prostate cancer. Denies symptoms. Denies night sweats, fevers, chills or unexplained weight loss. His liver enzymes are elevated. Not on statin-Atorvastatin was on med list before. Unknown reason as to why he stopped taking it. He had nonbloody diarrhea this morning/last night. Denies fevers, chills, abdominal pain. Drank coffee this morning. He thinks this may have been due to eating a large quantity of polyp pain use last night. Feels better today without further episodes of diarrhea. He will monitor and call the office if symptoms return. ROS: Constitutional: No unexplained weight loss, fever, chills or night sweats. Eyes: No vision changes, blurry vision, double vision, eye pain, eye redness, eye discharge. ENT: No hearing loss, sneezing, congestion, runny nose or sore throat. Respiratory: No increase in shortness of breath or increased cough or increased sputum production. No hemoptysis. Cardiovascular: No chest pain, chest pressure or chest discomfort. No palpitations or pedal edema. Gastrointestinal: See HPI Neurologic: No headache, dizziness, syncope Musculoskeletal: See HPI Hematologic/Lymphatics: No bleeding or bruising. No painful lymph nodes. Skin: No rash Endocrine: No cold or heat intolerance. No polyuria or polydipsia. Psychiatric: See HPI Physical exam: Constitutional: Alert, in no distress. Eyes: Pupils are equal, round and reactive to light. Extraocular muscles intact. Neck: Supple, Full range of motion. No lymphadenopathy. Respiratory: Clear to auscultation. Cardiovascular: S1 S2 regular. No murmurs. Neurologic: No focal neurological deficits. Abdomen: Soft, nontender, no rebound or guarding, normoactive bowel sounds in 4 quadrants Extremities: Warm and well perfused. No clubbing, cyanosis or edema. Psychiatric: Normal mood and affect [facility] Medical History (Updated 12/14/24 @ 10:31 by KANDIS Malhotra) Elevated liver function tests Elevated PSA Routine physical examination Avascular necrosis of bones of both hips Bilateral hip pain Risk for falls Asthma-COPD overlap syndrome Hospital discharge follow-up History of pneumonia Dry skin Bipolar affective disorder Low platelet count Depression Diabetic neuropathy Abnormal CBC Fatty liver Post-thoracotomy pain syndrome Emphysema (subcutaneous) (surgical) resulting from a procedure Hernia COVID-19 Diabetes mellitus, type 2 Bronchitis Pneumonia Surgical History (Updated 06/09/24 @ 13:55 by Meagan Anthony MD) Tympanic tube insertion History of intestinal surgery Family History Mother Mental health disorder Brother Substance use disorder Social History (Updated 10/12/24 @ 14:21 by Bessy Baldwin MA) Household Members: None Housing: Apartment Alcohol intake: never Patient Tobacco Use Status: Former Tobacco user Cigarette Packs Per Day: 1 Years Smoked: 40 e-Cigarette/Vaping Use: Never Used Second Hand Smoke Exposure: No service: No Current occupational status: disabled Current occupational exposures/hazards: No Sexual orientation: Straight/Heterosexual Gender identity: Male Cognitive needs: No Hearing needs: No Vision needs: No Questionnaire Thrive Questionnaire Date Thrive assessed: 06/08/24 I am a: Patient What is your living situation today?: I have a steady place to live Within the past 12 months, did the food you bought not last and you didn't have the money to get more?: Sometimes True Within the past 12 months, did you worry whether your food would run out before you got money to buy more?: Sometimes True Do you have trouble paying for medicines?: No Do you have trouble getting transportation to medical appointments?: No Do you have trouble paying your heating and electricity bill?: No Do you have trouble taking care of your child, family member or friend?: Yes Do you have trouble with day-to-day activities such as bathing, preparing meals, shopping, managing finances, etc.?: Yes Are you currently unemployed and looking for a job?: Yes Are you interested in more education?: Yes Please select the resources that you would like help with: None Currently or been in a relationship where the following occur: I choose not to answer THRIVE Score: 2 BERRY-7 AMB Questionnaire BERRY-7 Date BERRY - 7 assessed: 09/10/24 Source: Developed by Drs. Ap Medina, Aidee Emerson, Demetrius Romano and colleagues, with an educational simon from [employer]. Physical exam (Primary Care) Vital Signs: Last Vital Signs Temp 97.9 F 12/14/24 10:07 Pulse 68 12/14/24 10:07 BP 124/68 12/14/24 10:07 Pulse Ox 94 12/14/24 10:07 Oxygen Delivery Method Room Air 12/14/24 10:07 BMI result Body Mass Index 25.1 Tobacco/Smoking Status: Tobacco use Status Tobacco use date assessed 12/14/24 12/14/24 10:07 Patient Tobacco Use Status Former Tobacco user 12/14/24 09:57 e-Cigarette/Vaping Use Never Used 12/14/24 09:57 Thrive Assessment: Date of Thrive Assessment Date Thrive assessed 06/08/24 12/14/24 09:57 Currently or been in a relationship where the following occur: I choose not to answer Coding Level of Care Code Est Pt Level 4 (75314) Complex EM visit Add On G2211 Diagnoses Elevated liver function tests R79.89 Diabetes mellitus type 2 with complications E11.8 ILD (interstitial lung disease) J84.9 COPD mixed type J44.9 Hypertension associated with type 2 diabetes mellitus E11.59; I15.2 Lumbar back pain M54.50 Thoracic back pain M54.6 Diabetic neuropathy E11.40 Depression F32.A 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 Repeat LFTs. Ordered liver ultrasound. (2) Diabetes mellitus type 2 with complications: Comment: Code(s): E11.8 - Type 2 diabetes mellitus with unspecified complications Category: Medical Plan: Continue metformin 1000 mg twice daily, Januvia 100 mg daily and Trulicity 0.75 mg weekly. Reviewed blood glucose monitoring and how to treat hypoglycemia. Written instructions have been provided to him. Recommended low carbohydrate, low sugar diet. He was referred to endocrinology. (3) ILD (interstitial lung disease): Code(s): J84.9 - Interstitial pulmonary disease, unspecified Category: Medical Plan: Continue management per pulmonology. (4) COPD mixed type: Comment: Continue management per pulmonology [facility] 02 Code(s): J44.9 - Chronic obstructive pulmonary disease, unspecified Category: Medical Plan: Followed by pulmonology. On supplemental oxygen. No interval ER visits or hospitalizations. Refuses vaccines. (5) Hypertension associated with type 2 diabetes mellitus: Code(s): E11.59 - Type 2 diabetes mellitus with other circulatory complications; I15.2 - Hypertension secondary to endocrine disorders Category: Medical Plan: Patient was previously on losartan which reportedly caused leg weakness. His blood pressure is normal today. (6) Lumbar back pain: Code(s): M54.50 - Low back pain, unspecified Category: Medical (7) Thoracic back pain: Code(s): M54.6 - Pain in thoracic spine Category: Medical (8) Diabetic neuropathy: Code(s): E11.40 - Type 2 diabetes mellitus with diabetic neuropathy, unspecified Category: Medical (9) Depression: Code(s): F32.A - Depression, unspecified Category: Medical Plan: Patient managed by Dr. Meehan. Continue current medications per Psychiatry. (10) Post-thoracotomy pain syndrome: Code(s): G89.12 - Acute post-thoracotomy pain Category: Medical (11) Elevated PSA: Code(s): R97.20 - Elevated prostate specific antigen [PSA] Category: Medical Plan: Differential diagnosis reviewed with the patient including prostate cancer. Referred to urology. (12) Coronary artery calcification seen on CAT scan: Code(s): I25.10 - Atherosclerotic heart disease of [place] coronary artery without angina pectoris Category: Medical Plan: Followed by Cardiology. Patient's LDL is not at goal. He had elevation of LFTs which will be re-evaluated today. We will revisit appropriateness of statin based on results. Plan The patient has chronic pain which is multifactorial related to prior thoracotomy, avascular necrosis of the hips, diabetic neuropathy, degenerative arthritis and chronic lung disease. Continue oxycodone to 5 mg every 8 hours as needed for severe pain. Administration, side effects reviewed. Advised it is it addictive, habit-forming medication. It must be taken as directed. Reviewed risks associated with this medication including increased depression, constipation, dizziness, drowsiness, increased risk of falls, respiratory suppression. Because the pain is debilitating for the patient the benefit outweighs these risks. He is tolerating it thus far. Not a surgical candidate per Orthopedics. Followed by pain management. He has started physical therapy. Orders: Orders Hepatitis B Surface Antigen 12/14/24 - Other specified abnormal findings of blood chemistry Hepatitis C Antibody 12/14/24 - Other specified abnormal findings of blood chemistry US abdomen reed w elastography 12/14/24 - Other specified abnormal findings of blood chemistry Hepatitis A IgM 12/14/24 - Other specified abnormal findings of blood chemistry Hepatitis A IgG 12/14/24 - Other specified abnormal findings of blood chemistry Hepatitis B Core Antibody 12/14/24 - Other specified abnormal findings of blood chemistry Referrals Urology Referral R97.20 - Elevated prostate specific antigen [PSA] Medications: Discontinued blood-glucose meter (OneTouch Verio Flex Meter) Discontinued Reason: Doctor's Order Use as directed to check blood glucose twice daily for Type II diabetes mellitus. 1 ea 0RF blood sugar diagnostic (OneTouch Verio test strips) Discontinued Reason: Doctor's Order Use as directed to check blood glucose twice daily. 100 ea 5RF lancets ([employer] Entertainment[employer] Delica Plus Lancet) Discontinued Reason: Doctor's Order Use as directed to check blood glucose twice daily. 100 ea 5RF
[2024-12-14 10:07] VITALS: BP 124/68; PULSE 68; TEMP 36.6; O2SAT 94; BMI 25.1
--- OUTSIDE RECORDS SUMMARY | 2024-12-14 10:36 | XMS_ITS ---
Author Name Kassie APRNAmena rajan Address [address] [place] [address] Phone [phone] [facility] [employer] [facility] Care Team Providers Care Morning News Producer Name Role Phone Darling Fernando Unavailable [phone] [facility] Unavailable [phone] Reason for Referral Not Available Allergies, adverse [...] 2024-02-24 No Data Available OneTouch Delica Plus [id number] Miscellaneous USE SEG N LO INDICADO TO [...] 1111F, BP, A1c or other CPTII codes [facility] 07/[facility]24 Encounter for other specifie d aftercare Unlisted special service; to be used for medical record reviews and reporting CPTII codes (1111F, etc) [facility] ([place]) 07/28/2024 Encounter for other specifie d aftercare Unlisted special service; to be used for medical record reviews and reporting CPTII codes (1111F, etc) [facility], ([place]) 07/28/2024 Social History Sex Male History of Procedures Procedures Service Procedure code Service date Servicing provider Phone# RN, CN or CP time with patient by phone; use with 1111F, BP, A1c or other CPTII codes 22058 2024-07-04 No Data Available No Data Avai lable Unlisted special service; to be used for medical record reviews and reporting CPTII codes (1111F, etc) 37029 2024-07-28 No Data Available No Data Availa ble Medications prescribed in hospital were reviewed and reconciled against what they were taking prior to admission during today's visit. (1111F) 1111F 2024-07-28 No Data Available No Data Availa ble Functional Status No Information Mental Status No Information Assessments Not Available Plan of Care Not Available
--- OUTSIDE RECORDS SUMMARY | 2024-12-14 10:37 | XMS_ITS | Patient Health Record ---
Author Organization [facility] Address [address] [address] Support Name Relationship Address Phone Costa Escalante Guarantor Unknown Reason For Referral No Information Plan Of Treatment No Information
--- OUTSIDE RECORDS SUMMARY | 2024-12-14 10:37 | XMS_ITS | Patient Health Record ---
Author Organization [facility] Address [address] [place] [address] Care Team Providers Care Thread Milling Machine Set Up Operator Name Role Phone Julián Crowe Unavailable [phone] Allergies Allergen (clinical drug ingredient) Drug/Non Drug [...] Severe recurrent major depression without psychotic features ([id number]) Major depressive disorder, recurrent severe without psychotic features (F33.2) Active confirmed Problem Primary insomnia (2326182) Primary insomnia (F51.01) Active confirmed Plan Of Treatment No Information Insurance Providers Payer Name Payer Address Payer Phone Subscriber Number Group Number Insured Name Patient Relationship to Insured Coverage Start Date Coverage End Date [employer] [address] [address] [place] [address] [phone] [id number] Costa Jones Self - patient is the insured Medical (General) History Medical History History ICD Code no medical history Surgical History Surgery Date(Month/Year) intestine 09/2002
== END 2024-12-14 10:46 | disposition home or self-care (01) ==
LOC: HO.HMCFM 09:51
PROVIDERS: PCP Physician Assistant Medical; Visit Provider Physician Assistant Medical
DX: E11.8 Type 2 diabetes mellitus with unspecified complications (principal); J84.9 Interstitial pulmonary disease, unspecified; J44.9 Chronic obstructive pulmonary disease, unspecified; E11.59 Type 2 diabetes mellitus with other circulatory complications; E11.40 Type 2 diabetes mellitus with diabetic neuropathy, unspecified; R79.89 Other specified abnormal findings of blood chemistry; I15.2 Hypertension secondary to endocrine disorders; M54.50 Low back pain, unspecified; M54.6 Pain in thoracic spine; F32.A Depression, unspecified; G89.12 Acute post-thoracotomy pain; R97.20 Elevated prostate specific antigen [PSA]

== ENCOUNTER 2025-01-19 13:36 | Outpatient (AMB) | payer OTHER, SELFPAY ==
--- OUTSIDE RECORDS SUMMARY | 2023-11-30 05:00 | XMS_ITS ---
Author Organization [facility] Address [address] [place] [phone] Care Team Providers Care Solar Photovoltaic Electrician Name Role Phone Migration, Provider Unavailable Unavailable REASON FOR VISIT EMR-David Encounters Encounter Location Date Provider Diagnosis [address] [address] 11/30/2023 Provider Migration Plan Of Treatment No Information Progress Notes * Costa ESCALANTEDOB:12/1949 (75 yo M)Acc No.[id number]:11/30/2023 Patient: Costa PALACIOS :1950 A ge:73 Y S ex:Male Address:[facility] [address], [facility] [address] Subjective: * Chief Complaints: * E MR-David * Medical History: * Surgical History: * Hospitalization/Major Diagno stic Procedure: * Medications: Objective: * Vitals: * Physical Examination: Assessment: Plan: * Treatment: * Procedure Codes: * * Date:
--- OUTSIDE RECORDS SUMMARY | 2023-12-01 05:00 | XMS_ITS ---
Author Organization [facility] Address [address] [place] [phone] Care Team Providers Care Sailboat Captain Name Role Phone Migration, Provider Unavailable Unavailable REASON FOR VISIT EMR-David Encounters Encounter Location Date Provider Diagnosis [address] [address] 12/01/2023 Provider Migration Plan Of Treatment No Information Progress Notes * Costa ESCALANTEDOB:12/1949 (75 yo M)Acc No.[id number]:12/01/2023 Patient: Costa PALACIOS :1950 A ge:73 Y S ex:Male Address:[facility] [address], [facility] [address] Subjective: * Chief Complaints: * E MR-David * Medical History: * Surgical History: * Hospitalization/Major Diagno stic Procedure: * Medications: Objective: * Vitals: * Physical Examination: Assessment: Plan: * Treatment: * Procedure Codes: * * Date:
--- NOTE | 2025-01-19 13:44 | A.OFFVIS_ITS ---
Intake Visit Reasons: Elevated PSA Intake Note: New Patient is present for elevated PSA Urology Rx:none Blood Thinners:none Imaging completed: none Labs done 12/02/24 PSA 11.26 Fifth Grade Teacher Required: Yes Accompanied by: Self / Same As Patient Allergies morphine Allergy (Severe, Verified 01/19/25 13:44) Agitated HPI Comments Details: Costa is a pleasant Cymraes-speaking male. He is a patient of . He seen for the following urologic conditions - elevated PSA - lower urinary tract symptoms Cymraes translation provided by qualified medical technician Discussed elevated PSA found by primary care Recommend prostate biopsy He described having a bad experience in [place] with a rectal exam at and would rather defer this Trial finasteride with repeat PSA in 4 months Elevated PSA PSA 12/21 11 [facility] Medical History (Updated 01/19/25 @ 14:14 by Jaxon Matthews MD) Hepatitis B core antibody positive Elevated liver function tests Elevated PSA Routine physical examination Avascular necrosis of bones of both hips Bilateral hip pain Risk for falls Asthma-COPD overlap syndrome Hospital discharge follow-up History of pneumonia Dry skin Bipolar affective disorder Low platelet count Depression Diabetic neuropathy Abnormal CBC Fatty liver Post-thoracotomy pain syndrome Emphysema (subcutaneous) (surgical) resulting from a procedure Hernia COVID-19 Diabetes mellitus, type 2 Bronchitis Pneumonia Surgical History (Updated 06/09/24 @ 13:55 by Meagan Anthony MD) Tympanic tube insertion History of intestinal surgery Family History Mother Mental health disorder Brother Substance use disorder Social History (Updated 10/12/24 @ 14:21 by Bessy Baldwin MA) Household Members: None Housing: Apartment Alcohol intake: never Patient Tobacco Use Status: Former Tobacco user Cigarette Packs Per Day: 1 Years Smoked: 40 e-Cigarette/Vaping Use: Never Used Second Hand Smoke Exposure: No service: No Current occupational status: disabled Current occupational exposures/hazards: No Sexual orientation: Straight/Heterosexual Gender identity: Male Cognitive needs: No Hearing needs: No Vision needs: No Review of Systems Const Denies chills and Denies fever(s) Card Reports no additional complaints and Denies syncope Resp Denies cough GI Denies abdominal pain and Denies heartburn Reports as per HPI and Denies change in libido Neuro Denies syncope Psych Denies change in libido Endo Denies change in libido Physical Exam Const General: cooperative, healthy appearing, comfortable and no acute distress Orientation/consciousness: patient oriented x3 HEENT Face and sinus: Yes normal facial exam Mouth: moist mucous membranes Neck Neck: Yes normal visual inspection, Yes full ROM and Yes trachea midline Chest Chest palpation & inspection: normal inspection of the chest Resp Effort & Inspection: normal respiratory effort, able to speak in complete sentences and no respiratory distress GI Inspection: Yes normal to inspection Back/Spine/Pelvis Cervical Spine: normal cervical lordosis Thoracic/Lumbar Spine: thoracic and lumbar spine normal to inspection Skin General skin exam: no rashes or lesions noted Neuro General: patient oriented x3, gait normal, tone normal and moves all extremities Extrem General: Yes normal to inspection and Yes capillary refill normal Assessment & Plan Assessment & Plan (1) Elevated PSA: Code(s): R97.20 - Elevated prostate specific antigen [PSA] Category: Medical (2) Bladder outlet obstruction: Code(s): N32.0 - Bladder-neck obstruction Category: Medical Plan Four month follow-up bladder ultrasound Orders: Orders PSA,Total (Free>4and<10) 4 Months R97.20 - Elevated prostate specific antigen [PSA] US bladder 4 Months R39.12 - Poor urinary stream, R97.20 - Elevated prostate specific antigen [PSA] Medications: New finasteride 5 mg PO DAILY 90 tabs 1RF 90 days R97.20 - Elevated prostate specific antigen [PSA] Patient Instructions: This note is constructed using voice recognition software. While every effort has been made to ensure accuracy medicare compliance auditor errors may have been included. Imaging studies, laboratory and physical exam results were discussed and reviewed in detail. No major barriers to patient understanding were identified. An opportunity to ask questions regarding the treatment plan was provided. All questions were answered. The patient expressed understanding and agreement with the above treatment plan. The patient is aware they should contact our office by phone for worsening of their current condition or the appearance of new urologic symptoms. Compliance is encouraged with any medications and followup testing that is ordered. It is a privilege to participate in the urologic care of your patient. If you have any questions or concerns regarding treatment for the above conditions, or other urologic issues, please do not hesitate to contact me. The office telephone contact is [phone]. Sincerely, Dr Jaxon Matthews MD, [facility] - Urology Compassionate Specialist Care for the Genitourinary System Coding Level of Care Code New Pt Level 4 (93737) Diagnoses Elevated PSA R97.20 Bladder outlet obstruction N32.0
--- OUTSIDE RECORDS SUMMARY | 2025-01-19 16:42 | XMS_ITS ---
Author Name Kassie APRNAmena rajan Address [address] [place] [address] Phone [phone] [facility] [employer] [facility] Care Team Providers Care Distribution Field Technician Name Role Phone Darling Fernando Unavailable [phone] [facility] Unavailable [phone] Reason for Referral Not Available Allergies, adverse [...] 2024-02-24 No Data Available OneTouch Delica Plus [id number] Miscellaneous USE SEG N LO INDICADO TO [...] 1111F, BP, A1c or other CPTII codes [facility] Encounter for other specifie d aftercare Unlisted special service; to be used for medical record reviews and reporting CPTII codes (1111F, etc) [facility] 07/28/2024 Encounter for other specifie d aftercare Unlisted special service; to be used for medical record reviews and reporting CPTII codes (1111F, etc) [facility], ([place]) 07/28/2024 Social History Sex Male History of Procedures Procedures Service Procedure code Service date Servicing provider Phone# RN, CN or CP time with patient by phone; use with 1111F, BP, A1c or other CPTII codes 45333 2024-07-04 No Data Available No Data Avai lable Unlisted special service; to be used for medical record reviews and reporting CPTII codes (1111F, etc) [id number] 2024-07-28 No Data Available No Data Availa ble Medications prescribed in hospital were reviewed and reconciled against what they were taking prior to admission during today's visit. (1111F) 1111F 2024-07-28 No Data Available No Data Availa ble Functional Status No Information Mental Status No Information Assessments Not Available Plan of Care Not Available
--- OUTSIDE RECORDS SUMMARY | 2025-01-19 16:43 | XMS_ITS | Patient Health Record ---
Author Organization [facility] Address [address] [place] [address] Care Team Providers Care Service Clerk Name Role Phone Julián Crowe Unavailable Allergies [...] Severe recurrent major depression without psychotic features ([id number]) Major depressive disorder, recurrent severe without psychotic features (F33.2) Active confirmed Problem Primary insomnia ([id number]) Primary insomnia (F51.01) Active confirmed Plan Of Treatment No Information Insurance Providers Payer Name Payer Address Payer Phone Subscriber Number Group Number Insured Name Patient Relationship to Insured Coverage Start Date Coverage End Date [employer] [address] [address] [place] [address] [id number] Costa Jones Self - patient is the insured Medical (General) History Medical History History ICD Code no medical history Surgical History Surgery Date(Month/Year) intestine 09/2002
--- OUTSIDE RECORDS SUMMARY | 2025-01-19 16:43 | XMS_ITS | Clinical Summary ---
Author Organization [employer] Address [address] [facility] [place] [address] Care Team Providers Care Acoustical Tile Drill Press Operator Name Role Phone Unavailable Primary Care [...] COVID-19 Vaccine ( - 2023-2 5 season) 2024 Influenza Vaccine (#1) 2024 RSV Patients and [...] patient's age to complete this topic Insurance [facility] STANDARD
--- OUTSIDE RECORDS SUMMARY | 2025-01-19 16:43 | XMS_ITS | Patient Health Record ---
Author Organization [facility] Address [address] [address] Support Name Relationship Address Phone Costa Escalante Guarantor Unknown [phone] Reason For Referral No Information Plan Of Treatment No Information
== END 2025-01-19 14:13 | disposition home or self-care (01) ==
LOC: HO.HUSH 13:36
PROVIDERS: PCP Physician Assistant Medical; Visit Provider Urology
DX: R97.20 Elevated prostate specific antigen [PSA] (principal); N32.0 Bladder-neck obstruction; Z13.9 Encounter for screening, unspecified
CPT/HCPCS: 99204

== ENCOUNTER → 2025-01-19 13:36 | Outpatient (BNVA) | payer OTHER, SELFPAY | PROVIDERS: PCP Physician Assistant Medical; Visit Provider Urology | DX: R97.20 Elevated prostate specific antigen [PSA] (principal); N32.0 Bladder-neck obstruction | CPT/HCPCS: 81003; 99202 ==

== ENCOUNTER 2025-01-21 10:43 | Outpatient (AMB) | payer OTHER, SELFPAY ==
--- NOTE | 2025-01-21 10:51 | MHC.PC.OV ---
Vital Signs 01/21/25 11:03 Height 5 ft 6 in Weight 154 lb BMI 24.9 BP 126/68 Blood Pressure Location Rt brachial Position Sitting Pulse 67 Pulse Source Pulse Oximeter Temp 98.4 F Temp Source Temporal Artery Scan Pulse Oximetry (%) 93 Oxygen Delivery Method Room Air Intake Visit Reasons: [facility] date 01/29/2025 Intake Note: Costa presents in the office today for a pre-op to lasik surgery. Patient needs new Rx of the Januvia. Patient needs new nose canula for his oxygen. Would like to discuss Ocycodone and pain in the night. Patient having prostate US 05/21/2025. Dispensary Clerk Required: Yes Dispensary Clerk Name: Erna [id number] Allergies morphine Allergy (Severe, Verified 01/21/25 10:56) Agitated Tobacco use date assessed: 01/21/25 Dental Screening Dental Screen Date: 01/21/25 Did you have a dental visit in the last 12 months?: Yes Did you have a dental problem in the last 6 months where you did not have access to dental care?: No Was dental information given to patient?: Patient has dentist HPI HPI Comments History of Present Illness Details 74-year-old male Slovenian speaking with diabetes type 2, COPD O2 dependent on 2 L of oxygen, empyema status post chest tube and VATS, status post tracheostomy now decannulated, interstitial lung disease, status post right-sided rib fractures, glaucoma, MDD, urinary incontinence, CAD, bifascilar block and chronic pain presents for a preoperative examination. He is here with his son, Costa. The Slovenian video japanese interpreter is used. Patient is undergoing cataract removal at [facility] on 01/29/2025 (left eye), and 02/18/25 (right eye). He denies recent infections. Patient saw Cardiology, and he had a CT of the chest which showed coronary artery calcifications. He had no clear anginal symptoms. He was previously on atorvastatin, but he has not been taking that for unknown reasons. His most recent LDL cholesterol on 12/14/2024 was 108, HDL 38, total cholesterol 164, triglycerides 94. Previously had mildly elevated liver enzymes, but they have since normalized. He is not opposed to restarting cholesterol medication. Type 2 diabetes-taking Trulicity 0.75 mg weekly, Januvia 100 mg daily and metformin 1000 mg twice daily. No side effects. Previously stopped glipizide due to difficulty swallowing the pill. His hemoglobin A1c is 6.4%. Denies hypoglycemic episodes. He psychiatrist is Dr. Meehan. Chronic pain- imaging showed avascular necrosis of both hips. He saw [facility] on 08/13/2024, but he is not a surgical candidate. He saw pain management on 09/04/2024. He is in physical therapy. He has chronic pain in his bilateral knees, his lower back and middle back, neuropathy in his feet. On average pain is an 8/10. It makes it harder for him to sleep. He has difficulty moving from a sitting to standing position. He uses a cane and walker. He does not drive. Patient reported he tried gabapentin and Lyrica which were ineffective. Patient is taking 5 mg of oxycodone every 8 hours which is effective. He is waking up at night yelling in pain sometimes from his back and hips because oxycodone wears off. His son is staying with him frequently at night and during the day to help him. He has his DIRECT CARE STAFFER. He is requesting a letter to support an increase in DIRECT CARE STAFFER hours which was given to him today. He also needed a letter stating why he had to stay with his father. Abnormal CBC-followed by Dr. Anthony. Hgb and HCT normalized. Patient has chronic thrombocytopenia. He was referred to Urology because PSA level was elevated at 11.26. He saw Dr. Matthews on 01/19/2025. Finasteride initiated and repeat PSA recommended in 4 months. Letter ultrasound was also ordered. Ultrasound also ordered. Denies night sweats, fevers, chills or unexplained weight loss. He is a former smoker who quit about 10 years ago with 150+ pack-year history and underlying asthma since childhood, COPD and history of COVID-19 in March 2020. He uses oxygen with good effect. He uses his inhalers as prescribed. He had a CT in October 2023 with multiple nodules, and he is followed by pulmonology. ROS: Constitutional: No unexplained weight loss, fever, chills or night sweats. Eyes: No vision changes, blurry vision, double vision, eye pain, eye redness, eye discharge. ENT: No hearing loss, sneezing, congestion, runny nose or sore throat. Respiratory: No increase in baseline shortness of breath or increased cough or increased sputum production. No hemoptysis. Cardiovascular: No chest pain, palpitations or pedal edema Gastrointestinal: See HPI Neurologic: No headache, dizziness, syncope Musculoskeletal: See HPI Hematologic/Lymphatics: No bleeding or bruising. No painful lymph nodes. Skin: No rash Endocrine: No cold or heat intolerance. No polyuria or polydipsia. Psychiatric: See HPI Physical exam: Constitutional: Alert, in no distress. Eyes: Pupils are equal, round and reactive to light. Extraocular muscles intact. Neck: Supple, Full range of motion. No lymphadenopathy. Respiratory: Clear to auscultation. Cardiovascular: S1 S2 regular. No murmurs. Neurologic: No focal neurological deficits. Extremities: Warm and well perfused. No clubbing, cyanosis or edema. Psychiatric: Normal mood and affect [facility] Medical History (Updated 01/21/25 @ 13:21 by KANDIS Malhotra) Hepatitis B core antibody positive Elevated liver function tests Elevated PSA Routine physical examination Avascular necrosis of bones of both hips Bilateral hip pain Risk for falls Asthma-COPD overlap syndrome Hospital discharge follow-up History of pneumonia Dry skin Bipolar affective disorder Low platelet count Depression Diabetic neuropathy Abnormal CBC Fatty liver Post-thoracotomy pain syndrome Emphysema (subcutaneous) (surgical) resulting from a procedure Hernia COVID-19 Diabetes mellitus, type 2 Bronchitis Pneumonia Surgical History (Updated 06/09/24 @ 13:55 by Meagan Anthony MD) Tympanic tube insertion History of intestinal surgery Family History Mother Mental health disorder Brother Substance use disorder Social History (Updated 01/21/25 @ 11:03 by Bessy Baldwin CMA) Household Members: None Housing: Apartment Alcohol intake: never Patient Tobacco Use Status: Former Tobacco user Cigarette Packs Per Day: 1 Years Smoked: 40 e-Cigarette/Vaping Use: Never Used Second Hand Smoke Exposure: No service: No Current occupational status: disabled Current occupational exposures/hazards: No Sexual orientation: Straight/Heterosexual Gender identity: Male Cognitive needs: No Hearing needs: No Vision needs: No Questionnaire Thrive Questionnaire Date Thrive assessed: 06/08/24 I am a: Patient What is your living situation today?: I have a steady place to live Within the past 12 months, did the food you bought not last and you didn't have the money to get more?: Sometimes True Within the past 12 months, did you worry whether your food would run out before you got money to buy more?: Sometimes True Do you have trouble paying for medicines?: No Do you have trouble getting transportation to medical appointments?: No Do you have trouble paying your heating and electricity bill?: No Do you have trouble taking care of your child, family member or friend?: Yes Do you have trouble with day-to-day activities such as bathing, preparing meals, shopping, managing finances, etc.?: Yes Are you currently unemployed and looking for a job?: Yes Are you interested in more education?: Yes Please select the resources that you would like help with: None Currently or been in a relationship where the following occur: I choose not to answer THRIVE Score: 2 BERRY-7 AMB Questionnaire BERRY-7 Date BERRY - 7 assessed: 09/10/24 Source: Developed by Drs. Ap Medina, Aidee Emerson, Demetrius Romano and colleagues, with an educational simon from [employer]. Physical exam (Primary Care) Vital Signs: Last Vital Signs Temp 98.4 F 01/21/25 11:03 Pulse 67 01/21/25 11:03 BP 126/68 01/21/25 11:03 Pulse Ox 93 01/21/25 11:03 Oxygen Delivery Method Room Air 01/21/25 11:03 BMI result Body Mass Index 24.9 Tobacco/Smoking Status: Tobacco use Status Tobacco use date assessed 01/21/25 01/21/25 11:08 Patient Tobacco Use Status Former Tobacco user 01/21/25 11:03 e-Cigarette/Vaping Use Never Used 01/21/25 11:03 Thrive Assessment: Date of Thrive Assessment Date Thrive assessed 06/08/24 01/21/25 10:53 Currently or been in a relationship where the following occur: I choose not to answer Results Reviewed Results Reviewed: Laboratory Tests 12/02/24 12/14/24 13:27 11:00 WBC 7.9 RBC 5.65 Hgb 17.0 Hct 48.7 Plt Count 118 L Creatinine 0.83 Estimated GFR > 60 Hemoglobin A1c % 6.4 H AST 32 ALT 39 Alkaline Phosphatase 79 Triglycerides 94 Cholesterol 164 LDL Cholesterol, Calc 108 H HDL Cholesterol 38 L Coding Level of Care Code Est Pt Level 5 (11694) Complex EM visit Add On G2211 Diagnoses Visit for pre-operative examination Z01.818 Diabetes mellitus type 2 with complications E11.8 ILD (interstitial lung disease) J84.9 COPD mixed type J44.9 Hypertension associated with type 2 diabetes mellitus E11.59; I15.2 Lumbar back pain M54.50 Thoracic back pain M54.6 Diabetic polyneuropathy associated with type 2 diabetes mellitus E11.42 Diabetes mellitus type: type 2 Diabetes mellitus complication detail: diabetic polyneuropathy Depression F32.A 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 He has a moderate risk for complications for this low risk procedure. METS <4 secondary to chronic pain, osteoarthritis, osteonecrosis of the hips and COPD. Hypertension and diabetes are well-controlled. I recommend obtaining clearance letters from his workers compensation analyst and melt house drag operator prior to moving forward with the procedure. We will reach out to his specialists for this. (2) Diabetes mellitus type 2 with complications: Comment: Code(s): E11.8 - Type 2 diabetes mellitus with unspecified complications Category: Medical Plan: Hemoglobin A1c is at target of less than 7%. Continue metformin 1000 mg twice daily, Januvia 100 mg daily and Trulicity 0.75 mg weekly. (3) ILD (interstitial lung disease): Code(s): J84.9 - Interstitial pulmonary disease, unspecified Category: Medical Plan: Continue management per pulmonology. (4) COPD mixed type: Comment: Continue management per pulmonology [facility] 02 Code(s): J44.9 - Chronic obstructive pulmonary disease, unspecified Category: Medical Plan: Followed by pulmonology. On supplemental oxygen. No interval ER visits or hospitalizations. Patient refuses vaccines. (5) Hypertension associated with type 2 diabetes mellitus: Code(s): E11.59 - Type 2 diabetes mellitus with other circulatory complications; I15.2 - Hypertension secondary to endocrine disorders Category: Medical Plan: Patient was previously on losartan which reportedly caused leg weakness. His blood pressure is normal today. (6) Lumbar back pain: Code(s): M54.50 - Low back pain, unspecified Category: Medical Plan: The patient has chronic pain which is multifactorial related to prior thoracotomy, avascular necrosis of the hips, diabetic neuropathy, degenerative arthritis and chronic lung disease. Increase oxycodone to 5 mg every 6 hours as needed for severe pain. Administration, side effects reviewed. Advised it is it addictive, habit-forming medication. It must be taken as directed. Reviewed risks associated with this medication including increased depression, constipation, dizziness, drowsiness, increased risk of falls, respiratory suppression. Because the pain is debilitating for the patient the benefit outweighs these risks. He is tolerating it thus far. Not a surgical candidate per Orthopedics. Followed by pain management. (7) Thoracic back pain: Code(s): M54.6 - Pain in thoracic spine Category: Medical (8) Diabetic neuropathy: Code(s): E11.40 - Type 2 diabetes mellitus with diabetic neuropathy, unspecified Category: Medical Qualifiers: Diabetes mellitus type: type 2 Diabetes mellitus complication detail: diabetic polyneuropathy Qualified Code(s): E11.42 - Type 2 diabetes mellitus with diabetic polyneuropathy (9) Depression: Code(s): F32.A - Depression, unspecified Category: Medical Plan: Patient managed by Dr. Meehan. Continue current medications per Psychiatry. (10) Post-thoracotomy pain syndrome: Code(s): G89.12 - Acute post-thoracotomy pain Category: Medical (11) Elevated PSA: Code(s): R97.20 - Elevated prostate specific antigen [PSA] Category: Medical Plan: Following with urology. (12) Coronary artery calcification seen on CAT scan: Code(s): I25.10 - Atherosclerotic heart disease of [place] coronary artery without angina pectoris Category: Medical Plan: I evaluated by Cardiology. No anginal symptoms. LDL above goal. Restart atorvastatin. (13) Thrombocytopenia: Code(s): D69.6 - Thrombocytopenia, unspecified Plan: He has chronic thrombocytopenia. Most recent labs not prohibitive of surgery. Plan Follow up is scheduled with me in February. Medications: New atorvastatin (Lipitor) 10 mg PO BEDTIME 90 tabs 3RF sitagliptin phosphate (Januvia) 100 mg PO DAILY 90 tabs 3RF Changed From oxycodone Partial Fill upon patient request. 5 mg PO Q8H 28 days PRN 84 tabs 0RF pain, severe To oxycodone Partial Fill upon patient request. 5 mg PO Q6H PRN 112 tabs 0RF pain, severe 28 days
[2025-01-21 11:03] VITALS: BP 126/68; PULSE 67; TEMP 36.9; O2SAT 93; BMI 24.9
== END 2025-01-21 11:52 | disposition home or self-care (01) ==
LOC: HO.HMCFM 10:43
PROVIDERS: PCP Physician Assistant Medical; Visit Provider Physician Assistant Medical
DX: Z01.818 Encounter for other preprocedural examination (principal); E11.8 Type 2 diabetes mellitus with unspecified complications; J84.9 Interstitial pulmonary disease, unspecified; J44.9 Chronic obstructive pulmonary disease, unspecified; E11.59 Type 2 diabetes mellitus with other circulatory complications; E11.42 Type 2 diabetes mellitus with diabetic polyneuropathy; I15.2 Hypertension secondary to endocrine disorders; M54.50 Low back pain, unspecified; M54.6 Pain in thoracic spine; F32.A Depression, unspecified; G89.12 Acute post-thoracotomy pain; R97.20 Elevated prostate specific antigen [PSA]

== ENCOUNTER → 2025-01-21 10:43 | Outpatient (BNVA) | payer OTHER, SELFPAY | PROVIDERS: PCP Physician Assistant Medical; Visit Provider Physician Assistant Medical | DX: Z01.818 Encounter for other preprocedural examination (principal); H26.9 Unspecified cataract; E11.8 Type 2 diabetes mellitus with unspecified complications; J84.9 Interstitial pulmonary disease, unspecified; J44.9 Chronic obstructive pulmonary disease, unspecified; E11.59 Type 2 diabetes mellitus with other circulatory complications; I15.2 Hypertension secondary to endocrine disorders; M54.50 Low back pain, unspecified; M54.6 Pain in thoracic spine; E11.42 Type 2 diabetes mellitus with diabetic polyneuropathy; F32.A Depression, unspecified; G89.12 Acute post-thoracotomy pain; R97.20 Elevated prostate specific antigen [PSA]; I25.10 Atherosclerotic heart disease of native coronary artery without angina pectoris; D69.6 Thrombocytopenia, unspecified; Z79.84 Long term (current) use of oral hypoglycemic drugs; Z99.81 Dependence on supplemental oxygen | CPT/HCPCS: 99212 ==

== ENCOUNTER 2025-03-03 09:58 | Outpatient (REF) | payer OTHER, SELFPAY ==
--- OUTSIDE RECORDS SUMMARY | 2023-11-30 04:00 | XMS_ITS ---
Author Organization [facility] Address [address] [place] [phone] Care Team Providers Care Parts Room Associate Name Role Phone Migration, Provider Unavailable Unavailable REASON FOR VISIT EMR-David Encounters Encounter Location Date Provider Diagnosis [address] [address] 11/30/2023 Provider Migration Plan Of Treatment No Information Progress Notes * ADRYAN CARLOSCostaDOB:12/1949 (75 yo M)Acc No.[id number]:11/30/2023 Patient: Hannah MCCORMICK CARLOSCosta :1950 A ge:73 Y S ex:Male Address:[address], [facility] [address] Subjective: * Chief Complaints: * E MR-David * * Date:
--- OUTSIDE RECORDS SUMMARY | 2023-12-01 04:00 | XMS_ITS ---
Author Organization [facility] Address [address] [place] [phone] Care Team Providers Care Household Appliances Salesperson Name Role Phone Migration, Provider Unavailable Unavailable REASON FOR VISIT EMR-David Encounters Encounter Location Date Provider Diagnosis [address] [address] 12/01/2023 Provider Migration Plan Of Treatment No Information Progress Notes * ADRYAN CARLOSCostaDOB:12/1949 (75 yo M)Acc No.[id number]:12/01/2023 Patient: Hannah MCCORMICK CARLOSCosta :1950 A ge:73 Y S ex:Male Address:[facility] [address], [facility] [address] Subjective: * Chief Complaints: * E MR-David * Medical History: Problems: No Known Problems , Status: completed * * Date:
--- NOTE | ~2025-03-03 | US_ITS ---
EXAMINATION: US ABDOMEN LIMITED WITH LIVER ELASTOGRAPHY HISTORY: R79.89 - ELEVATED LIVER FUNCTION TESTS TECHNIQUE: Real-time grayscale ultrasound imaging of the right upper quadrant was performed and images were reviewed. COMPARISON: Comparison is made with the prior examination dated 07/28/2024. FINDINGS: Liver: The right lobe of the liver measures 16.6 cm in size. The left lobe of the liver measures 8.9 cm in size. The liver demonstrates heterogeneously increased echotexture, consistent with steatosis. The liver demonstrates a mildly lobulated contour. No focal mass or intrahepatic biliary ductal dilatation is identified. There is normal hepatopedal flow in the portal vein. Ultrasound elastography of the liver was performed with 10 separate measurements of the liver parenchyma with the patient in the supine position. Measurements were obtained approximately 2 cm below Deandre's capsule and perpendicular to the capsule. The median shear wave velocity is 2.03 m/s. The interquartile range/median (IQR/median) is 0.04. Gallbladder and biliary tree: The gallbladder is distended, but otherwise unremarkable, without evidence of calculi, wall thickening, or pericholecystic fluid. There is no sonographic Farias sign. The common bile duct is normal in caliber measuring 6 mm. Right Kidney: The right kidney measures 10.2 cm in length. The right kidney is unremarkable, without evidence of masses, hydronephrosis, or calculi. Pancreas: The pancreatic head, neck, and body are unremarkable. The pancreatic tail is obscured by bowel gas. Abdominal aorta and inferior vena cava: The visualized portions of the abdominal aorta and inferior vena cava are normal in caliber. There is no free fluid in the right upper quadrant. US/US abdomen reed w elastography IMPRESSION: Mild hepatomegaly and hepatic steatosis. Mildly lobulated hepatic echotexture could represent cirrhosis. The median shear wave velocity in the liver is 2.03 m/s, corresponding to a median liver stiffness of 12.45 kPa. The IQR/median value is 0.04. This is indicative of a quality data set. Findings are indicative of a high elastography value suggestive of compensated advanced chronic liver disease. REFERENCE: Society of Radiologists in Ultrasound Liver Stiffness Thresholds (2020): LIVER STIFFNESS THRESHOLDS: *Shear wave velocity less than 1.3 m/s (Liver Stiffness equal or less than 5 kPa): High probability of being normal. *Shear wave velocity less than 1.7 m/s (Liver Stiffness less than 9 kPa): In the absence of other known clinical signs, rules out compensated advanced chronic liver disease. *Shear wave velocity between 1.7-2.1 m/s (Liver Stiffness 9-13 kPa): Suggestive of compensated advanced chronic liver disease but need further test for confirmation. *Shear wave velocity between 2.1-2.4 m/s (Liver Stiffness 13-17 kPa): Rules in compensated advanced chronic liver disease. *Shear wave velocity greater than 2.4 m/s (Liver Stiffness over 17 kPa): Suggestive of clinically significant portal hypertension. QUALITY OF DATA SET: *IQR/Median value equal or less than 0.15 implies a quality data set. *IQR/Median value over 0.15 implies a poor quality data set. SIGNIFICANT CHANGE FROM PRIOR EXAM: Significant change if liver stiffness measurement is 10% or greater from prior exam. OTHER CONSIDERATIONS: The stage of liver fibrosis may be overestimated in the setting of acute hepatitis, liver inflammation, elevated liver function tests, hepatic vascular congestion, obstructive cholestasis, non-fasting state, and infiltrative diseases such as amyloidosis and lymphoma. In some patients with NAFLD, the liver stiffness thresholds for compensated advanced chronic liver disease may be lower. In causes other than viral hepatitis and NAFLD, liver stiffness thresholds are not well established. Electronically signed by: Ap Mathis MD 03/03/2025 10:58 AM [facility]
--- OUTSIDE RECORDS SUMMARY | 2025-03-03 11:27 | XMS_ITS ---
Author Name Kassie APRNAmena rajan Address [address] [place] [address] Phone [phone] [facility] [employer] [facility] Care Team Providers Care Cut Out Marker Name Role Phone Darling Fernando Unavailable [phone] [facility] Unavailable Reason for Referral Not Available [...] 2024-02-24 No Data Available [employer] Plus [id number] Miscellaneous USE SEG N LO INDICADO TO [...] 1111F, BP, A1c or other [facility]PT[facility] codes [facility] Encounter for other specifie d aftercare Unlisted special service; to be used for medical record reviews and reporting CPTII codes (1111F, etc) [facility] Encounter for other specifie d aftercare Unlisted special service; to be used for medical record reviews and reporting CPTII codes (1111F, etc) [facility], ([place]) 07/28/2024 Social History Sex Male History of Procedures Procedures Service Procedure code Service date Servicing provider Phone# RN, CN or CP time with patient by phone; use with 1111F, BP, A1c or other CPTII codes [id number] 2024-07-04 No Data Available No Data Avai lable Unlisted special service; to be used for medical record reviews and reporting CPTII codes (1111F, etc) 74444 2024-07-28 No Data Available No Data Availa ble Medications prescribed in hospital were reviewed and reconciled against what they were taking prior to admission during today's visit. (1111F) 1111F 2024-07-28 No Data Available No Data Availa ble Functional Status No Information Mental Status No Information Assessments Not Available Plan of Care Not Available
--- OUTSIDE RECORDS SUMMARY | 2025-03-03 11:27 | XMS_ITS | Patient Health Record ---
Author Organization [facility] Address [address] [address] Support Name Relationship Address Phone Costa Escalante Guarantor Unknown [phone] Reason For Referral No Information Plan Of Treatment No Information
--- OUTSIDE RECORDS SUMMARY | 2025-03-03 11:27 | XMS_ITS | Clinical Summary ---
Author Organization [employer] Address [address] [place] [address] Care Team Providers Care Fitness Professional Name Role Phone Unavailable Primary Care Provider [...] patient's age to complete this topic Insurance [facility] STANDARD
--- OUTSIDE RECORDS SUMMARY | 2025-03-03 11:28 | XMS_ITS | Patient Health Record ---
Author Organization [facility] Address [address] [place] [address] Care Team Providers Care Pressure Welder Name Role Phone Julián Crowe Unavailable Allergies [...] Severe recurrent major depression without psychotic features ([id number]) Major depressive disorder, recurrent severe without psychotic features (F33.2) Active confirmed Problem Primary insomnia ([id number]) Primary insomnia (F51.01) Active confirmed Plan Of Treatment No Information Insurance Providers Payer Name Payer Address Payer Phone Subscriber Number Group Number Insured Name Patient Relationship to Insured Coverage Start Date Coverage End Date Field Agent Health Plans [address] [address] [place] [address] [id number] Costa Jones Self - patient is the insured Medical (General) History Medical History History ICD Code no medical history Surgical History Surgery Date(Month/Year) intestine 09/2002
== END 2025-03-03 09:59 | disposition home or self-care (01) ==
LOC: HO.US 09:58
PROVIDERS: PCP Physician Assistant Medical; Visit Provider Physician Assistant Medical
DX: R79.89 Other specified abnormal findings of blood chemistry (principal)
CPT/HCPCS: 76705; 76981

== ENCOUNTER → 2025-03-03 10:01 | Outpatient (BNV) | payer OTHER, SELFPAY | PROVIDERS: PCP Physician Assistant Medical; Visit Provider Radiology Diagnostic Radiology | DX: K76.0 Fatty (change of) liver, not elsewhere classified (principal); R16.0 Hepatomegaly, not elsewhere classified | CPT/HCPCS: 76705 ==

== ENCOUNTER 2025-03-18 10:44 | Outpatient (REF) | payer OTHER, SELFPAY ==
[2025-03-18 14:26] LABS: Hematocrit 54.1 % (42.0-52.0); NRBC Abs Auto 0.000 X10*3/uL (0.0-0.012); NRBC Pct Auto 0.0 /100WBC (0.0-0.2); PLT CLUMP 1
[2025-03-18 14:27] LABS: Hemoglobin 18.4 g/dl (14.0-18.0); Mean Corpuscular HGB Conc 34.0 g/dl (31.0-36.0); Mean Corpuscular Hemoglobin 30.3 pg (27.0-33.0); Mean Corpuscular Volume 89.0 fL (80.0-98.0); Red Blood Count 6.08 X10*6/uL (4.60-5.80)
[2025-03-18 14:29] LABS: Platelet Count 123 X10*3/uL (160-400); White Blood Count 7.7 X10*3/uL (4.8-10.8)
[2025-03-18 14:42] LABS: Alanine Aminotransferase 37 U/L (0-40); Albumin Level 4.7 g/dL (3.5-5.0); Alkaline Phosphatase 90 U/L (39-117); Anion Gap 12 (12-20); Aspartate Amino Transferase 30 U/L (5-37); Blood Urea Nitrogen 17 mg/dL (9-16); Calcium 10.0 mg/dL (8.4-10.2); Carbon Dioxide 27 mmol/L (22-29); Chloride 107 mmol/L (96-108); Estimated Glomerular Filt Rate > 60; Potassium 4.5 mmol/L (3.3-5.1); Sodium 141 mmol/L (135-145); Total Protein 8.1 g/dL (6.5-8.0)
[2025-03-18 15:04] LABS: Prostate Specific Antigen 7.30 ng/mL (<0.05-4.0)
[2025-03-19 08:39] LABS: Hepatitis A Antibody IgM 0.22 Index (0-0.79); ~Hepatitis A Antibody IgM Nonreactive (Nonreactive)
[2025-03-19 08:43] LABS: HBS Num1 53.64 mIU/mL (0-7.99); HBc Num1 9.23 S/CO (0.00-0.79); HBsAGNum1 0.41 S/CO (0.00-0.99); Hepatitis A Antibody IgM 0.22 Index (0-0.79); Hepatitis B Surface Antigen Negative (Negative); ~HepC Num1 0.17 S/CO (0.00-0.79); ~Hepatitis A Antibody IgM Nonreactive (Nonreactive); ~Hepatitis B Surface Antibody REACTIVE (Nonreactive); ~Hepatitis C Antibody Nonreactive (Nonreactive)
[2025-03-19 10:26] LABS: HBc Num2 9.28 S/CO
[2025-03-19 10:27] LABS: HBc Num3 9.47 S/CO
== END 2025-03-18 10:45 | disposition home or self-care (01) ==
LOC: HO.WFDLDS 10:44
PROVIDERS: PCP Physician Assistant Medical; Visit Provider Physician Assistant Medical
DX: M25.561 Pain in right knee (principal); J43.9 Emphysema, unspecified; M54.50 Low back pain, unspecified; K76.0 Fatty (change of) liver, not elsewhere classified; J84.9 Interstitial pulmonary disease, unspecified; E11.59 Type 2 diabetes mellitus with other circulatory complications; I15.2 Hypertension secondary to endocrine disorders; M54.6 Pain in thoracic spine; E11.42 Type 2 diabetes mellitus with diabetic polyneuropathy; F32.A Depression, unspecified; G89.12 Acute post-thoracotomy pain; R97.20 Elevated prostate specific antigen [PSA]; I25.10 Atherosclerotic heart disease of native coronary artery without angina pectoris; D69.6 Thrombocytopenia, unspecified; R76.89 Other specified abnormal immunological findings in serum; Z99.81 Dependence on supplemental oxygen; Z87.891 Personal history of nicotine dependence; Z79.84 Long term (current) use of oral hypoglycemic drugs; Z79.891 Long term (current) use of opiate analgesic; Z79.899 Other long term (current) drug therapy; Z12.5 Encounter for screening for malignant neoplasm of prostate
CPT/HCPCS: 36415; 80053; 83036; 84153; 85027; 86704; 86706; 86709; 86803; 87340; 87350; 99212

== ENCOUNTER 2025-03-18 10:44 | Outpatient (AMB) | payer OTHER, SELFPAY ==
--- OUTSIDE RECORDS SUMMARY | 2023-11-30 04:00 | XMS_ITS ---
Author Organization [facility] Address [address] [place] [id number] Care Team Providers Care Dental Biller Name Role Phone Migration, Provider Unavailable Unavailable REASON FOR VISIT EMR-David Encounters Encounter Location Date Provider Diagnosis [address] [address] 11/30/2023 Provider Migration Plan Of Treatment No Information Progress Notes * ADRYAN CARLOSCostaDOB:12/1949 (75 yo M)Acc No.[id number]:11/30/2023 Patient: Hannah MCCORMICK CARLOSCosta :1950 A ge:73 Y S ex:Male Address:[address], [facility] [address] Subjective: * Chief Complaints: * E MR-David * * Date:
--- OUTSIDE RECORDS SUMMARY | 2023-12-01 04:00 | XMS_ITS ---
Author Organization [facility] Address [address] [place] [phone] Care Team Providers Care Professor Of Anthropology Name Role Phone Migration, Provider Unavailable Unavailable REASON FOR VISIT EMR-David Encounters Encounter Location Date Provider Diagnosis [address] [address] 12/01/2023 Provider Migration Plan Of Treatment No Information Progress Notes * ADRYAN CARLOSCostaDOB:12/1949 (75 yo M)Acc No.[id number]:12/01/2023 Patient: Hannah MCCORMICK CARLOSCosta :1950 A ge:73 Y S ex:Male Address:[facility] [address], [facility] [address] Subjective: * Chief Complaints: * E MR-David * Medical History: Problems: No Known Problems , Status: completed * * Date:
--- NOTE | 2025-03-18 10:51 | A.OFFPC_ITS ---
Vital Signs 03/18/25 11:03 Height 5 ft 6 in Weight 152 lb 8 oz BMI 24.6 BP 134/62 Blood Pressure Location Lt brachial Position Sitting Pulse 67 Pulse Source Pulse Oximeter Temp 98.4 F Temp Source Temporal Artery Scan Pulse Oximetry (%) 96 Oxygen Delivery Method Nasal Cannula Intake Visit Reasons: Type II diahetes Intake Note: Costa presents in the office today for his diabetes. Associate Art Director Required: Yes Associate Art Director Name: [id number] Brett Information Interpreted: clinical only Design Coordinator: Present Accompanied by: Son Allergies morphine Allergy (Severe, Verified 03/18/25 11:00) Agitated Tobacco use date assessed: 03/18/25 Fall risk assessment: No Falls in past year Last assessed Fall Risk: 03/18/25 Dental Screening Dental Screen Date: 03/18/25 Did you have a dental visit in the last 12 months?: No Did you have a dental problem in the last 6 months where you did not have access to dental care?: No Was dental information given to patient?: Patient declined HPI HPI Comments History of Present Illness Details 74-year-old male Congolese speaking with d iabetes type 2, COPD O2 dependent on 2 L of oxygen, empyema status post chest tube and VATS, status post tracheostomy now decannulated, interstitial lung disease, status post right- sided rib fractures, glaucoma, MDD, urinary incontinence, CAD, bifascilar block and chronic pain presents for a preoperative examination. He is here with his son, Costa. The Congolese video spring setter is used. Patient had bilateral cataract removals at [facility] in January. He denies recent infections. Patient saw Cardiology, and he had a CT of the chest which showed coronary artery calcifications. He had no clear anginal symptoms. He was previously on atorvastatin, but he has not been taking that for unknown reasons. He restarted it after his last visit. Previously had mildly elevated liver enzymes, but they normalized. Type 2 diabetes-taking Trulicity 0.75 mg weekly, Januvia 100 mg daily and metformin 1000 mg twice daily. No side effects. Previously stopped glipizide due to difficulty swallowing the pill. His hemoglobin A1c is 6.6%. Denies hypoglycemic episodes. He psychiatrist is Dr. Meehan. Chronic pain- imaging showed avascular necrosis of both hips. He saw [facility] [place] [place] [facility] on 08/13/2024, but he is not a surgical candidate. He saw pain management on 09/04/2024. He is in physical therapy. He has chronic pain in his bilateral knees, his lower back and middle back, neuropathy in his feet. On average pain is an 8/10 He has difficulty moving from a sitting to standing position. He uses a cane and walker. He does not drive. Patient reported he tried gabapentin and Lyrica which were ineffective. Patient is taking 5 mg of oxycodone every 6 hours as needed. Abnormal CBC-followed by Dr. Anthony. Patient has chronic thrombocytopenia. He was referred to Urology because PSA level was elevated at 11.26. He saw Dr. Matthews on 01/19/2025. Finasteride initiated. He has a bladder ultrasound and follow up appointment scheduled. Denies night sweats, fevers, chills or unexplained weight loss. He is a former smoker who quit about 10 years ago with 150+ pack-year history and underlying asthma since childhood, COPD and history of COVID-19 in March 2020. He uses oxygen with good effect. He uses his inhalers as prescribed. He had a CT in October 2023 with multiple nodules, and he is followed by pulmonology. ROS: Constitutional: No unexplained weight loss, fever, chills or night sweats. Eyes: No vision changes, blurry vision, double vision, eye pain, eye redness, eye discharge. ENT: No hearing loss, sneezing, congestion, runny nose or sore throat. Respiratory: No increase in baseline shortness of breath or increased cough or increased sputum production. No hemoptysis. Cardiovascular: No chest pain, palpitations or pedal edema Gastrointestinal: Denies abdominal pain, nausea, vomiting or diarrhea. Neurologic: No headache, dizziness, syncope Musculoskeletal: See HPI Hematologic/Lymphatics: No bleeding or bruising. No painful lymph nodes. Skin: No rash Endocrine: No cold or heat intolerance. No polyuria or polydipsia. Psychiatric: See HPI Physical exam: Constitutional: Alert, in no distress. Eyes: Pupils are equal, round and reactive to light. Extraocular muscles intact. Neck: Supple, Full range of motion. No lymphadenopathy. Respiratory: Clear to auscultation. Cardiovascular: S1 S2 regular. No murmurs. Neurologic: No focal neurological deficits. Extremities: Warm and well perfused. No clubbing, cyanosis or edema. Psychiatric: Normal mood and affect [facility] Medical History (Updated 02/09/25 @ 17:20 by Meagan Anthony MD) Hepatitis B core antibody positive Elevated liver function tests Elevated PSA Routine physical examination Avascular necrosis of bones of both hips Bilateral hip pain Risk for falls Asthma-COPD overlap syndrome Hospital discharge follow-up History of pneumonia Dry skin Bipolar affective disorder Low platelet count Depression Diabetic neuropathy Abnormal CBC Fatty liver Post-thoracotomy pain syndrome Emphysema (subcutaneous) (surgical) resulting from a procedure Hernia COVID-19 Diabetes mellitus, type 2 Bronchitis Pneumonia Surgical History Tympanic tube insertion History of intestinal surgery Family History Mother Mental health disorder Brother Substance use disorder Social History (Updated 03/18/25 @ 11:03 by Bessy Baldwin CMA) Household Members: None Housing: Apartment Alcohol intake: never Patient Tobacco Use Status: Former Tobacco user Cigarette Packs Per Day: 1 Years Smoked: 40 e-Cigarette/Vaping Use: Never Used Second Hand Smoke Exposure: No service: No Current occupational status: disabled Current occupational exposures/hazards: No Sexual orientation: Straight/Heterosexual Gender identity: Male Cognitive needs: No Hearing needs: No Vision needs: No Questionnaire Thrive Questionnaire Date Thrive assessed: 06/08/24 I am a: Patient What is your living situation today?: I have a steady place to live Within the past 12 months, did the food you bought not last and you didn't have the money to get more?: Sometimes True Within the past 12 months, did you worry whether your food would run out before you got money to buy more?: Sometimes True Do you have trouble paying for medicines?: No Do you have trouble getting transportation to medical appointments?: No Do you have trouble paying your heating and electricity bill?: No Do you have trouble taking care of your child, family member or friend?: Yes Do you have trouble with day-to-day activities such as bathing, preparing meals, shopping, managing finances, etc.?: Yes Are you currently unemployed and looking for a job?: Yes Are you interested in more education?: Yes Please select the resources that you would like help with: None Currently or been in a relationship where the following occur: I choose not to answer THRIVE Score: 2 BERRY-7 AMB Questionnaire BERRY-7 Date BERRY - 7 assessed: 09/10/24 Source: Developed by Drs. Ap Medina, Aidee Emerson, Demetrius Romano and colleagues, with an educational simon from [employer]. Physical exam (Primary Care) Vital Signs: Last Vital Signs Temp 98.4 F 03/18/25 11:03 Pulse 67 03/18/25 11:03 BP 134/62 03/18/25 11:03 Pulse Ox 96 03/18/25 11:03 Oxygen Delivery Method Nasal Cannula 03/18/25 11:03 BMI result Body Mass Index 24.6 Tobacco/Smoking Status: Tobacco use Status Tobacco use date assessed 03/18/25 03/18/25 11:07 Patient Tobacco Use Status Former Tobacco user 03/18/25 11:03 e-Cigarette/Vaping Use Never Used 03/18/25 11:03 Thrive Assessment: Date of Thrive Assessment Date Thrive assessed 06/08/24 03/18/25 10:52 Currently or been in a relationship where the following occur: I choose not to answer Results AMB Hemoglobin A1c AMB Hemoglobin A1c 6.6 % Last Edit by Bessy Baldwin CMA on 03/18/25 11:17 Results Reviewed Results Reviewed: Laboratory Last Values Hgb A1c (Clinic) 6.6 % (4.0-6.0) H 03/18/25 10:52 Coding Level of Care Code Est Pt Level 5 (83683) Diagnoses Diabetes mellitus type 2 with complications E11.8 Fatty liver K76.0 ILD (interstitial lung disease) J84.9 COPD mixed type J44.9 Hypertension associated with type 2 diabetes mellitus E11.59; I15.2 Lumbar back pain M54.50 Thoracic back pain M54.6 Diabetic polyneuropathy associated with type 2 diabetes mellitus E11.42 Diabetes mellitus type: type 2 Diabetes mellitus complication detail: diabetic polyneuropathy Depression F32.A 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 Given evidence of coronary artery disease on CT scan we discussed increasing the dose of his GLP 1. Stop Januvia. Increase Trulicity 1.5 mg weekly and continue metformin a 1000 mg twice daily. Patient was advised to call if he has low blood sugars to reduced dose of metformin. He has written instructions for treatment of low sugars. (2) Fatty liver: Code(s): K76.0 - Fatty (change of) liver, not elsewhere classified Category: Medical Plan: We reviewed his recent ultrasound which showed fatty liver disease, hepatomegaly and possible cirrhosis. Referred to Gastroenterology. He does not drink alcohol. Increase GLP 1. Avoid processed foods and high-cholesterol foods. (3) ILD (interstitial lung disease): Code(s): J84.9 - Interstitial pulmonary disease, unspecified Category: Medical Plan: Continue management per pulmonology. (4) COPD mixed type: Comment: Continue management per pulmonology [facility] 02 Code(s): J44.9 - Chronic obstructive pulmonary disease, unspecified Category: Medical Plan: Followed by pulmonology. On supplemental oxygen. No interval ER visits or hospitalizations. Patient refuses vaccines. (5) Hypertension associated with type 2 diabetes mellitus: Code(s): E11.59 - Type 2 diabetes mellitus with other circulatory complications; I15.2 - Hypertension secondary to endocrine disorders Category: Medical Plan: Patient was previously on losartan which reportedly caused leg weakness. Blood pressures have been okay off medication. (6) Lumbar back pain: Code(s): M54.50 - Low back pain, unspecified Category: Medical Plan: The patient has chronic pain which is multifactorial related to prior thoracotomy, avascular necrosis of the hips, diabetic neuropathy, degenerative arthritis and chronic lung disease. Continue oxycodone to 5 mg every 6 hours as needed for severe pain. Administration, side effects reviewed. Advised it is it addictive, habit-forming medication. It must be taken as directed. Reviewed risks associated with this medication including increased depression, constipation, dizziness, drowsiness, increased risk of falls, respiratory suppression. Because the pain is debilitating for the patient the benefit outweighs these risks. He is tolerating it thus far. Not a surgical candidate per Orthopedics. Followed by pain management. (7) Thoracic back pain: Code(s): M54.6 - Pain in thoracic spine Category: Medical (8) Diabetic neuropathy: Code(s): E11.40 - Type 2 diabetes mellitus with diabetic neuropathy, unspecified Category: Medical Qualifiers: Diabetes mellitus type: type 2 Diabetes mellitus complication detail: diabetic polyneuropathy Qualified Code(s): E11.42 - Type 2 diabetes mellitus with diabetic polyneuropathy (9) Depression: Code(s): F32.A - Depression, unspecified Category: Medical Plan: Patient managed by Dr. Meehan. Continue current medications per Psychiatry. (10) Post-thoracotomy pain syndrome: Code(s): G89.12 - Acute post-thoracotomy pain Category: Medical (11) Elevated PSA: Code(s): R97.20 - Elevated prostate specific antigen [PSA] Category: Medical Plan: Following with urology. (12) Coronary artery calcification seen on CAT scan: Code(s): I25.10 - Atherosclerotic heart disease of [place] coronary artery without angina pectoris Category: Medical Plan: No anginal symptoms. Evaluated by Cardiology. Continue atorvastatin. (13) Thrombocytopenia: Code(s): D69.6 - Thrombocytopenia, unspecified Plan: He has chronic thrombocytopenia. Plan Follow up in 3 months. Orders: Orders AMB Hemoglobin A1c 03/18/25 E11.8 - Type 2 diabetes mellitus with unspecified complications Prostate Specific Antigen 03/18/25 E11.8 - Type 2 diabetes mellitus with unspecified complications, K76.0 - Fatty (change of) liver, not elsewhere classified, R76.8 - Other specified abnormal immunological findings in serum, Z12.5 - Encounter for screening for malignant neoplasm of prostate Comprehensive Met. Panel 03/18/25 E11.8 - Type 2 diabetes mellitus with unspecified complications, K76.0 - Fatty (change of) liver, not elsewhere classified, R76.8 - Other specified abnormal immunological findings in serum Complete Blood Count no Diff 03/18/25 E11.8 - Type 2 diabetes mellitus with unspecified complications, K76.0 - Fatty (change of) liver, not elsewhere classified, R76.8 - Other specified abnormal immunological findings in serum Hepatitis A IgM 03/18/25 R76.8 - Other specified abnormal immunological finding s in serum, R79.89 - Other specified abnormal findings of blood chemistry Hepatitis A,B,C Profile 03/18/25 R76.8 - Other specified abnormal immunological findings in serum, R79.89 - Other specified abnormal findings of blood chemistry Referrals Gastroenterology Referral K76.0 - Fatty (change of) liver, not elsewhere classified, R79.89 - Other specified abnormal findings of blood chemistry Medications: New dulaglutide (Trulicity) 1.5 mg (0.5 mL) subcut QWEEK 2 mL 5RF Discontinued dulaglutide (Trulicity) Discontinued Reason: Doctor's Order 0.75 mg (0.5 mL) subcut QWEEK 2 mL 11RF sitagliptin phosphate (Januvia) Discontinued Reason: Doctor's Order 100 mg PO DAILY 90 tabs 3RF Patient Instructions: Continue Metformin 1000 mg twice daily Stop Januvia Increase Trulicity to 1.5 mg weekly Continuar con Metformina 1000 mg dos veces al d?a Suspender Januvia Aumentar Trulicity a 1.5 mg semanalmente
[2025-03-18 11:03] VITALS: BP 134/62; PULSE 67; TEMP 36.9; O2SAT 96; BMI 24.6
--- OUTSIDE RECORDS SUMMARY | 2025-03-18 16:12 | XMS_ITS ---
Author Name Kassie APRNAmena rajan Address [address] [place] [address] Phone [phone] [facility] Care Team Providers Care Dials Inspector Name Role Phone Darling Fernando Unavailable [phone] [facility] Unavailable [phone] Reason for Referral Not Available Allergies, adverse [...] 2024-02-24 No Data Available OneTouch Delica Plus [id number] Miscellaneous USE SEG N LO INDICADO TO [...] 1111F, BP, A1c or other [facility]PT[facility] codes [facility] Encounter for other specifie d aftercare Unlisted special service; to be used for medical record reviews and reporting CPTII codes (1111F, etc) [facility] Encounter for other specifie d aftercare Unlisted special service; to be used for medical record reviews and reporting CPTII codes (1111F, etc) [facility] ([place]) 07/28/2024 Social History Sex Male History of Procedures Procedures Service Procedure code Service date Servicing provider Phone# RN, CN or CP time with patient by phone; use with 1111F, BP, A1c or other CPTII codes [id number] 2024-07-04 No Data Available No Data Avai lable Unlisted special service; to be used for medical record reviews and reporting CPTII codes (1111F, etc) [id number] 2024-07-28 No Data Available No Data Availa ble Medications prescribed in hospital were reviewed and reconciled against what they were taking prior to admission during today's visit. (1111F) 1111F 2024-07-28 No Data Available No Data Availa ble Functional Status No Information Mental Status No Information Assessments Not Available Plan of Care Not Available
--- OUTSIDE RECORDS SUMMARY | 2025-03-18 16:13 | XMS_ITS | Patient Health Record ---
Author Organization [facility] Address [address] [place] [address] Care Team Providers Care Mannequin Sander And Finisher Name Role Phone Julián Crowe Unavailable Allergies [...] Severe recurrent major depression without psychotic features ([id number]) Major depressive disorder, recurrent severe without psychotic features (F33.2) Active confirmed Problem Primary insomnia ([id number]) Primary insomnia (F51.01) Active confirmed Plan Of Treatment No Information Insurance Providers Payer Name Payer Address Payer Phone Subscriber Number Group Number Insured Name Patient Relationship to Insured Coverage Start Date Coverage End Date [employer] [address] [address] [place] [address] [id number] Costa Jones Self - patient is the insured Medical (General) History Medical History History ICD Code no medical history Surgical History Surgery Date(Month/Year) intestine 09/2002
--- OUTSIDE RECORDS SUMMARY | 2025-03-18 16:13 | XMS_ITS | Clinical Summary ---
Author Organization [employer] Address [address] [place] [address] Care Team Providers Care Taxi Driver Name Role Phone Unavailable Primary Care Provider [...] of 2) 2001 COVID-19 Vaccine ( - 2024-2 6 season) 2024 Influenza Vaccine (#1) 2024 RSV [...] patient's age to complete this topic Insurance [facility]
--- OUTSIDE RECORDS SUMMARY | 2025-03-18 16:13 | XMS_ITS | Patient Health Record ---
Author Organization [facility] Address [address] [address] Support Name Relationship Address Phone Costa Escalante Guarantor Unknown Reason For Referral No Information Plan Of Treatment No Information
== END 2025-03-18 11:45 | disposition home or self-care (01) ==
LOC: HO.HMCFM 10:45
PROVIDERS: PCP Physician Assistant Medical; Visit Provider Physician Assistant Medical
DX: E11.8 Type 2 diabetes mellitus with unspecified complications (principal)